=== PATIENT | female | born 1945 | race Caucasian/White ===

== ENCOUNTER 2019-04-28 01:51 | Emergency (ER) | payer OTHER ==
[2019-04-28] MEDS ORDERED: NA CHLORIDE 0.9% 1,000 ML ONE (02:32)
[2019-04-28 02:35] LABS: Absolute Lymphocytes (CBC) 1.5 K/uL (0.7-4.9); Basophils % 1.3 % (0-1.3); Hematocrit 34.9 % (36.0-45.0); Lymphocytes % 15.2 % (15.3-44.8); MPV 9.2 fL (7.6-11.3); RBC Red Blood Cell Count 3.83 M/uL (3.86-4.86)
[2019-04-28 02:55] LABS: Thyroid Stimulating Hormone 2.87 uIU/mL (0.360-3.740)
--- NOTE | 2019-04-28 03:25 | EDPHYS ---
Physician Documentation [facility] Name: Brittani Seaman Age: 74 yrs Sex: Female : 1945 Arrival Date: 04/28/2019 Time: 01:58 Bed 7 Private MD: ED Physician Luis Carlos Christianson HPI: 04/28 02:14 This 74 yrs old Female presents to ER via EMS with complaints of High Blood snw Sugar, High Blood Pressure. 02:14 The patient or guardian reports palpitations, that was potentially precipitated by snw increased activity. Onset: The symptoms/episode began/occurred gradually, 1 week(s) ago, and became worse today, and became persistent. Associated signs and symptoms: Pertinent positives: increased bp and increased blood sugar. Current symptoms: In the emergency department the patient's symptoms are unchanged from the initial presentation. The patient has experienced similar episodes in the past. appt with PCP this month. Historical: - Allergies: 02:05 Sulfa (Sulfonamide Antibiotics); ea - Home Meds: 02:05 Levemir subcutaneous subcutaneous [Active]; Novolog Sub-Q [Active]; losartan oral oral ea [Active]; amitriptyline Oral [Active]; - PMHx: 02:05 Hypothyroidism; Hypertension; Diabetes - IDDM; COPD; chronic bronchitis; ea - PSHx: 02:05 Hysterectomy; Bladder suspension; Appendectomy; Tonsillectomy; ea - Immunization history:: Adult Immunizations up to date. - Social history:: Smoking status: Patient uses tobacco products, smokes one-half pack cigarettes per day. - Ebola Screening: : No symptoms or risks identified at this time. ROS: 02:13 Constitutional: Negative for fever, chills, and weight loss, Eyes: Negative for injury, snw pain, redness, and discharge, ENT: Negative for injury, pain, and discharge, Neck: Negative for injury, pain, and swelling, Cardiovascular: Negative for chest pain and edema, + palpitations Respiratory: Negative for shortness of breath, cough, wheezing, and pleuritic chest pain, Abdomen/GI: Negative for abdominal pain, nausea, vomiting, diarrhea, and constipation, Back: Negative for injury and pain, MS/Extremity: Negative for injury and deformity, Skin: Negative for injury, rash, and discoloration, Neuro: Negative for headache, weakness, numbness, tingling, and seizure, Psych: Negative for depression, anxiety, suicide ideation, homicidal ideation, and hallucinations. Exam: 02:12 Constitutional: This is a well developed, well nourished patient who is awake, alert, snw and in no acute distress. Head/Face: Normocephalic, atraumatic. Eyes: Pupils equal round and reactive to light, extra-ocular motions intact. Lids and lashes normal. Conjunctiva and sclera are non-icteric and not injected. Cornea within normal limits. Periorbital areas with no swelling, redness, or edema. ENT: Nares patent. No nasal discharge, no septal abnormalities noted. Tympanic membranes are normal and external auditory canals are clear. Oropharynx with no redness, swelling, or masses, exudates, or evidence of obstruction, uvula midline. Mucous membranes moist. Neck: Trachea midline, no thyromegaly or masses palpated, and no cervical lymphadenopathy. Supple, full range of motion without nuchal rigidity, or vertebral point tenderness. No Meningismus. Chest/axilla: Normal chest wall appearance and motion. Nontender with no deformity. No lesions are appreciated. Respiratory: Lungs have equal breath sounds bilaterally, clear to auscultation and percussion. No rales, rhonchi or wheezes noted. No increased work of breathing, no retractions or nasal flaring. Abdomen/GI: Soft, non-tender, with normal bowel sounds. No distension or tympany. No guarding or rebound. No evidence of tenderness throughout. Back: No spinal tenderness. No costovertebral tenderness. Full range of motion. Skin: Warm, dry with normal turgor. Normal color with no rashes, no lesions, and no evidence of cellulitis. MS/ Extremity: Pulses equal, no cyanosis. Neurovascular intact. Full, normal range of motion. Neuro: Awake and alert, GCS 15, oriented to person, place, time, and situation. Cranial nerves II-XII grossly intact. Motor strength 5/5 in all extremities. Sensory grossly intact. Cerebellar exam normal. Normal gait. Psych: Awake, alert, with orientation to person, place and time. Behavior, mood, and affect are within normal limits. 02:12 Cardiovascular: Rate: tachycardic, Rhythm: regular, Pulses: no pulse deficits are appreciated, Edema: is not appreciated, JVD: is not appreciated. Vital Signs: 02:05 BP 127 / 82; Pulse 82; Resp 20; Temp 97.6; Pulse Ox 97% ; Weight 60.33 kg; Height 5 ft. ea 5 in. (165.10 cm); Pain 0/10; 02:37 BP 115 / 74; Pulse 80; Resp 18; Pulse Ox 99% ; ea 03:03 BP 166 / 65; Pulse 76; Resp 15; Pulse Ox 98% ; ea 02:05 Body Mass Index 22.13 (60.33 kg, 165.10 cm) ea MDM: 02:04 Patient medically screened. snw 03:25 Data reviewed: vital signs, nurses notes. Data interpreted: Pulse oximetry: on room air snw is 98 %. Interpretation: normal. Counseling: I had a detailed discussion with the patient and/or guardian regarding: the historical points, exam findings, and any diagnostic results supporting the discharge/admit diagnosis, the presence of at least one elevated blood pressure reading (>120/80) during this emergency department visit, lab results, radiology results, the need for outpatient follow up, to return to the emergency department if symptoms worsen or persist or if there are any questions or concerns that arise at home, smoking cessation. Special discussion: I have referred the patient to see his PCP for further evaluation of high blood pressure. Based on the history and exam findings, there is no indication for further emergent testing or inpatient evaluation. I discussed with the patient/guardian the need to see the podiatry doctor for further evaluation of the symptoms. I discussed with the patient/guardian the need to see the primary care provider for further evaluation of the symptoms. 04/28 02:12 Order name: TSH; Complete Time: 03:04 snw 04/28 02:12 Order name: CBC with Diff snw 04/28 02:12 Order name: Chem 7; Complete Time: 03:04 snw 04/28 02:12 Order name: Urine Microscopic Only snw 04/28 02:14 Order name: Chest Pa And Lat (2 Views) XRAY snw 04/28 02:37 Order name: Manual Differential EDMS 04/28 02:12 Order name: Urine Dipstick-Ancillary (obtain specimen); Complete Time: 02:30 snw 04/28 02:12 Order name: EKG; Complete Time: 02:12 snw 04/28 02:12 Order name: EKG - Nurse/Tech; Complete Time: 02:38 snw Administered Medications: 02:40 Drug: NS 0.9% 1000 ml Route: IV; Rate: 1 bolus; Site: right forearm; ea 03:57 Follow up: Response: No adverse reaction; IV Status: Completed infusion; IV Intake: ea 700ml Disposition: 05:31 Co-signature as Attending Physician, Luis Carlos Christianson MD. rn Disposition: 04/28/19 03:24 Discharged to Home. Impression: Hyperglycemia, unspecified, Encounter for examination of blood pressure without abnormal findings, Allergy, unspecified. - Condition is Stable. - Discharge Instructions: Allergies, Adult, Diabetes and Sick Day Management, Hyperglycemia, Blood Glucose Monitoring, Adult. - Prescriptions for Zyrtec 10 mg Oral Tablet - take 1 tablet by ORAL route once daily As needed; 20 tablet. - Medication Reconciliation Form, Thank You Letter, Antibiotic Education, Prescription Opioid Use form. - Follow up: Emergency Department; When: As needed; Reason: Worsening of condition. Follow up: Private Physician; When: 2 - 3 days; Reason: Recheck today's complaints, Continuance of care, Re-evaluation by your physician. Signatures: Dispatcher [employer] EDMS Marcia Friedman, GENERAL ASSEMBLER-C GENERAL ASSEMBLER-Csnw Luis Carlos Christianson MD MD rn Antunez, Elena, RN RN ea Corrections: (The following items were deleted from the chart) 03:56 03:24 04/28/2019 03:24 Discharged to Home. Impression: Hyperglycemia, unspecified; ea Encounter for examination of blood pressure without abnormal findings; Allergy, unspecified. Condition is Stable. Forms are Medication Reconciliation Form, Thank You Letter, Antibiotic Education, Prescription Opioid Use. Follow up: Emergency Department; When: As needed; Reason: Worsening of condition. Follow up: Private Physician; When: 2 - 3 days; Reason: Recheck today's complaints, Continuance of care, Re-evaluation by your physician. snw
--- NOTE | 2019-04-28 03:25 | ER ---
Nurse's Notes [facility] Name: Brittani Seaman Age: 74 yrs Sex: Female : 1945 Arrival Date: 04/28/2019 Time: 01:58 Bed 7 Private MD: Diagnosis: Hyperglycemia, unspecified;Encounter for examination of blood pressure without abnormal findings;Allergy, unspecified Presentation: 04/28 01:59 Presenting complaint: EMS states: After was loaded into the ambulance, pt ea reported she was feeling ill, blood sugar was 206. Blood pressure was in the 190s systolic. Transition of care: patient was not received from another setting of care. Onset of symptoms was April 28, 2019. Risk Assessment: Do you want to hurt yourself or someone else? Patient reports no desire to harm self or others. Initial Sepsis Screen: Does the patient meet any 2 criteria? No. Patient's initial sepsis screen is negative. Does the patient have a suspected source of infection? No. Patient's initial sepsis screen is negative. Care prior to arrival: 20 G to right forearm, blood sugar 206. 01:59 Method Of Arrival: EMS: [facility] ea 01:59 Acuity: PRAVEEN 3 ea Triage Assessment: 02:07 General: Appears in no apparent distress. Behavior is calm, cooperative, appropriate ea for age. Pain: Denies pain. Neuro: Level of Consciousness is awake, alert, obeys commands, Oriented to person, place, time, situation. Cardiovascular: Patient's skin is warm and dry. Respiratory: Airway is patent Respiratory effort is even, unlabored, Respiratory pattern is regular, symmetrical. Derm: Skin is pink, warm \T\ dry. Historical: - Allergies: 02:05 Sulfa (Sulfonamide Antibiotics); ea - Home Meds: 02:05 Levemir subcutaneous subcutaneous [Active]; Novolog Sub-Q [Active]; losartan oral oral ea [Active]; amitriptyline Oral [Active]; - PMHx: 02:05 Hypothyroidism; Hypertension; Diabetes - IDDM; COPD; chronic bronchitis; ea - PSHx: 02:05 Hysterectomy; Bladder suspension; Appendectomy; Tonsillectomy; ea - Immunization history:: Adult Immunizations up to date. - Social history:: Smoking status: Patient uses tobacco products, smokes one-half pack cigarettes per day. - Ebola Screening: : No symptoms or risks identified at this time. Screenin:06 Abuse screen: Denies threats or abuse. Nutritional screening: No deficits noted. ea Tuberculosis screening: No symptoms or risk factors identified. Fall Risk IV access (20 points). Assessment: 02:08 Reassessment: see triage assessment. ea 03:08 Reassessment: Patient and/or family updated on plan of care and expected duration. Pain ea level reassessed. Patient is alert, oriented x 3, equal unlabored respirations, skin warm/dry/pink. Awaiting on radiology results. 03:51 Reassessment: Patient and/or family updated on plan of care and expected duration. Pain ea level reassessed. Patient is alert, oriented x 3, equal unlabored respirations, skin warm/dry/pink. Discharge instruction given to patient, verbalized the understanding of instruction. Pt left ED ambulatory, pt tolerating well. Vital Signs: 02:05 BP 127 / 82; Pulse 82; Resp 20; Temp 97.6; Pulse Ox 97% ; Weight 60.33 kg; Height 5 ft. ea 5 in. (165.10 cm); Pain 0/10; 02:37 BP 115 / 74; Pulse 80; Resp 18; Pulse Ox 99% ; ea 03:03 BP 166 / 65; Pulse 76; Resp 15; Pulse Ox 98% ; ea 02:05 Body Mass Index 22.13 (60.33 kg, 165.10 cm) ea ED Course: 01:58 Patient arrived in ED. ea 02:03 Marcia Friedman FNP-C [facility]. snw 02:03 Luis Carlos Christianson MD is Attending Physician. snw 02:03 Triage completed. ea 02:06 Patient has correct armband on for positive identification. Bed in low position. Call ea light in reach. Side rails up X2. 02:07 Patient placed in an exam room, on a stretcher, on pulse oximetry. ea 02:10 Maintain EMS IV. Dressing intact. Good blood return noted. Site clean \T\ dry. Gauge \T\ ea site: 20G right forearm. 02:13 Harmony Monroe, SHAMA is Primary Nurse. ea 03:49 No provider procedures requiring assistance completed. IV discontinued, intact, ea bleeding controlled, No redness/swelling at site. Pressure dressing applied. 05:57 Chest Pa And Lat (2 Views) XRAY In Process Unspecified. EDMS Administered Medications: 02:40 Drug: NS 0.9% 1000 ml Route: IV; Rate: 1 bolus; Site: right forearm; ea 03:57 Follow up: Response: No adverse reaction; IV Status: Completed infusion; IV Intake: ea 700ml Intake: 03:57 IV: 700ml; Total: 700ml. ea Outcome: 03:24 Discharge ordered by MD. haile 03:49 Discharged to Pt admitted to hospital, pt left ED to accompany , pt left ea ambulatory, tolerating well. 03:49 Condition: stable 03:49 Discharge instructions given to patient, Instructed on discharge instructions, follow up and referral plans. medication usage, Demonstrated understanding of instructions, follow-up care, medications, Prescriptions given X 1. 03:56 Patient left the ED. ea Signatures: Dispatcher [employer] EDMS Marcia Friedman, METHODS ANALYST-C METHODS ANALYST-Csnw Harmony Monroe, RN RN radha Corrections: (The following items were deleted from the chart) 03:07 02:03 Inserted saline lock: 20 gauge in right forearm, using aseptic technique. ea ea
[2019-04-28 03:52] LABS: Urine Bacteria <20 /HPF (<20); Urine Culture Reflex Order NOT NEEDED; Urine RBC NONE SEEN /HPF (NONE SEEN)
[2019-04-28 03:55] LABS: Blood Morphology Comment NOT SEEN (NOT SEEN); Platelet Estimate ADEQ
[2019-04-28 04:17] VITALS: TEMP 97.6
[2019-04-28 04:20] VITALS: BP 166/65; O2SAT 98
--- NOTE | 2019-04-28 08:10 | RAD REPORT ---
EXAM DESCRIPTION: RAD - Chest Pa And Lat (2 Views) - 04/28/2019 5:57 am CLINICAL HISTORY: COUGH Chest pain. COMPARISON: Chest Pa And Lat (2 Views) dated 02/18/2019; Chest Pa And Lat (2 Views) dated 05/12/2017; Chest Pa And Lat (2 Views) dated 03/26/2016; Chest Single View dated 02/26/2016 FINDINGS: Advanced emphysematous changes are present throughout the lungs with areas of nodularity i n the right upper lobe which are unchanged. Linear opacity is present in the right middle lobe suspic ious for early infiltrate. The heart is normal in size. No displaced fractures. IMPRESSION: Early developing infiltrate/ pneumonia right middle lobe suspected.
--- NOTE | 2019-04-28 17:25 | EKG ---
Test Date: 2019-04-28 Test Time: 02:26:46 Machine Attendant: ARABELLA MEASUREMENT RESULTS: Intervals: Rate: 78 IN: 160 QRSD: 122 QT: 432 QTc: 492 [place]: P: 64 IN: 160 QRS: -25 T: 96 INTERPRETIVE STATEMENTS: Normal sinus rhythm Left bundle branch block Abnormal ECG Compared to ECG 02/26/2016 18:13:26 No significant changes Electronically Signed On 04-28-19 17:21:51 [employer]ORM DOOR MAKER by Dirk Gavin
== END 2019-04-28 03:56 | disposition home or self-care (01) ==
LOC: ER 01:51
DX: R73.9 Hyperglycemia, unspecified (principal); T78.40XA Allergy, unspecified, initial encounter; F17.210 Nicotine dependence, cigarettes, uncomplicated; I10 Essential (primary) hypertension; E11.9 Type 2 diabetes mellitus without complications; Z79.4 Long term (current) use of insulin; Z88.2 Allergy status to sulfonamides
CPT/HCPCS: 93005; 85025; 80048; 36415; 84443; 81015; 71046; 96360; 99284; J7030

== ENCOUNTER 2019-10-03 14:16 | Inpatient (IN) | payer OTHER ==
[2019-10-03] MEDS ORDERED: FENTANYL CITR 100 MCG/2 ML ONE ×3 (14:38→17:25)
[2019-10-03] MEDS ORDERED: ONDANSETRON 4 MG/2 ML VIAL ONE ×2 (14:38→17:25)
[2019-10-03 14:59] LABS: Absolute Lymphocytes (CBC) 1.2 K/uL (0.7-4.9); Basophils % 0.3 % (0-1.3); Hematocrit 40.6 % (36.0-45.0); Lymphocytes % 5.8 % (15.3-44.8); MPV 9.6 fL (7.6-11.3); RBC Red Blood Cell Count 4.48 M/uL (3.86-4.86)
[2019-10-03 15:13] LABS: Albumin 3.2 g/dL (3.4-5.0); Bilirubin Direct 0.2 mg/dL (0-0.2); Bilirubin Total 0.5 mg/dL (0.2-1.0); Potassium 4.7 mmol/L (3.5-5.1); Protein, Total 7.8 g/dL (6.4-8.2)
[2019-10-03 16:00] LABS: Blood Morphology Comment NOTED (NOT SEEN); Platelet Estimate ADEQ; Urine White Blood Cell Casts OK
[2019-10-03 16:01] LABS: Poikilocytosis 1+
--- NOTE | 2019-10-03 16:09 | RAD REPORT ---
EXAM DESCRIPTION: CT - Abdomen Pelvis W Contrast - 10/03/2019 3:39 pm CLINICAL HISTORY: ABD PAIN COMPARISON: Thorax Wo Con dated 07/29/2016 TECHNIQUE: Biphasic, helical CT imaging of the abdomen and pelvis was performed following 100 ml non -ionic IV contrast. No oral contrast given. All CT scans are performed using dose optimization technique as appropriate and may include automated exposure control or mA/KV adjustment according to patient size. FINDINGS: Minimal scarring and nodularity in the posterior lung bases. No acute component seen. No c ardiomegaly or pericardial effusion. Liver and spleen show no focal parenchymal findings. Significant pancreatic atrophy is present. Pancr eatic duct is prominent in the body. Gallbladder is well filled but not dilated. No acute gallbladder abnormality. Stones can be occult on CT imaging. Mild intrahepatic and extrahepatic biliary tree dil atation identified. The duodenal or pancreatic mass is not seen. Duct stones can be occult. Symmetric renal function is seen with no hydronephrosis or suspicious renal mass. No pyelonephritis o r acute parenchymal process. No bladder abnormalities. A 2 centimeter low-density right adrenal mass is present but unchanged from 2017. No suspicious left adrenal finding. Uterus is absent. Ovaries are absent or atrophic. There is significant pelvic floor prolapse. Low-den sity within the vaginal vault is probably spilled urine. Small hiatal hernia is present. No dilatation of the stomach. No gastric wall thickening, mass or rosalio ma. No abnormality of the duodenum seen. Proximal small bowel is unremarkable. From the distal jejunu m through the distal ileum there are multiple distended to borderline dilated fluid-filled small sylvia l loops. Distal ileum is normal diameter. An abrupt transition point is not identifiable. The distend ed loops will bowel do not show a wall thickening or edema pattern. Moderate stool volume throughout the colon. No acute colon process is seen. No free air or pneumatosis. Small amount of ascites present in the peritoneal cavity. No mass or bu lky lymphadenopathy. Small fat only umbilical hernia is present 2.5 cm in diameter with a 2.[address] neck. Small bilateral fat only inguinal hernias are present. Disc and bony degenerative changes are present. Findings are most pronounced at L4-5. No acute or pat hologic bone process. Patient has very dense arterial tree calcifications. There are prominent calcifications near the nuno ac and SMA vessels. Bowel ischemia is unlikely. Significant iliac atherosclerotic disease is present. Approximately 50% right common iliac stenosis is seen. Patient appears to have significant stenosis at the left common iliac - external iliac junction. Dense calcification involves the left internal il iac artery. He was IMPRESSION: Multiple distended to borderline dilated fluid-filled small bowel loops from distal jeju num to mid ileum level. No abrupt transition point or mass identified. The involved small bowel loops do not show wall thickening. There is no free air or pneumatosis. A sm all amount of ascites is present. Prominent small bowel enteritis would be favored. Early mechanical obstruction is possible and needs ongoing monitoring. Mild biliary tree dilatation without acute gallbladder finding. An obstructing mass is not identified . Duct stones can be occult. Correlation is needed with any biliary obstructive clinical or laborator y findings. Significant pelvic floor prolapse as detailed.
--- NOTE | 2019-10-03 17:13 | ER ---
Nurse's Notes [facility] Name: Brittani Seaman Age: 74 yrs Sex: Female : 1945 Arrival Date: 10/03/2019 Time: 14:20 Bed 18 Private MD: Diagnosis: Lower abdominal pain, unspecified;enteritis vs early mechanical obstruction Presentation: 10/02 14:20 Chief complaint: Patient states: mid-lower back pain radiating to abdomen that began aa5 this morning. Pt denies injury. During coronavirus screen: Pt states "I have COPD and I just have cough and congestion from allergies". EMS reports administering ASA 81mg x 4, 22 G to R hand by EMS. Pt states "last time I had blood work done by my doctor about a month ago he said I have stage 3 kidney disease". Coronavirus screen: Patient reports a cough. Patient denies shortness of breath or difficulty breathing. Patient denies measured and/or subjective temperature greater than 100.4F prior to today's visit. Patient denies travel on a cruise ship or to a country the [facility] currently lists as an affected area. Patient denies contact with known and/or suspected case of COVID-19. Ebola Screen: Patient negative for fever greater than or equal to 101.5 degrees Fahrenheit, and additional compatible Ebola Virus Disease symptoms. Initial Sepsis Screen: Does the patient meet any 2 criteria? No. Patient's initial sepsis screen is negative. Does the patient have a suspected source of infection? No. Patient's initial sepsis screen is negative. Risk Assessment: Do you want to hurt yourself or someone else? Patient reports no desire to harm self or others. Onset of symptoms was October 03, 2019. 14:20 Acuity: PRAVEEN 3 aa5 14:20 Method Of Arrival: EMS: [facility] aa5 Historical: - Allergies: 14:25 Sulfa (Sulfonamide Antibiotics); aa5 - PMHx: 14:25 chronic bronchitis; COPD; Diabetes - IDDM; Hypertension; Hypothyroidism; aa5 15:00 Prolapsed bladder; aa5 - PSHx: 14:25 Hysterectomy; Bladder suspension; Appendectomy; Tonsillectomy; aa5 - Immunization history:: Adult Immunizations unknown. - Social history:: Smoking status: Patient/guardian denies using tobacco. Screenin:25 Abuse screen: Denies threats or abuse. Nutritional screening: No deficits noted. aa5 Tuberculosis screening: No symptoms or risk factors identified. Fall Risk None identified. Assessment: 14:20 General: Appears uncomfortable, Behavior is calm, cooperative. Pain: Complains of pain aa5 in left low back, left mid back, right mid back and right low back Pain radiates to right lower quadrant and left lower quadrant Pain currently is 8 out of 10 on a pain scale. Quality of pain is described as sharp, shooting, Pain began this morning Is continuous. Neuro: Level of Consciousness is awake, alert, obeys commands, Oriented to person, place, time, situation. Cardiovascular: Patient's skin is warm and dry. Edema is absent. Respiratory: Airway is patent Respiratory effort is even, unlabored, Respiratory pattern is regular, symmetrical. GI: Abdomen is round Bowel sounds present X 4 quads. Abd is soft and non tender X 4 quads. Reports nausea, Patient currently denies diarrhea, vomiting. : Reports burning with urination, reports last void was this morning. EENT: No signs and/or symptoms were reported regarding the EENT system. Derm: Skin is pink, warm \\T\\ dry. Musculoskeletal: Range of motion: intact in all extremities. 15:28 Reassessment: Patient is alert, oriented x 3, equal unlabored respirations, skin aa5 warm/dry/pink. Patient states symptoms have not improved. pain is unchanged, HAIRMASTERS MANAGER was notified. . 16:00 Reassessment: Patient is alert, oriented x 3, equal unlabored respirations, skin aa5 warm/dry/pink. Patient states feeling better. Pt denies nausea, reports pain has improved. . 17:00 Reassessment: Patient is alert, oriented x 3, equal unlabored respirations, skin aa5 warm/dry/pink. 17:40 Reassessment: Patient is alert, oriented x 3, equal unlabored respirations, skin aa5 warm/dry/pink. Pt c/o increased pain, HAIRMASTERS MANAGER was notified. . 18:50 Reassessment: Patient is alert, oriented x 3, equal unlabored respirations, skin aa5 warm/dry/pink. Vital Signs: 14:20 BP 105 / 54; Pulse 75; Resp 18 S; Temp 97.7(O); Pulse Ox 100% on R/A; aa5 14:30 BP 95 / 64; Pulse 79; Resp 18 S; Pulse Ox 98% on R/A; aa5 14:47 BP 106 / 49; Pulse 72; Resp 16 S; Pulse Ox 97% on R/A; aa5 15:46 BP 116 / 52; Pulse 72; Resp 16 S; Pulse Ox 97% on R/A; aa5 16:00 BP 98 / 62; Pulse 69; Resp 16 S; Pulse Ox 97% on R/A; aa5 17:00 BP 109 / 52; Pulse 74; Resp 18 S; Pulse Ox 97% on R/A; aa5 18:00 BP 107 / 60; Pulse 72; Resp 18 S; Pulse Ox 96% on R/A; aa5 ED Course: 14:20 Patient arrived in ED. aa5 14:20 Arm band placed on Patient placed in an exam room, on a stretcher. aa5 14:22 [facility] kb 14:22 Rolando Dougherty MD is Attending Physician. kb 14:22 Triage completed. aa5 14:22 Patient has correct armband on for positive identification. Bed in low position. Call [facility] light in reach. Side rails up X2. Warm blanket given. alarm security or surveillance monitor on. Pulse ox on. NIBP on. 14:26 Vivian Alva, SHAMA is Primary Nurse. aa5 14:53 Initial lab(s) drawn, by me, sent to lab. Inserted saline lock: 20 gauge in left 5 antecubital area, using aseptic technique. 14:54 Patient has correct armband on for positive identification. mh5 15:40 CT Abd/Pelvis - IV Contrast Only In Process Unspecified. EDMS 17:13 Ramon Bronson MD is Hospitalizing Provider. kb 17:40 First set of blood cultures drawn by me. 22 G to R Hand by EMS, catheter was noted half aa5 way out, IV was dc'd, and gauze/tape was applied to control bleeding. 17:50 Inserted saline lock: 20 gauge in right forearm, using aseptic technique. aa5 17:50 Second set of blood cultures drawn by me. aa5 18:00 No provider procedures requiring assistance completed. aa5 Administered Medications: 14:40 Drug: fentaNYL (PF) 25 mcg Route: IVP; Site: right hand; aa5 14:50 Follow up: Response: No adverse reaction aa5 14:40 Drug: Zofran (Ondansetron) 4 mg Route: IVP; Site: right hand; aa5 14:50 Follow up: Response: No adverse reaction aa5 15:34 Drug: fentaNYL (PF) 25 mcg Route: IVP; Site: right hand; aa5 15:45 Follow up: Response: No adverse reaction aa5 17:40 Drug: fentaNYL (PF) 25 mcg Route: IVP; Site: left antecubital; aa5 17:50 Follow up: Response: No adverse reaction aa5 17:40 Drug: Zofran (Ondansetron) 4 mg Route: IVP; Site: left antecubital; aa5 17:50 Follow up: Response: No adverse reaction aa5 17:50 Drug: Flagyl 500 mg Volume: 100 ml; Route: IVPB; Rate: 200 ml/hr; Infused Over: 30 aa5 mins; Site: right forearm; 18:20 Follow up: Response: No adverse reaction; IV Status: Completed infusion aa5 17:50 Drug: NS 0.9% 1000 ml Route: IV; Rate: 125 ml/hr; Site: right forearm; aa5 18:50 Follow up: IV Status: Infusion continued upon admission aa5 18:21 Drug: Cipro 400 mg Volume: 200 ml; Route: IVPB; Infused Over: 60 mins; Site: right aa5 forearm; 18:50 Follow up: Response: No adverse reaction; IV Status: Infusion continued upon admission aa5 Outcome: 17:13 Decision to Hospitalize by Provider. kb 18:50 Patient left the ED. aa5 18:50 Admitted to Med/surg accompanied by tech, via wheelchair, with chart. aa5 18:50 Condition: stable 18:50 Instructed on the need for admit, Demonstrated understanding of instructions. Signatures: Dispatcher [employer] EDMS Yarelis Walker, [employer] APPLICATION CONSULTANT-Vivian Moralez RN RN aa5 Maki Sellers 5 Corrections: (The following items were deleted from the chart) 14:23 14:20 Chief complaint: Patient states: mid-lower back pain that began this morning. Pt aa5 denies injury. During coronavirus screen: Pt states "I have COPD and I just have cough and congestion from allergies". aa5 14:28 14:20 Chief complaint: Patient states: mid-lower back pain radiating to abdomen that aa5 began this morning. Pt denies injury. During coronavirus screen: Pt states "I have COPD and I just have cough and congestion from allergies". EMS reports administering ASA 81mg x 4, 22 G to R hand by EMS. aa5 19:13 18:57 Patient left the ED. aa5 aa5
--- NOTE | 2019-10-03 17:14 | EDPHYS ---
Physician Documentation [facility] Name: Brittani Seaman Age: 74 yrs Sex: Female : 1945 Arrival Date: 10/03/2019 Time: 14:20 Bed 18 Private MD: ED Physician Rolando Dougherty HPI: 10/02 15:45 This 74 yrs old Female presents to ER via EMS with complaints of Back Pain. kb 15:45 The patient presents with pain that is acute, with no known mechanism of injury. The kb symptoms are located in the low back. Onset: The symptoms/episode began/occurred this morning. The pain radiates to the right lower quadrant and left lower quadrant. Associated signs and symptoms: Pertinent positives: abdominal pain, nausea, Pertinent negatives: constipation, dysuria, fever. The problem was sustained without known cause. Modifying factors: The patient symptoms are alleviated by nothing, the patient symptoms are aggravated by any movement. Severity of symptoms: At their worst the symptoms were moderate, in the emergency department the symptoms are unchanged. The patient has not experienced similar symptoms in the past. The patient has not recently seen a physician. Historical: - Allergies: 14:25 Sulfa (Sulfonamide Antibiotics); aa5 - PMHx: 14:25 chronic bronchitis; COPD; Diabetes - IDDM; Hypertension; Hypothyroidism; aa5 15:00 Prolapsed bladder; aa5 - PSHx: 14:25 Hysterectomy; Bladder suspension; Appendectomy; Tonsillectomy; aa5 - Immunization history:: Adult Immunizations unknown. - Social history:: Smoking status: Patient/guardian denies using tobacco. ROS: 15:45 Constitutional: Negative for fever, chills, and weight loss, Neck: Negative for injury, kb pain, and swelling, Cardiovascular: Negative for chest pain, palpitations, and edema, Respiratory: Negative for shortness of breath, cough, wheezing, and pleuritic chest pain, : Negative for injury, bleeding, discharge, and swelling, MS/Extremity: Negative for injury and deformity, Skin: Negative for injury, rash, and discoloration, Neuro: Negative for headache, weakness, numbness, tingling, and seizure. 15:45 Abdomen/GI: Positive for abdominal pain, nausea, Negative for vomiting, diarrhea, constipation. 15:45 Back: Positive for pain at rest, pain with movement, of the low back area. Exam: 15:45 Constitutional: This is a well developed, well nourished patient who is awake, alert, kb and in no acute distress. Head/Face: Normocephalic, atraumatic. Chest/axilla: Normal chest wall appearance and motion. Nontender with no deformity. No lesions are appreciated. Cardiovascular: Regular rate and rhythm with a normal S1 and S2. No gallops, murmurs, or rubs. Normal PMI, no JVD. No pulse deficits. Respiratory: Lungs have equal breath sounds bilaterally, clear to auscultation and percussion. No rales, rhonchi or wheezes noted. No increased work of breathing, no retractions or nasal flaring. Skin: Warm, dry with normal turgor. Normal color with no rashes, no lesions, and no evidence of cellulitis. MS/ Extremity: Pulses equal, no cyanosis. Neurovascular intact. Full, normal range of motion. Neuro: Awake and alert, GCS 15, oriented to person, place, time, and situation. Cranial nerves II-XII grossly intact. Motor strength 5/5 in all extremities. Sensory grossly intact. Cerebellar exam normal. Normal gait. 15:45 Abdomen/GI: Inspection: abdomen appears normal, Bowel sounds: normal, in all quadrants, Palpation: soft, in all quadrants, moderate abdominal tenderness, in the right lower quadrant and left lower quadrant. 15:45 Back: pain, that is mild, that is moderate, of the low back area, ROM is painful, normal spinal alignment noted. Vital Signs: 14:20 BP 105 / 54; Pulse 75; Resp 18 S; Temp 97.7(O); Pulse Ox 100% on R/A; aa5 14:30 BP 95 / 64; Pulse 79; Resp 18 S; Pulse Ox 98% on R/A; aa5 14:47 BP 106 / 49; Pulse 72; Resp 16 S; Pulse Ox 97% on R/A; aa5 15:46 BP 116 / 52; Pulse 72; Resp 16 S; Pulse Ox 97% on R/A; aa5 16:00 BP 98 / 62; Pulse 69; Resp 16 S; Pulse Ox 97% on R/A; aa5 17:00 BP 109 / 52; Pulse 74; Resp 18 S; Pulse Ox 97% on R/A; aa5 18:00 BP 107 / 60; Pulse 72; Resp 18 S; Pulse Ox 96% on R/A; aa5 MDM: 14:22 Patient medically screened. kb 15:41 Data reviewed: vital signs, nurses notes. Data interpreted: Pulse oximetry: on room air kb is 100 %. Interpretation: normal. 17:11 Counseling: I had a detailed discussion with the patient and/or guardian regarding: the kb historical points, exam findings, and any diagnostic results supporting the discharge/admit diagnosis, lab results, radiology results, the need for further work-up and treatment in the hospital. Physician consultation: Ramon Bronson MD was contacted at 17:12, regarding admission, to the medical/surgical unit. patient's condition, and will see patient shortly. 10/02 14:33 Order name: Basic Metabolic Panel; Complete Time: 15:26 kb 10/02 14:33 Order name: CBC with Diff; Complete Time: 16:05 kb 10/02 14:33 Order name: Hepatic Function; Complete Time: 15:26 kb 10/02 14:33 Order name: Lipase; Complete Time: 15:26 kb 10/02 15:10 Order name: CBC Smear Scan; Complete Time: 16:05 EDSD 10/02 16:16 Order name: Glucose, Ancillary Testing; Complete Time: 16:19 EDSD 10/02 15:27 Order name: CT Abd/Pelvis - IV Contrast Only; Complete Time: 16:11 kb 10/02 16:56 Order name: Urine Dipstick--Ancillary (enter results) 10/02 17:19 Order name: CBC with Automated Diff EDSD 10/02 17:19 Order name: CBC with Automated Diff EDSD 10/02 17:19 Order name: Comprehensive Metabolic Panel EDSD 10/02 17:19 Order name: Comprehensive Metabolic Panel EDSD 10/02 17:19 Order name: Blood Culture EDSD 10/02 17:53 Order name: Blood Culture Adult (2) aa 10/02 14:33 Order name: IV Saline Lock; Complete Time: 14:41 kb 10/02 14:33 Order name: Labs collected and sent; Complete Time: 14:41 kb 10/02 16:16 Order name: Urine Dipstick-Ancillary (obtain specimen); Complete Time: 17:15 kb 10/02 17:15 Order name: Straight Cath - Urine: VO at 1625; Complete Time: 17:15 aa5 10/02 17:18 Order name: CONS Pharmacy Consult EDMS 10/02 17:18 Order name: NPO EDMS Administered Medications: 14:40 Drug: fentaNYL (PF) 25 mcg Route: IVP; Site: right hand; aa5 14:50 Follow up: Response: No adverse reaction aa5 14:40 Drug: Zofran (Ondansetron) 4 mg Route: IVP; Site: right hand; aa5 14:50 Follow up: Response: No adverse reaction aa5 15:34 Drug: fentaNYL (PF) 25 mcg Route: IVP; Site: right hand; aa5 15:45 Follow up: Response: No adverse reaction aa5 17:40 Drug: fentaNYL (PF) 25 mcg Route: IVP; Site: left antecubital; aa5 17:50 Follow up: Response: No adverse reaction aa5 17:40 Drug: Zofran (Ondansetron) 4 mg Route: IVP; Site: left antecubital; aa5 17:50 Follow up: Response: No adverse reaction aa5 17:50 Drug: Flagyl 500 mg Volume: 100 ml; Route: IVPB; Rate: 200 ml/hr; Infused Over: 30 aa5 mins; Site: right forearm; 18:20 Follow up: Response: No adverse reaction; IV Status: Completed infusion aa5 17:50 Drug: NS 0.9% 1000 ml Route: IV; Rate: 125 ml/hr; Site: right forearm; aa5 18:50 Follow up: IV Status: Infusion continued upon admission aa5 18:21 Drug: Cipro 400 mg Volume: 200 ml; Route: IVPB; Infused Over: 60 mins; Site: right aa5 forearm; 18:50 Follow up: Response: No adverse reaction; IV Status: Infusion continued upon admission aa5 Disposition: 10/03 13:59 Co-signature as Attending Physician, Rolando Dougherty MD I agree with the assessment and susanne plan of care. Disposition: 10/03/19 17:13 Hospitalization ordered by Ramon Bronson for Observation. Preliminary diagnosis are Lower abdominal pain, unspecified, enteritis vs early mechanical obstruction. - Bed requested for Telemetry/MedSurg (observation). - Status is Observation. aa5 - Condition is Stable. - Problem is new. - Symptoms are unchanged. Signatures: Dispatcher [employer] EDMS Yarelis Walker, SOLUTIONS OPERATOR-C SOLUTIONS OPERATOR-Ckb Brittany Medina, RN RN Rolando Conway MD MD cha Calderon, Audri, RN RN aa5 Corrections: (The following items were deleted from the chart) 10/02 17:14 16:22 Davis ordered. kb aa5 17:56 17:13 Hospitalization Ordered by Ramon Bronson MD for Observation. Preliminary dw diagnosis is Lower abdominal pain, unspecified; enteritis vs early mechanical obstruction. Bed requested for Telemetry/MedSurg (observation). Status is Observation. Condition is Stable. Problem is new. Symptoms are unchanged. kb 18:57 17:56 10/03/2019 17:13 Hospitalization Ordered by Ramon Bronson MD for Observation. aa5 Preliminary diagnosis is Lower abdominal pain, unspecified; enteritis vs early mechanical obstruction. Bed requested for Telemetry/MedSurg (observation). Status is Observation. Condition is Stable. Problem is new. Symptoms are unchanged. dw
[2019-10-03] MEDS ORDERED: METRONIDAZOLE 500mg IVPB 500 MG/100 ML BAG IV ONE (17:26)
[2019-10-03] MEDS ORDERED: CIPROFLOXACIN 400mg IV 400 MG/200 ML BAG IV ONE (17:26)
[2019-10-03 17:39] LABS: Urine Blood NEGATIVE (NEG); Urine Glucose NEGATIVE (NEG); Urine Protein NEGATIVE (NEG); Urine pH 5.5 (5.0-7.0)
[2019-10-03] MEDS: ARFORMOTEROL TARTRATE 15 MCG/2 ML VIAL.NEB NEB SCH ×2 (17:51→20:00)
--- NOTE | 2019-10-03 17:51 | P.HP ---
Certification for Inpatient Patient admitted to: Inpatient With expected LOS: >2 Midnights Patient will require the following post-hospital care: None Practitioner: I am a practitioner with admitting privileges, knowledge of patient current condition, hospital course, and medical plan of care. Services: Services provided to patient in accordance with Admission requirements found in Title 42 Section 412.3 of the Code of Federal Regulations Patient History Date of Service: 10/03/19 (Hospitalist) Reason for admission: Abdominal pain History of Present Illness: Patient is 74 years of age admitted with acute abdominal pain she has as some abdominal discomfort before but got worse today denies any fever chills diarrhea slight nausea no prior history of abdominal complaints before Allergies Sulfa (Sulfonamide Antibiotics) Allergy (Verified 06/02/14 09:33) Shortness of breath Home Medications: Albuterol Sulfate [Proair Hfa] 8.5 gm IH QID 06/02/14 Aspirin [Aspirin EC 81 MG] 81 mg PO DAILY 06/02/14 Brimonidine [Alphagan P 0.15%*] 2 drops EACH EYE BID 06/02/14 Guaifenesin/P-Ephed HCl [Mucinex D ER Tablet] 1 each PO DAILY 06/02/14 Insulin Detemir [Levemir] 54 units SQ DAILY WITH BREAKFAST 06/02/14 Levothyroxine Sodium [Tirosint] 88 mcg PO DAILY 06/02/14 Loratadine [Claritin*] 10 mg PO DAILY 06/02/14 Mometasone Furoate [Nasonex] 17 gm NS DAILY 06/02/14 lisinopriL [Prinivil*] 20 mg PO DAILY WITH BREAKFAST 06/02/14 - Past Medical/Surgical History -: History of COPD -: Diabetes -: Hypertension -: Hypothyroid is -: Hysterectomy -: Bladder suspension -: Appendectomy -: Tonsillectomy Psychosocial/ Personal History: Former smoker - Social History Smoking Status: Former smoker Review of Systems General: Weakness Respiratory: Shortness of Breath Gastrointestinal: Nausea, Abdominal Pain Physical Examination - Vital Signs Temperature: 97.7 F Blood Pressure: 105/54 Pulse: 75 Respirations: 18 Pulse Ox (%): 100 - Physical Exam General: Alert, In no apparent distress, Oriented x3 Respiratory: Clear to auscultation bilaterally, Diminished Cardiovascular: No edema, Regular rate/rhythm Gastrointestinal: Normal bowel sounds, Soft and benign, Tenderness (Minimal tenderness in the right side) Musculoskeletal: No clubbing, No contractures - Studies Laboratory Data (last 24 hrs) 10/03/19 14:50: WBC 21.4 H*, Hgb 13.6, Hct 40.6, Plt Count 343 10/03/19 14:50: Sodium 132 L, Potassium 4.7, BUN 17, Creatinine 1.19, Glucose 275 H, Total Bilirubin 0.5, AST 25, ALT 40, Alkaline Phosphatase 181 H, Lipase 13 L Assessment and Plan - Problems (Diagnosis) (1) Abdominal pain Current Visit: Yes Status: Acute Plan: Patient is 74 years of age admitted with acute abdominal pain her white count is elevated CT scan shows small-bowel enteritis with dilated small bowel loops white count is elevated patient on Zosyn blood culture patient's alkaline phosphatase is elevated is no rebound general surgery Consul (2) COPD (chronic obstructive pulmonary disease) Current Visit: Yes Status: Acute Plan: Start patient on bronchodilator Qualifiers: Emphysema type: unspecified - Advance Directives Does patient have a Living Will: No Does patient have a Durable POA for Healthcare: No
[2019-10-03] MEDS: NA CHLORIDE 0.9% 1,000 ML IV SCH (18:00)
[2019-10-03] MEDS ORDERED: PIPER/TAZO/NS 4.5gm 4.5 GM/100 ML BAG IVPB SCH (18:00)
[2019-10-03 19:21] VITALS: BMI 21.2
[2019-10-03] MEDS ORDERED: PROMETHAZINE INJ 25 MG/ML AMP IV PRN (20:13)
[2019-10-03] MEDS: MORPHINE 2 MG/ML SYR IV PRN (20:42)
[2019-10-03] MEDS ORDERED: GLUCAGON 1 MG/VIAL IM PRN (23:57)
[2019-10-03] MEDS ORDERED: D50W 25 GM/50 ML SYRINGE/VIAL IV PRN (23:57)
[2019-10-04] MEDS ORDERED: INSULIN -REGULAR HUMAN 50 UNIT/0.5 ML ML SQ SCH
[2019-10-04] MEDS ORDERED: GLUCAGON 1 MG/VIAL IM PRN ×2 (01:07→22:51)
[2019-10-04] MEDS ORDERED: D50W 25 GM/50 ML SYRINGE/VIAL IV PRN ×2 (01:07→22:51)
[2019-10-04] MEDS: MORPHINE 2 MG/ML SYR IV PRN ×6 (01:15→20:32)
[2019-10-04] MEDS: INSULIN -REGULAR HUMAN 50 UNIT/0.5 ML ML SQ SCH ×4 (01:17→17:34)
[2019-10-04] MEDS: NA CHLORIDE 0.9% 1,000 ML IV SCH ×4 (03:21→12:02)
[2019-10-04 04:54] LABS: Absolute Lymphocytes (CBC) 1.5 K/uL (0.7-4.9); Basophils % 0.4 % (0-1.3); Hematocrit 47.1 % (36.0-45.0); Lymphocytes % 6.7 % (15.3-44.8); MPV 10.1 fL (7.6-11.3); RBC Red Blood Cell Count 5.03 M/uL (3.86-4.86)
[2019-10-04 05:25] LABS: Albumin 2.7 g/dL (3.4-5.0); Bilirubin Total 0.4 mg/dL (0.2-1.0)
[2019-10-04 05:33] LABS: Blood Morphology Comment NOT SEEN (NOT SEEN); Platelet Estimate ADEQ
[2019-10-04 05:37] LABS: Potassium 6.5 mmol/L (3.5-5.1)
[2019-10-04] MEDS ORDERED: PIPER/TAZO/NS 4.5gm 4.5 GM/100 ML BAG IVPB SCH (06:00)
[2019-10-04] MEDS ORDERED: CALCIUM GLUC 10% INJ 9.3 MEQ in NA CHLORIDE 0.9% 100 ML IV ONE (06:00)
[2019-10-04] MEDS ORDERED: SOD POLYSTYREN SUL 15 GM/60 ML UCUP PR ONE (06:00)
[2019-10-04] MEDS ORDERED: INSULIN -REGULAR HUMAN 50 UNIT/0.5 ML ML IV ONE (06:00)
[2019-10-04] MEDS ORDERED: FUROSEMIDE 40 MG/4 ML VIAL IV ONE (06:00)
[2019-10-04] MEDS ORDERED: CALCIUM GLUCONATE 1 GM IVPB 2 GM/100 ML BAG IV ONE (06:36)
[2019-10-04] MEDS ORDERED: PNEUMOCOCCAL VACCINE 0.5 ML IMVAC ONE (08:00)
[2019-10-04] MEDS: ARFORMOTEROL TARTRATE 15 MCG/2 ML VIAL.NEB NEB SCH ×2 (08:00→21:12)
[2019-10-04 09:43] LABS: Potassium 4.8 mmol/L (3.5-5.1)
[2019-10-04] MEDS ORDERED: Ringers Lactate 1,000 ML IV SCH (11:00)
[2019-10-04 11:32] LABS: Urine Protein/Creatinine Ratio 0.33 ratio (<0.15)
--- NOTE | 2019-10-04 11:32 | RAD REPORT ---
EXAM DESCRIPTION: RAD - Chest Single View - 10/04/2019 11:25 am CLINICAL HISTORY: COPD Chest pain. COMPARISON: Chest Pa And Lat (2 Views) dated 04/28/2019; Chest Pa And Lat (2 Views) dated 02/18/2019; Chest Pa And Lat (2 Views) dated 05/12/2017; Chest Pa And Lat (2 Views) dated 03/26/2016; Thorax Wo Co n dated 07/29/2016 FINDINGS: Portable technique limits examination quality. Emphysematous changes are present with areas of calcified nodularity seen in the right upper lobe, st able. Mild linear subsegmental atelectasis is also noted both lung bases. No focal consolidation seen typical of bacterial pneumonia. The heart is normal in size. No displaced fractures. IMPRESSION: COPD.
[2019-10-04] MEDS ORDERED: NA CHLORIDE 0.9% 1,000 ML IV SCH ×2 (12:50→20:00)
--- NOTE | 2019-10-04 13:00 | CON ---
Date of Consultation: 10/03/2019 Reason: Abdominal pain. History Of Present Illness: Patient is a 74-year-old female, who has been having nonspecific diffuse abdominal pain since last Thursday associated with nausea, but no vomiting. No diarrhea or constipati on, although she has not had a bowel movement since Thursday. She is passing gas and she wears a diape r and occasionally the diaper is dirty she states. She has no dysuria or hematuria. The pain is in the lower abdomen mostly. She has had this type of pain off and on in the past. No sore throat, run ny nose, cough, headaches, or dizziness. No chest pain. No fever or chills. Review of Systems: Otherwise unremarkable. Past Medical History: Significant for diabetes type 1, chronic bronchitis, COPD, hypertension, hypot hyroidism, prolapsed bladder. Past Surgical History: Appendectomy, hysterectomy, bladder suspension, tonsillectomy. Patient does not smoke any more, however, in the past she has smoked 1 pack a day for many years. She denies yobani ferguson. Family History: Noncontributory. Physical Examination: Vital Signs: Currently stable. She is afebrile. General: She is awake, alert, and oriented x3. Head and Neck: Cranial nerves 2 through 12 are grossly within normal limits. No neck masses. No JV D. Throat clear. Neck is supple. Chest: Clear. Heart: S1 and S2. Abdomen: Soft. Hypoactive bowel sounds. Minimal distention, actually there is not much tenderness, rebound, rigidity, or guarding. No abdominal wall hernia appreciated. Extremities: Adequately perfused. Nontender. Neuro: Nonfocal. Laboratory Data: White count on admission was 21.4 yesterday, today is 22.8, there is a left shift. Chemistry reviewed, her lactic acid is 4.9, glucose was 409 yesterday, 185 today. She has chronic r enal insufficiency with BUN of 40 and creatinine of 2.61. CT of the abdomen and pelvis was reviewed with Dr. 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 There is also disease in the bilateral iliac and external iliac, internal iliac, and common iliac. Assessment: Significant mesentery vascular disease in a patient with borderline small bowel obstruct ion, probably enteritis and ischemia is certainly a concern. Recommendations: N.p.o., IV fluid, IV antibiotics. Discussed the case in detail with Dr. Tyrese ovalle I believe the best course of action is to transfer the patient to a tertiary care where Interventio nal Radiology with Vascular Surgery on back up would be required to see if the blood flow to the inte casey can be improved after mesenteric angiogram is performed. This hospital at this time is not cap able of managing such conditions. We will follow the patient while in the hospital, however, surgica l intervention is not indicated at this time, but Interventional Radiology or Interventional Vascular certainly would benefit this patient. /MODL Voice ID: [id number] Report ID: [id number]
--- NOTE | 2019-10-04 16:32 | P.DS ---
Admission Date: 10/03/19 Discharge Date: 10/04/19 Disposition: TRANSFER TO [facility] Discharge Condition: FAIR Reason for Admission: Abdominal pain - Problems (1) Abdominal pain Current Visit: Yes Status: Acute (2) COPD (chronic obstructive pulmonary disease) Current Visit: Yes Status: Acute Qualifiers: COPD type: emphysema Emphysema type: unspecified Qualified Code(s): J43.9 - Emphysema, unspecified Brief History of Present Illness: Marquis is a 74-year-old female with a past medical history of hypothyroidism, COPD and type 2 diabetes mellitus. She presented to the ER with acute onset of abdominal pain and was found to have evidence of small bowel enteritis on CT scan. She had a lactic acid of 4.7 on admission, which improved to 2.6 after IV fluid bolus. Surgery was consulted and after reviewing the CT scan of abdomen and pelvis there was concern for calcification the celiac and superior mesenteric artery. Surgery recommended vascular surgery for higher level of care. Her hospital course has been complicated by seizure hyperglycemia, acute renal failure. However, her vital signs are stable. She will be transferred to the hospitalist with consult to Vascular surgery. Sign out given the hospitalist. Patient was on Zosyn during this admission. Her last white count was more than 22.. Vital Signs/Physical Exam: Temp Pulse Resp BP Pulse Ox 97.4 F 77 18 109/59 L 97 10/04/19 12:00 10/04/19 12:00 10/04/19 14:30 10/04/19 12:00 10/04/19 14:30 General: In no apparent distress, Oriented x3 HEENT: Atraumatic, Normocephalic Neck: Supple Respiratory: Clear to auscultation bilaterally, Normal air movement Cardiovascular: No edema, Normal pulses, Regular rate/rhythm, Normal S1 S2 Gastrointestinal: Other (LLQ tenderness) Integumentary: No rashes, No breakdown, No significant lesion, No tenderness/swelling Neurological: Normal speech, Normal strength at 5/5 x4 extr Laboratory Data at Discharge: WBC 22.8 K/uL (4.3-10.9) H* 10/04/19 04:41 Hgb 15.5 g/dL (12.0-15.0) H 10/04/19 04:41 Hct 47.1 % (36.0-45.0) H D 10/04/19 04:41 Plt Count 303 K/uL (152-406) 10/04/19 04:41 Sodium 138 mmol/L (136-145) 10/04/19 09:15 Potassium 4.8 mmol/L (3.5-5.1) 10/04/19 09:15 BUN 40 mg/dL (7-18) H 10/04/19 09:15 Creatinine 2.61 mg/dL (0.55-1.3) H 10/04/19 09:15 Glucose 185 mg/dL (74-106) H 10/04/19 09:15 Total Bilirubin 0.4 mg/dL (0.2-1.0) 10/04/19 04:41 AST 27 U/L (15-37) 10/04/19 04:41 ALT 40 U/L (12-78) 10/04/19 04:41 Alkaline Phosphatase 159 U/L (45-117) H 10/04/19 04:41 Lipase 13 U/L (73-393) L 10/03/19 14:50 Home Medications: Loratadine [Claritin*] 10 mg PO DAILY 06/02/14 Amitriptyline [Elavil*] 10 mg PO BEDTIME 10/04/19 Aspirin [Aspirin EC 81 MG] 81 mg PO DAILY 10/04/19 Atorvastatin Calcium 20 mg PO DAILY 10/04/19 Fluticasone Propionate [Flovent Diskus] 1 spray IH DAILY 10/04/19 Insulin Aspart [Novolog] See Protocol SQ ACHS 10/04/19 Levothyroxine [Synthroid*] 100 mcg PO DAILY 10/04/19 Losartan Potassium 100 mg PO DAILY 10/04/19 Metoprolol Tartrate 25 mg PO DAILY 10/04/19
[2019-10-04] MEDS ORDERED: PIPER/TAZO/NS 2.25gm 2.25 GM/50 ML BAG IVPB SCH (17:00)
--- NOTE | 2019-10-04 18:30 | CON ---
Date of Consultation: 10/04/2019 Reason For Consultation: Elevated BUN and creatinine. History Of Present Illness: This is a pleasant 74-year-old female with significant past medical hist ory of COPD; diabetes since childhood, diet type 1, complicated with neuropathy, no retinopathy, insu ioana dependent; hypothyroidism; hyperlipidemia. Patient came to the hospital complaining of some abdo makeda pain, nausea, and vomiting. Primary workup showed possibility of enteritis, questionable parti al small-bowel obstruction. Upon admission to the hospital, kidney function was completely in accept able range of creatinine 1.9. Yesterday developed hyperkalemia, potassium 6.5 with creatinine 2.1, G FR down to 22 from 45. For that reason, we have been consulted. Reviewing the record for the patient, patient's baseline creatinine before back in 2019 in April 0 .9 with normal GFR of 57. As I mentioned, patient had CT with contrast. Upon admission, patient was on lisinopril. Yesterday, lisinopril has been discontinued. Patient was started on IV fluid of LR, then switched to normal saline. Patient received a dose of Lasix today. Patient still complaining of some abdominal pain with bladder distention. Patient also mentions that she had a bladder suspens ion surgery before. Past Medical History: 1.Hypertension. 2.Hyperlipidemia. 3.Diabetes complicated with neuropathy, type 1. 4.Hypothyroidism. 5.COPD. Past Surgical History: 1.Bladder suspension. 2.Hysterectomy. 3.Appendectomy. 4.Tonsillectomy. Home Medications: 1.Breathing treatment. 2.Insulin. 3.Levothyroxine. 4.Loratadine. 5.Lisinopril. 6.Nasonex. Allergies: SULFA. Social History: Ex-smoker. Denied alcohol. Denied drug abuse. Family History: Positive for hypertension. Physical Examination: General: When I saw the patient, patient lying in bed. Vital Signs: Blood pressure of 109/59, pulse of 77, afebrile. Chest: Clear to auscultation. Heart: S1, S2. Regular rhythm. Abdomen: Soft, nontender except in the suprapubic area with dullness. Extremities: No edema. Neuro: Alert, nonfocal. Laboratory Data: Today, sodium 138, potassium 4.8, bicarb 21, BUN 40, creatinine 2.6, GFR of 18, blo od sugar 185, calcium 8.9, lactic acid 4.9. Yesterday, sodium 133, potassium 6.5, bicarb 19, BUN 32, creatinine 2.1. This is early today morning. Yesterday, creatinine 1.1, GFR of 45. Urinalysis: P C ratio 0.3. As I mentioned, CT with no hydronephrosis. Assessment And Plan: 1.Acute kidney injury secondary to prerenal superimposed with CHRISTIANO inhibitor contrast-induced nephrop athy, complicated with hyperkalemia and acidosis. Hyperkalemia has resolved. Looked to me on the dr y side. I am going to change IV fluid to normal saline. We will increase the rate to 125 per hour a nd we will follow up the patient. I will increase IV fluid to 125 and we will get bladder ultrasound to evaluate any obstruction. We will consider Davis if has urine retention and we will follow up. Keep holding CHRISTIANO inhibitor for the time being. 2.Hyperkalemia secondary to renal failure/LR/CHRISTIANO inhibitor. Discontinue CHRISTIANO inhibitor, discontinue LR. Agree with normal saline, we will increase, currently resolved. We will monitor. I am going to go ahead and send for TSH and CK to evaluate any other sources. 3.Small-bowel obstruction, as by primary. 4.Diabetes, as by primary. AIXA/ANABELLE Voice ID: [id number] Report ID: [id number]
[2019-10-04] MEDS ORDERED: PROMETHAZINE INJ 25 MG/ML AMP IV PRN (20:01)
[2019-10-04] MEDS ORDERED: ARFORMOTEROL TARTRATE 15 MCG/2 ML VIAL.NEB NEB SCH (20:02)
[2019-10-04 22:32] VITALS: O2SAT 95
[2019-10-05] MEDS ORDERED: INSULIN -REGULAR HUMAN 50 UNIT/0.5 ML ML SQ SCH
[2019-10-05] MEDS: MORPHINE 2 MG/ML SYR IV PRN (00:10)
[2019-10-05] MEDS ORDERED: PIPER/TAZO/NS 2.25gm 2.25 GM/50 ML BAG IVPB SCH (01:00)
[2019-10-05 01:05] VITALS: BP 132/52; TEMP 98.1
== END 2019-10-05 00:30 | disposition short-term general hospital (02) | DRG 392 ==
LOC: ER 14:16 → SUPCPDRO 14:16 → ERHOLD 17:15 → 2ND 18:32
PROVIDERS: ADMIT Internal Medicine Sleep Medicine; ATTEND Internal Medicine
DX: K52.9 Noninfective gastroenteritis and colitis, unspecified (principal); N17.9 Acute kidney failure, unspecified; E87.2 Acidosis; K56.609 Unspecified intestinal obstruction, unspecified as to partial versus complete obstruction; E78.5 Hyperlipidemia, unspecified; E03.9 Hypothyroidism, unspecified; E87.5 Hyperkalemia; Z90.49 Acquired absence of other specified parts of digestive tract; Z79.4 Long term (current) use of insulin; Z90.710 Acquired absence of both cervix and uterus; Z79.890 Hormone replacement therapy; Z79.899 Other long term (current) drug therapy; Z88.1 Allergy status to other antibiotic agents; Z87.891 Personal history of nicotine dependence; N14.1 Nephropathy induced by other drugs, medicaments and biological substances; T50.8X5A Adverse effect of diagnostic agents, initial encounter; J43.9 Emphysema, unspecified; E11.40 Type 2 diabetes mellitus with diabetic neuropathy, unspecified; E11.65 Type 2 diabetes mellitus with hyperglycemia; R56.9 Unspecified convulsions; Z79.82 Long term (current) use of aspirin; I99.8 Other disorder of circulatory system
CPT/HCPCS: 36415; 71045; 74177; 80048; 80053; 80076; 81003; 82570; 82947; 83605; 83690; 84156; 84300; 85025; 87040; 96365; 96367; 96375; 99285; J0610; J0744; J1940; J2270; J2405; J2550; J3010; J7030; J7605; Q9967

== ENCOUNTER 2022-05-05 07:53 | Day surgery (SDC) | payer OTHER ==
--- NOTE | 2022-05-02 15:17 | RAD REPORT ---
EXAM DESCRIPTION: RAD - Chest Pa And Lat (2 Views) - 05/02/2022 3:11 pm CLINICAL HISTORY: pdre op for surgery COMPARISON: Chest Single View dated 10/04/2019; Chest Pa And Lat (2 Views) dated 04/28/2019; Chest Pa And Lat (2 Views) dated 02/18/2019; Chest Pa And Lat (2 Views) dated 05/12/2017; CHEST SINGLE VIEW regina ed 09/27/2014 FINDINGS: Lines: Pacemaker . Lungs: No evidence of edema or pneumonia. Right upper lobe nodules. These are unchanged. Pleural: No significant pleural effusions or pneumothorax. Emphysema. Cardiac: Mild cardiomegaly. Mediastinum: Within normal limits. Bones: No acute fractures. Other: None IMPRESSION: Emphysema without superimposed acute process.
[2022-05-02 15:22] LABS: Absolute Lymphocytes (CBC) 0.9 K/uL (0.7-4.9); Lymphocytes % 12.9 % (15.3-44.8); MCV 93.8 fL (80-100); MPV 9.3 fL (7.6-11.3); RBC Red Blood Cell Count 3.51 M/uL (3.86-4.86)
[2022-05-02 15:58] LABS: Potassium 4.1 mmol/L (3.5-5.1)
[2022-05-05] MEDS ORDERED: CEFAZOLIN SODIUM 1 GM/VIAL ONE (08:18)
[2022-05-05] MEDS ORDERED: NA CHLORIDE 0.9% 1,000 ML ONE (08:19)
[2022-05-05] MEDS ORDERED: NA CIT/CITRIC AC 30 ML ORAL UDC ONE (08:31)
[2022-05-05] MEDS ORDERED: propofoL 200 MG/20 ML VIAL IV ONE (08:52)
[2022-05-05] MEDS ORDERED: LIDOCAINE 1% MPF 5 ML VIAL ONE (08:52)
[2022-05-05] MEDS ORDERED: FENTANYL CITR 100 MCG/2 ML ONE (08:52)
[2022-05-05] MEDS ORDERED: MIDAZOLAM HCL 2 MG/2 ML INJ ONE (10:05)
--- NOTE | 2022-05-05 11:03 | P.BOP ---
Preoperative diagnosis: left upper back maker subQ mass Postoperative diagnosis: same Primary procedure: Excisional biopsy of left upper back maker subQ mass 5x5cm Estimated blood loss: <10cc Specimen: left upper back subQ mass Findings: left upper back subQ mass Anesthesia: General Complications: None Transferred to: Recovery Room Condition: Good
[2022-05-05 11:56] VITALS: BP 148/47; TEMP 97.4; O2SAT 98
[2022-05-05] MEDS ORDERED: HYDROCODONE/APAP 7.5/325 MG TAB ONE (12:20)
--- NOTE | 2022-05-05 15:15 | EKG ---
Test Date: 2022-05-02 Test Time: 14:54:16 Traffic Enumerator: COLLEEN MEASUREMENT RESULTS: Intervals: Rate: 69 WA: 168 QRSD: 160 QT: 470 QTc: 503 [place]: P: 75 WA: 168 QRS: 92 T: -85 INTERPRETIVE STATEMENTS: Electronic ventricular pacemaker Compared to ECG 04/28/2019 02:26:46 Sinus rhythm no longer present Left bundle-branch block no longer present Electronically Signed On 05-05-22 15:10:46 INDUSTRIAL [employer]ATION ENGINEER by Malik Fisher
--- NOTE | 2022-05-05 19:13 | OP ---
Date of Procedure: 05/05/2022 Surgeon: Paul Sellers MD Preoperative Diagnosis: Left upper back tender paper machine subcutaneous mass. Postoperative Diagnosis: Left upper back tender paper machine subcutaneous mass. Procedure: Excisional biopsy of left upper back tender paper machine subcutaneous mass 5 x 5 cm. Estimated Blood Loss: Less than 10 cc. Specimen: Subcutaneous mass. Finding: Left upper back subcutaneous mass. Anesthesia: General plus local. Complications: None. Indications: This is the case of a female who comes to us with a tender back mass increasing in size and discomfort. She wants that excised. The benefits, alternatives, and risks of excision were ful ly explained, which include, but are not limited to infection, bleeding, damage to adjacent structure s, anesthesia complication, recurrence, [place], and even . She also understands this may not reliev e her symptoms. She may need more than one surgical intervention. She understood and signed a conse nt. Procedure In Detail: The area of concern was marked by me and the patient in the holding room. The patient was brought to the operating room and placed in supine position. Anesthesia was given withou t complication. The patient was placed in lateral decubitus position with proper protection. The ba area was prepped and draped in a sterile fashion. After injecting local anesthetic, an incision w as made in that area. Incision was carried down to deep subcutaneous tissue. We localized this mass and with the help of blunt dissection, we proceeded to delineate and remove the mass completely away from the muscle itself. The mass is adhered to the fascia of the muscle, but does not penetrate the muscle. The mass was completely excised in 1 unit. Area was irrigated. Hemostasis was obtained an d the area was closed with a combination of 3-0 chromic and then alisia. The patient tolerated the procedure well. Sponge count and instrument counts were correct. Patient was sent to recovery in st able condition. JODIE/ANABELLE Voice ID: [id number] Report ID: [id number]
--- NOTE | 2022-05-05 19:13 | DS ---
Diagnosis: Left upper backend python developer subcutaneous mass. Procedure: Excisional biopsy of left lower backend python developer subcutaneous mass. Disposition: Home. Activity: As tolerated. No heavy lifting. Follow Up: In my office in 1 week. Call for appointment on [phone]. Keep area dry until next docto r's visit. MARCUS Voice ID: [id number] Report ID: [id number]
== END 2022-05-05 12:45 | disposition home or self-care (01) ==
LOC: OR 07:53
PROVIDERS: ATTEND Surgery
PROC: 0JB70ZZ Excision of Back Subcutaneous Tissue and Fascia, Open Approach (ICD-10-PCS; principal; 2022-05-05 09:45)
DX: D17.1 Benign lipomatous neoplasm of skin and subcutaneous tissue of trunk (principal); I10 Essential (primary) hypertension; J44.9 Chronic obstructive pulmonary disease, unspecified; E78.00 Pure hypercholesterolemia, unspecified; E03.9 Hypothyroidism, unspecified; I50.9 Heart failure, unspecified
CPT/HCPCS: 93005; 85025; 80048; 36415; 82947 ×2; 88304; 71046; 11406; J2704; J2001; J2250; J3010; J7030; J0690

== ENCOUNTER 2023-06-07 09:57 | Inpatient (IN) | payer OTHER ==
[2023-06-07 10:38] LABS: Absolute Lymphocytes (CBC) 0.4 K/uL (0.7-4.9); Hematocrit 32.8 % (36.0-45.0); MPV 9.4 fL (7.6-11.3); Platelets 253 thou/uL (152-406); RBC Red Blood Cell Count 3.46 M/uL (3.86-4.86)
[2023-06-07 10:39] LABS: Protime INR 1.37
[2023-06-07] MEDS ORDERED: NA CHLORIDE 0.9% 1,000 ML ONE (10:41)
--- NOTE | 2023-06-07 10:55 | RAD REPORT ---
EXAM DESCRIPTION: RADChest Single View06/07/2023 10:41 am CLINICAL HISTORY: COUGH COMPARISON: Chest Single View dated 03/16/2023; Chest Single View dated 03/15/2023; Chest Single View dated 03/15/2023; Chest Pa And Lat (2 Views) dated 05/02/2022; Chest For Pe Angio dated 03/15/2023 TECHNIQUE: Portable AP view of the chest. FINDINGS: New patchy right lower lung airspace opacities with small right pleural effusion, extendin g along the right minor fissure. Background hyperlucency and chronic interstitial changes as well as small right apical irregular nodules are stable, suggestive sequelae of COPD and/or chronic scarring. No pneumothorax or effusion. The cardiomediastinal contours are unremarkable. Left chest wall pace r in place. IMPRESSION: New patchy right basilar airspace opacities with small effusion, concerning for pneumoni a.
[2023-06-07 10:57] LABS: ALT/SGPT 24 U/L (13-56); AST/SGOT 16 U/L (15-37); Albumin 2.2 g/dL (3.4-5.0); Alkaline Phosphatase 112 U/L (45-117); BUN Blood Urea Nitrogen 26 mg/dL (7-18); Bicarbonate 21 mEq/L (21-32); Bilirubin Direct 0.3 mg/dL (0-0.2); Bilirubin Indirect, Calculated 0.2 mg/dL (0.2-0.8); Bilirubin Total 0.5 mg/dL (0.2-1.0); Glomerular Filtration Rate 43 ml/min (=/>90); Glucose Level 328 mg/dL (74-106); Magnesium 1.3 mg/dL (1.6-2.4); NT PRO-BNP 9239 pg/mL (<450); Protein, Total 6.1 g/dL (6.4-8.2); Sodium Level 137 mEq/L (136-145); Troponin High Sensitivity 15.5 pg/mL (<58.9)
[2023-06-07 10:58] LABS: Lipase < 6 U/L (13-75)
[2023-06-07 12:00] LABS: Anisocytosis 1+; Blood Morphology Comment NOTED (NOT SEEN); Platelet Estimate ADEQ; White Blood Cell Scan OK (OK)
--- NOTE | 2023-06-07 12:15 | RAD REPORT ---
EXAM DESCRIPTION: CT - Chest Abdomen Pelvis W Cont - 06/07/2023 11:26 am CLINICAL HISTORY: COUGH COMPARISON: Chest For Pe Angio dated 03/15/2023; Chest Single View dated 06/07/2023 TECHNIQUE: Thin axial CT images of the chest, abdomen, and pelvis, performed following intravenous a dministration of Isovue-300. Multiplanar reformats were generated and reviewed. All CT scans are performed using dose optimization technique as appropriate and may include automated exposure control or mA/KV adjustment according to patient size. FINDINGS: Consolidative right lower lobe airspace opacities. Small right and trace left pleural effu sions. Right middle lobe atelectasis. Nodular irregular right apical opacities and similar minimal le ft apical opacities, with some calcifications on the right, suggestive of scarring. Background modera te centrilobular emphysematous changes.No pneumothorax or pericardial effusion.Moderately prominent m ediastinal and right hilar lymph nodes, largest measuring 1.8 cm in short axis in the subcarinal zone , favoring infectious or inflammatory etiologies. Left chest wall pacer/AICD in place. The liver, spleen, pancreas, left adrenal gland, and kidneys are within normal limits. Grossly stable right adrenal 1.8 cm nodule, not well characterized. Gallbladder is moderately distended without adj acent fluid or stranding. Dense atherosclerotic calcifications along the abdominal aorta, with severe stenosis appreciated at the diaphragmatic hiatus. No bowel obstruction, free air, free fluid or abscess. Anastomotic suture line near the cecum, and an other more anteriorly in the right lower quadrant may relate to sequelae of small-bowel resection. Vaginal diaphragm in place. There is some mass effect just above the bladder neck posteriorly. Large ventral hernia supraumbilical, containing fat, measuring 4 cm in transverse diameter at the [facility]. Diastasis recti. Small inguinal hernias containing fat. No pathologic lymphadenopathy in the abdo men or pelvis. No worrisome osseous finding. IMPRESSION: Consolidative right lower lobe airspace opacities with small effusions larger on the rig ht, concerning for pneumonia. Moderately prominent mediastinal and right hilar lymph nodes, favoring infectious or inflammatory seq uelae. Grossly stable size of right adrenal 1.8 cm nodule, not well characterized, although size stability s uggests benign etiology. Other incidental findings as above, including probable severe atherosclerotic stenosis of the aorta a t the level of the diaphragmatic hiatus.
[2023-06-07] MEDS ORDERED: FAMOTIDINE 20 MG/2 ML VIAL IV ONE (12:56)
[2023-06-07] MEDS ORDERED: AZITHROMYCIN 500 MG INJ IVPB ONE (12:56)
[2023-06-07] MEDS ORDERED: NA CHLORIDE 0.9% 100 ML ONE (12:56)
[2023-06-07] MEDS ORDERED: NA CHLORIDE 0.9% 250 ML ONE (12:56)
[2023-06-07] MEDS ORDERED: Magnesium Sulfate 2gm IVPB 2 G/50 ML BAG IV ONE (12:57)
[2023-06-07] MEDS ORDERED: ACETYLCYST 6,000 MG/30 ML VIAL ONE (12:57)
[2023-06-07] MEDS ORDERED: PIPERACIL/TAZO 3.375 GM VIAL IV ONE (12:57)
[2023-06-07] MEDS ORDERED: METHYLPREDNISOLONE 125 MG INJ ONE (13:46)
[2023-06-07] MEDS ORDERED: LEVALBUTEROL 1.25 MG/3 ML NEB ONE (13:46)
[2023-06-07] MEDS ORDERED: IPRATROPIUM BROM 0.5MG/2.5ML ONE (13:46)
[2023-06-07] MEDS ORDERED: INSULIN REGULAR (HUMAN) 100 UNIT/ML ONE (13:47)
--- NOTE | 2023-06-07 13:49 | EDPHYS ---
Physician Documentation [facility] Name: Brittani Seaman Age: 78 yrs Sex: Female : 1945 Arrival Date: 06/07/2023 Time: 09:57 Bed 20 Private MD: ED Physician Rolando Dougherty HPI: 06/07 13:38 This 78 yrs old Female presents to ER via EMS with complaints of Flank Pain. susanne 13:38 The patient complains of pain in the right mid back and right low back. The pain does susanne not radiate. Onset: The symptoms/episode began/occurred 4 day(s) ago. Modifying factors: The symptoms are alleviated by nothing. the symptoms are aggravated by movement, palpation/percussion. Associated signs and symptoms: Pertinent positives: nausea. 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 - Social history:: Smoking status: Patient denies any tobacco usage or history of. ROS: 13:38 Constitutional: Negative for fever, chills, and weight loss, Eyes: Negative for injury, susanne pain, redness, and discharge, ENT: Negative for injury, pain, and discharge, Neck: Negative for injury, pain, and swelling, Cardiovascular: Negative for chest pain, palpitations, and edema, Abdomen/GI: Negative for abdominal pain, nausea, vomiting, diarrhea, and constipation, Back: Negative for injury and pain, : Negative for injury, bleeding, discharge, and swelling, MS/Extremity: Negative for injury and deformity, Skin: Negative for injury, rash, and discoloration, Neuro: Negative for headache, weakness, numbness, tingling, and seizure, Psych: Negative for depression, anxiety, suicide ideation, homicidal ideation, and hallucinations, Allergy/Immunology: Negative for hives, rash, and allergies, Endocrine: Negative for neck swelling, polydipsia, polyuria, polyphagia, and marked weight changes, Hematologic/Lymphatic: Negative for swollen nodes, abnormal bleeding, and unusual bruising, 13:38 Respiratory: Positive for cough, shortness of breath, at rest. Exam: 13:38 Constitutional: This is a well developed, well nourished patient who is awake, alert, susanne and in no acute distress. Head/Face: Normocephalic, atraumatic. Eyes: Pupils equal round and reactive to light, extra-ocular motions intact. Lids and lashes normal. Conjunctiva and sclera are non-icteric and not injected. Cornea within normal limits. Periorbital areas with no swelling, redness, or edema. ENT: Nares patent. No nasal discharge, no septal abnormalities noted. Tympanic membranes are normal and external auditory canals are clear. Oropharynx with no redness, swelling, or masses, exudates, or evidence of obstruction, uvula midline. Mucous membranes moist. Neck: Trachea midline, no thyromegaly or masses palpated, and no cervical lymphadenopathy. Supple, full range of motion without nuchal rigidity, or vertebral point tenderness. No Meningismus. Chest/axilla: Normal chest wall appearance and motion. Nontender with no deformity. No lesions are appreciated. Cardiovascular: Regular rate and rhythm with a normal S1 and S2. No gallops, murmurs, or rubs. Normal PMI, no JVD. No pulse deficits. Abdomen/GI: Soft, non-tender, with normal bowel sounds. No distension or tympany. No guarding or rebound. No evidence of tenderness throughout. Back: No spinal tenderness. No costovertebral tenderness. Full range of motion. Female : Normal external genitalia. Skin: Warm, dry with normal turgor. Normal color with no rashes, no lesions, and no evidence of cellulitis. MS/ Extremity: Pulses equal, no cyanosis. Neurovascular intact. Full, normal range of motion. Neuro: Awake and alert, GCS 15, oriented to person, place, time, and situation. Cranial nerves II-XII grossly intact. Motor strength 5/5 in all extremities. Sensory grossly intact. Cerebellar exam normal. Normal gait. Psych: Awake, alert, with orientation to person, place and time. Behavior, mood, and affect are within normal limits. 13:38 ECG was reviewed by the Attending Physician. 13:38 Respiratory: moderate respiratory distress is noted, Respirations: labored breathing, that is mild, Breath sounds: decreased breath sounds, that are moderate, are heard in the right lower lobe, right posterior middle lobe and right posterior lower lobe, Respiratory rate: 22 Vital Signs: 10:05 BP 134 / 67; Pulse 94; Resp 18; Temp 98.6; Pulse Ox 95% ; Weight 61.69 kg; Height 5 ft. cp4 4 in. ; Pain 8/10; 14:52 BP 131 / 51; Pulse 92; Resp 26; Pulse Ox 97% on 3 lpm NC; ph 15:32 BP 155 / 65; Pulse 97; Resp 24; Temp 98.8; Pulse Ox 96% on 2 lpm NC; ph 10:05 Body Mass Index 23.34 (61.69 kg, 162.56 cm) cp4 10:05 Pain Scale: Adult cp4 MDM: 10:09 Patient medically screened. susanne 13:41 Antibiotic administration: zithromax/ zosyn. Differential diagnosis: Chronic susanne Obstructive Pulmonary Disease nephrolithiasis, pyelonephritis, UTI, pneumonia, pulmonary edema, reactive airway disease, Sepsis Unstable Angina. Differential Diagnosis: Obstructed Airway Bronchitis Influenza Upper Respiratory Infection Sinusitis Pharyngitis. Immunization status: Pneumococcal vaccine: within last 5 years. Influenza vaccine: within last 5 years. Data reviewed: vital signs, nurses notes, lab test result(s), EKG, radiologic studies, plain films. Consideration of Admission/Observation Patient was admitted/placed on observation. Escalation of care including admission/observation considered. I considered the following discharge prescriptions or medication management in the emergency department Medications were administered in the Emergency Department. See MAR. Test considered but Not performed: MRI: no chest mri. 06/07 10:13 Order name: Basic Metabolic Panel; Complete Time: 12:32 [facility] 06/07 10:13 Order name: CBC with Diff; Complete Time: 12:32 [facility] 06/07 10:13 Order name: LFT's; Complete Time: 12:32 [facility] 06/07 10:13 Order name: Magnesium; Complete Time: 12:32 [facility] 06/07 10:13 Order name: NT PRO-BNP; Complete Time: 12:32 [facility] 06/07 10:13 Order name: PT-INR; Complete Time: 12:32 [facility] 06/07 10:13 Order name: Troponin HS; Complete Time: 12:32 [facility] 06/07 10:13 Order name: Lipase; Complete Time: 12:32 [facility] 06/07 10:13 Order name: Urinalysis w/ reflexes [facility] 06/07 12:01 Order name: CBC Smear Scan; Complete Time: 12:32 [facility] 06/07 12:36 Order name: Blood Culture Adult (2) [facility] 06/07 12:36 Order name: Lactate w/ 2H reflex if indic.; Complete Time: 13:33 [facility] 06/07 14:42 Order name: Lactate w/ 2H reflex if indic. [facility] 06/07 14:42 Order name: CBC with Automated Diff [facility] 06/07 14:42 Order name: CBC with Automated Diff [facility] 06/07 14:42 Order name: Comprehensive Metabolic Panel [facility] 06/07 14:42 Order name: Comprehensive Metabolic Panel [facility] 06/07 14:42 Order name: Lipid Profile [facility] 06/07 14:42 Order name: Lipid Profile [facility]MS 06/07 14:43 Order name: Magnesium EDMS 06/07 14:43 Order name: Magnesium EDMS 06/07 14:43 Order name: NT PRO-BNP [facility]MS 06/07 14:43 Order name: NT PRO-BNP EDMS 06/07 14:43 Order name: Phosphorus EDMS 06/07 14:43 Order name: Phosphorus EDMS 06/07 14:43 Order name: Protime (+INR) EDMS 06/07 14:43 Order name: Protime (+INR) [facility] 06/07 14:43 Order name: PTT, Activated Partial Thromb EDMS 06/07 14:43 Order name: PTT, Activated Partial Thromb [facility] 06/07 14:43 Order name: T4 Free EDMS 06/07 14:43 Order name: T4 Free [facility] 06/07 14:43 Order name: Thyroid Stimulating Hormone EDMS 06/07 14:43 Order name: Thyroid Stimulating Hormone [facility] 06/07 14:43 Order name: Troponin High Sensitivity [facility] 06/07 14:43 Order name: Troponin High Sensitivity [facility] 06/07 10:13 Order name: XRAY Chest (1 view); Complete Time: 12:32 [facility] 06/07 10:13 Order name: CT Chest, Abdomen, Pelvis - W/Contrast; Complete Time: 12:32 [facility] 06/07 10:13 Order name: EKG; Complete Time: 10:13 [facility] 06/07 10:13 Order name: Cardiac monitoring; Complete Time: 10:28 [facility] 06/07 10:13 Order name: EKG - Nurse/Tech; Complete Time: 11:54 [facility] 06/07 10:13 Order name: IV Saline Lock; Complete Time: 10:28 [facility] 06/07 10:13 Order name: Labs collected and sent; Complete Time: [facility] 06/07 10:13 Order name: O2 Per Protocol; Complete Time: [facility] 06/07 10:13 Order name: O2 Sat Monitoring; Complete Time: [facility] EC:38 Rate is 75 beats/min. Rhythm is regular. QRS [place] is Normal. [place] interval is normal. QRS susanne interval is normal. QT interval is normal. T waves are Normal. Clinical impression: NSR w/ Non-specific ST/T Changes and No evidence of ischemia. Interpreted by me. Reviewed by me. Administered Medications: 11:00 Drug: NS 0.9% IV 1000 ml IV at 125 ml/hr continuous Route: IV; Rate: 125 ml/hr; Site: cp4 right antecubital; 12:51 Drug: NS 0.9% IV 1000 ml IV at 1 bolus Per protocol; 1000 mL bolus Route: IV; Rate: 1 cp4 bolus; Site: right antecubital; 13:10 Drug: Famotidine IVP 20 mg IVP once; dilute with 10 mL 0.9% NaCl; give over 2 minutes cp4 Route: IVP; Site: right antecubital; 13:11 Drug: Zithromax IVPB 500 mg IVPB once over 1 hrs; mix in 250 mL NS Route: IVPB; Infused cp4 Over: 1 hrs; Site: right antecubital; 13:11 Drug: Magnesium Sulfate IVPB 2 grams IVPB once over 2 hrs Route: IVPB; Infused Over: 2 cp4 hrs; Site: right antecubital; 13:11 Drug: Mucomyst - Acetylcysteine PO 600 mg PO once Route: PO; cp4 14:07 Drug: MethylPrednisoLONE IVP 125 mg IVP once Route: IVP; Site: right antecubital; iw 14:07 Drug: Levalbuterol Inhalation 2.5 mg Inhalation once Route: Inhalation; iw 14:07 Drug: Ipratropium Inhalation Aerosol 0.5 mg Inhalation once Route: Inhalation; iw 14:10 Drug: Insulin Regular Human IVP 10 units IVP once {Co-Signature: iw (Mary Valdes ph RN).} Route: IVP; Site: right antecubital; 14:52 Drug: Piperacillin-Tazobactam IVPB 3.375 grams IVPB once over 60 mins; (mix in NS 100 ph mL) Route: IVPB; Infused Over: 60 mins; Site: right antecubital; 15:33 Drug: Tussionex Pennkinetic ER PO Suspension 5 ml PO once Route: PO; ph Disposition Summary: 06/07/23 13:48 Hospitalization Ordered Notes: Hospitalization Status: Inpatient Admission susanne Provider: Corinna Mcdonald cha Location: Telemetry/MedSurg (Inpatient) susanne Condition: Fair susanne Problem: new susanne Symptoms: have improved susanne Bed/Room Type: Standard susanne Room Assignment: 209(06/07/23 15:04) eb Diagnosis - Pneumonia due to other specified infectious organisms susanne - Dyspnea susanne - Unspecified kidney failure susanne - Sepsis, unspecified organism susanne - Hypomagnesemia susanne - Elevated white blood cell count susanne - COPD/ Chronic obstructive pulmonary disease with (acute) exacerbation susanne - Anemia, unspecified susanne - Type 1 diabetes mellitus with hyperglycemia susanne - Pleural effusion in other conditions classified elsewhere susanne Forms: - Medication Reconciliation Form susanne - SBAR form susanne - Leadership Thank You Letter susanne Signatures: Dispatcher [employer] Rolando Adame MD MD cha Williams, Irene, RN RN iw Karen Blevins RN RN Calista Cueva [facility] Mary Valdes RN Corrections: (The following items were deleted from the chart) 15: 13:48 susanne eb
--- NOTE | 2023-06-07 13:49 | ER ---
Nurse's Notes [facility] Name: Brittani Seaman Age: 78 yrs Sex: Female : 1945 Arrival Date: 06/07/2023 Time: 09:57 Bed 20 Private MD: Diagnosis: Pneumonia due to other specified infectious organisms;Dyspnea;Unspecified kidney failure;Sepsis, unspecified organism;Hypomagnesemia;Elevated white blood cell count;COPD/ Chronic obstructive pulmonary disease with (acute) exacerbation;Anemia, unspecified;Type 1 diabetes mellitus with hyperglycemia;Pleural effusion in other conditions classified elsewhere Presentation: 06/07 10:05 Chief complaint: EMS states: bilateral flank pain that started 3 days ago. Reports dark cp4 urine as well. Coronavirus screen: Vaccine status: Client denies travel out of the [place] in the last 14 days. At this time, the client does not indicate any symptoms associated with coronavirus-19. 10:05 Method Of Arrival: EMS: [facility] cp4 10:05 Ebola Screen: Patient negative for fever greater than or equal to 101.5 degrees cp4 Fahrenheit, and additional compatible Ebola Virus Disease symptoms Patient denies exposure to infectious person. Patient denies travel to an Ebola-affected area in the 21 days before illness onset. No symptoms or risks identified at this time. Initial Sepsis Screen: Does the patient meet any 2 criteria? No. Patient's initial sepsis screen is negative. Does the patient have a suspected source of infection? No. Patient's initial sepsis screen is negative. Risk Assessment: Do you want to hurt yourself or someone else? Patient reports no desire to harm self or others. Onset of symptoms was June 04, 2023. 10:05 Acuity: PRAVEEN 3 cp4 Triage Assessment: 10:16 General: Appears in no apparent distress. Behavior is calm, cooperative, appropriate cp4 for age. Pain: Complains of pain in bilateral flank pain Pain currently is 8 out of 10 on a pain scale. 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 - Social history:: Smoking status: Patient denies any tobacco usage or history of. Screenin:18 [facility] ED Fall Risk Assessment (Adult) History of falling in the last 3 months, cp4 including since admission No falls in past 3 months (0 pts) Confusion or Disorientation No (0 pts) Intoxicated or Sedated No (0 pts) Impaired Gait No (0 pts) Mobility Assist Device Used No (0 pt) Altered Elimination No (0 pt) Score/Fall Risk Level 0 - 2 = Low Risk Oriented to surroundings, Maintained a safe environment, Educated pt \T\ family on fall prevention, incl call for assistance when getting out of bed, Assessed \T\ reinforced patient's understanding of fall precautions, Hourly rounding (assess needs \T\ fall precautionary measures) done. Abuse screen: Denies threats or abuse. Nutritional screening: No deficits noted. Tuberculosis screening: No symptoms or risk factors identified. Assessment: 10:18 Reassessment: No changes from previously documented assessment. cp4 15:58 Reassessment: Patient appears in no apparent distress at this time. Patient and/or ph family updated on plan of care and expected duration. Pain level reassessed. Patient is alert, oriented x 3, equal unlabored respirations, skin warm/dry/pink. Attempted to call report to [facility], no answer, will attempt to call back. Vital Signs: 10:05 BP 134 / 67; Pulse 94; Resp 18; Temp 98.6; Pulse Ox 95% ; Weight 61.69 kg; Height 5 ft. cp4 4 in. ; Pain 8/10; 14:52 BP 131 / 51; Pulse 92; Resp 26; Pulse Ox 97% on 3 lpm NC; ph 15:32 BP 155 / 65; Pulse 97; Resp 24; Temp 98.8; Pulse Ox 96% on 2 lpm NC; ph 10:05 Body Mass Index 23.34 (61.69 kg, 162.56 cm) cp4 10:05 Pain Scale: Adult cp4 ED Course: 10:03 Patient arrived in ED. eb 10:09 Rolando Dougherty MD is Attending Physician. susanne 10:12 Ruth Eli is Primary Nurse. cp4 10:16 Triage completed. cp4 10:16 Arm band placed on right wrist. Patient placed in the treatment room, on a stretcher. cp4 10:18 Bed in low position. Call light in reach. Side rails up X 1. cp4 10:18 Maintain EMS IV. Dressing intact. Good blood return noted. Site clean \T\ dry. Gauge \T\ cp 4 site: 20 G right AC. 10:28 Lipase Sent. cp4 10:29 Basic Metabolic Panel Sent. cp4 10:29 CBC with Diff Sent. cp4 10:29 LFT's Sent. cp4 10:29 Magnesium Sent. cp4 10:29 NT PRO-BNP Sent. cp4 10:29 PT-INR Sent. cp4 10:29 Troponin HS Sent. cp4 10:43 XRAY Chest (1 view) In Process Unspecified. EDMS 11:28 CT Chest, Abdomen, Pelvis - W/Contrast In Process Unspecified. EDMS 12:51 Lactate w/ 2H reflex if indic. Sent. cp4 12:51 Blood Culture Adult (2) Sent. cp4 13:46 Corinna Mcdonald MD is Hospitalizing Provider. susanne 15:20 Inserted saline lock: 22 gauge in left forearm, using aseptic technique. nj1 16:20 No provider procedures requiring assistance completed. Patient admitted, IV remains in ph place. Administered Medications: 11:00 Drug: NS 0.9% IV 1000 ml IV at 125 ml/hr continuous Route: IV; Rate: 125 ml/hr; Site: cp4 right antecubital; 12:51 Drug: NS 0.9% IV 1000 ml IV at 1 bolus Per protocol; 1000 mL bolus Route: IV; Rate: 1 cp4 bolus; Site: right antecubital; 13:10 Drug: Famotidine IVP 20 mg IVP once; dilute with 10 mL 0.9% NaCl; give over 2 minutes cp4 Route: IVP; Site: right antecubital; 13:11 Drug: Zithromax IVPB 500 mg IVPB once over 1 hrs; mix in 250 mL NS Route: IVPB; Infused cp4 Over: 1 hrs; Site: right antecubital; 13:11 Drug: Magnesium Sulfate IVPB 2 grams IVPB once over 2 hrs Route: IVPB; Infused Over: 2 cp4 hrs; Site: right antecubital; 13:11 Drug: Mucomyst - Acetylcysteine PO 600 mg PO once Route: PO; cp4 14:07 Drug: MethylPrednisoLONE IVP 125 mg IVP once Route: IVP; Site: right antecubital; iw 14:07 Drug: Levalbuterol Inhalation 2.5 mg Inhalation once Route: Inhalation; 14:07 Drug: Ipratropium Inhalation Aerosol 0.5 mg Inhalation once Route: Inhalation; iw 14:10 Drug: Insulin Regular Human IVP 10 units IVP once {Co-Signature: darryl (Mary Valdes ph RN).} Route: IVP; Site: right antecubital; 14:52 Drug: Piperacillin-Tazobactam IVPB 3.375 grams IVPB once over 60 mins; (mix in NS 100 ph mL) Route: IVPB; Infused Over: 60 mins; Site: right antecubital; 15:33 Drug: Tussionex Pennkinetic ER PO Suspension 5 ml PO once Route: PO; ph Medication: 10:18 VIS not applicable for this client. cp4 Outcome: 13:48 Decision to Hospitalize by Provider. susanne 16:20 Admitted to Med/surg accompanied by tech, via stretcher, with oxygen, with chart, ph 16:20 Condition: stable 16:20 Instructed on the need for admit, 16:40 Patient left the ED. ph Signatures: Dispatcher [employer] EDRolando Holt MD MD cha Williams, Irene, RN RN Karen Blevins RN RN Calista Cueva Norma, RN RN Ruth Hogue cp4 Mary Valdes RN
--- NOTE | 2023-06-07 14:44 | P.HP ---
Certification for Inpatient With expected LOS: >2 Midnights Patient will require the following post-hospital care: None Practitioner: I am a practitioner with admitting privileges, knowledge of patient current condition, hospital course, and medical plan of care. Services: Services provided to patient in accordance with Admission requirements found in Title 42 Section 412.3 of the Code of Federal Regulations Patient History Date of Service: 06/07/23 Reason for admission: Pneumonia History of Present Illness: Patient is a 78-year-old female who comes into the hospital with shortness of breath. Patient is a history of COPD. She been coughing congested. She has been having some clear sputum production. She denies any fever shakes or chills. Patient states she been feeling poorly for the last week. Her symptoms have gotten progressively worse. In the emergency room she had extensive workup performed. Her she was having some back pain and some right flank pain. Her workup showed that she had a right lower lobe consolidated pneumonia. Patient been started on IV antibiotics and steroids and pain medication. She does states that she coughs whenever she eats. I am not sure if she aspirated as she has a pneumonia in the right lower/middle lobe in the area most commonly seen with aspiration pneumonia. I will get a get speech therapy consultation to further evaluate patient. Patient is otherwise doing well. Denies any new complaints. She does have some minimal edema in her lower extremities and I do notice when talking to her that she has JVP. This could be related to right- sided heart failure from her advanced COPD with severe pulmonary hypertension causing elevated right-sided heart pressures. She could also have congestive heart failure. Will go ahead and review echocardiogram. Patient will be admitted to the hospital for inpatient hospitalization. Allergies No Known Allergies Allergy (Verified 05/05/22 08:45) Home Medications: Atorvastatin Calcium 40 mg PO DAILY 10/04/19 Insulin Aspart [Novolog Penfill] See Protocol SQ ACHS 10/04/19 Losartan Potassium 50 mg PO DAILY 10/04/19 Cetirizine HCl [All Day Allergy] 1 tab PO DAILYPRN PRN 05/02/22 Furosemide [Lasix*] 1 tab PO DAILY 05/02/22 Insulin Detemir [Levemir] 40 units SQ DAILY 05/02/22 Levothyroxine Sodium [Euthyrox] 1 tab PO DAILY 05/02/22 Aspirin [Aspirin EC 81 MG] 81 mg PO DAILY 03/15/23 Clopidogrel Bisulfate [Plavix*] 75 mg PO DAILY 03/15/23 Metoprolol Succinate [Toprol Xl*] 25 mg PO DAILY 03/15/23 Alendronate Sodium 70 mg PO Q7D 06/08/23 Allopurinol 300 mg PO DAILY 06/08/23 Gabapentin [Neurontin*] 100 mg PO BID 06/08/23 Potassium Chloride [Klor-Con M20] 1 tab PO DAILY 06/08/23 - Past Medical/Surgical History Diabetic: Yes -: History of COPD -: Diabetes type 1 -: Hypertension -: Hypothyroid -: CHF -: Prolapsed bladder -: [id number] -: Bladder suspension 2004, pessary 2019 -: Appendectomy 1961 -: Tonsillectomy 1949 -: Pacemaker 2020 -: Hernia 2019 -: Stent 2020 Psychosocial/ Personal History: Former smoker - Family History Mother Medical History: Heart disease, Hypertension, Diabetes - Social History Alcohol use: No CD- Drugs: No Caffeine use: No Review of Systems 10-point ROS is otherwise unremarkable Physical Examination - Vital Signs Temperature: 98 F Blood Pressure: 130/80 Pulse: 80 Respirations: 18 Pulse Ox (%): 95 - Physical Exam General: Alert, In no apparent distress, Oriented x3 HEENT: Atraumatic, PERRLA, Mucous membr. moist/pink, EOMI, Sclerae nonicteric Neck: Supple, 2+ carotid pulse no bruit, No LAD, JVD distended Respiratory: Diminished, Crackles/rales, Expiratory wheezes Cardiovascular: Regular rate/rhythm, Normal S1 S2, Systolic murmur Gastrointestinal: Normal bowel sounds, Soft and benign, Non-distended, No tenderness Musculoskeletal: No clubbing, No swelling, No tenderness Integumentary: No rashes Neurological: Normal speech, Normal tone, Sensation intact, Cranial nerves 3-12 intact, Normal affect, Abnormal gait, Abnormal strength Lymphatics: No axilla or inguinal lymphadenopathy - Studies Laboratory Data (last 24 hrs) 06/07/23 06/07/23 06/07/23 10:25 10:25 10:25 WBC 18.80 H Hgb 10.7 L Hct 32.8 L Plt Count 253 PT 14.9 H INR 1.37 Sodium 137 Potassium 4.0 BUN 26 H Creatinine 1.28 H Glucose 328 H Magnesium 1.3 L Total Bilirubin 0.5 AST 16 ALT 24 Alkaline Phosphatase 112 Lipase < 6 L Assessment & Plan - Problems (Diagnosis) (1) Right lower lobe pneumonia Current Visit: Yes Status: Acute (2) COPD with acute exacerbation Current Visit: Yes Status: Acute (3) CHF (congestive heart failure) Current Visit: Yes Status: Acute (4) Aspiration into lower respiratory tract Current Visit: Yes Status: Acute (5) Diabetes type 2 with atherosclerosis of arteries of extremities Current Visit: Yes Status: Acute (6) Diabetes type 2, controlled Current Visit: Yes Status: Acute - Plan Plan: 1. Continue with IV antibiotics 2. Awaiting sputum and blood culture 3. Repeat chest x-ray 4. CT scan of the chest REVIEWED 5. Echocardiogram 6. Continue with nebs as needed 7. O2 per protocol 8. Gentle diuresing 9. Repeat labs including CBC and renal function in a.m. 10. strict blood sugar control 11. GI and DVT prophylaxis Discharge Plan: Home Plan to discharge in: Greater than 2 days - Advance Directives Does patient have a Living Will: Yes Does patient have a Durable POA for Healthcare: No - Code Status/Comfort Care Code Status Assessed: Yes Code Status: Full Code Critical Care: No Time Spent Managing PTS Care (In Minutes): 45
[2023-06-07 15:03] LABS: Urine Bacteria <20 /HPF (<20); Urine Bilirubin NEGATIVE (Negative); Urine Blood Negative (Negative); Urine Clarity Clear (Clear); Urine Color Light-Yellow (Yellow); Urine Glucose 4+ (Over) (Negative); Urine Mucus Slight /HPF (None Seen); Urine Protein NEGATIVE (Negative); Urine Urobilinogen Normal (Normal)
[2023-06-07 15:04] LABS: Specific Gravity > 1.030 (1.005-1.030)
[2023-06-07] MEDS ORDERED: HYDROCODONE/CHLORPHEN 5 ML/OSYR ONE (15:36)
[2023-06-07] MEDS: NA CHLORIDE 0.9% 1,000 ML IV SCH (17:15)
[2023-06-07] MEDS: Levofloxacin 750mg IV 750 MG/150 ML BAG IV SCH (17:19)
[2023-06-07] MEDS: METHYLPREDNISOLONE 40 MG INJ IV SCH (17:21)
[2023-06-07] MEDS: PIPER TAZO 3.375 GM in NA CHLORIDE 0.9% 100 ML IV SCH (17:21)
[2023-06-07] MEDS ORDERED: GLUCAGON 1 MG/VIAL IM PRN ×3 (17:31→21:53)
[2023-06-07] MEDS ORDERED: D50W 25 GM/50 ML SYRINGE IV PRN ×3 (17:31→21:53)
[2023-06-07] MEDS ORDERED: INSULIN 70/30 100 UNITS/ML SQ ONE (18:00)
[2023-06-07] MEDS: MORPHINE 2 MG/ML SYR IV PRN (18:09)
[2023-06-07] MEDS ORDERED: D10W 125 ML IV PRN (18:24)
[2023-06-07] MEDS: ALBUTEROL 2.5 MG/3 ML NEB SOL NEB SCH (20:00)
[2023-06-07] MEDS: IPRATROPIUM BROM 0.5MG/2.5ML NEB SCH (20:00)
[2023-06-07] MEDS: guaiFENesin 100 MG/5 ML UCUP PO PRN (20:47)
[2023-06-07] MEDS: MUCINEX DM 12HR.SR TAB PO SCH (21:00)
[2023-06-07] MEDS: ZOLPIDEM TARTRATE 5 MG TABLET PO SCH (22:47)
[2023-06-07] MEDS: INSULIN REGULAR (HUMAN) 100 UNIT/ML SQ SCH (22:47)
[2023-06-08] MEDS: MORPHINE 2 MG/ML SYR IV PRN ×3 (00:12→22:13)
[2023-06-08] MEDS: PIPER TAZO 3.375 GM in NA CHLORIDE 0.9% 100 ML IV SCH ×3 (00:25→17:08)
[2023-06-08] MEDS: METHYLPREDNISOLONE 40 MG INJ IV SCH ×3 (01:00→17:00)
[2023-06-08] MEDS: ALBUTEROL 2.5 MG/3 ML NEB SOL NEB SCH ×4 (02:06→19:19)
[2023-06-08] MEDS: IPRATROPIUM BROM 0.5MG/2.5ML NEB SCH ×4 (02:07→19:19)
[2023-06-08] MEDS: ACETAMINOPHEN 500 MG TAB PO PRN (03:13)
[2023-06-08 03:46] LABS: Absolute Lymphocytes (CBC) 0.7 K/uL (0.7-4.9); Hematocrit 33.3 % (36.0-45.0); Lymphocytes % 2.5 % (15.3-44.8); MCV 94.8 fL (80-100); MPV 9.8 fL (7.6-11.3); Platelets 365 thou/uL (152-406); RBC Red Blood Cell Count 3.51 M/uL (3.86-4.86)
[2023-06-08 03:48] LABS: Protime INR 1.84
[2023-06-08 04:07] LABS: ALT/SGPT 30 U/L (13-56); AST/SGOT 22 U/L (15-37); Albumin 2.7 g/dL (3.4-5.0); Alkaline Phosphatase 120 U/L (45-117); BUN Blood Urea Nitrogen 27 mg/dL (7-18); Bicarbonate 21 mEq/L (21-32); Bilirubin Total 0.5 mg/dL (0.2-1.0); Glomerular Filtration Rate 38 ml/min (=/>90); Glucose Level 182 mg/dL (74-106); HDL Cholesterol 35 mg/dL (40-60); Magnesium 2.3 mg/dL (1.6-2.4); NT PRO-BNP 22632 pg/mL (<450); Phosphorus 1.7 mg/dL (2.5-4.9); Potassium 3.9 mEq/L (3.5-5.1); Protein, Total 7.9 g/dL (6.4-8.2); Sodium Level 136 mEq/L (136-145); Troponin High Sensitivity 23.2 pg/mL (<58.9)
[2023-06-08 04:10] LABS: LDL Cholesterol, Calculated 2 mg/dL (<130)
[2023-06-08 04:51] LABS: Blood Morphology Comment NOT SEEN (NOT SEEN); Platelet Estimate ADEQ
[2023-06-08] MEDS: POTASS/SODIUM PHOSPHATE 1 PKT POWD.PACK PO SCH ×3 (06:25→08:39)
[2023-06-08] MEDS: NA CHLORIDE 0.9% 1,000 ML IV SCH ×2 (06:26→10:10)
[2023-06-08] MEDS ORDERED: INSULIN REGULAR (HUMAN) 100 UNIT/ML SQ SCH ×2 (07:30)
[2023-06-08] MEDS: MUCINEX DM 12HR.SR TAB PO SCH ×2 (08:39→22:14)
[2023-06-08] MEDS: INSULIN REGULAR (HUMAN) 100 UNIT/ML SQ SCH ×4 (08:39→20:35)
[2023-06-08] MEDS ORDERED: POTASSIUM CL SA 10 MEQ TAB PO ONE (09:00)
[2023-06-08] MEDS ORDERED: ENOXAPARIN 40 MG/0.4 ML SQ SCH (09:00)
[2023-06-08] MEDS ORDERED: CETIRIZINE HCL 5 MG TABLET PO PRN (09:03)
[2023-06-08] MEDS ORDERED: FUROSEMIDE 20 MG/ 2ML VIAL IV ONE (09:05)
[2023-06-08] MEDS ORDERED: ALENDRONATE SODIUM 70 MG PO SCH (10:00)
[2023-06-08] MEDS: METOPROLOL XL 25 MG TAB PO SCH (10:11)
--- NOTE | 2023-06-08 10:13 | P.PN ---
Subjective Date of Service: 06/08/23 Chief Complaint: Pneumonia Pt is resting comfortably in bed. She presents with severe sepsis 2/2 RLL pneumonia. Pt had nausea this morning wheil eating breakfast. She is getting iv zosyn and solumedrol. No other complaints. Review of Systems 10-point ROS is otherwise unremarkable General: Unremarkable Eyes: Unremarkable ENT: Unremarkable Respiratory: Shortness of Breath Cardiovascular: Unremarkable Gastrointestinal: Nausea, Vomiting Genitourinary: Unremarkable Musculoskeletal: Unremarkable Integumentary: Unremarkable Neurological: Unremarkable Lymphatics: Unremarkable Physical Examination - Vital Signs Temperature: 98.8 F Blood Pressure: 144/66 Pulse: 96 Respirations: 28 Pulse Ox (%): 95 - Physical Exam General: Alert, In no apparent distress, Oriented x3 HEENT: Atraumatic, Normocephalic, PERRLA Neck: Supple, 2+ carotid pulse no bruit Respiratory: Clear to auscultation bilaterally, Normal air movement Cardiovascular: No edema, Normal pulses, Normal S1 S2 Capillary refill: <2 Seconds Gastrointestinal: Normal bowel sounds, Soft and benign, Non-distended Musculoskeletal: No clubbing, No swelling Integumentary: No rashes, No breakdown Neurological: Normal gait, Normal speech, Normal strength at 5/5 x4 extr Lymphatics: No axilla or inguinal lymphadenopathy - Studies Laboratory Data (last 24 hrs) 06/07/23 06/07/23 06/07/23 10:25 10:25 10:25 WBC 18.80 H Hgb 10.7 L Hct 32.8 L Plt Count 253 PT 14.9 H INR 1.37 Sodium 137 Potassium 4.0 BUN 26 H Creatinine 1.28 H Glucose 328 H Magnesium 1.3 L Total Bilirubin 0.5 AST 16 ALT 24 Alkaline Phosphatase 112 Lipase < 6 L Assessment And Plan - Plan Severe sepsis 2/2 RLL pneumonia: Likely due to aspiration. Will continue iv levaquin and zosyn. Follow up blood and sputum cultures. Will continue IVF and trend lactate. Consulted Speech therapist for swallow eval. Leukocytosis: Likely due to infection or steroid. Procalcitonin is 51.59. Will continue iv abx.. Hx of CHF: BNP 22958. Will follow up Echo. Will continue home meds 1.8 cm lung nodule: Per CT chest. Pt will follo wup with Pulm for further evaluation. Transaminitis: Alk phos is 120. Will continue IVF and trend LFTs. Anemia: Hgb is 10.8. Will monitor H/H. Acute COPD exacerbation: Will continue solumedrol. 2L BNC, duoneb and iv abx. Acute resp failure: Due to Pneumonia and COPD. Will continue treatment listed above. Hx of DM II: Continue accuchek, SSI, detemir 40u daily and ADA diet. DVT ppx: SCD Code: full Discharge Plan: Home Plan to discharge in: 24 Hours
[2023-06-08] MEDS ORDERED: ALENDRONATE 70 MG TAB PO SCH (11:00)
--- NOTE | 2023-06-08 12:26 | EKG ---
Test Date: 2023-06-07 Test Time: 20:40:45 Commodities Requirements Analyst: YONI MEASUREMENT RESULTS: Intervals: Rate: 102 [place]: QRSD: 132 QT: 398 QTc: 518 [place]: P: DE: QRS: 102 T: -32 INTERPRETIVE STATEMENTS: Atrial fibrillation with rapid ventricular response Nonspecific intraventricular block Anterolateral infarct, age undetermined T wave abnormality, consider inferior ischemia or digitalis effect Abnormal ECG Compared to ECG 06/07/2023 11:49:01 T-wave abnormality now present Possible ischemia now present Sinus rhythm no longer present Myocardial infarct finding still present Electronically Signed On 06-08-23 12:25:36 RETURNED TELEPHONE EQUIPMENT APPRAISER by Malik Fisher
--- NOTE | 2023-06-08 12:27 | EKG ---
Test Date: 2023-06-07 Test Time: 11:49:01 Care Nurse Rn: YING MEASUREMENT RESULTS: Intervals: Rate: 90 DC: 162 QRSD: 148 QT: 480 QTc: 587 [place]: P: 76 DC: 162 QRS: 93 T: 30 INTERPRETIVE STATEMENTS: Normal sinus rhythm Nonspecific intraventricular block Lateral infarct, age undetermined Abnormal ECG Compared to ECG 03/15/2023 00:05:12 Myocardial infarct finding now present Atrial fibrillation no longer present Electronically Signed On 06-08-23 12:26:00 CELL ROOM SUPERVISOR by Malik Fisher
[2023-06-08] MEDS: FUROSEMIDE 20 MG/ 2ML VIAL IV SCH (17:05)
[2023-06-08] MEDS ORDERED: INSULIN GLARGINE 100 UNIT/ML SQ SCH (17:30)
[2023-06-08] MEDS ORDERED: INSULIN GLARGINE 100 UNIT/ML SQ ONE (19:00)
[2023-06-08] MEDS: ATORVASTATIN 40 MG TAB PO SCH (20:34)
[2023-06-08] MEDS: ZOLPIDEM TARTRATE 5 MG TABLET PO SCH (20:34)
[2023-06-08] MEDS: GABAPENTIN 100 MG CAP PO SCH (20:34)
[2023-06-08] MEDS ORDERED: ZOLPIDEM TARTRATE 5 MG TABLET PO SCH (21:00)
[2023-06-09] MEDS: IPRATROPIUM BROM 0.5MG/2.5ML NEB SCH ×5 (00:48→19:30)
[2023-06-09] MEDS: ALBUTEROL 2.5 MG/3 ML NEB SOL NEB SCH ×5 (00:48→19:30)
[2023-06-09] MEDS: METHYLPREDNISOLONE 40 MG INJ IV SCH ×3 (01:21→16:48)
[2023-06-09] MEDS: PIPER TAZO 3.375 GM in NA CHLORIDE 0.9% 100 ML IV SCH ×3 (01:22→16:47)
[2023-06-09] MEDS: NA CHLORIDE 0.9% 1,000 ML IV SCH (04:24)
[2023-06-09] MEDS ORDERED: LEVOTHYROXINE SOD 0.075 MG TAB PO SCH (06:30)
[2023-06-09 06:49] LABS: Absolute Lymphocytes (CBC) 0.8 K/uL (0.7-4.9); Hematocrit 29.7 % (36.0-45.0); Lymphocytes % 2.8 % (15.3-44.8); MCV 93.9 fL (80-100); MPV 9.2 fL (7.6-11.3); Platelets 368 thou/uL (152-406); RBC Red Blood Cell Count 3.16 M/uL (3.86-4.86)
[2023-06-09 07:05] LABS: Albumin 2.2 g/dL (3.4-5.0); Bilirubin Total 0.5 mg/dL (0.2-1.0); Protein, Total 7.4 g/dL (6.4-8.2)
[2023-06-09] MEDS ORDERED: INSULIN LISPRO 100 UNIT/ML SQ SCH (08:00)
[2023-06-09] MEDS ORDERED: ENOXAPARIN 30 MG/0.3 ML SQ SCH (09:00)
[2023-06-09] MEDS ORDERED: HOME MED 1 EA UNK (Insulin Detemir [Levemir] 100 UNIT/1 ML Ml) SQ SCH (09:00)
[2023-06-09] MEDS: INSULIN LISPRO 100 UNIT/ML SQ SCH ×3 (09:01→16:49)
[2023-06-09] MEDS: INSULIN REGULAR (HUMAN) 100 UNIT/ML SQ SCH ×4 (09:01→21:00)
[2023-06-09] MEDS: MUCINEX DM 12HR.SR TAB PO SCH ×2 (09:02→22:10)
[2023-06-09] MEDS: METOPROLOL XL 25 MG TAB PO SCH (09:02)
[2023-06-09] MEDS: ASPIRIN EC 81 MG TAB PO SCH (09:02)
[2023-06-09] MEDS: FUROSEMIDE 20 MG/ 2ML VIAL IV SCH ×2 (09:02→16:49)
[2023-06-09] MEDS: allopurinoL 300 MG TAB PO SCH (09:03)
[2023-06-09] MEDS: POTASSIUM CL SA 10 MEQ TAB PO SCH (09:03)
[2023-06-09] MEDS: LOSARTAN POTASSIUM 50 MG TABLET PO SCH (09:03)
[2023-06-09] MEDS: CLOPIDOGREL 75 MG TABLET PO SCH (09:03)
[2023-06-09] MEDS: GABAPENTIN 100 MG CAP PO SCH ×2 (09:03→21:40)
[2023-06-09 09:51] LABS: White Blood Cell Scan OK (OK)
[2023-06-09 09:52] LABS: Blood Morphology Comment NOT SEEN (NOT SEEN); Platelet Estimate ADEQ
[2023-06-09] MEDS ORDERED: VANCOMYCIN 1.5 GM in NA CHLORIDE 0.9% 500 ML IVPB ONE (10:00)
--- NOTE | 2023-06-09 10:05 | P.PN ---
Subjective Date of Service: 06/09/23 Chief Complaint: Pneumonia Subjective: Improving, Doing well Alert and oriented sitting up in the bed NAD Breathing normally on oxygen 2 L/min via nasal cannula Vital signs stable Denies any pain or discomfort Family member at bedside <Marco A Egan - Last Filed: 06/09/23 10:06> Date of Service: 06/10/23 <Nicky Wade - Last Filed: 06/10/23 15:21> Review of Systems 10-point ROS is otherwise unremarkable <Marco A Egan - Last Filed: 06/09/23 10:06> Physical Examination - Vital Signs Temperature: 97.5 F Blood Pressure: 176/84 Pulse: 98 Respirations: 23 Pulse Ox (%): 97 - Physical Exam General: Alert, Oriented x3 HEENT: Atraumatic, Normocephalic Neck: Supple, 2+ carotid pulse no bruit Respiratory: Clear to auscultation bilaterally, Diminished (At the bases) Cardiovascular: No edema, Normal pulses, Normal S1 S2 Capillary refill: <2 Seconds Gastrointestinal: Normal bowel sounds, Soft and benign Musculoskeletal: No clubbing, No swelling Neurological: Normal speech, Normal tone, Normal affect <Marco A Egan - Last Filed: 06/09/23 10:06> Assessment And Plan - Current Problems (Diagnosis) (1) COPD with acute exacerbation Current Visit: Yes Status: Acute (2) Diabetes type 2, controlled Current Visit: Yes Status: Chronic Qualifiers: Diabetes mellitus termite control service representative insulin use: without termite control service representative use Diabetes mellitus complication status: with circulatory complication Diabetes mellitus complication detail: with other circulatory complications Qualified Code(s): E11.59 - Type 2 diabetes mellitus with other circulatory complications (3) Right lower lobe pneumonia Current Visit: Yes Status: Acute Qualifiers: Pneumonia type: aspiration pneumonia (4) COPD (chronic obstructive pulmonary disease) Current Visit: No Status: Chronic Qualifiers: COPD type: emphysema Emphysema type: unspecified Qualified Code(s): J43.9 - Emphysema, unspecified (5) Severe sepsis Current Visit: Yes Status: Acute (6) Anemia Current Visit: Yes Status: Acute Qualifiers: Anemia type: unspecified type Qualified Code(s): D64.9 - Anemia, unspecified (7) CKD (chronic kidney disease) stage 3, GFR 30-59 ml/min Current Visit: Yes Status: Chronic Qualifiers: Chronic kidney disease stage 3 subtype: stage 3b (GFR 30-44) Qualified Code(s): N18.32 - Chronic kidney disease, stage 3b - Plan Severe sepsis 2/2 RLL pneumonia: Likely due to aspiration. Will continue iv levaquin and zosyn. Follow up blood and sputum cultures. Will continue IVF and trend lactate. Consulted Speech therapist for swallow eval. -Doing better today on oxygen 2 L via nasal cannula -Will start getting her out of bed, denies any respiratory complaints Leukocytosis: Today at 28.7 likely due to infection or steroid. Procalcitonin is 51.59. Will continue iv abx.. Hx of CHF: BNP 49679. Will follow up Echo. Will continue home meds 1.8 cm lung nodule: Per CT chest. Pt will follo wup with Pulm for further evaluation. Transaminitis: Alk phos is 120. Will continue IVF and trend LFTs. Anemia: Hgb is 10.8. Will monitor H/H. CKD [id number]: Chronic, controlled, GFR 41 will continue to renal dose the medication and avoiding nephrotoxic drugs Avoid NSAIDs. Acute COPD exacerbation: Will continue solumedrol. 2L BNC, duoneb and iv abx. Acute resp failure: Due to Pneumonia and COPD. Will continue treatment listed above. Hx of DM II: Continue accuchek, SSI, detemir 40u daily and ADA diet. A1c pending. DVT ppx: SCD Code: full Discharge Plan: Home Plan to discharge in: 48 Hours - Code Status/Comfort Care Code Status Assessed: Yes (Full code) Code Status: Full Code Physician Review: Patient Assessed, Agree with Above Assessment and Plan Critical Care: No Time Spent Managing PTS Care (In Minutes): 35 (Minutes) <Marco A Egan - Last Filed: 06/09/23 10:06> - Plan Pt seen and examined. I agree with the note by the ESTIMATOR [employer]OX[employer]. She had a run of v-tack. Will check electrolytes and consult Cardiology. <Nicky Wade - Last Filed: 06/10/23 15:21>
--- NOTE | 2023-06-09 11:56 | RAD REPORT ---
EXAM DESCRIPTION: RAD - Chest Single View - 06/09/2023 11:47 am CLINICAL HISTORY: pneumonia COMPARISON: Chest Single View dated 06/07/2023; Chest Single View dated 03/16/2023; Chest Single View dated 03/15/2023; Chest Single View dated 03/15/2023; Chest Abdomen Pelvis W Cont dated 06/07/2023 FINDINGS: Lines: Pacemaker. Lungs: Consolidative airspace disease in the right lower lobe has slightly worsened compared with . Chronic right upper lobe nodularity is unchanged. Pleural: Small bilateral effusions. Cardiac: Cardiomegaly. Mediastinum: Within normal limits. Bones: No acute fractures. Other: None IMPRESSION: Increasing right lower lobe consolidation compared with 06/07/2023 which is concerning f or pneumonia.
[2023-06-09] MEDS: Levofloxacin 750mg IV 750 MG/150 ML BAG IV SCH (15:39)
[2023-06-09] MEDS ORDERED: INSULIN GLARGINE 100 UNIT/ML SQ SCH ×3 (17:30)
[2023-06-09] MEDS: ONDANSETRON 4 MG/2 ML VIAL IV PRN (19:03)
[2023-06-09] MEDS: MORPHINE 2 MG/ML SYR IV PRN (21:39)
[2023-06-09] MEDS: ZOLPIDEM TARTRATE 5 MG TABLET PO SCH (21:40)
[2023-06-09] MEDS: ATORVASTATIN 40 MG TAB PO SCH (21:40)
[2023-06-10] MEDS: PIPER TAZO 3.375 GM in NA CHLORIDE 0.9% 100 ML IV SCH ×3 (00:56→17:51)
[2023-06-10] MEDS: NA CHLORIDE 0.9% 1,000 ML IV SCH ×2 (00:57→23:16)
[2023-06-10] MEDS: METHYLPREDNISOLONE 40 MG INJ IV SCH ×3 (00:58→17:55)
[2023-06-10] MEDS: IPRATROPIUM BROM 0.5MG/2.5ML NEB SCH ×4 (01:24→19:00)
[2023-06-10] MEDS: ALBUTEROL 2.5 MG/3 ML NEB SOL NEB SCH ×4 (01:24→20:05)
[2023-06-10] MEDS: MORPHINE 2 MG/ML SYR IV PRN ×3 (06:22→21:18)
[2023-06-10] MEDS: INSULIN REGULAR (HUMAN) 100 UNIT/ML SQ SCH ×4 (07:30→21:00)
[2023-06-10] MEDS: INSULIN LISPRO 100 UNIT/ML SQ SCH ×3 (08:00→17:55)
[2023-06-10 08:22] LABS: Absolute Lymphocytes (CBC) 0.6 K/uL (0.7-4.9); Hematocrit 28.8 % (36.0-45.0); Lymphocytes % 2.5 % (15.3-44.8); MCV 94.1 fL (80-100); MPV 9.1 fL (7.6-11.3); Platelets 329 thou/uL (152-406); RBC Red Blood Cell Count 3.06 M/uL (3.86-4.86)
[2023-06-10 08:41] LABS: Potassium 4.7 mEq/L (3.5-5.1)
--- NOTE | 2023-06-10 09:23 | P.PN ---
Subjective Date of Service: 06/10/23 Chief Complaint: Pneumonia Pt is resting comfortably in bed. She presents with severe sepsis 2/2 RLL pneumonia. Pt had 20 runs of V-tach yesterday. Consulted cardiology. She is getting iv zosyn and solumedrol. No other complaints. Review of Systems 10-point ROS is otherwise unremarkable General: Unremarkable Eyes: Unremarkable ENT: Unremarkable Respiratory: Unremarkable Cardiovascular: Unremarkable Gastrointestinal: Unremarkable Genitourinary: Unremarkable Musculoskeletal: Unremarkable Neurological: Unremarkable Lymphatics: Unremarkable Physical Examination - Vital Signs Temperature: 97.4 F Blood Pressure: 174/71 Pulse: 104 Respirations: 18 Pulse Ox (%): 94 - Physical Exam General: Alert, In no apparent distress, Oriented x3 HEENT: Atraumatic, Normocephalic, PERRLA Neck: Supple, 2+ carotid pulse no bruit Respiratory: Clear to auscultation bilaterally, Normal air movement Cardiovascular: No edema, Normal pulses, Regular rate/rhythm, Normal S1 S2 Capillary refill: <2 Seconds Gastrointestinal: Normal bowel sounds, Soft and benign, Non-distended Musculoskeletal: No clubbing, No swelling Integumentary: No rashes, No breakdown Neurological: Normal gait, Normal speech, Normal strength at 5/5 x4 extr Lymphatics: No axilla or inguinal lymphadenopathy Assessment And Plan - Plan Severe sepsis 2/2 RLL pneumonia: Likely due to aspiration. Will continue iv vanc, levaquin and zosyn. Follow up blood and sputum cultures. Will continue IVF and trend lactate. Pt passed swallow eval. continue aspiration precaution. Leukocytosis: Likely due to infection or steroid. Procalcitonin is 51.59. Will continue iv abx.. Hx of CHF: BNP 09879. Will follow up Echo. Will continue home meds 1.8 cm lung nodule: Per CT chest. Pt will follow up with Pulm for further evaluation. Transaminitis: Alk phos is 120. Will continue IVF and trend LFTs. Anemia: Hgb is 9.7<- 10.8. Will monitor H/H. Acute COPD exacerbation: Will continue solumedrol, 2L BNC, duoneb and iv abx. Acute resp failure: Due to Pneumonia and COPD. Will continue treatment listed above. Hx of DM II: Continue accuchek, SSI, lantus 45u , lispro 15u with meal and ADA diet. DVT ppx: SCD Code: full Physician Review: Patient Assessed, Agree with Above Assessment and Plan
[2023-06-10] MEDS: METOPROLOL XL 25 MG TAB PO SCH (09:28)
[2023-06-10] MEDS: POTASSIUM CL SA 10 MEQ TAB PO SCH (09:28)
[2023-06-10] MEDS: allopurinoL 300 MG TAB PO SCH (09:28)
[2023-06-10] MEDS: CLOPIDOGREL 75 MG TABLET PO SCH (09:28)
[2023-06-10] MEDS: GABAPENTIN 100 MG CAP PO SCH ×2 (09:28→20:44)
[2023-06-10] MEDS: MUCINEX DM 12HR.SR TAB PO SCH ×2 (09:28→21:18)
[2023-06-10] MEDS: ASPIRIN EC 81 MG TAB PO SCH (09:28)
[2023-06-10] MEDS: FUROSEMIDE 20 MG/ 2ML VIAL IV SCH ×2 (09:29→17:52)
[2023-06-10] MEDS: ENOXAPARIN 40 MG/0.4 ML SQ SCH (09:29)
[2023-06-10] MEDS: LOSARTAN POTASSIUM 50 MG TABLET PO SCH (09:29)
--- NOTE | 2023-06-10 11:04 | P.CNS ---
<Marcia Quezada - Last Filed: 06/10/23 12:58> Date of Consult: 06/09/23 Reason for Consult: paroxysmal VT Requesting Physician: Nicky Wade Chief Complaint: Pneumonia History of Present Illness: Ms. Seaman is a 78 yo with a past medical history of COPD, HTN, CHF, IDDM who presented to the Emergency department with cough and shortness of breath. She was admitted for pneumonia with sepsis. Yesterday afternoon about 1814 she had a 20 beat run of ventricular tachycardia, Cardiology was consulted. Home medications list reviewed: Yes - Past Medical/Surgical History Diabetic: Yes -: History of COPD -: Diabetes type 1 -: Hypertension -: Hypothyroid -: CHF -: Prolapsed bladder -: [id number] -: Bladder suspension 2004, pessary 2019 -: Appendectomy 1961 -: Tonsillectomy 1949 -: Pacemaker 2020 -: Hernia 2019 -: Stent 2020 Psychosocial/ Personal History: Former smoker - Family History Mother Medical History: Heart disease, Hypertension, Diabetes - Social History Smoking Status: Current every day smoker Alcohol use: No CD- Drugs: No Caffeine use: No Place of Residence: Home <Malik Fisher - Last Filed: 06/10/23 13:21> Allergies No Known Allergies Allergy (Verified 05/05/22 08:45) Home Medications: Atorvastatin Calcium 40 mg PO DAILY 10/04/19 Insulin Aspart [Novolog Penfill] See Protocol SQ ACHS 10/04/19 Losartan Potassium 50 mg PO DAILY 10/04/19 Cetirizine HCl [All Day Allergy] 1 tab PO DAILYPRN PRN 05/02/22 Furosemide [Lasix*] 1 tab PO DAILY 05/02/22 Insulin Detemir [Levemir] 40 units SQ DAILY 05/02/22 Levothyroxine Sodium [Euthyrox] 1 tab PO DAILY 05/02/22 Aspirin [Aspirin EC 81 MG] 81 mg PO DAILY 03/15/23 Clopidogrel Bisulfate [Plavix*] 75 mg PO DAILY 03/15/23 Metoprolol Succinate [Toprol Xl*] 25 mg PO DAILY 03/15/23 Alendronate Sodium 70 mg PO Q7D 06/08/23 Allopurinol 300 mg PO DAILY 06/08/23 Gabapentin [Neurontin*] 100 mg PO BID 12/18/23 Potassium Chloride [Klor-Con M20] 1 tab PO DAILY 06/08/23 Review of Systems 10-point ROS is otherwise unremarkable Respiratory: Cough, Shortness of Breath Cardiovascular: Other (while on tele, 20 beat run of VT, pt has pacemaker, sees Dr. Edwards) <Malik Fisher - Last Filed: 06/10/23 13:21> Physical Examination Temp Pulse Resp BP Pulse Ox 98.5 F 86 18 153/75 H 94 06/10/23 12:00 06/10/23 12:00 06/10/23 12:25 06/10/23 12:00 06/10/23 12:25 <Marcia Quezada - Last Filed: 06/10/23 12:58> Temp Pulse Resp BP Pulse Ox 97.4 F 104 H 18 174/71 H 94 06/10/23 09:23 06/10/23 09:29 06/10/23 09:23 06/10/23 09:29 06/10/23 09:23 General: Alert, In no apparent distress, Oriented x3 HEENT: Atraumatic, Normocephalic Neck: Supple, 2+ carotid pulse no bruit, JVD not distended Respiratory: Diminished, Expiratory wheezes Cardiovascular: No edema, Normal pulses, Other (NSR except one episode of 20 beat VT) Capillary refill: <2 Seconds Gastrointestinal: Normal bowel sounds, Soft and benign Musculoskeletal: No clubbing Integumentary: No rashes Neurological: Normal gait, Normal tone Lymphatics: No axilla or inguinal lymphadenopathy External genitalia: Deferred Rectal: Deferred <Malik Fisher - Last Filed: 06/10/23 13:21> - Problems (1) Hypertension Current Visit: Yes Status: Acute Plan: Losartan 50mg po daily, Metoprolol 25mg po daily, (2) Ventricular arrhythmia Current Visit: Yes Status: Acute Plan: Continue telemetry, NM stress test today, 12 lead EKG for QTc eval. Amiodarone IV push and follow up drip per protocol Switch to Amiodarone 200mg po BID post completion of drip 1317 QTc 487ms (3) CHF exacerbation Current Visit: No Status: Acute Plan: Continue trending BNP, vital signs, monitor and replace electrolytes. Continue Lasix 20mg IV BID Qualifiers: Heart failure type: unspecified Qualified Code(s): I50.9 - Heart failure, unspecified (4) COPD (chronic obstructive pulmonary disease) Current Visit: No Status: Chronic Plan: Continue nebs and pulmonary toilet Qualifiers: COPD type: emphysema Emphysema type: unspecified Qualified Code(s): J43.9 - Emphysema, unspecified <Malik Fisher - Last Filed: 06/10/23 13:21>
[2023-06-10] MEDS ORDERED: REGADENOSON 0.4 MG/5 ML SYR IV ONE (13:19)
[2023-06-10] MEDS ORDERED: AMIODARONE HCL 150 MG in D5W 100 ML IV STA (14:26)
--- NOTE | 2023-06-10 14:38 | RAD REPORT ---
EXAM DESCRIPTION: NM - Rest Stress Cardiac Imaging - 06/10/2023 2:11 pm CLINICAL HISTORY: Chest pain. COMPARISON: None. TECHNIQUE: The patient was administered 10.7 mCi of Tc 99m Sestamibi prior to resting SPECT imaging of the heart. The patient was then administered 30.7 mCi of Tc 99m Sestamibi following exercise or ph armacologic stress. Multiplanar SPECT images were reviewed. FINDINGS: Small to moderate area of diminished radiotracer activity involves the apical lateral lef t ventricular myocardium on stress images. This demonstrates normal radiotracer uptake on rest images . Small to moderate area of diminished radiotracer uptake involves the septal left ventricular myocardi um on rest and stress sequences The left ventricular ejection fraction equals 39% IMPRESSION: Small to moderate reversible perfusion defect involving the apicolateral left ventricul ar myocardium probably stress-induced ischemia Small to moderate fixed perfusion defect septal left ventricular myocardium probably infarction
[2023-06-10 14:47] VITALS: BMI 3278.7
[2023-06-10] MEDS: ONDANSETRON 4 MG/2 ML VIAL IV PRN (14:47)
[2023-06-10] MEDS: BENZONATATE 100 MG CAP PO PRN (14:48)
[2023-06-10] MEDS: AMIODARONE HCL 900 MG in Dextrose 5%-Water 482 ML IV SCH ×2 (15:22→23:06)
[2023-06-10] MEDS ORDERED: IPRATROPIUM BROM 0.5MG/2.5ML NEB ONE (16:57)
[2023-06-10] MEDS: INSULIN GLARGINE 100 UNIT/ML SQ SCH (17:53)
[2023-06-10] MEDS: guaiFENesin 100 MG/5 ML UCUP PO PRN (18:03)
[2023-06-10] MEDS: ATORVASTATIN 40 MG TAB PO SCH (20:44)
[2023-06-10] MEDS: ZOLPIDEM TARTRATE 5 MG TABLET PO SCH (20:46)
[2023-06-10] MEDS: VANCOMYCIN 1.25 GM in NA CHLORIDE 0.9% 250 ML IVPB SCH (21:56)
[2023-06-10] MEDS: MELATONIN 5 MG TABLET PO PRN (23:12)
[2023-06-11] MEDS: METHYLPREDNISOLONE 40 MG INJ IV SCH ×3 (00:04→17:54)
[2023-06-11] MEDS: guaiFENesin 100 MG/5 ML UCUP PO PRN (00:04)
[2023-06-11] MEDS: PIPER TAZO 3.375 GM in NA CHLORIDE 0.9% 100 ML IV SCH ×3 (00:05→17:54)
[2023-06-11] MEDS: IPRATROPIUM BROM 0.5MG/2.5ML NEB SCH ×4 (01:00→19:46)
[2023-06-11] MEDS: ALBUTEROL 2.5 MG/3 ML NEB SOL NEB SCH ×4 (01:00→19:46)
[2023-06-11] MEDS: BENZONATATE 100 MG CAP PO PRN ×2 (03:26→15:47)
[2023-06-11] MEDS: MORPHINE 2 MG/ML SYR IV PRN ×2 (05:06→12:48)
[2023-06-11] MEDS: INSULIN REGULAR (HUMAN) 100 UNIT/ML SQ SCH ×4 (07:30→21:36)
[2023-06-11] MEDS: INSULIN LISPRO 100 UNIT/ML SQ SCH ×3 (08:00→15:48)
[2023-06-11 08:05] LABS: Absolute Lymphocytes (CBC) 0.8 K/uL (0.7-4.9); Hematocrit 31.4 % (36.0-45.0); Lymphocytes % 2.8 % (15.3-44.8); MCV 93.2 fL (80-100); MPV 9.1 fL (7.6-11.3); Platelets 383 thou/uL (152-406); RBC Red Blood Cell Count 3.37 M/uL (3.86-4.86)
[2023-06-11] MEDS: ENOXAPARIN 40 MG/0.4 ML SQ SCH (10:41)
[2023-06-11] MEDS: LOSARTAN POTASSIUM 50 MG TABLET PO SCH (10:42)
[2023-06-11] MEDS: METOPROLOL XL 25 MG TAB PO SCH (10:43)
[2023-06-11] MEDS: allopurinoL 300 MG TAB PO SCH (10:43)
[2023-06-11] MEDS: GABAPENTIN 100 MG CAP PO SCH ×2 (10:43→21:22)
[2023-06-11] MEDS: POTASSIUM CL SA 10 MEQ TAB PO SCH (10:43)
[2023-06-11] MEDS: ASPIRIN EC 81 MG TAB PO SCH (10:43)
[2023-06-11] MEDS: CLOPIDOGREL 75 MG TABLET PO SCH (10:44)
[2023-06-11] MEDS: FUROSEMIDE 20 MG/ 2ML VIAL IV SCH ×2 (10:44→17:55)
[2023-06-11] MEDS ORDERED: SODIUM CHLORIDE 0.9% 10ML INJ IV PRN (10:51)
--- NOTE | 2023-06-11 10:55 | P.PN ---
Subjective Date of Service: 06/11/23 Chief Complaint: Pneumonia Pt is resting comfortably in bed. She presents with severe sepsis 2/2 RLL pneumonia. Pt had 20 runs of V-tach on 06/09/23. Cardrdiology started amiodarone drip. Pt is anxious this am. She is getting iv zosyn and solumedrol. No other complaints. Review of Systems 10-point ROS is otherwise unremarkable General: Other (anxious), Unremarkable Eyes: Unremarkable ENT: Unremarkable Respiratory: Unremarkable Cardiovascular: Unremarkable Gastrointestinal: Unremarkable Genitourinary: Unremarkable Musculoskeletal: Unremarkable Integumentary: Unremarkable Neurological: Unremarkable Lymphatics: Unremarkable Physical Examination - Vital Signs Temperature: 97.3 F Blood Pressure: 150/76 Pulse: 86 Respirations: 22 Pulse Ox (%): 93 - Physical Exam General: Alert, In no apparent distress, Oriented x3 HEENT: Atraumatic, Normocephalic, PERRLA Neck: Supple, 2+ carotid pulse no bruit Respiratory: Clear to auscultation bilaterally, Normal air movement Cardiovascular: No edema, Normal pulses Capillary refill: <2 Seconds Gastrointestinal: Normal bowel sounds, Soft and benign, Non-distended Musculoskeletal: No clubbing, No swelling Integumentary: No rashes, No breakdown Neurological: Normal gait, Normal speech, Normal strength at 5/5 x4 extr Lymphatics: No axilla or inguinal lymphadenopathy Assessment And Plan - Plan Severe sepsis 2/2 RLL pneumonia: Likely due to aspiration. Will continue iv vanc and zosyn. Follow up blood and sputum cultures. Will continue IVF and trend lactate. Pt passed swallow eval. continue aspiration precaution. V-tach: Pt had 20 runs of v-tach on 06/09/23. Will continue amiodarone drip. Will switch to po amiodarone soon. Leukocytosis: Likely due to infection or steroid. Procalcitonin is 51.59. Will continue iv abx.. Hx of CHF: BNP 57869. Will follow up Echo. Will continue home meds 1.8 cm lung nodule: Per CT chest. Pt will follow up with Pulm for further evaluation. Transaminitis: Alk phos is 120. Will continue IVF and trend LFTs. Anemia: Hgb is 10.4 <- 9.7<- 10.8. Will monitor H/H. Acute COPD exacerbation: Will continue solumedrol, 2L BNC, duoneb and iv abx. Acute resp failure: Due to Pneumonia and COPD. Will continue treatment listed above. Anxiety: will give prn ativan. Hx of DM II: Continue accuchek, SSI, lantus 45u , lispro 15u with meal and ADA diet. DVT ppx: SCD Code: full Physician Review: Patient Assessed, Agree with Above Assessment and Plan
[2023-06-11] MEDS: ONDANSETRON 4 MG/2 ML VIAL IV PRN (11:08)
[2023-06-11] MEDS: LORazepam 2 MG/ML VIAL IV PRN ×2 (11:08→17:54)
[2023-06-11] MEDS: MUCINEX DM 12HR.SR TAB PO SCH ×2 (11:10→21:22)
--- NOTE | 2023-06-11 11:29 | P.PN ---
Subjective Date of Service: 06/11/23 Chief Complaint: Pneumonia Subjective: No new changes Review of Systems 10-point ROS is otherwise unremarkable Cardiovascular: Other (no episodes of VT overnight, Paced rhythm at 79) Physical Examination - Vital Signs Temperature: 97.3 F Blood Pressure: 150/76 Pulse: 86 Respirations: 22 Pulse Ox (%): 93 - Physical Exam General: In no apparent distress HEENT: Atraumatic, Normocephalic, PERRLA Neck: Supple, 2+ carotid pulse no bruit, JVD not distended Respiratory: Diminished Cardiovascular: No edema, Regular rate/rhythm Capillary refill: <2 Seconds Gastrointestinal: Normal bowel sounds, Soft and benign Musculoskeletal: No clubbing Integumentary: No rashes Neurological: Normal speech, Normal tone Lymphatics: No axilla or inguinal lymphadenopathy External genitalia: Deferred Rectal: Deferred Assessment And Plan - Current Problems (Diagnosis) (1) Hypertension Current Visit: Yes Status: Acute Plan: Losartan 50mg po daily, Metoprolol 25mg po daily, (2) Ventricular arrhythmia Current Visit: Yes Status: Acute Plan: Continue telemetry, NM stress test today, 12 lead EKG for QTc eval. Amiodarone IV push and follow up drip per protocol Switch to Amiodarone 200mg po BID post completion of drip 1317 QTc 487ms 06/11/23 IMPRESSION: Small to moderate reversible perfusion defect involving the apicolateral left ventricular myocardium probably stress-induced ischemia Small to moderate fixed perfusion defect septal left ventricular myocardium p robably infarction NM stress +, will cath tomorrow. NPO post MN, continue amiodarone 200mg po BID post completion of drip today (3) CHF exacerbation Current Visit: No Status: Acute Plan: Continue trending BNP, vital signs, monitor and replace electrolytes. Continue Lasix 20mg IV BID Qualifiers: Heart failure type: unspecified Qualified Code(s): I50.9 - Heart failure, unspecified (4) COPD (chronic obstructive pulmonary disease) Current Visit: No Status: Chronic Plan: Continue nebs and pulmonary toilet Continue antibiotics for exacerbation with pneumonia Qualifiers: COPD type: emphysema Emphysema type: unspecified Qualified Code(s): J43.9 - Emphysema, unspecified Physician Review: Patient Assessed, Agree with Above Assessment and Plan
[2023-06-11] MEDS: GUAIFENESIN/CODEINE 5ML UCUP PO PRN (12:48)
[2023-06-11] MEDS: PANTOPRAZOLE 40 MG INJ IVP SCH (12:48)
[2023-06-11] MEDS: AMIODARONE HCL 900 MG in Dextrose 5%-Water 482 ML IV SCH (15:47)
[2023-06-11] MEDS: INSULIN GLARGINE 100 UNIT/ML SQ SCH ×2 (17:30→17:54)
[2023-06-11] MEDS: ACETAMINOPHEN 500 MG TAB PO PRN (18:08)
[2023-06-11] MEDS: POLYETHYL GLY 3350 17 GM/DOSE PO PRN (18:09)
[2023-06-11] MEDS ORDERED: LORazepam 2 MG/ML VIAL IV ONE (20:03)
[2023-06-11] MEDS: NA CHLORIDE 0.9% 1,000 ML IV SCH (21:20)
[2023-06-11] MEDS: ZOLPIDEM TARTRATE 5 MG TABLET PO SCH (21:21)
[2023-06-11] MEDS: ATORVASTATIN 40 MG TAB PO SCH (21:21)
[2023-06-12] MEDS: PIPER TAZO 3.375 GM in NA CHLORIDE 0.9% 100 ML IV SCH ×3 (00:45→16:11)
[2023-06-12] MEDS: ALBUTEROL 2.5 MG/3 ML NEB SOL NEB SCH ×4 (00:55→20:20)
[2023-06-12] MEDS: IPRATROPIUM BROM 0.5MG/2.5ML NEB SCH ×4 (00:55→20:20)
[2023-06-12] MEDS: METHYLPREDNISOLONE 40 MG INJ IV SCH ×3 (01:00→14:55)
[2023-06-12 02:49] LABS: Absolute Lymphocytes (CBC) 0.6 K/uL (0.7-4.9); Hematocrit 27.6 % (36.0-45.0); Lymphocytes % 3.5 % (15.3-44.8); MPV 8.8 fL (7.6-11.3); Platelets 364 thou/uL (152-406); RBC Red Blood Cell Count 2.96 M/uL (3.86-4.86)
[2023-06-12 02:58] LABS: Potassium 4.7 mEq/L (3.5-5.1)
[2023-06-12] MEDS: INSULIN REGULAR (HUMAN) 100 UNIT/ML SQ SCH ×4 (07:30→21:00)
[2023-06-12] MEDS: INSULIN LISPRO 100 UNIT/ML SQ SCH ×3 (07:52→15:56)
--- NOTE | 2023-06-12 08:35 | P.PN ---
Subjective Date of Service: 06/12/23 Chief Complaint: Pneumonia Subjective: NPO (stress test +, to go for cardiac cath today) Review of Systems 10-point ROS is otherwise unremarkable General: As per HPI Respiratory: As per HPI Cardiovascular: As per HPI Physical Examination - Vital Signs Temperature: 97.1 F Blood Pressure: 167/98 Pulse: 90 Respirations: 20 Pulse Ox (%): 94 - Physical Exam General: In no apparent distress, Oriented x3 HEENT: Atraumatic, Normocephalic, PERRLA Neck: Supple, 2+ carotid pulse no bruit Respiratory: Expiratory wheezes, Other (continues on 4L O2, mild tripoding) Cardiovascular: No edema, Normal pulses (paced rhythm at 97 overnight) Capillary refill: <2 Seconds Gastrointestinal: Normal bowel sounds, Soft and benign Musculoskeletal: No clubbing Integumentary: No rashes Neurological: Normal speech Lymphatics: No axilla or inguinal lymphadenopathy External genitalia: Deferred Rectal: Deferred Assessment And Plan - Current Problems (Diagnosis) (1) Hypertension Current Visit: Yes Status: Acute Plan: Losartan 50mg po daily, Metoprolol 25mg po daily, (2) Ventricular arrhythmia Current Visit: Yes Status: Acute Plan: Continue telemetry, NM stress test today, 12 lead EKG for QTc eval. Amiodarone IV push and follow up drip per protocol Switch to Amiodarone 200mg po BID post completion of drip 1317 QTc 487ms 06/11/23 IMPRESSION: Small to moderate reversible perfusion defect involving the apicolateral left ventricular myocardium probably stress-induced ischemia Small to moderate fixed perfusion defect septal left ventricular myocardium probably infarction NM stress +, will cath tomorrow. NPO post MN, continue amiodarone 200mg po BID post completion of drip today 06/12/23 Awaiting cath, remains (and reminded of status) NPO (3) CHF exacerbation Current Visit: No Status: Acute Plan: Continue trending BNP, vital signs, monitor and replace electrolytes. Continue Lasix 20mg IV BID transition to po lasix post cardiac cath Qualifiers: Heart failure type: unspecified Qualified Code(s): I50.9 - Heart failure, unspecified (4) COPD (chronic obstructive pulmonary disease) Current Visit: No Status: Chronic Plan: Continue nebs and pulmonary toilet Continue antibiotics for exacerbation with pneumonia 06/12/23 Stop smoking Qualifiers: COPD type: emphysema Emphysema type: unspecified Qualified Code(s): J43.9 - Emphysema, unspecified Physician Review: Patient Assessed, Agree with Above Assessment and Plan
[2023-06-12] MEDS: POTASSIUM CL SA 10 MEQ TAB PO SCH (09:00)
[2023-06-12] MEDS: FUROSEMIDE 20 MG/ 2ML VIAL IV SCH ×2 (09:08→14:55)
[2023-06-12] MEDS: GABAPENTIN 100 MG CAP PO SCH ×2 (09:08→22:20)
[2023-06-12] MEDS: allopurinoL 300 MG TAB PO SCH (09:08)
[2023-06-12] MEDS: ASPIRIN EC 81 MG TAB PO SCH (09:08)
[2023-06-12] MEDS: MUCINEX DM 12HR.SR TAB PO SCH ×2 (09:08→22:20)
[2023-06-12] MEDS: PANTOPRAZOLE 40 MG INJ IVP SCH (09:08)
[2023-06-12] MEDS: LOSARTAN POTASSIUM 50 MG TABLET PO SCH (09:08)
[2023-06-12] MEDS: ENOXAPARIN 40 MG/0.4 ML SQ SCH (09:09)
[2023-06-12] MEDS: METOPROLOL XL 25 MG TAB PO SCH (09:09)
[2023-06-12] MEDS: CLOPIDOGREL 75 MG TABLET PO SCH (09:09)
[2023-06-12] MEDS: LORazepam 2 MG/ML VIAL IV PRN (10:08)
[2023-06-12] MEDS ORDERED: LIDOCAINE 1% 20 ML MDV ONE (10:26)
[2023-06-12] MEDS ORDERED: HEPA 1000U/500MLS 0 UNIT/0 ML BAG IV ONE (10:26)
--- NOTE | 2023-06-12 10:57 | P.PN ---
Subjective Date of Service: 06/12/23 Chief Complaint: Pneumonia Pt is resting comfortably in bed. She presents with severe sepsis 2/2 RLL pneumonia. Pt had 20 runs of V-tach on 06/09/23. Cardiology started amiodarone drip. NM stress test is abnormal. Will do cardiac cath. No other complaints. Review of Systems 10-point ROS is otherwise unremarkable General: Unremarkable Eyes: Unremarkable ENT: Unremarkable Respiratory: Shortness of Breath Cardiovascular: Unremarkable Gastrointestinal: Unremarkable Genitourinary: Unremarkable Musculoskeletal: Unremarkable Integumentary: Unremarkable Neurological: Unremarkable Lymphatics: Unremarkable Physical Examination - Vital Signs Temperature: 97.1 F Blood Pressure: 167/98 Pulse: 90 Respirations: 20 Pulse Ox (%): 94 - Physical Exam General: Alert, In no apparent distress, Oriented x3 HEENT: Atraumatic, Normocephalic, PERRLA Neck: Supple, 2+ carotid pulse no bruit Respiratory: Normal air movement, Diminished, Crackles/rales Cardiovascular: No edema, Normal pulses Capillary refill: <2 Seconds Gastrointestinal: Normal bowel sounds, Soft and benign, Non-distended Musculoskeletal: No clubbing, No swelling Integumentary: No rashes, No breakdown Neurological: Normal gait, Normal speech, Normal strength at 5/5 x4 extr Lymphatics: No axilla or inguinal lymphadenopathy Assessment And Plan - Plan Severe sepsis 2/2 RLL pneumonia: Likely due to aspiration. Will continue iv vanc and zosyn. Follow up blood and sputum cultures. Will continue IVF and trend lactate. Pt passed swallow eval. continue aspiration precaution. V-tach: Pt had 20 runs of v-tach on 06/09/23. Will continue amiodarone drip. Will switch to po amiodarone soon. NM stress test is abnormal. cardiology will do cardiac cath. Leukocytosis: Likely due to infection or steroid. Procalcitonin is 51.59. Will continue iv abx.. Hx of CHF: BNP 51592. Will follow up Echo. Will continue home meds 1.8 cm lung nodule: Per CT chest. Pt will follow up with Pulm for further evaluation. Hyperkalemia: K si 4.7. Will monitor. Transaminitis: Alk phos is 120. Will continue IVF and trend LFTs. Anemia: Hgb is 9.2 <- 10.4 <- 9.7<- 10.8. Will monitor H/H. Acute COPD exacerbation: Will continue solumedrol, 2L BNC, duoneb and iv abx. Acute resp failure: Due to Pneumonia and COPD. Will continue treatment listed above. Anxiety: will give prn ativan. Hx of DM II: Continue accuchek, SSI, lantus 45u , lispro 15u with meal and ADA diet. DVT ppx: SCD Code: full Physician Review: Patient Assessed, Agree with Above Assessment and Plan
[2023-06-12 12:06] LABS: Arterial Blood Carboxyhemoglob 0.8 % (0-1.5); Blood Gas Oxyhemoglobin 91.7 % (94-97); Blood O2 Saturation 94.1 % (92-98.5)
[2023-06-12] MEDS: ONDANSETRON 4 MG/2 ML VIAL IV PRN (12:13)
[2023-06-12] MEDS: VANCOMYCIN 1.25 GM in NA CHLORIDE 0.9% 250 ML IVPB SCH (12:32)
[2023-06-12] MEDS: NA CHLORIDE 0.9% 1,000 ML IV SCH ×2 (13:12→22:54)
[2023-06-12] MEDS: MORPHINE 2 MG/ML SYR IV PRN (14:36)
--- NOTE | 2023-06-12 15:14 | EKG ---
Test Date: 2023-06-10 Test Time: 13:17:02 Climate Change Analyst: PIERCE MEASUREMENT RESULTS: Intervals: Rate: 91 TX: 174 QRSD: 128 QT: 396 QTc: 487 Elbert: P: 40 TX: 174 QRS: 90 T: -24 INTERPRETIVE STATEMENTS: Sinus rhythm with marked sinus arrhythmia Nonspecific intraventricular block Anterolateral infarct, age undetermined Abnormal ECG Compared to ECG 06/07/2023 20:40:45 Atrial fibrillation no longer present T-wave abnormality no longer present Possible ischemia no longer present Myocardial infarct finding still present Electronically Signed On 06-12-23 15:09:50 PRODUCTION TROUBLESHOOTER by Malik Fisher
--- NOTE | 2023-06-12 15:15 | EKG ---
Test Date: 2023-06-07 Test Time: 20:39:39 Assistant Case Manager: YONI MEASUREMENT RESULTS: Intervals: Rate: 86 OR: QRSD: 124 QT: 400 QTc: 478 [place]ola: P: OR: QRS: 95 T: -32 INTERPRETIVE STATEMENTS: Demand pacemaker, interpretation is based on intrinsic rhythm Atrial fibrillation with premature ventricular or aberrantly conducted complexes Anterolateral infarct, age undetermined ST & T wave abnormality, consider inferior ischemia or digitalis effect Abnormal ECG Compared to ECG 06/07/2023 11:49:01 Ventricular premature complex(es) now present ST (T wave) deviation now present Possible ischemia now present Sinus rhythm no longer present Myocardial infarct finding still present Electronically Signed On 06-12-23 15:10:36 CONTROL ROOM SUPERVISOR by Malik Fisher
[2023-06-12] MEDS: INSULIN GLARGINE 100 UNIT/ML SQ SCH (16:15)
[2023-06-12] MEDS: ZOLPIDEM TARTRATE 5 MG TABLET PO SCH (21:00)
[2023-06-12] MEDS: ATORVASTATIN 40 MG TAB PO SCH (22:20)
[2023-06-12] MEDS ORDERED: NA CHLORIDE 0.9% 1,000 ML ONE (22:53)
[2023-06-12] MEDS: AMIODARONE HCL 900 MG in Dextrose 5%-Water 482 ML IV SCH (22:55)
[2023-06-13] MEDS: IPRATROPIUM BROM 0.5MG/2.5ML NEB SCH ×4 (01:30→19:45)
[2023-06-13] MEDS: ALBUTEROL 2.5 MG/3 ML NEB SOL NEB SCH ×4 (01:30→19:45)
[2023-06-13] MEDS: PIPER TAZO 3.375 GM in NA CHLORIDE 0.9% 100 ML IV SCH ×3 (01:55→17:10)
[2023-06-13] MEDS: METHYLPREDNISOLONE 40 MG INJ IV SCH ×3 (01:55→17:13)
[2023-06-13] MEDS: MORPHINE 2 MG/ML SYR IV PRN ×3 (02:08→21:55)
[2023-06-13 04:39] LABS: Absolute Lymphocytes (CBC) 0.5 K/uL (0.7-4.9); Hematocrit 32.6 % (36.0-45.0); Lymphocytes % 2.9 % (15.3-44.8); MCV 93.5 fL (80-100); MPV 8.7 fL (7.6-11.3); Platelets 466 thou/uL (152-406); RBC Red Blood Cell Count 3.49 M/uL (3.86-4.86)
[2023-06-13 05:10] LABS: Potassium 4.9 mEq/L (3.5-5.1)
[2023-06-13 05:40] LABS: Platelet Estimate INCR
[2023-06-13 05:41] LABS: Blood Morphology Comment NOTED (NOT SEEN); Polychromasia 1+
[2023-06-13] MEDS: INSULIN LISPRO 100 UNIT/ML SQ SCH ×3 (08:00→17:14)
[2023-06-13] MEDS: MUCINEX DM 12HR.SR TAB PO SCH ×3 (09:00→20:39)
[2023-06-13] MEDS: CLOPIDOGREL 75 MG TABLET PO SCH ×2 (09:00→10:00)
[2023-06-13] MEDS: allopurinoL 300 MG TAB PO SCH ×2 (09:00→10:12)
[2023-06-13] MEDS: ASPIRIN EC 81 MG TAB PO SCH ×2 (09:00→10:11)
[2023-06-13] MEDS ORDERED: PANTOPRAZOLE 40 MG INJ ONE (09:35)
[2023-06-13] MEDS ORDERED: CLOPIDOGREL 75 MG TABLET ONE (09:36)
[2023-06-13] MEDS ORDERED: ASPIRIN 81 MG CHEWABLE TABLET ONE (09:36)
[2023-06-13] MEDS ORDERED: GABAPENTIN 300 MG CAP ONE (09:36)
[2023-06-13] MEDS ORDERED: ENOXAPARIN 40 MG/0.4 ML SQ ONE (09:37)
[2023-06-13] MEDS ORDERED: METHYLPREDNISOLONE 40 MG INJ ONE ×2 (09:37→16:56)
[2023-06-13] MEDS ORDERED: FUROSEMIDE 20 MG TABLET ONE (09:37)
[2023-06-13] MEDS ORDERED: LOSARTAN POTASSIUM 50 MG TABLET ONE (09:37)
[2023-06-13] MEDS ORDERED: POTASSIUM CL SA 10 MEQ TAB PO ONE (09:37)
[2023-06-13] MEDS ORDERED: PIPERACIL/TAZO 3.375 GM VIAL IV ONE ×3 (09:38→23:56)
[2023-06-13] MEDS ORDERED: NA CHLORIDE 0.9% 100 ML ONE ×3 (09:38→23:59)
[2023-06-13] MEDS: INSULIN REGULAR (HUMAN) 100 UNIT/ML SQ SCH ×4 (09:56→21:00)
[2023-06-13] MEDS: ENOXAPARIN 40 MG/0.4 ML SQ SCH (09:57)
[2023-06-13] MEDS: PANTOPRAZOLE 40 MG INJ IVP SCH (09:57)
[2023-06-13] MEDS: METOPROLOL XL 25 MG TAB PO SCH (09:58)
[2023-06-13] MEDS: LOSARTAN POTASSIUM 50 MG TABLET PO SCH (09:59)
[2023-06-13] MEDS: POTASSIUM CL SA 10 MEQ TAB PO SCH (09:59)
[2023-06-13] MEDS: NA CHLORIDE 0.9% 1,000 ML IV SCH (10:00)
[2023-06-13] MEDS ORDERED: ASPIRIN EC 81 MG TAB PO ONE (10:05)
[2023-06-13] MEDS ORDERED: FUROSEMIDE 20 MG/ 2ML VIAL ONE ×2 (10:05→16:56)
[2023-06-13] MEDS: GABAPENTIN 100 MG CAP PO SCH ×3 (10:10→20:39)
[2023-06-13] MEDS: FUROSEMIDE 20 MG/ 2ML VIAL IV SCH ×2 (10:10→17:13)
[2023-06-13] MEDS ORDERED: ONDANSETRON 4 MG/2 ML VIAL ONE (11:03)
[2023-06-13] MEDS ORDERED: MORPHINE 2 MG/ML SYR ONE (11:04)
[2023-06-13] MEDS: ONDANSETRON 4 MG/2 ML VIAL IV PRN (11:10)
[2023-06-13] MEDS ORDERED: INSULIN LISPRO 100 UNIT/ML ONE ×2 (12:09→16:52)
[2023-06-13] MEDS ORDERED: INSULIN REGULAR (HUMAN) 100 UNIT/ML ONE (12:10)
--- NOTE | 2023-06-13 12:16 | P.PN ---
Subjective Date of Service: 06/13/23 Chief Complaint: Pneumonia Pt is resting comfortably in bed. She presents with severe sepsis 2/2 RLL pneumonia. Pt had 20 runs of V-tach on 06/09/23. Cardiology started amiodarone drip. NM stress test is abnormal. Cardiology was unable to do cardiac cath due to SOB. No other complaints. Review of Systems Unremarkable General: Unremarkable Eyes: Unremarkable ENT: Unremarkable Respiratory: SOB with Excertion Cardiovascular: Unremarkable Gastrointestinal: Unremarkable Genitourinary: Unremarkable Musculoskeletal: Unremarkable Integumentary: Unremarkable Neurological: Unremarkable Lymphatics: Unremarkable Physical Examination - Vital Signs Temperature: 96.8 F Blood Pressure: 158/65 Pulse: 83 Respirations: 20 Pulse Ox (%): 98 - Physical Exam General: Alert, In no apparent distress, Oriented x3 HEENT: Atraumatic, Normocephalic, PERRLA Neck: Supple, 2+ carotid pulse no bruit Respiratory: Clear to auscultation bilaterally, Normal air movement Cardiovascular: No edema, Normal pulses, Regular rate/rhythm, Normal S1 S2 Capillary refill: <2 Seconds Gastrointestinal: Normal bowel sounds, Soft and benign, Non-distended Musculoskeletal: No clubbing, No swelling Integumentary: No rashes, No breakdown Neurological: Normal gait, Normal speech, Normal strength at 5/5 x4 extr Lymphatics: No axilla or inguinal lymphadenopathy - Studies Microbiology Data (last 24 hrs): 06/07/23 12:30 Blood - Blood Aerobic Blood Culture - Final No growth in 5 days. 06/07/23 12:30 Blood - Blood Anaerobic Blood Culture - Final No growth in 5 days. 06/07/23 12:45 Blood - Blood Aerobic Blood Culture - Final No growth in 5 days. 06/07/23 12:45 Blood - Blood Anaerobic Blood Culture - Final No growth in 5 days. Assessment And Plan - Plan Severe sepsis 2/2 RLL pneumonia: Likely due to aspiration. Will continue iv vanc and zosyn. Follow up blood and sputum cultures. Will continue IVF and trend lactate. Pt passed swallow eval. continue aspiration precaution. V-tach: Pt had 20 runs of v-tach on 06/09/23. Will continue amiodarone drip. Will switch to po amiodarone soon. NM stress test is abnormal. cardiology will do cardiac cath. Acute resp failure with hypoxia: ABG shows 7.34/41/95. Will continue prn BIPAP, 2L BNC and prn duoneb. Leukocytosis: Likely due to infection or steroid. trending down ( 28 -> 18). Procalcitonin is 51.59. Will continue iv abx.. Hx of CHF: BNP 62777. Will follow up Echo. Will continue home meds 1.8 cm lung nodule: Per CT chest. Pt will follow up with Pulm for further evaluation. Hyperkalemia: K is 4.9. Will monitor. Transaminitis: Alk phos is 120. Will continue IVF and trend LFTs. Anemia: Hgb is 10.7<- 9.2 <- 10.4 <- 9.7<- 10.8. Will monitor H/H. Acute COPD exacerbation: Will continue solumedrol, 2L BNC, duoneb and iv abx. Acute resp failure: Due to Pneumonia and COPD. Will continue treatment listed above. Anxiety: will give prn ativan. Hx of DM II: Continue accuchek, SSI, lantus 45u , lispro 15u with meal and ADA diet. DVT ppx: SCD Code: full Dispo: Continue ICU level of care Physician Review: Patient Assessed, Agree with Above Assessment and Plan
[2023-06-13] MEDS: VANCOMYCIN 1.25 GM in NA CHLORIDE 0.9% 250 ML IVPB SCH (14:44)
[2023-06-13] MEDS: AMIODARONE HCL 900 MG in Dextrose 5%-Water 482 ML IV SCH (14:44)
[2023-06-13] MEDS ORDERED: LORazepam 2 MG/ML VIAL ONE (14:51)
[2023-06-13] MEDS: LORazepam 2 MG/ML VIAL IV PRN ×2 (14:55→21:45)
[2023-06-13] MEDS: INSULIN GLARGINE 100 UNIT/ML SQ SCH (17:30)
[2023-06-13] MEDS: ZOLPIDEM TARTRATE 5 MG TABLET PO SCH (20:39)
[2023-06-13] MEDS: ATORVASTATIN 40 MG TAB PO SCH (20:39)
[2023-06-13] MEDS ORDERED: ALBUTEROL 2.5 MG/3 ML NEB SOL ONE (20:40)
[2023-06-13] MEDS ORDERED: IPRATROPIUM BROM 0.5MG/2.5ML ONE (20:40)
[2023-06-14] MEDS: PIPER TAZO 3.375 GM in NA CHLORIDE 0.9% 100 ML IV SCH ×3 (00:02→17:38)
[2023-06-14] MEDS: IPRATROPIUM BROM 0.5MG/2.5ML NEB SCH ×4 (01:00→21:30)
[2023-06-14] MEDS: ALBUTEROL 2.5 MG/3 ML NEB SOL NEB SCH ×4 (01:00→21:30)
[2023-06-14] MEDS ORDERED: ALBUTEROL 2.5 MG/3 ML NEB SOL ONE ×3 (01:58→14:55)
[2023-06-14] MEDS ORDERED: IPRATROPIUM BROM 0.5MG/2.5ML ONE ×4 (01:58→22:18)
[2023-06-14] MEDS: MORPHINE 2 MG/ML SYR IV PRN ×3 (04:10→23:26)
[2023-06-14] MEDS: LORazepam 2 MG/ML VIAL IV PRN ×2 (04:35→23:47)
[2023-06-14 04:37] LABS: Absolute Lymphocytes (CBC) 0.7 K/uL (0.7-4.9); Hematocrit 33.3 % (36.0-45.0); Lymphocytes % 3.6 % (15.3-44.8); MCV 92.6 fL (80-100); MPV 8.8 fL (7.6-11.3); Platelets 525 thou/uL (152-406)
[2023-06-14 04:54] LABS: Potassium 4.4 mEq/L (3.5-5.1)
[2023-06-14] MEDS: NA CHLORIDE 0.9% 1,000 ML IV SCH (05:36)
[2023-06-14] MEDS ORDERED: AMIODARONE HCL 900 MG in Dextrose 5%-Water 482 ML IV SCH (08:00)
[2023-06-14] MEDS ORDERED: INSULIN LISPRO 100 UNIT/ML ONE ×2 (08:32→11:43)
[2023-06-14] MEDS ORDERED: AMIODARONE HCL 200 MG TAB ONE ×2 (08:33→20:01)
[2023-06-14] MEDS ORDERED: CLOPIDOGREL 75 MG TABLET ONE (08:33)
[2023-06-14] MEDS ORDERED: ASPIRIN EC 81 MG TAB PO ONE (08:33)
[2023-06-14] MEDS ORDERED: PANTOPRAZOLE 40 MG INJ ONE (08:33)
[2023-06-14] MEDS ORDERED: FUROSEMIDE 20 MG/ 2ML VIAL ONE (08:34)
[2023-06-14] MEDS ORDERED: POTASSIUM CL SA 10 MEQ TAB PO ONE (08:34)
[2023-06-14] MEDS ORDERED: LOSARTAN POTASSIUM 50 MG TABLET ONE (08:34)
[2023-06-14] MEDS ORDERED: INSULIN REGULAR (HUMAN) 100 UNIT/ML ONE ×2 (08:34→11:44)
[2023-06-14] MEDS ORDERED: NA CHLORIDE 0.9% 100 ML ONE ×3 (08:35→23:15)
[2023-06-14] MEDS ORDERED: PIPERACIL/TAZO 3.375 GM VIAL IV ONE ×3 (08:35→23:16)
[2023-06-14] MEDS ORDERED: ENOXAPARIN 40 MG/0.4 ML SQ ONE (08:35)
[2023-06-14] MEDS: MUCINEX DM 12HR.SR TAB PO SCH ×2 (09:00→20:27)
[2023-06-14] MEDS: LOSARTAN POTASSIUM 50 MG TABLET PO SCH (09:00)
[2023-06-14] MEDS: allopurinoL 300 MG TAB PO SCH (09:00)
[2023-06-14] MEDS: ENOXAPARIN 40 MG/0.4 ML SQ SCH (09:22)
[2023-06-14] MEDS: INSULIN LISPRO 100 UNIT/ML SQ SCH ×3 (09:22→17:00)
[2023-06-14] MEDS: FUROSEMIDE 20 MG/ 2ML VIAL IV SCH (09:23)
[2023-06-14] MEDS: INSULIN REGULAR (HUMAN) 100 UNIT/ML SQ SCH ×4 (09:23→20:43)
[2023-06-14] MEDS: PANTOPRAZOLE 40 MG INJ IVP SCH (09:23)
[2023-06-14] MEDS: POTASSIUM CL SA 10 MEQ TAB PO SCH (09:24)
[2023-06-14] MEDS: GABAPENTIN 100 MG CAP PO SCH ×2 (09:24→20:27)
[2023-06-14] MEDS: ASPIRIN EC 81 MG TAB PO SCH (09:24)
[2023-06-14] MEDS: CLOPIDOGREL 75 MG TABLET PO SCH (09:24)
[2023-06-14] MEDS: AMIODARONE HCL 200 MG TAB PO SCH ×2 (09:24→20:26)
[2023-06-14] MEDS: METOPROLOL XL 25 MG TAB PO SCH (09:25)
--- NOTE | 2023-06-14 09:29 | P.PN ---
Subjective Date of Service: 06/14/23 Chief Complaint: Pneumonia Pt is resting comfortably in bed. She presented with severe sepsis 2/2 RLL pneumonia. Pt had 20 runs of V-tach on 06/09/23. Cardiology started amiodarone drip. Now on oral amiodarone. Pt is eager to go home. NM stress test is abnormal. Cardiology was unable to do cardiac cath due to SOB. We transferred her to the ICu for higher level of care on 06/12/23. No other complaints. Review of Systems Unremarkable General: Weakness Eyes: Unremarkable ENT: Unremarkable Respiratory: SOB with Excertion Cardiovascular: Unremarkable Gastrointestinal: Unremarkable Genitourinary: Unremarkable Musculoskeletal: Unremarkable Integumentary: Unremarkable Neurological: Unremarkable Lymphatics: Unremarkable Physical Examination - Vital Signs Temperature: 97.5 F Blood Pressure: 96/75 Pulse: 86 Respirations: 24 Pulse Ox (%): 99 - Physical Exam General: Alert, In no apparent distress, Oriented x3 HEENT: Atraumatic, Normocephalic, PERRLA Neck: Supple, 2+ carotid pulse no bruit, JVD not distended Respiratory: Diminished, Expiratory wheezes Cardiovascular: No edema, Normal pulses, Regular rate/rhythm, Normal S1 S2 Capillary refill: <2 Seconds Gastrointestinal: Normal bowel sounds, Soft and benign, Non-distended Musculoskeletal: No clubbing, No swelling Integumentary: No rashes, No breakdown Assessment And Plan - Plan Severe sepsis 2/2 RLL pneumonia: Likely due to aspiration. Will continue iv vanc and zosyn. Follow up blood and sputum cultures. Will continue IVF and trend lactate. Pt passed swallow eval. continue aspiration precaution. V-tach: Pt had 20 runs of v-tach on 06/09/23. Off amiodarone drip. Will continue po amiodarone today. NM stress test is abnormal. cardiology will do cardiac cath. Acute resp failure with hypoxia: ABG shows 7.34/41/95. Will continue prn BIPAP, 2L BNC and prn duoneb. Leukocytosis: Likely due to infection or steroid. trending down ( 28 -> 18 -> 17 -> 20). Procalcitonin is 51.59. Will continue iv abx.. Hx of CHF: BNP 81183. Will follow up Echo. Will continue home meds 1.8 cm lung nodule: Per CT chest. Pt will follow up with Pulm for further evaluation. Hyperkalemia: K is 4.4<- 4.9. Will monitor. Transaminitis: Alk phos is 120. Will continue IVF and trend LFTs. Anemia: Hgb is 11<- 10.7<- 9.2 <- 10.4 <- 9.7<- 10.8. Will monitor H/H. Acute COPD exacerbation: Will continue solumedrol, 2L BNC, duoneb and iv abx. Acute resp failure: Due to Pneumonia and COPD. Will continue treatment listed above. Anxiety: will give prn ativan. Hx of DM II: Continue accuchek, SSI, lantus 18u , lispro 6u with meal and ADA diet. DVT ppx: SCD Code: full Dispo: Continue ICU level of care. Pt is eager to go home but she is not medically stable. Physician Review: Patient Assessed, Agree with Above Assessment and Plan
--- NOTE | 2023-06-14 10:05 | P.CNS ---
Date of Consult: 06/14/23 Reason for Consult: Lower lobe pneumonia Chief Complaint: Pneumonia History of Present Illness: Patient is 78 years of age with a history of COPD admitted with right lower lobe pneumonia and to atrial fibrillation was treated with IV antibiotics she is clinically improving blood pressure is little low CT scan shows consolidation in the right lower lobe Allergies No Known Allergies Allergy (Verified 05/05/22 08:45) Home Medications: Atorvastatin Calcium 40 mg PO DAILY 10/04/19 Insulin Aspart [Novolog Penfill] See Protocol SQ ACHS 10/04/19 Losartan Potassium 50 mg PO DAILY 10/04/19 Cetirizine HCl [All Day Allergy] 1 tab PO DAILYPRN PRN 05/02/22 Furosemide [Lasix*] 1 tab PO DAILY 05/02/22 Insulin Detemir [Levemir] 40 units SQ DAILY 05/02/22 Levothyroxine Sodium [Euthyrox] 1 tab PO DAILY 05/02/22 Aspirin [Aspirin EC 81 MG] 81 mg PO DAILY 03/15/23 Clopidogrel Bisulfate [Plavix*] 75 mg PO DAILY 03/15/23 Metoprolol Succinate [Toprol Xl*] 25 mg PO DAILY 03/15/23 Alendronate Sodium 70 mg PO Q7D 06/08/23 Allopurinol 300 mg PO DAILY 06/08/23 Gabapentin [Neurontin*] 100 mg PO BID 06/08/23 Potassium Chloride [Klor-Con M20] 1 tab PO DAILY 06/08/23 - Past Medical/Surgical History Diabetic: Yes -: History of COPD -: Diabetes type 1 -: Hypertension -: Hypothyroid -: CHF -: Prolapsed bladder -: [id number] -: Bladder suspension 2004, pessary 2019 -: Appendectomy 1961 -: Tonsillectomy 1949 -: Pacemaker 2020 -: Hernia 2019 -: Stent 2020 Psychosocial/ Personal History: Former smoker - Family History Mother Medical History: Heart disease, Hypertension, Diabetes - Social History Smoking Status: Current every day smoker Alcohol use: No CD- Drugs: No Caffeine use: No Place of Residence: Home Review of Systems General: Weakness Respiratory: Cough, Shortness of Breath Physical Examination Temp Pulse Resp BP Pulse Ox 97.5 F 86 24 H 96/75 99 06/14/23 09:29 06/14/23 09:29 06/14/23 09:29 06/14/23 09:29 06/14/23 09:29 General: Alert, Oriented x3 Respiratory: Crackles/rales (Crackles in the right lower lobe) Cardiovascular: No edema, Normal S1 S2 Gastrointestinal: Normal bowel sounds, Soft and benign - Problems (1) Pneumonia Current Visit: Yes Status: Acute Plan: Patient is 78 years of age admitted with right lower lobe pneumonia and atrial fibrillation currently her white count is elevated and changing over to cefepime in view of nephrotoxicity associated with Zosyn and vancomycin blood cultures are negative so far renal function remains stable DC Lasix white count is elevated CT scan reviewed white count may be elevated from the steroids hospitalist and cardiology to review anticoagulation for her A-fib patient also scheduled to have a cardiac cath done and went into A-fib patient has very reversible ischemic defect on stress test patient is hemodynamically stable oxygenation satisfactory Qualifiers: Pneumonia type: due to unspecified organism Laterality: right Lung location: lower lobe of lung Qualified Code(s): J18.9 - Pneumonia, unspecified organism
[2023-06-14] MEDS: VANCOMYCIN 1.25 GM in NA CHLORIDE 0.9% 250 ML IVPB SCH (11:46)
[2023-06-14] MEDS ORDERED: MORPHINE 2 MG/ML SYR ONE (15:35)
[2023-06-14] MEDS: INSULIN GLARGINE 100 UNIT/ML SQ SCH (17:01)
[2023-06-14] MEDS: ATORVASTATIN 40 MG TAB PO SCH (20:27)
[2023-06-15] MEDS: PIPER TAZO 3.375 GM in NA CHLORIDE 0.9% 100 ML IV SCH ×3 (00:05→16:39)
[2023-06-15] MEDS: NA CHLORIDE 0.9% 1,000 ML IV SCH (03:42)
[2023-06-15 05:06] LABS: Absolute Lymphocytes (CBC) 1.1 K/uL (0.7-4.9); Hematocrit 33.2 % (36.0-45.0); Lymphocytes % 6.9 % (15.3-44.8); MCV 92.5 fL (80-100); MPV 8.5 fL (7.6-11.3); Platelets 490 thou/uL (152-406); RBC Red Blood Cell Count 3.59 M/uL (3.86-4.86)
[2023-06-15] MEDS ORDERED: ALENDRONATE 70 MG TAB PO SCH (06:00)
[2023-06-15] MEDS ORDERED: IPRATROPIUM BROM 0.5MG/2.5ML ONE ×3 (07:20→18:13)
[2023-06-15] MEDS ORDERED: ALBUTEROL 2.5 MG/3 ML NEB SOL ONE ×2 (07:20→18:13)
[2023-06-15] MEDS: IPRATROPIUM BROM 0.5MG/2.5ML NEB SCH ×4 (07:28→19:00)
[2023-06-15] MEDS: ALBUTEROL 2.5 MG/3 ML NEB SOL NEB SCH (07:28)
[2023-06-15] MEDS: INSULIN REGULAR (HUMAN) 100 UNIT/ML SQ SCH ×4 (07:30→20:39)
--- NOTE | 2023-06-15 07:57 | P.PN ---
Subjective Date of Service: 06/16/23 Chief Complaint: Pneumonia shortness of breath improving, 02 2L, Plan to cardiac cath when shortness of breath improves, no reported chest pain, - Physical Exam General: Alert, In no apparent distress, Oriented x3 HEENT: Atraumatic, Normocephalic, PERRLA Neck: Supple, 2+ carotid pulse no bruit, JVD not distended Respiratory: Expiratory wheezes Cardiovascular: No edema, Normal pulses, Regular rate/rhythm, Normal S1 S2 Capillary refill: <2 Seconds Gastrointestinal: Normal bowel sounds, Soft and benign, Non-distended Musculoskeletal: No clubbing, No swelling Integumentary: No rashes, No breakdown Review of Systems per HPI Physical Examination - Vital Signs Temperature: 97 F Blood Pressure: 138/47 Pulse: 70 Respirations: 14 Pulse Ox (%): 97 Assessment And Plan - Plan Assessment plan Severe sepsis 2/2 RLL pneumonia: Likely due to aspiration. Pulmonary consulted Will continue iv vanc and zosyn. Follow up blood and sputum cultures. Will continue IVF and trend lactate. Pt passed swallow eval. continue aspiration precaution. Leukocytosis: Likely due to infection or steroid. WBCs trending down ( 28 -> 18 -> 17 -> 20->15.30). Procalcitonin is 51.59. Will continue iv abx.. abx Vanc/Zosyn WBC trending down We transferred her to the ICu for higher level of care on 06/12/23. No other complaints. Acute on chronic kidney injury unkn baseline Trend BUN/creatinine BUN 33->20 CR 1.80->1.23 V-tach: Pt had 20 runs of v-tach on 06/09/23. Off amiodarone drip. Will continue po amiodarone today. NM stress test is abnormal. cardiology will do cardiac cath. Cardiology notes QTc 487ms NM stress 06/11/23 IMPRESSION: Small to moderate reversible perfusion defect involving the apicolateral left ventricular myocardium probably stress-induced ischemia Small to moderate fixed perfusion defect septal left ventricular myocardium probably infarction NM stress +, will cath tomorrow. continue amiodarone 200mg po BID post completion of drip today 06/12/23 Awaiting cath, remains (and reminded of status) NPO Cardiology was unable to do cardiac cath due to SOB. Acute resp failure with hypoxia: Secondary to aspiration pneumonia Acute COPD exacerbation: Will continue solumedrol, 2L BNC, duoneb and iv abx. ABG shows 7.34/41/95. Will continue prn BIPAP, 2L BNC and prn duoneb. Acute resp failure: Due to Pneumonia and COPD. Will continue treatment listed above. Acute on chronic heart failure Hx of CHF: BNP 64303. Will follow up Echo. Will continue home meds Pulmonary nodule 1.8 cm lung nodule: Per CT chest. Pt will follow up with Pulm for further evaluation. Hyperkalemia Hyperkalemia: K is 4.4<- 4.9. Will monitor. Transaminitis: Alk phos is 120. Will continue IVF and trend LFTs. Microcytic anemia Anemia: Hgb is 11<- 10.7<- 9.2 <- 10.4 <- 9.7<- 10.8. Will monitor H/H. Anxiety: will give prn ativan. Hx of DM II: Continue accuchek, SSI, lantus 18u , lispro 6u with meal and ADA diet. DVT ppx: SCD Code: full Dispo: Continue ICU level of care. Pt is eager to go home but she is not medically stable. Physician Review: Patient Assessed, Agree with Above Assessment and Plan Discharge Plan: Home - Code Status/Comfort Care Code Status: Full Code Physician Review: Patient Assessed, Agree with Above Assessment and Plan Critical Care: Yes Time Spent Managing PTS Care (In Minutes): 60
[2023-06-15] MEDS: INSULIN LISPRO 100 UNIT/ML SQ SCH ×3 (08:00→16:47)
[2023-06-15] MEDS ORDERED: ASPIRIN EC 81 MG TAB PO ONE (08:39)
[2023-06-15] MEDS ORDERED: AMIODARONE HCL 200 MG TAB ONE ×2 (08:39→19:47)
[2023-06-15] MEDS ORDERED: CLOPIDOGREL 75 MG TABLET ONE (08:39)
[2023-06-15] MEDS ORDERED: MORPHINE 2 MG/ML SYR ONE (08:40)
[2023-06-15] MEDS: METOPROLOL XL 25 MG TAB PO SCH (08:45)
[2023-06-15] MEDS: GABAPENTIN 100 MG CAP PO SCH ×2 (08:46→20:30)
[2023-06-15] MEDS: AMIODARONE HCL 200 MG TAB PO SCH ×2 (08:46→20:30)
[2023-06-15] MEDS: ENOXAPARIN 40 MG/0.4 ML SQ SCH (08:46)
[2023-06-15] MEDS: ASPIRIN EC 81 MG TAB PO SCH (08:46)
[2023-06-15] MEDS: CLOPIDOGREL 75 MG TABLET PO SCH (08:46)
[2023-06-15] MEDS: POTASSIUM CL SA 10 MEQ TAB PO SCH (08:46)
[2023-06-15] MEDS: allopurinoL 300 MG TAB PO SCH (08:46)
[2023-06-15] MEDS: LOSARTAN POTASSIUM 50 MG TABLET PO SCH (08:46)
[2023-06-15] MEDS: MUCINEX DM 12HR.SR TAB PO SCH ×3 (08:47→22:54)
[2023-06-15] MEDS: MORPHINE 2 MG/ML SYR IV PRN ×3 (08:48→22:55)
--- NOTE | 2023-06-15 08:56 | RAD REPORT ---
EXAM DESCRIPTION: RADChest Single View06/15/2023 5:38 am CLINICAL HISTORY: SOB COMPARISON: Chest Single View dated 06/09/2023; Chest Single View dated 06/07/2023; Chest Single Vie w dated 03/16/2023; Chest Single View dated 03/15/2023 TECHNIQUE: Portable AP view of the chest. FINDINGS: Improving right lower opacity, although a more well-defined opacity persists which may rel ate to right hemidiaphragm elevation or a subpulmonic effusion. Persistent left costophrenic angle sm all effusion versus small airspace opacity. Irregular small opacities at the right apex are stable an d may represent scarring. Persistent mild central interstitial prominence. No pneumothorax. The card iomediastinal contours are unremarkable. IMPRESSION: Improving right basilar opacity. Persistent crescentic opacity in this region may relate to right hemidiaphragm elevation of a simple effusion. Other stable findings as above.
[2023-06-15] MEDS ORDERED: ALBUTEROL 2.5 MG/3 ML NEB SOL NEB PRN (09:00)
--- NOTE | 2023-06-15 09:02 | P.PN ---
Subjective Date of Service: 06/15/23 Chief Complaint: Pneumonia Subjective: Improving (Improving doing well still a little weak on amiodarone still has shortness of breath on exertion mild confusion requiring Ativan) Review of Systems General: Weakness Respiratory: Shortness of Breath Physical Examination - Vital Signs Temperature: 97 F Blood Pressure: 138/47 Pulse: 70 Respirations: 11 Pulse Ox (%): 99 - Physical Exam General: Alert, Oriented x3, Cooperative Respiratory: Expiratory wheezes Cardiovascular: No edema, Regular rate/rhythm, Normal S1 S2 Gastrointestinal: Normal bowel sounds, Soft and benign Assessment And Plan - Current Problems (Diagnosis) (1) Pneumonia Current Visit: Yes Status: Acute Plan: Admitted with right lower lobe pneumonia clinically improving chest x-ray has improved patient white count is all improving can DC vancomycin blood cultures are negative with Zosyn for now Adderall as needed continue with Atrovent as oxygenation stable Qualifiers: Pneumonia type: due to unspecified organism Laterality: right Lung location: lower lobe of lung Qualified Code(s): J18.9 - Pneumonia, unspecified organism Physician Review: Patient Assessed, Agree with Above Assessment and Plan
[2023-06-15] MEDS ORDERED: VANCOMYCIN 1 GM in NA CHLORIDE 0.9% 250 ML IVPB SCH (12:00)
[2023-06-15] MEDS ORDERED: LORazepam 2 MG/ML VIAL ONE (15:40)
[2023-06-15] MEDS: LORazepam 2 MG/ML VIAL IV PRN (15:41)
[2023-06-15] MEDS ORDERED: PIPERACIL/TAZO 3.375 GM VIAL IV ONE ×2 (16:30→23:27)
[2023-06-15] MEDS ORDERED: NA CHLORIDE 0.9% 100 ML ONE ×2 (16:30→23:27)
[2023-06-15] MEDS ORDERED: INSULIN LISPRO 100 UNIT/ML ONE (16:45)
[2023-06-15] MEDS ORDERED: INSULIN GLARGINE 100 UNIT/ML SQ ONE (16:46)
[2023-06-15] MEDS ORDERED: INSULIN REGULAR (HUMAN) 100 UNIT/ML ONE (16:47)
[2023-06-15] MEDS: INSULIN GLARGINE 100 UNIT/ML SQ SCH (16:48)
[2023-06-15] MEDS: ATORVASTATIN 40 MG TAB PO SCH (20:30)
[2023-06-16] MEDS: PIPER TAZO 3.375 GM in NA CHLORIDE 0.9% 100 ML IV SCH ×3 (00:07→17:11)
[2023-06-16] MEDS: IPRATROPIUM BROM 0.5MG/2.5ML NEB SCH ×4 (01:00→20:51)
[2023-06-16] MEDS: guaiFENesin 100 MG/5 ML UCUP PO PRN (03:16)
[2023-06-16 04:58] LABS: Absolute Lymphocytes (CBC) 0.7 K/uL (0.7-4.9); Hematocrit 30.9 % (36.0-45.0); Lymphocytes % 4.9 % (15.3-44.8); MCV 92.6 fL (80-100); MPV 8.3 fL (7.6-11.3); Platelets 448 thou/uL (152-406); RBC Red Blood Cell Count 3.34 M/uL (3.86-4.86)
[2023-06-16 05:11] LABS: Magnesium 1.7 mg/dL (1.6-2.4); Potassium 4.1 mEq/L (3.5-5.1)
[2023-06-16] MEDS: LORazepam 2 MG/ML VIAL IV PRN (05:47)
--- NOTE | 2023-06-16 06:54 | P.PN ---
Subjective Date of Service: 06/16/23 Chief Complaint: Pneumonia shortness of breath improving, 02 2L, Plan to cardiac cath when shortness of breath improves, no reported chest pain, - Physical Exam General: Alert, In no apparent distress, Oriented x3 HEENT: Atraumatic, Normocephalic, PERRLA Neck: Supple, 2+ carotid pulse no bruit, JVD not distended Respiratory: Expiratory wheezes Cardiovascular: No edema, Normal pulses, Regular rate/rhythm, Normal S1 S2 Capillary refill: <2 Seconds Gastrointestinal: Normal bowel sounds, Soft and benign, Non-distended Musculoskeletal: No clubbing, No swelling Integumentary: No rashes, No breakdown Physical Examination - Vital Signs Temperature: 97 F Blood Pressure: 138/47 Pulse: 70 Respirations: 14 Pulse Ox (%): 97 Assessment And Plan - Plan Assessment plan Severe sepsis 2/2 RLL pneumonia: Likely due to aspiration. improving Pulmonary consulted Will continue iv vanc and zosyn. Follow up blood and sputum cultures. Will continue IVF and trend lactate. Pt passed swallow eval. continue aspiration precaution. Antibiotics de-escalated to Zosyn, O2 at 2 L Leukocytosis: Likely due to infection or steroid.improving WBCs trending down ( 28 -> 18 -> 17 -> 20->15.30-> 14.0). Procalcitonin is 51.59. Will continue iv abx.. abx Vanc/Zosyn WBC trending down We transferred her to the ICu for higher level of care on 06/12/23. No other complaints. Acute on chronic kidney injury unkn baseline improving Trend BUN/creatinine BUN 33->20 CR 1.80->1.23 V-tach controlled with PO meds Pt had 20 runs of v-tach on 06/09/23. Off amiodarone drip. Will continue po amiodarone NM stress test is abnormal. cardiology will do cardiac cath. Plan for cardiac cath Cardiology notes QTc 487ms NM stress 06/11/23 IMPRESSION: Small to moderate reversible perfusion defect involving the apicolateral left ventricular myocardium probably stress-induced ischemia Small to moderate fixed perfusion defect septal left ventricular myocardium probably infarction NM stress +, will cath tomorrow. continue amiodarone 200mg po BID post completion of drip today 06/12/23 Awaiting cath, remains (and reminded of status) NPO Cardiology was unable to do cardiac cath due to SOB. Acute resp failure with hypoxia: Secondary to aspiration pneumonia improving Acute COPD exacerbation: Will continue solumedrol, 2L BNC, duoneb and iv abx. ABG shows 7.34/41/95. Will continue prn BIPAP, 2L BNC and prn duoneb. Acute resp failure: Due to Pneumonia and COPD. Will continue treatment listed above. Acute on chronic heart failure Hx of CHF: BNP 01713. Will follow up Echo. Will continue home meds Pulmonary nodule 1.8 cm lung nodule: Per CT chest. Pt will follow up with Pulm for further evaluation. Hyperkalemia Hyperkalemia: K is 4.4<- 4.9. Will monitor. Transaminitis: Alk phos is 120. Will continue IVF and trend LFTs. Microcytic anemia Anemia: Hgb is 11<- 10.7<- 9.2 <- 10.4 <- 9.7<- 10.8,->3. Will monitor H/H. Anxiety: will give prn ativan. Hx of DM II: Continue accuchek, SSI, lantus 18u , lispro 6u with meal and ADA diet. DVT ppx: SCD Code: full Dispo: Continue ICU level of care. Pt is eager to go home but she is not medically stable. Physician Review: Patient Assessed, Agree with Above Assessment and Plan Physician Review: Patient Assessed, Agree with Above Assessment and Plan Critical Care: Yes
--- NOTE | 2023-06-16 07:01 | P.PN ---
Subjective Date of Service: 06/16/23 Chief Complaint: Pneumonia Subjective: Improving Review of Systems 10-point ROS is otherwise unremarkable General: Other (mild confusion, rec'ing ativan prn) Eyes: Unremarkable ENT: Unremarkable Respiratory: Cough, As per HPI Cardiovascular: As per HPI Neurological: Confusion Physical Examination - Vital Signs Temperature: 97 F Blood Pressure: 138/47 Pulse: 70 Respirations: 14 Pulse Ox (%): 97 - Physical Exam General: In no apparent distress, Cooperative, Disheveled HEENT: Atraumatic, Normocephalic Neck: Supple, 2+ carotid pulse no bruit, JVD not distended Respiratory: Normal air movement, Other (improved, breath sounds bilaterally, minimal wheezes) Cardiovascular: No edema, Normal pulses, Regular rate/rhythm Capillary refill: <2 Seconds Gastrointestinal: Normal bowel sounds, Soft and benign Musculoskeletal: No clubbing, No swelling Integumentary: No rashes, No breakdown Neurological: Normal speech Lymphatics: No axilla or inguinal lymphadenopathy External genitalia: Deferred Rectal: Deferred Assessment And Plan - Current Problems (Diagnosis) (1) Hypertension Current Visit: Yes Status: Acute Plan: Losartan 50mg po daily, Metoprolol 25mg po daily (2) Ventricular arrhythmia Current Visit: Yes Status: Acute Plan: Continue telemetry, NM stress test today, 12 lead EKG for QTc eval. Amiodarone IV push and follow up drip per protocol Switch to Amiodarone 200mg po BID post completion of drip 1317 QTc 487ms 06/11/23 IMPRESSION: Small to moderate reversible perfusion defect involving the apicolateral left ventricular myocardium probably stress-induced ischemia Small to moderate fixed perfusion defect septal left ventricular myocardium probably infarction NM stress +, will cath tomorrow. NPO post MN, continue amiodarone 200mg po BID post completion of drip today 06/12/23 Awaiting cath, remains (and reminded of status) NPO 06/15/23 As patient was unable to lie flat, secondary to shortness of breath, cath delayed/cancelled This am, pt is able to lie flat. NPO status today for possible cardiac cath (3) CHF exacerbation Current Visit: No Status: Acute Plan: Continue trending BNP, vital signs, monitor and replace electrolytes. Continue Lasix 20mg IV BID transition to po lasix post cardiac cath Qualifiers: Heart failure type: unspecified Qualified Code(s): I50.9 - Heart failure, unspecified (4) COPD (chronic obstructive pulmonary disease) Current Visit: No Status: Chronic Plan: Continue nebs and pulmonary toilet Continue antibiotics for exacerbation with pneumonia 06/12/23 Stop smoking Qualifiers: COPD type: emphysema Emphysema type: unspecified Qualified Code(s): J43.9 - Emphysema, unspecified Physician Review: Patient Assessed, Agree with Above Assessment and Plan
[2023-06-16] MEDS ORDERED: IPRATROPIUM BROM 0.5MG/2.5ML ONE ×2 (07:25→12:59)
[2023-06-16] MEDS: INSULIN REGULAR (HUMAN) 100 UNIT/ML SQ SCH ×4 (07:30→20:39)
[2023-06-16] MEDS: INSULIN LISPRO 100 UNIT/ML SQ SCH ×3 (08:00→17:12)
--- NOTE | 2023-06-16 08:11 | TREADPHA ---
DX: CHEST PAIN Date of Study: 06/10/2023 Ht: 5' 4 " Wt: 136 lb 0 oz Consulting Physician: NAE MEDICATIONS: TYLENOL, PROVENTIL, FOSAMAX, ZYLOPRIM, ASPIRIN, LIPITOR, ZYRTEC, PLAVIX, DEXTROSE, LOVENOX, LASIX, NEURONTIN, GLUCAGEN, ROBITUSSIN, MUCINEX, SEMGLEE, HUMALOG, NOVOLIN-R, ATROVENT, LEVAQUIN, AMBIEN, COZAAR, SOLU-MEDROL, ZOFRAN, KLOR-CON, VANCOMYCIN HISTORY: 78 YEAR OLD FEMALE WITH HISTORY OF PACEMAKER/ DEFIBRILLATOR, CHRONIC OBSTRUCTIVE PULMONARY DISEASE, HYPERTENSION, STENTS TO THE HEART, DIABETES TYOPE 1. COMPLAINTS OF BACK PAIN, SHORTNESS OF BREATH PHYSICIAL EXAMINATION: RESTING B.P.: 157/77 RESTING H.R.: 98 RESTING EKG: VENTRICULAR PACED PROTOCOL: PHARMACOLOGIC EXERCISE TIME: 3:30 B.P. AT [facility] STRESS: 157/77 IMPRESSION: LEXISCAN INJECTED. CARDIOLITE INJECTED - SEE NUCLEAR MEDICINE REPORT. VENTRICULAR PACED RHYTHM WITH FREQUENT PREMATURE VENTRICULAR COMPLEXES. NO SUPRAVENTRICULAR TACHYCARDIA, VENTRICULAR TACHYCARDIA, PREMATURE ATRIAL COMPLEXES. PATIENT DENIES CHEST PAIN. NON-DIAGNOSTIC ELECTROCARDIOGRAM PART DUE TO ABNORMAL BASELINE. PLAN CATH 06/12/2023. HISTORY OF PACEMAKER; 20 BEAT RUN OF VENTRICULAR TACHYCARDIA ON AMIODARONE NOW.
[2023-06-16] MEDS: POTASSIUM CL SA 10 MEQ TAB PO SCH ×2 (08:54→09:58)
[2023-06-16] MEDS: MUCINEX DM 12HR.SR TAB PO SCH ×3 (08:54→20:38)
[2023-06-16] MEDS: ENOXAPARIN 40 MG/0.4 ML SQ SCH (09:00)
[2023-06-16] MEDS: GABAPENTIN 100 MG CAP PO SCH ×2 (09:40→20:38)
[2023-06-16] MEDS: LOSARTAN POTASSIUM 50 MG TABLET PO SCH (09:41)
[2023-06-16] MEDS: METOPROLOL XL 25 MG TAB PO SCH (09:41)
[2023-06-16] MEDS: allopurinoL 300 MG TAB PO SCH (09:58)
[2023-06-16] MEDS ORDERED: CLOPIDOGREL 75 MG TABLET ONE (09:59)
[2023-06-16] MEDS ORDERED: AMIODARONE HCL 200 MG TAB ONE (10:00)
[2023-06-16] MEDS ORDERED: ASPIRIN EC 81 MG TAB PO ONE (10:00)
[2023-06-16] MEDS: ASPIRIN EC 81 MG TAB PO SCH (10:01)
[2023-06-16] MEDS: CLOPIDOGREL 75 MG TABLET PO SCH (10:01)
[2023-06-16] MEDS: AMIODARONE HCL 200 MG TAB PO SCH ×2 (10:01→20:38)
[2023-06-16] MEDS ORDERED: INSULIN REGULAR (HUMAN) 100 UNIT/ML ONE ×2 (11:41→17:07)
[2023-06-16] MEDS ORDERED: INSULIN LISPRO 100 UNIT/ML ONE ×2 (11:43→17:30)
[2023-06-16] MEDS ORDERED: INSULIN GLARGINE 100 UNIT/ML SQ ONE (17:06)
[2023-06-16] MEDS ORDERED: PIPERACIL/TAZO 3.375 GM VIAL IV ONE (17:07)
[2023-06-16] MEDS ORDERED: NA CHLORIDE 0.9% 100 ML ONE (17:07)
[2023-06-16] MEDS: INSULIN GLARGINE 100 UNIT/ML SQ SCH (17:39)
[2023-06-16] MEDS: ATORVASTATIN 40 MG TAB PO SCH (20:38)
[2023-06-17] MEDS: PIPER TAZO 3.375 GM in NA CHLORIDE 0.9% 100 ML IV SCH (00:37)
[2023-06-17] MEDS: IPRATROPIUM BROM 0.5MG/2.5ML NEB SCH ×4 (02:32→20:35)
[2023-06-17] MEDS: MORPHINE 2 MG/ML SYR IV PRN ×3 (03:03→20:29)
[2023-06-17] MEDS: GUAIFENESIN/CODEINE 5ML UCUP PO PRN (05:47)
[2023-06-17 05:56] LABS: Absolute Lymphocytes (CBC) 0.9 K/uL (0.7-4.9); Hematocrit 29.6 % (36.0-45.0); Lymphocytes % 6.1 % (15.3-44.8); MCV 92.6 fL (80-100); MPV 8.2 fL (7.6-11.3); Platelets 383 thou/uL (152-406)
[2023-06-17 06:13] LABS: Magnesium 1.7 mg/dL (1.6-2.4); Potassium 4.1 mEq/L (3.5-5.1)
[2023-06-17] MEDS: INSULIN REGULAR (HUMAN) 100 UNIT/ML SQ SCH ×4 (07:30→21:00)
[2023-06-17] MEDS: INSULIN LISPRO 100 UNIT/ML SQ SCH ×3 (08:00→17:00)
[2023-06-17] MEDS: allopurinoL 300 MG TAB PO SCH (09:00)
[2023-06-17] MEDS: POTASSIUM CL SA 10 MEQ TAB PO SCH (09:00)
[2023-06-17] MEDS: ENOXAPARIN 40 MG/0.4 ML SQ SCH (09:00)
[2023-06-17] MEDS: AMIODARONE HCL 200 MG TAB PO SCH ×2 (09:00→20:21)
[2023-06-17] MEDS: METOPROLOL XL 25 MG TAB PO SCH (09:00)
[2023-06-17] MEDS: MUCINEX DM 12HR.SR TAB PO SCH ×2 (09:00→20:21)
[2023-06-17] MEDS ORDERED: MAGNESIUM SULFATE 1 gm IVPB 1 GM/100 ML BAG IV ONE (09:00)
[2023-06-17] MEDS: GABAPENTIN 100 MG CAP PO SCH ×2 (09:00→20:21)
[2023-06-17] MEDS: ASPIRIN EC 81 MG TAB PO SCH (09:00)
[2023-06-17] MEDS: levoFLOXacin 750 MG TAB PO SCH (09:00)
[2023-06-17] MEDS: LOSARTAN POTASSIUM 50 MG TABLET PO SCH (09:00)
[2023-06-17] MEDS: CLOPIDOGREL 75 MG TABLET PO SCH (09:00)
--- NOTE | 2023-06-17 09:30 | P.PN ---
Subjective Date of Service: 06/17/23 Chief Complaint: Pneumonia shortness of breath improving, 02 2L, NPO for possible cardiac cath today, no reported chest pain, - Physical Exam General: Alert, In no apparent distress, Oriented x3 HEENT: Atraumatic, Normocephalic, PERRLA Neck: Supple, 2+ carotid pulse no bruit, JVD not distended Respiratory: Expiratory wheezes Cardiovascular: No edema, Normal pulses, Regular rate/rhythm, Normal S1 S2 Capillary refill: <2 Seconds Gastrointestinal: Normal bowel sounds, Soft and benign, Non-distended Musculoskeletal: No clubbing, No swelling Integumentary: No rashes, No breakdown Review of Systems per HPI Physical Examination - Vital Signs Temperature: 97.7 F Blood Pressure: 148/70 Pulse: 77 Respirations: 17 Pulse Ox (%): 97 Assessment And Plan - Plan Assessment plan Severe sepsis 2/2 RLL pneumonia: Likely due to aspiration. improving Pulmonary consulted Will continue iv vanc and zosyn. Follow up blood and sputum cultures. Will continue IVF and trend lactate. Pt passed swallow eval. continue aspiration precaution. Antibiotics de-escalated to Zosyn, O2 at 2 L Leukocytosis: Likely due to infection or steroid.improving WBCs trending down ( 28 -> 18 -> 17 -> 20->15.30-> 14.0). Procalcitonin is 51.59. Will continue iv abx.. abx Vanc/Zosyn WBC trending down We transferred her to the ICu for higher level of care on 06/12/23. No other complaints. Acute on chronic kidney injury unkn baseline improving Trend BUN/creatinine BUN 33->20 CR 1.80->1.23 V-tach controlled with PO meds Pt had 20 runs of v-tach on 06/09/23. Off amiodarone drip. Will continue po amiodarone NM stress test is abnormal. cardiology will do cardiac cath. Plan for cardiac cath Cardiology notes QTc 487ms NM stress 06/11/23 IMPRESSION: Small to moderate reversible perfusion defect involving the apicolateral left ventricular myocardium probably stress-induced ischemia Small to moderate fixed perfusion defect septal left ventricular myocardium probably infarction NM stress +, will cath tomorrow. continue amiodarone 200mg po BID post completion of drip today 06/12/23 Awaiting cath, remains (and reminded of status) NPO Cardiology was unable to do cardiac cath due to SOB. Acute resp failure with hypoxia: Secondary to aspiration pneumonia improving Acute COPD exacerbation: Will continue solumedrol, 2L BNC, duoneb and iv abx. ABG shows 7.34/41/95. Will continue prn BIPAP, 2L BNC and prn duoneb. Acute resp failure: Due to Pneumonia and COPD. Will continue treatment listed above. Acute on chronic heart failure Hx of CHF: BNP 24164. Will follow up Echo. Will continue home meds Pulmonary nodule 1.8 cm lung nodule: Per CT chest. Pt will follow up with Pulm for further evaluation. Hyperkalemia Hyperkalemia: K is 4.4<- 4.9. Will monitor. Transaminitis: Alk phos is 120. Will continue IVF and trend LFTs. Microcytic anemia Anemia: Hgb is 11<- 10.7<- 9.2 <- 10.4 <- 9.7<- 10.8,->3. Will monitor H/H. Anxiety: will give prn ativan. Hx of DM II: Continue accuchek, SSI, lantus 18u , lispro 6u with meal and ADA diet. DVT ppx: SCD Code: full Dispo: Continue ICU level of care. Pt is eager to go home but she is not medically stable. Physician Review: Patient Assessed, Agree with Above Assessment and Plan Discharge Plan: Home - Code Status/Comfort Care Code Status: Full Code Physician Review: Patient Assessed, Agree with Above Assessment and Plan Critical Care: No Time Spent Managing PTS Care (In Minutes): 35
--- NOTE | 2023-06-17 11:34 | P.PN ---
Subjective Date of Service: 06/17/23 Chief Complaint: Pneumonia/ Subjective: Improving (Patient is doing much better atrial for another stress test today was unable to do a cardiac cath new complaint) Review of Systems General: Weakness Respiratory: Shortness of Breath Physical Examination - Vital Signs Temperature: 97.7 F Blood Pressure: 148/70 Pulse: 77 Respirations: 17 Pulse Ox (%): 97 - Physical Exam General: Oriented x3 Respiratory: Clear to auscultation bilaterally Cardiovascular: No edema, Regular rate/rhythm Assessment And Plan - Current Problems (Diagnosis) (1) Pneumonia Current Visit: Yes Status: Acute Plan: Patient is doing much better white count is still mildly elevated patient scheduled for cardiac cath today due to reversible defect on Myoview changed to p.o. Qualifiers: Pneumonia type: due to unspecified organism Laterality: right Lung location: lower lobe of lung Qualified Code(s): J18.9 - Pneumonia, unspecified organism Physician Review: Patient Assessed, Agree with Above Assessment and Plan
[2023-06-17] MEDS: INSULIN GLARGINE 100 UNIT/ML SQ SCH (17:37)
[2023-06-17] MEDS: ONDANSETRON 4 MG/2 ML VIAL IV PRN (17:58)
[2023-06-17] MEDS: CALCIUM CARBONATE CHEW 500MG TAB PO PRN (18:45)
[2023-06-17] MEDS: ATORVASTATIN 40 MG TAB PO SCH (20:21)
[2023-06-17] MEDS: guaiFENesin 100 MG/5 ML UCUP PO PRN (20:28)
[2023-06-17] MEDS: MELATONIN 5 MG TABLET PO PRN (20:29)
[2023-06-18] MEDS: IPRATROPIUM BROM 0.5MG/2.5ML NEB SCH ×4 (01:29→19:00)
[2023-06-18] MEDS: MORPHINE 2 MG/ML SYR IV PRN ×4 (03:14→23:48)
[2023-06-18] MEDS: ONDANSETRON 4 MG/2 ML VIAL IV PRN ×2 (03:15→09:12)
[2023-06-18 06:22] LABS: Absolute Lymphocytes (CBC) 0.7 K/uL (0.7-4.9); Hematocrit 28.1 % (36.0-45.0); Lymphocytes % 6.1 % (15.3-44.8); MCV 92.9 fL (80-100); MPV 8.3 fL (7.6-11.3); Platelets 364 thou/uL (152-406); RBC Red Blood Cell Count 3.02 M/uL (3.86-4.86)
[2023-06-18 06:34] LABS: Magnesium 1.8 mg/dL (1.6-2.4)
[2023-06-18] MEDS: INSULIN REGULAR (HUMAN) 100 UNIT/ML SQ SCH ×4 (07:30→20:45)
[2023-06-18] MEDS: INSULIN LISPRO 100 UNIT/ML SQ SCH ×3 (08:00→17:00)
[2023-06-18] MEDS: METOPROLOL XL 25 MG TAB PO SCH (08:11)
[2023-06-18] MEDS: AMIODARONE HCL 200 MG TAB PO SCH ×2 (08:12→20:39)
[2023-06-18] MEDS: LOSARTAN POTASSIUM 50 MG TABLET PO SCH (08:12)
[2023-06-18] MEDS: ASPIRIN EC 81 MG TAB PO SCH (08:12)
[2023-06-18] MEDS: CLOPIDOGREL 75 MG TABLET PO SCH (08:12)
[2023-06-18] MEDS: POTASSIUM CL SA 10 MEQ TAB PO SCH (08:13)
[2023-06-18] MEDS: MUCINEX DM 12HR.SR TAB PO SCH ×2 (08:13→20:39)
[2023-06-18] MEDS: levoFLOXacin 750 MG TAB PO SCH (08:13)
[2023-06-18] MEDS: allopurinoL 300 MG TAB PO SCH (08:13)
[2023-06-18] MEDS: GABAPENTIN 100 MG CAP PO SCH ×2 (08:13→20:39)
--- NOTE | 2023-06-18 10:34 | P.PN ---
Subjective Date of Service: 06/18/23 Chief Complaint: Pneumonia shortness of breath improving, 02 2L, NPO for possible cardiac cath today, no reported chest pain, - Physical Exam General: Alert, In no apparent distress, Oriented x3 HEENT: Atraumatic, Normocephalic, PERRLA Neck: Supple, 2+ carotid pulse no bruit, JVD not distended Respiratory: Expiratory wheezes Cardiovascular: No edema, Normal pulses, Regular rate/rhythm, Normal S1 S2 Capillary refill: <2 Seconds Gastrointestinal: Normal bowel sounds, Soft and benign, Non-distended Musculoskeletal: No clubbing, No swelling Integumentary: No rashes, No breakdown Review of Systems per HPI Physical Examination - Vital Signs Temperature: 97.3 F Blood Pressure: 153/68 Pulse: 83 Respirations: 16 Pulse Ox (%): 94 Assessment And Plan - Plan Assessment plan Severe sepsis 2/2 RLL pneumonia: Likely due to aspiration. improving Pulmonary consulted Will continue iv vanc and zosyn. Follow up blood and sputum cultures. Will continue IVF and trend lactate. Pt passed swallow eval. continue aspiration precaution. Antibiotics de-escalated to Zosyn, O2 at 2 L Leukocytosis: Likely due to infection or steroid.improving WBCs trending down ( 28 -> 18 -> 17 -> 20->15.30-> 14.0, WBCs 11.50). Procalcitonin is 51.59. Will continue iv abx.. abx Vanc/Zosyn WBC trending down We transferred her to the ICu for higher level of care on 06/12/23. No other complaints. Acute on chronic kidney injury unkn baseline improving Trend BUN/creatinine BUN 33->20 CR 1.80->1.23 V-tach controlled with PO meds Pt had 20 runs of v-tach on 06/09/23. Off amiodarone drip. Will continue po amiodarone NM stress test is abnormal. cardiology will do cardiac cath. Plan for cardiac cath 06/18 Cardiology notes QTc 487ms NM stress 06/11/23 IMPRESSION: Small to moderate reversible perfusion defect involving the apicolateral left ventricular myocardium probably stress-induced ischemia Small to moderate fixed perfusion defect septal left ventricular myocardium probably infarction NM stress +, will cath tomorrow. continue amiodarone 200mg po BID post completion of drip today 06/12/23 Awaiting cath, remains (and reminded of status) NPO Cardiology was unable to do cardiac cath due to SOB. Cardiac cath scheduled for 06/18 Acute resp failure with hypoxia: Secondary to aspiration pneumonia improving Acute COPD exacerbation: Will continue solumedrol, 2L BNC, duoneb and iv abx. ABG shows 7.34/41/95. Will continue prn BIPAP, 2L BNC and prn duoneb. Acute resp failure: Due to Pneumonia and COPD. Will continue treatment listed above. Acute on chronic heart failure Hx of CHF: BNP 41917. Will follow up Echo. Will continue home meds Pulmonary nodule 1.8 cm lung nodule: Per CT chest. Pt will follow up with Pulm for further evaluation. Hyperkalemia Hyperkalemia: K is 4.4<- 4.9. Will monitor. Transaminitis: Alk phos is 120. Will continue IVF and trend LFTs. Microcytic anemia Anemia: Hgb is 11<- 10.7<- 9.2 <- 10.4 <- 9.7<- 10.8,->3. Will monitor H/H. Anxiety: will give prn ativan. Hx of DM II: Continue accuchek, SSI, lantus 18u , lispro 6u with meal and ADA diet. DVT ppx: SCD Code: full Dispo: Continue ICU level of care. Pt is eager to go home but she is not medically stable. Physician Review: Patient Assessed, Agree with Above Assessment and Plan Discharge Plan: Home - Code Status/Comfort Care Code Status: Full Code Critical Care: No Time Spent Managing PTS Care (In Minutes): 35
[2023-06-18] MEDS ORDERED: MAGNESIUM SULFATE 1 gm IVPB 1 GM/100 ML BAG IV ONE (12:30)
[2023-06-18] MEDS ORDERED: LIDOCAINE 1% 20 ML MDV ONE (13:59)
[2023-06-18] MEDS ORDERED: HEPA 1000U/500MLS 2,000 UNIT/1,000 ML BAG IV ONE (13:59)
[2023-06-18] MEDS ORDERED: NITROGLYCERIN/D5W 25 MG/250 ML BTL IV ONE (13:59)
[2023-06-18] MEDS ORDERED: VERAPAMIL HCL 10 MG/4 ML VIAL IV ONE (13:59)
[2023-06-18] MEDS ORDERED: FENTANYL CITR 100 MCG/2 ML ONE (14:00)
[2023-06-18] MEDS ORDERED: HEPARIN 10,000 UNIT/10 ML VIAL IV ONE (14:01)
[2023-06-18] MEDS ORDERED: MIDAZOLAM HCL 2 MG/2 ML INJ ONE (14:01)
[2023-06-18] MEDS ORDERED: HEPARIN 5000 UNIT/ML 1 ML VIAL ONE (14:01)
[2023-06-18] MEDS ORDERED: NA CHLORIDE 0.9% 500 ML ONE (14:12)
[2023-06-18] MEDS: INSULIN GLARGINE 100 UNIT/ML SQ SCH (17:13)
[2023-06-18] MEDS: CALCIUM CARBONATE CHEW 500MG TAB PO PRN ×2 (17:26→23:48)
[2023-06-18] MEDS: guaiFENesin 100 MG/5 ML UCUP PO PRN (17:26)
[2023-06-18] MEDS: ATORVASTATIN 40 MG TAB PO SCH (20:39)
[2023-06-18] MEDS: MELATONIN 5 MG TABLET PO PRN (20:42)
--- NOTE | 2023-06-18 22:59 | OP ---
Date of Procedure: 06/18/2023 Surgeon: ALESIA SONI Procedures Performed: 1.Selective coronary angiogram. 2.Left heart catheterization. Indication: Unstable angina and mildly elevated troponin with abnormal stress test. Access: Right femoral artery, 6-[place], closed with StarClose. Complications: None. Bleeding: Less than 20 mL. Anesthesia: Total sedation time was 30 minutes. Description Of Procedure: After risks, benefits, and alternatives were explained, the patient agreed to procedure and signed informed consent. The patient was brought into cardiac catheterization [facility], prepped and draped in the usual sterile fashion. Then, I accessed right femoral artery using micropuncture kit, ultrasound guidance, and fluoroscopy, I placed a 6-[place] Antonito sheath, took a 6-[place] JL4 catheter into the aortic root over a J-wire, engaged the left main, and took standard v iews, and exchanged for a 6-[place] JR4 catheter, engaged the RCA, took standard views, and across the aortic valve over the wire and measured LVEDP. Pullback did not record any gradient and removed the catheter and the sheath and placed StarClose for closure with good hemostasis. Findings: 1.Left main; large and normal. 2.LAD; proximal segment large and normal. In the midsegment, there are 2 tandem lesions ranging bet ween 20% to 30%. Normal diagonal branches. Rest of the LAD is normal. 3.Left circumflex is a lwemodcf-yv-aerqk sized vessel with proximal 30% stenosis, otherwise luminal irregularities. 4.RCA; large and dominant, mid 40%, mid to distal widely patent stent and distal before the bifurcat ion has a focal 30% stenosis. 5.LVEDP borderline elevated at 15 mmHg. Conclusion: 1.Moderate coronary artery disease, nonobstructive with widely patent RCA stent. 2.Mildly elevated LVEDP. Recommendation: Medical management. SR/MODL Voice ID: [id number] Report ID: [id number]
[2023-06-19] MEDS: POLYETHYL GLY 3350 17 GM/DOSE PO PRN (01:20)
[2023-06-19] MEDS ORDERED: SIMETHICONE 80 MG CHEWABLE TAB PO ONE (01:24)
[2023-06-19 06:04] LABS: Magnesium 1.9 mg/dL (1.6-2.4); Potassium 4.5 mEq/L (3.5-5.1)
[2023-06-19] MEDS: CALCIUM CARBONATE CHEW 500MG TAB PO PRN ×2 (07:41→13:45)
[2023-06-19] MEDS: levoFLOXacin 750 MG TAB PO SCH (07:44)
[2023-06-19] MEDS: allopurinoL 300 MG TAB PO SCH (07:44)
[2023-06-19] MEDS: AMIODARONE HCL 200 MG TAB PO SCH (07:44)
[2023-06-19] MEDS: CLOPIDOGREL 75 MG TABLET PO SCH (07:44)
[2023-06-19] MEDS: LOSARTAN POTASSIUM 50 MG TABLET PO SCH (07:45)
[2023-06-19] MEDS: POTASSIUM CL SA 10 MEQ TAB PO SCH (07:45)
[2023-06-19] MEDS: GABAPENTIN 100 MG CAP PO SCH (07:45)
[2023-06-19] MEDS: ASPIRIN EC 81 MG TAB PO SCH (07:45)
[2023-06-19] MEDS: METOPROLOL XL 25 MG TAB PO SCH (07:46)
[2023-06-19] MEDS: MUCINEX DM 12HR.SR TAB PO SCH (07:46)
[2023-06-19] MEDS: MORPHINE 2 MG/ML SYR IV PRN (07:52)
[2023-06-19] MEDS: INSULIN LISPRO 100 UNIT/ML SQ SCH ×2 (08:00→12:00)
[2023-06-19] MEDS: INSULIN REGULAR (HUMAN) 100 UNIT/ML SQ SCH ×2 (08:59→11:30)
[2023-06-19] MEDS ORDERED: FAMOTIDINE 20 MG TAB PO SCH (09:00)
--- NOTE | 2023-06-19 09:08 | P.PN ---
Subjective Date of Service: 06/19/23 Chief Complaint: Pneumonia shortness of breath improving, 02 2L, NPO for possible cardiac cath today, no reported chest pain, - Physical Exam General: Alert, In no apparent distress, Oriented x3 HEENT: Atraumatic, Normocephalic, PERRLA Neck: Supple, 2+ carotid pulse no bruit, JVD not distended Respiratory: Expiratory wheezes Cardiovascular: No edema, Normal pulses, Regular rate/rhythm, Normal S1 S2 Capillary refill: <2 Seconds Gastrointestinal: Normal bowel sounds, Soft and benign, Non-distended Musculoskeletal: No clubbing, No swelling Integumentary: No rashes, No breakdown Physical Examination - Vital Signs Temperature: 97.2 F Blood Pressure: 146/82 Pulse: 78 Respirations: 18 Pulse Ox (%): 96 Assessment And Plan - Plan Assessment plan Severe sepsis 2/2 RLL pneumonia: Likely due to aspiration. improving Pulmonary consulted Will continue iv vanc and zosyn. Follow up blood and sputum cultures. Will continue IVF and trend lactate. Pt passed swallow eval. continue aspiration precaution. Antibiotics de-escalated to Zosyn, O2 at 2 L Leukocytosis: Likely due to infection or steroid.improving WBCs trending down ( 28 -> 18 -> 17 -> 20->15.30-> 14.0, WBCs 11.50). Procalcitonin is 51.59. Will continue iv abx.. abx Vanc/Zosyn WBC trending down We transferred her to the ICu for higher level of care on 06/12/23. No other complaints. Acute on chronic kidney injury unkn baseline improving Trend BUN/creatinine BUN 33->20 CR 1.80->1.23 V-tach controlled with PO meds Pt had 20 runs of v-tach on 06/09/23. Off amiodarone drip. Will continue po amiodarone NM stress test is abnormal. cardiology will do cardiac cath. Plan for cardiac cath 06/18 Cardiology notes QTc 487ms NM stress 06/11/23 IMPRESSION: Small to moderate reversible perfusion defect involving the apicolateral left ventricular myocardium probably stress-induced ischemia Small to moderate fixed perfusion defect septal left ventricular myocardium probably infarction NM stress +, will cath tomorrow. continue amiodarone 200mg po BID post completion of drip today 06/12/23 Awaiting cath, remains (and reminded of status) NPO Cardiology was unable to do cardiac cath due to SOB. Cardiac cath scheduled for 06/18 06/18 Heart Cath Indication: Unstable angina and mildly elevated troponin with abnormal stress test. Findings: 1. Left main; large and normal. 2. LAD; proximal segment large and normal. In the midsegment, there are 2 tandem lesions ranging between 20% to 30%. Normal diagonal branches. Rest of the LAD is normal. 3. Left circumflex is a inabtoea-em-thsea sized vessel with proximal 30% stenosis, otherwise luminal irregularities. 4. RCA; large and dominant, mid 40%, mid to distal widely patent stent and distal before the bifurcation has a focal 30% stenosis. 5. LVEDP borderline elevated at 15 mmHg. Conclusion: OPERATIVE REPORT PETE WHITESIDE / Report: [id number] Page 2of 2 1. Moderate coronary artery disease, nonobstructive with widely patent RCA stent. 2. Mildly elevated LVEDP. Recommendation: Medical management. Acute resp failure with hypoxia: Secondary to aspiration pneumonia improving Acute COPD exacerbation: Will continue solumedrol, 2L BNC, duoneb and iv abx. ABG shows 7.34/41/95. Will continue prn BIPAP, 2L BNC and prn duoneb. Acute resp failure: Due to Pneumonia and COPD. Will continue treatment listed above. Acute on chronic heart failure Hx of CHF: BNP 88665. Will follow up Echo. Will continue home meds Pulmonary nodule 1.8 cm lung nodule: Per CT chest. Pt will follow up with Pulm for further evaluation. Hyperkalemia Hyperkalemia: K is 4.4<- 4.9. Will monitor. Transaminitis: Alk phos is 120. Will continue IVF and trend LFTs. Microcytic anemia Anemia: Hgb is 11<- 10.7<- 9.2 <- 10.4 <- 9.7<- 10.8,->3. Will monitor H/H. Anxiety: will give prn ativan. Hx of DM II: Continue accuchek, SSI, lantus 18u , lispro 6u with meal and ADA diet. DVT ppx: SCD Code: full Dispo: Continue ICU level of care. Pt is eager to go home but she is not medically stable. Physician Review: Patient Assessed, Agree with Above Assessment and Plan
--- NOTE | 2023-06-19 09:13 | P.DS ---
Admission Date: 06/07/23 Discharge Date: 06/19/23 Reason for Admission: Pneumonia Brief History of Present Illness: 8-year-old female who comes into the hospital with shortness of breath. Patient is a history of COPD. She been coughing congested. She has been having some clear sputum production. She denies any fever shakes or chills. Patient states she been feeling poorly for the last week. Her symptoms have gotten progressively worse. In the emergency room she had extensive workup performed. Her she was having some back pain and some right flank pain. Her workup showed that she had a right lower lobe consolidated pneumonia. Patient been started on IV antibiotics and steroids and pain medication. She does states that she coughs whenever she eats. I am not sure if she aspirated as she has a pneumonia in the right lower/middle lobe in the area most commonly seen with aspiration pneumonia. I will get a get speech therapy consultation to further evaluate patient. Patient is otherwise doing well. Denies any new complaints. She does have some minimal edema in her lower extremities and I do notice when talking to her that she has JVP. This could be related to right-sided heart failure from her advanced COPD with severe pulmonary hypertension causing elevated right- sided heart pressures. She could also have congestive heart failure. Will go ahead and review echocardiogram. Patient will be admitted to the hospital for inpatient hospitalization. - Physical Exam General: Alert, In no apparent distress, Oriented x3 HEENT: Atraumatic, Normocephalic, PERRLA Neck: Supple, 2+ carotid pulse no bruit, JVD not distended Respiratory: respirations equal, un;abored, Cardiovascular: No edema, Normal pulses, Regular rate/rhythm, Normal S1 S2 Capillary refill: <2 Seconds Gastrointestinal: Normal bowel sounds, Soft and benign, Non-distended Musculoskeletal: No clubbing, No swelling Integumentary: No rashes, No breakdown Hospital Course: Assessment plan Severe sepsis 2/2 RLL pneumonia: Likely due to aspiration. improving Pulmonary consulted Will continue iv vanc and zosyn. Follow up blood and sputum cultures. Will continue IVF and trend lactate. Pt passed swallow eval. continue aspiration precaution. Antibiotics de-escalated to Zosyn, O2 at 2 L Discharged home with Augmentin 1 p.o. twice daily x 7 days, take with probiotic, follow-up with pulmonary after discharge Leukocytosis: Likely due to infection or steroid.improving WBCs trending down ( 28 -> 18 -> 17 -> 20->15.30-> 14.0, WBCs 11.50). Procalcitonin is 51.59. Will continue iv abx.. abx Vanc/Zosyn WBC trending down We transferred her to the [facility] for higher level of care on 06/12/23. No other complaints. Acute on chronic kidney injury unkn baseline improving Trend BUN/creatinine BUN 33->20 CR 1.80->1.23 V-tach controlled with PO meds Pt had 20 runs of v-tach on 06/09/23. Off amiodarone drip. Will continue po amiodarone NM stress test is abnormal. cardiology will do cardiac cath. Plan for cardiac cath 06/18 Cardiology notes QTc 487ms NM stress 06/11/23 IMPRESSION: Small to moderate reversible perfusion defect involving the apicolateral left ventricular myocardium probably stress-induced ischemia Small to moderate fixed perfusion defect septal left ventricular myocardium probably infarction NM stress +, will cath tomorrow. continue amiodarone 200mg po BID, follow-up with cardiology after discharge 06/12/23 Awaiting cath, remains (and reminded of status) NPO Cardiology was unable to do cardiac cath due to SOB. Cardiac cath scheduled for 06/18 06/18 Heart Cath Indication: Unstable angina and mildly elevated troponin with abnormal stress test. Findings: 1. Left main; large and normal. 2. LAD; proximal segment large and normal. In the midsegment, there are 2 tandem lesions ranging between 20% to 30%. Normal diagonal branches. Rest of the LAD is normal. 3. Left circumflex is a hsamtmrh-xf-xorca sized vessel with proximal 30% stenosis, otherwise luminal irregularities. 4. RCA; large and dominant, mid 40%, mid to distal widely patent stent and distal before the bifurcation has a focal 30% stenosis. 5. LVEDP borderline elevated at 15 mmHg. Conclusion: OPERATIVE REPORT PETE WHITESIDE / Report: [id number] Page 2of 2 1. Moderate coronary artery disease, nonobstructive with widely patent RCA stent. 2. Mildly elevated LVEDP. Recommendation: Medical management. Acute resp failure with hypoxia: Secondary to aspiration pneumonia improving Acute COPD exacerbation: Will continue solumedrol, 2L BNC, duoneb and iv abx. ABG shows 7.34/41/95. Will continue prn BIPAP, 2L BNC and prn duoneb. Acute resp failure: Due to Pneumonia and COPD. Will continue treatment listed above. Acute on chronic heart failure improving Hx of CHF: BNP 44023. Will follow up Echo. Will continue home meds Pulmonary nodule 1.8 cm lung nodule: Per CT chest. Pt will follow up with Pulm for further evaluation. Hyperkalemia Hyperkalemia: K is 4.4<- 4.9. Will monitor. Transaminitis: Alk phos is 120. Will continue IVF and trend LFTs. Microcytic anemia Anemia: Hgb is 11<- 10.7<- 9.2 <- 10.4 <- 9.7<- 10.8,->3. Will monitor H/H. Anxiety: will give prn ativan. Hx of DM II: Continue accuchek, SSI, lantus 18u , lispro 6u with meal and ADA diet. <Evelyne Arriaga - Last Filed: 06/19/23 11:03> Admission Date: 06/07/23 Discharge Date: 06/19/23 <David Bills - Last Filed: 06/19/23 13:54> Disposition: TRANSFER TO [facility] Discharge Condition: GOOD Vital Signs/Physical Exam: Temp Pulse Resp BP Pulse Ox 97.2 F 78 18 146/82 H 96 06/19/23 09:11 06/19/23 09:11 06/19/23 09:11 06/19/23 09:11 06/19/23 09:11 Laboratory Data at Discharge: WBC 11.50 thou/uL (4.3-10.9) H 06/18/23 06:00 Hgb 9.4 g/dL (12.0-15.0) L 06/18/23 06:00 Hct 28.1 % (36.0-45.0) L 06/18/23 06:00 Plt Count 364 thou/uL (152-406) 06/18/23 06:00 PT 19.9 SECONDS (9.5-12.5) H 06/08/23 02:48 INR 1.84 06/08/23 02:48 APTT 36.3 SECONDS (24.3-36.9) 06/08/23 02:48 Sodium 134 mEq/L (136-145) L 06/19/23 05:10 Potassium 4.5 mEq/L (3.5-5.1) 06/19/23 05:10 BUN 8 mg/dL (7-18) 06/19/23 05:10 Creatinine 0.96 mg/dL (0.55-1.02) 06/19/23 05:10 Glucose 229 mg/dL (74-106) H 06/19/23 05:10 Phosphorus 1.7 mg/dL (2.5-4.9) L 06/08/23 02:48 Magnesium 1.9 mg/dL (1.6-2.4) 06/19/23 05:10 Total Bilirubin 0.5 mg/dL (0.2-1.0) 06/09/23 06:26 AST 26 U/L (15-37) 06/09/23 06:26 ALT 28 U/L (13-56) 06/09/23 06:26 Alkaline Phosphatase 128 U/L (45-117) H 06/09/23 06:26 Triglycerides 66 mg/dL (<150) 06/08/23 02:48 Cholesterol < 50 mg/dL (<200) 06/08/23 02:48 HDL Cholesterol 35 mg/dL (40-60) L 06/08/23 02:48 Cholesterol/HDL Ratio 1.43 06/08/23 02:48 Lipase < 6 U/L (13-75) L 06/07/23 10:25 <Evelyne Arriaga - Last Filed: 06/19/23 11:03> Vital Signs/Physical Exam: Temp Pulse Resp BP Pulse Ox 97.5 F 63 16 142/63 H 94 06/19/23 12:00 06/19/23 12:00 06/19/23 12:00 06/19/23 12:00 06/19/23 12:00 Laboratory Data at Discharge: WBC 11.50 thou/uL (4.3-10.9) H 06/18/23 06:00 Hgb 9.4 g/dL (12.0-15.0) L 06/18/23 06:00 Hct 28.1 % (36.0-45.0) L 06/18/23 06:00 Plt Count 364 thou/uL (152-406) 06/18/23 06:00 PT 19.9 SECONDS (9.5-12.5) H 06/08/23 02:48 INR 1.84 06/08/23 02:48 APTT 36.3 SECONDS (24.3-36.9) 06/08/23 02:48 Sodium 134 mEq/L (136-145) L 06/19/23 05:10 Potassium 4.5 mEq/L (3.5-5.1) 06/19/23 05:10 BUN 8 mg/dL (7-18) 06/19/23 05:10 Creatinine 0.96 mg/dL (0.55-1.02) 06/19/23 05:10 Glucose 229 mg/dL (74-106) H 06/19/23 05:10 Phosphorus 1.7 mg/dL (2.5-4.9) L 06/08/23 02:48 Magnesium 1.9 mg/dL (1.6-2.4) 06/19/23 05:10 Total Bilirubin 0.5 mg/dL (0.2-1.0) 06/09/23 06:26 AST 26 U/L (15-37) 06/09/23 06:26 ALT 28 U/L (13-56) 06/09/23 06:26 Alkaline Phosphatase 128 U/L (45-117) H 06/09/23 06:26 Triglycerides 66 mg/dL (<150) 06/08/23 02:48 Cholesterol < 50 mg/dL (<200) 06/08/23 02:48 HDL Cholesterol 35 mg/dL (40-60) L 06/08/23 02:48 Cholesterol/HDL Ratio 1.43 06/08/23 02:48 Lipase < 6 U/L (13-75) L 06/07/23 10:25 <David Bills - Last Filed: 06/19/23 13:54> Diet: AHA Activity: Fall precautions <Evelyne Arriaga - Last Filed: 06/19/23 11:03> Physician Review: Patient Assessed, Agree with Above Assessment and Plan (Doing well this morning. Stable for discharge to SNF.) <David Bills - Last Filed: 06/19/23 13:54> Home Medications: Atorvastatin Calcium 40 mg PO DAILY 10/04/19 Insulin Aspart [Novolog Penfill] See Protocol SQ ACHS 10/04/19 Losartan Potassium 50 mg PO DAILY 10/04/19 Cetirizine HCl [All Day Allergy] 1 tab PO DAILYPRN PRN 05/02/22 Furosemide [Lasix*] 1 tab PO DAILY 05/02/22 Insulin Detemir [Levemir] 40 units SQ DAILY 05/02/22 Levothyroxine Sodium [Euthyrox] 1 tab PO DAILY 05/02/22 Aspirin [Aspirin EC 81 MG] 81 mg PO DAILY 03/15/23 Clopidogrel Bisulfate [Plavix*] 75 mg PO DAILY 03/15/23 Metoprolol Succinate [Toprol Xl*] 25 mg PO DAILY 03/15/23 Alendronate Sodium 70 mg PO Q7D 06/08/23 Allopurinol 300 mg PO DAILY 06/08/23 Gabapentin [Neurontin*] 100 mg PO BID 06/08/23 Potassium Chloride [Klor-Con M20] 1 tab PO DAILY 06/08/23 Albuterol Neb [Proventil 0.083% Neb Soln] 2.5 mg NEB [id number] PRN amp 06/19/23 Amiodarone HCl [Cordarone*] 200 mg PO BID tab 06/19/23 Amox/Clavulanate [Augmentin 500-125 mg Tab*] 500 mg PO BID 7 Days #14 tab 06/19/23 Calcium Carbonate [Tums Regular*] 500 mg PO QID PRN tab 06/19/23 Famotidine [Pepcid*] 20 mg PO DAILY tab 06/19/23 Insulin -Regular Human [Novolin -R*] See Protocol SQ ACHS ml 06/19/23 Insulin Lispro [Humalog*] 5 unit SQ TIDWM ml 06/19/23 LORazepam [Lorazepam] 0.5 mg PO BID 6AM 6PM PRN 15 Days #30 mg 06/19/23 Melatonin 5 mg PO BEDTIME PRN PRN 06/19/23 Polyethyl Gly 3350 [Glycolax*] 17 gm PO DAILY PRN udbot 06/19/23 New Medications: Amox/Clavulanate [Augmentin 500-125 mg Tab*] 500 mg PO BID 7 Days #14 tab LORazepam [Lorazepam] 0.5 mg PO BID 6AM 6PM PRN 15 Days #30 mg PRN Reason: Anxiety Physician Discharge Instructions: Hospital course Assessment plan sepsis 2/2 RLL pneumonia: Likely due to aspiration. improving Pt passed swallow eval. treated with IV Zosyn, Discharge home with augementin 500 mg po BID x 7days with priobitic V-tach controlled with PO meds Pt had 20 runs of v-tach on 06/09/23. Off amiodarone drip. Will continue po amiodarone NM stress test is abnormal. cardiology will do cardiac cath. Plan for cardiac cath 06/18 Cardiology notes QTc 487ms NM stress 06/11/23 IMPRESSION: Small to moderate reversible perfusion defect involving the apicolateral left ventricular myocardium probably stress-induced ischemia Small to moderate fixed perfusion defect septal left ventricular myocardium probably infarction NM stress +, will cath tomorrow. continue amiodarone 200mg po BID 06/18 Heart Cath Indication: Unstable angina and mildly elevated troponin with abnormal stress test. Findings: 1. Left main; large and normal. 2. LAD; proximal segment large and normal. In the midsegment, there are 2 tandem lesions ranging between 20% to 30%. Normal diagonal branches. Rest of the LAD is normal. 3. Left circumflex is a upbcglwk-bo-gqlez sized vessel with proximal 30% stenosis, otherwise luminal irregularities. 4. RCA; large and dominant, mid 40%, mid to distal widely patent stent and distal before the bifurcation has a focal 30% stenosis. 5. LVEDP borderline elevated at 15 mmHg. Conclusion: OPERATIVE REPORT PETE WHITESIDE / Report: [id number] Page 2of 2 1. Moderate coronary artery disease, nonobstructive with widely patent RCA stent. 2. Mildly elevated LVEDP. Recommendation: Medical management. Acute on chronic heart failure improving Will continue home meds Pulmonary nodule1.8 cm lung nodule: Per CT chest. Pt will follow up with Pulm for further evaluation. Microcytic anemiaAnemia: Hgb is 11<- 10.7<- 9.2 <- 10.4 <- 9.7<- 10.8,->3. Will monitor H/H. Anxiety: will give prn ativan. Hx of DM II: Continue accuchek, SSI, lantus 18u , lispro 6u with meal and ADA diet. 1. Please call and schedule a follow-up appointment with your PCP ([employer] [facility]) in 3-5 days - Your blood work showed anemia. Please discuss further evaluation, including a colonoscopy, with your PCP. - As we discussed, your scan showed that you have a nodule on your adrenal gland. Please discuss with your PCP to further evaluate this for cancer - Your scan showed a hernia in your abdomen. Please discuss with your PCP for further management. - Your urine sample had a small amount of blood. Please discuss this with your PCP for further evaluation as blood in the urine can sometimes be an early sign of bladder/kidney cancer. 2. Please call and schedule a follow-up appointment with Pulmonology (Dr. Bronson) in 5-7 days - Please have your chest x-ray repeated in 2-3 weeks to make sure your pneumonia has fully healed - As we discussed, your scan showed nodules on your lungs as well as enlarged lymph nodes in your chest. Please discuss with Pulmonology to further evaluate these for cancer. 3. Please call and schedule a follow-up appointment with Cardiology (Dr. Fisher) in 5-7 days PROBLEM: Pneumonia, COPD, Congestive heart failure GOAL: Clear understanding of disease process INSTRUCTIONS: Physician Discharge Instructions: -DC IV and DC home -Follow-up with PCP in 1 to 2 weeks -Please call [phone] if any questions regarding hospital stay -Please call nursing station at [phone] if any nursing or medication questions -Return to the emergency room if symptoms worsen Diet: ADA, low sodium Activity: Fall precautions DME: Date Ordered: Name of Company: [employer] Services Needed: None Date or Referral: IMMUNIZATION Influenza Vaccine Indicated: Influenza Vaccine Given: Date Given: Pneumonia Vaccine Indicated: Pneumonia Vaccine Given: Date Given: Followup: Ramon Bronson MD [ACTIVE - CAN ADMIT] - 1 Week Malik Fisher MD [ACTIVE - CAN ADMIT] - 1 Week SUSI SEPULVEDA [Primary Care Provider] - 2-3 Days
[2023-06-19] MEDS ORDERED: LORAZEPAM 0.5 MG TABLET PO ONE (10:00)
[2023-06-19 10:28] VITALS: O2SAT 96
[2023-06-19 13:53] VITALS: BP 142/63; TEMP 97.5
[2023-06-19] MEDS ORDERED: LACTOBACILLUS/ACIDOPHILUS TAB PO SCH (21:00)
[2023-06-19] MEDS ORDERED: AMOX/K CLAV 875 MG TAB PO SCH (21:00)
== END 2023-06-19 13:52 | DRG 871 ==
LOC: ER 09:57 → ERHOLD 14:43 → 2ND 16:20 → 3RD-ICU 06-12 18:08 → 4TH 06-16 18:30
PROVIDERS: ADMIT Hospitalist; ATTEND Internal Medicine
PROC: 5A09357 Assistance with Respiratory Ventilation, Less than 24 Consecutive Hours, Continuous Positive Airway Pressure (ICD-10-PCS; principal; 2023-06-12)
PROC: 4A023N7 Measurement of Cardiac Sampling and Pressure, Left Heart, Percutaneous Approach (ICD-10-PCS; 2023-06-18)
PROC: B2001ZZ Plain Radiography of Single Coronary Artery using Low Osmolar Contrast (ICD-10-PCS; 2023-06-18)
PROC: B2051ZZ Plain Radiography of Left Heart using Low Osmolar Contrast (ICD-10-PCS; 2023-06-18)
DX: A41.9 Sepsis, unspecified organism (principal); J69.0 Pneumonitis due to inhalation of food and vomit; J96.01 Acute respiratory failure with hypoxia; J44.1 Chronic obstructive pulmonary disease with (acute) exacerbation; I47.20 Ventricular tachycardia, unspecified; I13.0 Hypertensive heart and chronic kidney disease with heart failure and stage 1 through stage 4 chronic kidney disease, or unspecified chronic kidney disease; I25.110 Atherosclerotic heart disease of native coronary artery with unstable angina pectoris; R65.20 Severe sepsis without septic shock; I27.20 Pulmonary hypertension, unspecified; E03.9 Hypothyroidism, unspecified; E83.42 Hypomagnesemia; R74.01 Elevation of levels of liver transaminase levels; D64.9 Anemia, unspecified; E11.22 Type 2 diabetes mellitus with diabetic chronic kidney disease; N18.32 Chronic kidney disease, stage 3b; I50.9 Heart failure, unspecified; F41.9 Anxiety disorder, unspecified; E87.5 Hyperkalemia; I48.91 Unspecified atrial fibrillation; F17.210 Nicotine dependence, cigarettes, uncomplicated; Z95.0 Presence of cardiac pacemaker
CPT/HCPCS: 36415; 71045; 71260; 74177; 76937; 78452; 80048; 80053; 80061; 80076; 80202; 81001; 82805; 82947; 83036; 83605; 83690; 83735; 83880; 84100; 84145; 84439; 84443; 84484; 85025; 85610; 85730; 87040; 92610; 93005; 93458; 94640; 94660; 94760; 96374; 96375; 97116; 97161; 97530; 99152; 99153; 99285; A9500; C1893; C9113; J0282; J1644; J1650; J1815; J1940; J2001; J2250; J2270; J2405; J2543; J2785; J2920; J2930; J3010; J3475; J7030; J7040; J7050; J7060; J7608; J7613; J7614; J7644; Q9966; Q9967

== ENCOUNTER 2023-09-19 11:06 | Observation (INO) | payer OTHER ==
[2023-09-19 11:33] LABS: Absolute Basophils 0.1 K/uL (0-0.5); Absolute Eosinophils 0.3 K/uL (0-0.5); Absolute Lymphocytes (CBC) 1.3 K/uL (0.7-4.9); Absolute Monocytes 1.1 K/uL (0.1-1.3); Absolute Neutrophil 7.3 K/uL (1.8-8.0); Basophils % 0.6 % (0-1.3); Eosinophils % 3.5 % (0-4.4); Hematocrit 29.8 % (36.0-45.0); Hemoglobin 9.7 g/dL (12.0-15.0); Lymphocytes % 12.7 % (15.3-44.8); MCH 29.2 pg (27.0-35.0); MCHC 32.4 g/dL (32.0-36.0); MCV 89.9 fL (80-100); MPV 8.2 fL (7.6-11.3); Neutrophils % 72.2 % (41.7-73.7); Platelets 441 thou/uL (152-406); RBC Red Blood Cell Count 3.32 M/uL (3.86-4.86); Red Cell Distribution Width 16.9 % (12.1-15.2)
[2023-09-19 11:51] LABS: Anion Gap 7.7 mEq/L (5.0-15.0); Potassium 3.7 mEq/L (3.5-5.1)
[2023-09-19] MEDS ORDERED: D10W 250 ML IV ONE (11:54)
[2023-09-19 12:20] LABS: Specific Gravity 1.008 (1.005-1.030); Sqamous Epithelial <5 /HPF (None Seen); Urine Bacteria None Seen /HPF (<20); Urine Bilirubin NEGATIVE (Negative); Urine Blood Negative (Negative); Urine Clarity Clear (Clear); Urine Color Colorless (Yellow); Urine Culture Reflex Order NOT NEEDED; Urine Glucose TRACE (Negative); Urine Ketones NEGATIVE (Negative); Urine Microscopic Reflex YN ORDER UMIC; Urine Mucus Slight /HPF (None Seen); Urine Nitrite NEGATIVE (Negative); Urine Protein NEGATIVE (Negative); Urine RBC <5 /HPF (None Seen); Urine Urobilinogen Normal (Normal); Urine WBC <5 /HPF (<5)
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
--- NOTE | 2023-09-19 13:23 | ER ---
Nurse's Notes [facility] Name: Brittani Seaman Age: 78 yrs Sex: Female : 1945 Arrival Date: 09/19/2023 Time: 11:06 Bed 13 Private MD: Diagnosis: Hypoglycemia, unspecified;Fall on same level, unspecified;Skin tear Presentation: 09/18 11:10 Chief complaint: EMS states: "toned out for AMS and fall from [facility]. mb9 On arrival BGL 38, administered approximately 100 cc of D10 . Pt has hematoma to left forehead and skin tears on right left, elbow, and left FA.". Coronavirus screen: At this time, the client does not indicate any symptoms associated with coronavirus-19. Ebola Screen: No symptoms or risks identified at this time. Initial Sepsis Screen: Does the patient meet any 2 criteria? No. Patient's initial sepsis screen is negative. Does the patient have a suspected source of infection? No. Patient's initial sepsis screen is negative. Risk Assessment: Do you want to hurt yourself or someone else? Patient reports no desire to harm self or others. Onset of symptoms was September 19, 2023. 11:10 Method Of Arrival: EMS: [facility] mb9 11:10 Acuity: PRAVEEN 2 mb9 Triage Assessment: 11:14 General: Appears uncomfortable, Behavior is drowsy. Pain: Complains of pain in mb9 buttocks. EENT: No signs and/or symptoms were reported regarding the EENT system. Neuro: Hernandez Agitation-Sedation Scale (RASS): 0 - Alert and Calm Level of Consciousness is confused, Oriented to person, place. Cardiovascular: Patient's skin is warm and dry. Respiratory: Airway is patent Respiratory effort is even, unlabored, Respiratory pattern is regular, symmetrical. GI: Abdomen is flat, non-distended. : Parent/caregiver report the patient having currently being treated for UTI. On day 3 of Cipro. Derm: Skin is fragile, is thin, has skin tears on right leg, FA, and left FA Skin is clammy, Skin is pale. Musculoskeletal: Range of motion: intact in all extremities. Historical: - Allergies: 11:13 Sulfa (Sulfonamide Antibiotics); mb9 - Home Meds: 11:13 Aspirin Oral [Active]; mb9 12:15 buspirone 5 mg Oral tablet 1 tab [Active]; carvedilol 12.5 mg oral tablet 1 tab 2 times mb9 per day [Active]; Cipro 250 mg Oral tablet 2 times per day [Active]; citalopram 10 mg tablet 1 tab once [Active]; Lasix 40 mg Oral tablet 0.5 tabs [Active]; Humalog U-100 Insulin 100 unit/mL Sub-Q cartridge [Active]; Lantus U-100 Insulin 100 unit/mL Sub-Q solution [Active]; levothyroxine 75 mcg capsule [Active]; - PMHx: 11:13 chronic bronchitis; Diabetes - IDDM; COPD; Hypertension; Hypothyroidism; prolapsed mb9 bladder; - Immunization history:: Adult Immunizations up to date. - Social history:: Smoking status: unknown. Screenin:15 [facility] ED Fall Risk Assessment (Adult) History of falling in the last 3 months, mb9 including since admission Yes- fall prone (multiple falls) (3 pts) Confusion or Disorientation Yes (5 pts) Intoxicated or Sedated No (0 pts) Impaired Gait No (0 pts) Mobility Assist Device Used No (0 pt) Altered Elimination No (0 pt) Score/Fall Risk Level 3 or more points = High Risk Oriented to surroundings, Maintained a safe environment, Educated pt \\T\\ family on fall prevention, incl call for assistance when getting out of bed, Assessed \\T\\ reinforced patient's understanding of fall precautions. Abuse screen: Denies threats or abuse. Nutritional screening: No deficits noted. Tuberculosis screening: No symptoms or risk factors identified. Assessment: 11:16 Reassessment: see triage assessment. mb9 11:30 Reassessment: Patient appears in no apparent distress at this time. Patient and/or db family updated on plan of care and expected duration. Pain level reassessed. Patient is alert, oriented x 3, equal unlabored respirations, skin warm/dry/pink. General: Appears in no apparent distress. comfortable, Behavior is calm, cooperative. Pain: Complains of pain in buttocks. Neuro: Level of Consciousness is awake, alert, obeys commands, Oriented to person, place, time, situation. Respiratory: Airway is patent Respiratory effort is even, unlabored, Respiratory pattern is regular, symmetrical. 11:42 Reassessment: ATTEMPTED TO PLACED PATIENT ON BEDPAN. PATIENT STATES "I NEED TO PEE BUT db I CAN'T PEE". PATIENT WILL TRY AGAIN LATER. 12:07 Reassessment: Lab at bedside drawing type and screen. mb9 12:19 Reassessment: Patient and/or family updated on plan of care and expected duration. Pain mb9 level reassessed. Patient is alert, oriented x 3, equal unlabored respirations, skin warm/dry/pink. 14:36 Reassessment: No changes from previously documented assessment. Patient and/or family mb9 updated on plan of care and expected duration. Pain level reassessed. Patient is alert, oriented x 3, equal unlabored respirations, skin warm/dry/pink. 14:37 Reassessment: see [facility] for furthering charting. mb9 Vital Signs: 11:10 BP 130 / 66; Pulse 64; Resp 15; Temp 97.5; Pulse Ox 100% on R/A; Weight 56.7 kg; Height mb9 5 ft. 0 in. ; 12:20 BP 130 / 88; Pulse 75; Resp 16; Pulse Ox 100% on 2 lpm NC; mb9 14:36 BP 147 / 57; Pulse 77; Resp 16; Pulse Ox 100% on R/A; mb9 11:10 Body Mass Index 24.41 (56.70 kg, 152.4 cm) mb9 ED Course: 11:10 Patient arrived in ED. mb9 11:10 Cynthia Joe, RN is Primary Nurse. mb9 11:10 Buster Covarrubias DO is Attending Physician. ms3 11:10 Arm band placed on. mb9 11:12 Triage completed. mb9 11:15 Placed in gown. Bed in low position. Call light in reach. Side rails up X 1. Provided mb9 Education on: press call light if needing anything. Client placed on continuous cardiac and pulse oximetry monitoring. NIBP monitoring applied. Door closed. Noise minimized. Warm blanket given. 11:15 Inserted saline lock: 22 gauge in left wrist, using aseptic technique. Blood collected. db 11:20 Basic Metabolic Panel Sent. mb9 11:20 CBC with Diff Sent. mb9 11:20 Type And Screen Sent. mb9 11:20 No provider procedures requiring assistance completed. Initial lab(s) drawn, by me, mbLexie sent to lab. Patient maintains SpO2 saturation greater than 95% on room air. 11:21 manager monitoring on. Pulse ox on. NIBP on. mb9 11:21 Thermoregulation: warm blanket given to patient. mb9 11:29 Lab(s) recollected, by me, sent to lab. db 12:02 Straight cath inserted, using sterile technique, 14 Fr. Specimen obtained. Returned as6 clear yellow urine. Patient tolerated well. 12:07 Urine collected: straight cath specimen, cloudy. mb9 12:20 Cleaned of incontinence. mb9 12:[address] via stretcher. mb9 12:38 CT Traumagram (Head C Spine CAP W Con) In Process Unspecified. EDMS 12:[address] moved back from [address]. mb9 13:22 Nicky Wade MD is Hospitalizing Provider. ms3 14:37 Patient admitted, IV remains in place. mb9 18:10 Assisted with bedpan. Repositioned patient. Cleaned of incontinence. mb9 19:06 Cleaned of incontinence. [facility] 09/19 07:08 Primary Nurse role handed off by Cynthia Joe RN eb 10:46 Roshni Martin, RN is Primary Nurse. db Administered Medications: 09/18 12:03 CANCELLED (Other Intervention Used): d50w50 ml IVP once; (1 amp) as6 12:03 Drug: D10 in Water IVP 250 ml IVP once Route: IVP; Site: left forearm; as6 12:44 Follow up: Response: No adverse reaction mb9 Medication: 11:22 VIS not applicable for this client. db Point of Care Testing: Blood Glucose: 11:12 Blood Glucose: 55 mg/dL; db 13:31 Blood Glucose: 151 mg/dL; db Ranges: Outcome: 13:22 Decision to Hospitalize by Provider. ms3 14:37 Admitted to ER Hold. Please see [facility] for further documentation. mb9 14:37 Condition: stable 14:37 Instructed on the need for admit, 09/19 15:08 Patient left the ED. ll1 Signatures: Dispatcher [employer] EDMS Calista Cueva Lynsay, RN RN ll1 Buster Covarrubias DO DO ms3 Conor Flores RN RN as6 Roshni Martin RN RN db Cynthia Joe RN RN mb9 Liza Marques kmf
--- NOTE | 2023-09-19 13:23 | EDPHYS ---
Physician Documentation [facility] Name: Brittani Seaman Age: 78 yrs Sex: Female : 1945 Arrival Date: 09/19/2023 Time: 11:06 Bed 13 Private MD: ED Physician Buster Covarrubias HPI: 09/18 12:24 This 78 yrs old Female presents to ER via EMS with complaints of Altered Mental Status. ms3 12:24 78-year-old female with past medical history of chronic bronchitis, diabetes, COPD, ms3 hypertension, hypothyroidism, prolapsed bladder presents to the emergency department via [facility] for altered mental status. On [facility], EMS arrival patient's blood glucose level was found to be 38. EMS administered 250 mL of D10. EMS notes patient currently has urinary tract infection and is on day #3 of ciprofloxacin. Historical: - Allergies: 11:13 Sulfa (Sulfonamide Antibiotics); mb9 - Home Meds: 11:13 Aspirin Oral [Active]; mb9 12:15 buspirone 5 mg Oral tablet 1 tab [Active]; carvedilol 12.5 mg oral tablet 1 tab 2 times mb9 per day [Active]; Cipro 250 mg Oral tablet 2 times per day [Active]; citalopram 10 mg tablet 1 tab once [Active]; Lasix 40 mg Oral tablet 0.5 tabs [Active]; Humalog U-100 Insulin 100 unit/mL Sub-Q cartridge [Active]; Lantus U-100 Insulin 100 unit/mL Sub-Q solution [Active]; levothyroxine 75 mcg capsule [Active]; - PMHx: 11:13 chronic bronchitis; Diabetes - IDDM; COPD; Hypertension; Hypothyroidism; prolapsed mb9 bladder; - Immunization history:: Adult Immunizations up to date. - Social history:: Smoking status: unknown. ROS: 12:24 Constitutional: Negative for fever, and chills. Neck: Negative for injury, pain, and ms3 swelling, Cardiovascular: Negative for chest pain, and palpitations. Respiratory: Negative for shortness of breath, cough, wheezing, and pleuritic chest pain, Abdomen/GI: Negative for abdominal pain, nausea, vomiting, diarrhea, and constipation, MS/Extremity: Negative for injury and deformity, 12:24 Back: Positive for tailbone pain, 12:24 Skin: Positive for skin tears, Exam: 12:24 Constitutional: This is a well developed, well nourished patient who is awake, alert, ms3 and in no acute distress. Head/Face: Normocephalic, atraumatic. Chest/axilla: Normal chest wall appearance and motion. Nontender with no deformity. Cardiovascular: Regular rate and rhythm with a normal S1 and S2. No gallops, murmurs, or rubs. Normal PMI, no JVD. No pulse deficits. Respiratory: Lungs have equal breath sounds bilaterally, clear to auscultation and percussion. No rales, rhonchi or wheezes noted. No increased work of breathing, no retractions or nasal flaring. Abdomen/GI: Soft, non-tender, with normal bowel sounds. No distension or tympany. No guarding or rebound. No evidence of tenderness throughout. 12:24 Musculoskeletal/extremity: skin tears of bilateral upper extremities. 12:24 ECG was reviewed by the Attending Physician. ms3 Vital Signs: 11:10 BP 130 / 66; Pulse 64; Resp 15; Temp 97.5; Pulse Ox 100% on R/A; Weight 56.7 kg; Height mb9 5 ft. 0 in. ; 12:20 BP 130 / 88; Pulse 75; Resp 16; Pulse Ox 100% on 2 lpm NC; mb9 14:36 BP 147 / 57; Pulse 77; Resp 16; Pulse Ox 100% on R/A; mb9 11:10 Body Mass Index 24.41 (56.70 kg, 152.4 cm) mb9 MDM: 11:10 Patient medically screened. ms3 12:35 Differential Diagnosis: electrolyte abnormality, hypoglycemia, UTI. ms3 13:22 Data reviewed: vital signs, nurses notes, lab test result(s), EKG, radiologic studies, ms3 and as a result, I will admit patient. Consideration of Admission/Observation Patient was admitted/placed on observation. Management of patient was discussed with the following: Hospitalist: . I considered the following discharge prescriptions or medication management in the emergency department Medications were administered in the Emergency Department. See MAR. Independent interpretation of the following test(s) in the Emergency Department EKG: See my EKG interpretation above. Care significantly affected by the following chronic conditions: Diabetes, Hypertension, Chronic Obstructive Pulmonary Disease. Counseling: I had a detailed discussion with the patient and/or guardian regarding the historical points, exam findings, and any diagnostic results supporting the discharge/admit diagnosis, lab results, radiology results, the need for further work-up and treatment in the hospital. ED course: Discussed necessity for admission with patient and she understands agrees with plan. All questions were answered. . 09/18 11:11 Order name: Basic Metabolic Panel; Complete Time: 12:08 ms3 09/18 11:11 Order name: CBC with Diff; Complete Time: 12:08 ms3 09/18 11:11 Order name: Type And Screen ms3 09/18 11:23 Order name: Glucose, Ancillary Testing; Complete Time: 11:34 EDMS 09/18 11:33 Order name: Urinalysis w/ reflexes; Complete Time: 13:07 ms3 09/18 12:43 Order name: ABO/RH no charge; Complete Time: 13:07 EDMS 09/18 12:58 Order name: Glucose, Ancillary Testing; Complete Time: 13:07 EDMS 09/18 13:20 Order name: Antibody Identification EDMS 09/18 13:36 Order name: Thyroid Stimulating Hormone EDMS 09/18 13:36 Order name: Urinalysis w/ reflexes EDMS 09/18 13:36 Order name: CBC with Automated Diff EDMS 09/18 13:36 Order name: CBC with Automated Diff EDMS 09/18 13:36 Order name: Comprehensive Metabolic Panel EDMS 09/18 13:36 Order name: Comprehensive Metabolic Panel EDMS 09/18 13:36 Order name: Lipid Profile EDMS 09/18 13:36 Order name: Lipid Profile EDMS 09/18 13:36 Order name: Magnesium EDMS 09/18 13:36 Order name: Magnesium EDMS 09/18 13:45 Order name: Glucose, Ancillary Testing; Complete Time: 14:40 EDMS 09/18 15:06 Order name: T4 Free EDMS 09/18 16:52 Order name: Glucose, Ancillary Testing EDMS 09/18 20:52 Order name: Glucose, Ancillary Testing EDMS 09/18 21:20 Order name: [place] Consultation EDMS 09/18 21:20 Order name: Sendout Antibody ID EDMS 09/19 07:46 Order name: Glucose, Ancillary Testing EDMS 09/19 12:24 Order name: Glucose, Ancillary Testing EDMS 09/19 13:03 Order name: CBC Smear Scan EDMS 09/19 13:55 Order name: Glucose, Ancillary Testing EDMS 09/18 12:09 Order name: CT Traumagram (Head C Spine CAP W Con); Complete Time: 13:11 ms3 09/18 11:11 Order name: Labs collected and sent; Complete Time: 11:20 ms3 09/18 11:25 Order name: Labs - recollect needed: Recollect and reband Type and Screen; not enough eb blood; Complete Time: 11:27 09/18 11:47 Order name: Straight Cath - Urine; Complete Time: 12:02 ms3 09/18 11:49 Order name: Labs - recollect needed: type and screen-hemolyzed; Complete Time: 12:07 ll1 EC:24 Rate is 75 beats/min. Rhythm is regular. Left axis deviation noted. QRS interval is ms3 prolonged. Clinical impression: Atrial paced. Interpreted by me. Reviewed by me. Administered Medications: 12:03 CANCELLED (Other Intervention Used): d50w50 ml IVP once; (1 amp) as6 12:03 Drug: D10 in Water IVP 250 ml IVP once Route: IVP; Site: left forearm; as6 12:44 Follow up: Response: No adverse reaction mb9 Point of Care Testing: Blood Glucose: 11:12 Blood Glucose: 55 mg/dL; db 13:31 Blood Glucose: 151 mg/dL; db Ranges: Critical Glucose Levels:Adult <50 mg/dl or >400 mg/dl <40 mg/dl or >180 mg/dl Disposition Summary: 09/19/23 13:22 Hospitalization Ordered Notes: Hospitalization Status: Observation ms3 Provider: Nicky Wade ms3 Condition: Stable ms3 Problem: new ms3 Symptoms: are unchanged ms3 Bed/Room Type: Standard ms3 Location: [facility] ER HOLD(09/20/23 13:29) kb3 Room Assignment: ERHOLD-(09/20/23 13:29) kb3 Diagnosis - Hypoglycemia, unspecified ms3 - Fall on same level, unspecified ms3 - Skin tear ms3 Forms: - Medication Reconciliation Form ms3 - SBAR form ms3 - Leadership Thank You Letter ms3 Signatures: Dispatcher [employer] EDMarcia Mcdermott FNP-C FNP-Minoow Calista Cueva Lynsay, RN RN ll1 Buster Covarrubias, DO DO ms3 Conor Flores, RN RN as6 Alicia Blanton, RN RN kb3 Cynthia Joe, RN RN mb9 Corrections: (The following items were deleted from the chart) 11:12 11:12 Head C Spine CAP W Con+CT.RAD.BRZ ordered. EDMS EDMS 11:34 11:34 Urinalysis+U.LAB.BRZ ordered. EDMS EDMS 12:03 11:53 D50W IVP 50 ml IVP once; (1 amp) ordered. ms3 as6 13:35 13:22 Telemetry/MedSurg (observation) ms3 eb 13:35 13:22 ms3 eb 09/19 12:49 09/18 13:35 [facility] ER HOLD eb eb 09/19 12:49 09/18 13:35 ERHOLD- eb eb 09/19 13:29 12:49 Telemetry/MedSurg (observation) eb kb3 13:29 12:49 232 eb kb3
--- NOTE | 2023-09-19 13:35 | P.HP ---
Certification for Inpatient Patient admitted to: Observation With expected LOS: <2 Midnights Patient will require the following post-hospital care: None Practitioner: I am a practitioner with admitting privileges, knowledge of patient current condition, hospital course, and medical plan of care. Services: Services provided to patient in accordance with Admission requirements found in Title 42 Section 412.3 of the Code of Federal Regulations <Marcia Quezada Mason - Last Filed: 09/19/23 15:00> Patient History Date of Service: 09/19/23 Reason for admission: electrolyte derangement, fall, UTI History of Present Illness: Ms. Seaman is a very pleasant, alert and oriented, 78 yo female patient of [facility] with a past medical history of glaucoma, hypothyroidism, insulin-dependent diabetes, hypertension, hyperlipidemia, CHF, unspecified arrhythmia, COPD, GERD, and depression. She is currently being treated at [facility] for a urinary tract infection with Cipro 250 mg p.o. twice daily. She states she has been getting up with PT and walking with a walker several times daily. She also has a wheelchair, apparently a few days ago she got tangled in the wheelchair and fell to the ground. She sustained a contusion to her left forehead, has a left conjunctival hemorrhage, and multiple skin tears. There was no loss of consciousness. Today EMS was called to the facility for decreased responsiveness. When she arrived to the emergency department she was found to have a blood sugar of 38. She was given D10 in the emergency department, her symptoms resolved, and she will be admitted for further investigation and observation. Home medications list reviewed: Yes - Past Medical/Surgical History Diabetic: Yes -: History of COPD -: Diabetes type 1 -: Hypertension -: Hypothyroid -: CHF -: Prolapsed bladder -: [id number] -: Bladder suspension 2004, pessary 2019 -: Appendectomy 1961 -: Tonsillectomy 1949 -: Pacemaker 2020 -: Hernia 2019 -: Stent 2020 Psychosocial/ Personal History: Former smoker - Family History Mother -: Heart disease, Hypertension, Diabetes - Social History Smoking Status: Former smoker Alcohol use: No CD- Drugs: No Caffeine use: No [facility] of Residence: [facility] ([facility] for 21 days) <Chanell Quezadamoni Cuevas - Last Filed: 09/19/23 15:00> Date of Service: 09/19/23 <Nicky Wade Last Filed: 09/19/23 15:46> Allergies No Known Allergies Allergy (Verified 05/05/22 08:45) Home Medications: Atorvastatin Calcium 40 mg PO DAILY 10/04/19 Insulin Aspart [Novolog Penfill] See Protocol SQ ACHS 10/04/19 Losartan Potassium 50 mg PO DAILY 10/04/19 Cetirizine HCl [All Day Allergy] 1 tab PO DAILYPRN PRN 05/02/22 Furosemide [Lasix*] 1 tab PO DAILY 05/02/22 Insulin Detemir [Levemir] 40 units SQ DAILY 05/02/22 Levothyroxine Sodium [Euthyrox] 1 tab PO DAILY 05/02/22 Aspirin [Aspirin EC 81 MG] 81 mg PO DAILY 03/15/23 Clopidogrel Bisulfate [Plavix*] 75 mg PO DAILY 03/15/23 Metoprolol Succinate [Toprol Xl*] 25 mg PO DAILY 03/15/23 Alendronate Sodium 70 mg PO Q7D 06/08/23 Allopurinol 300 mg PO DAILY 06/08/23 Gabapentin [Neurontin*] 100 mg PO BID 06/08/23 Potassium Chloride [Klor-Con M20] 1 tab PO DAILY 06/08/23 Albuterol Neb [Proventil 0.083% Neb Soln] 2.5 mg NEB [id number] PRN amp 06/19/23 Amiodarone HCl [Cordarone*] 200 mg PO BID tab 06/19/23 Amox/Clavulanate [Augmentin 500-125 mg Tab*] 500 mg PO BID 7 Days #14 tab 06/19/23 Calcium Carbonate [Tums Regular*] 500 mg PO QID PRN tab 06/19/23 Famotidine [Pepcid*] 20 mg PO DAILY tab 06/19/23 Insulin Lispro [Humalog*] 5 unit SQ TIDWM ml 06/19/23 Melatonin 5 mg PO BEDTIME PRN PRN 06/19/23 Polyethyl Gly 3350 [Glycolax*] 17 gm PO DAILY PRN udbot 06/19/23 Review of Systems 10-point ROS is otherwise unremarkable General: Unremarkable Eyes: Unremarkable ENT: Unremarkable Respiratory: Unremarkable Cardiovascular: Unremarkable Gastrointestinal: Unremarkable Genitourinary: Other (on Cipro for a UTI) Musculoskeletal: Unremarkable Integumentary: As per HPI Neurological: Unremarkable Lymphatics: Unremarkable <Marcia Quezada - Last Filed: 09/19/23 15:00> Physical Examination - Physical Exam General: Alert, In no apparent distress, Oriented x3 HEENT: Normocephalic, Other (left eye with subconjunctival hemorrhage, fall, hematoma to left forehead, skin tears to each extremity) Neck: Supple, JVD not distended Respiratory: Normal air movement Capillary refill: <2 Seconds Gastrointestinal: Soft and benign Musculoskeletal: No clubbing Integumentary: No breakdown Neurological: Normal speech, Normal tone Lymphatics: No axilla or inguinal lymphadenopathy External genitalia: Deferred Rectal: Deferred - Studies Laboratory Data (last 24 hrs) 09/19/23 09/19/23 11:16 11:16 WBC 10.10 Hgb 9.7 L Hct 29.8 L Plt Count 441 H Sodium 138 Potassium 3.7 BUN 11 Creatinine 0.94 Glucose 45 L* <Marcia Quezada - Last Filed: 09/19/23 15:00> - Studies Laboratory Data (last 24 hrs) 09/19/23 09/19/23 11:16 11:16 WBC 10.10 Hgb 9.7 L Hct 29.8 L Plt Count 441 H Sodium 138 Potassium 3.7 BUN 11 Creatinine 0.94 Glucose 45 L* <Nicky Wade - Last Filed: 09/19/23 15:46> Assessment and Plan - Plan Electrolyte derangement: monitor and correct electrolyte imbalances Mechanical Fall: wound care to skin tears/abrasions neurochecks q 4h UTI: Continue cipro 250mg po BID COPD: Continue nebs advair pulse ox spot checks CHF: Lasix 40mg po daily daily weight I&O HTN: continue current medications HLD: Atorvastatin 40mg po q hs IDDM: Lantus FSBS Q ac/hs, with SSI coverage Wounds: santyl to sacral area hibiclens to skin tears and abrasions with clean dressing daily Depression: continue home medications Esophageal dilitation: Protonix 40mg po daily, recommend endoscopy on outpatient basis DVT & GI prophylaxis: Brilinta/Protonix Code Status: Full Discharge Plan: [facility] Plan to discharge in: 24 Hours - Advance Directives Does patient have a Living Will: No Does patient have a Durable POA for Healthcare: No <Marcia Quezada Mason - Last Filed: 09/19/23 15:00> - Plan Pt seen and examined. I agree with the note by the BEER BREWER. Pt is a 78 yo female from [facility] with past medical history of glaucoma, DM II, CHF, Htn, hypothyroidism, hyperlipidemia, unspecified arrhythmia, COPD, GERD, and depression who presents in the ER for decreased responsiveness. Of note pt is taking Cipro 250mg po BID for UTI. The nurse [facility] the [facility] noticed that pt was less responsive . Of note, pt fell a few days ago and a contusion on her left forehead, left conjunctival hemorrhage, and multiple skin tears. The nurse called RACHELE lemus pt had decreased responsiveness today. Upon admission, pt had blood sugar of 38. ER physician gave D10 and her symptoms resolved. Lab studies show wbc 10.1, Hgb 9.7, K 3.7, cr 0.94, glucose 45. At bedside, pt is in NAD. A/P: Hypoglycemia: blood sugar is 45. Will continue D5 1/2 NS. Will check insulin and C-peptide level. Likely due to poor oral intake. Fall: Continue fall precaution. Will f/u vitamin D level. Skin abrasion: Continue wound care UTI: continue cipro 250mg po BID Anemia: Hgb 9.7. Will monitor H/H. Continue home meds for other chronic medical problems. DVT ppx: lovenox Code: full <Nicky Wade - Last Filed: 09/19/23 15:46>
[2023-09-19 14:52] LABS: Thyroid Stimulating Hormone 9.54 uIU/mL (0.358-3.740)
[2023-09-19] MEDS: D5 0.45 NS 1,000 ML IV SCH ×2 (15:00→22:53)
[2023-09-19 15:01] VITALS: BMI 24.4
[2023-09-19] MEDS ORDERED: ACETAMINOPHEN 500 MG TAB ONE ×2 (15:24→22:31)
[2023-09-19] MEDS: ACETAMINOPHEN 500 MG TAB PO PRN (15:33)
[2023-09-19] MEDS ORDERED: D5 0.45 NS 1,000 ML IV ONE (15:37)
[2023-09-19] MEDS: INSULIN REGULAR (HUMAN) 100 UNIT/ML SQ SCH (16:30)
[2023-09-19] MEDS ORDERED: ALBUTEROL 2.5 MG/3 ML NEB SOL ONE (19:53)
[2023-09-19] MEDS: ALBUTEROL 2.5 MG/3 ML NEB SOL NEB SCH (19:54)
[2023-09-19] MEDS ORDERED: INSULIN GLARGINE 100 UNIT/ML SQ ONE (20:49)
[2023-09-19] MEDS ORDERED: INSULIN REGULAR (HUMAN) 100 UNIT/ML ONE (20:50)
[2023-09-19] MEDS: LATANOPROST 0.005% 2.5ML OPTH OPTH SCH (21:00)
[2023-09-19] MEDS: CIPROFLOXACIN HCL 250 MG TAB PO SCH (21:00)
[2023-09-19] MEDS ORDERED: CIPROFLOXACIN HCL 500 MG TAB ONE (21:07)
[2023-09-19] MEDS ORDERED: TICAGRELOR 90 MG TABLET PO ONE (21:07)
[2023-09-19] MEDS: MEGESTROL 40 MG TAB PO SCH (21:53)
[2023-09-19] MEDS: TICAGRELOR 90 MG TABLET PO SCH (21:54)
[2023-09-19] MEDS: ATORVASTATIN 40 MG TAB PO SCH (21:54)
[2023-09-19] MEDS: INSULIN GLARGINE 100 UNIT/ML SQ SCH (21:55)
[2023-09-19] MEDS: DULERA 100/5 (MOMETASONE/FORMOTEROL) INHALER IH SCH (21:56)
[2023-09-19] MEDS: BUSPIRONE HCL 15 MG TABLET PO PRN (21:56)
[2023-09-20] MEDS: HYDROCODONE/APAP 5/325 MG TAB PO PRN (00:11)
[2023-09-20 02:48] LABS: Specific Gravity > 1.030 (1.005-1.030); Sqamous Epithelial None Seen /HPF (None Seen); Urine Bacteria <20 /HPF (<20); Urine Bilirubin NEGATIVE (Negative); Urine Blood Negative (Negative); Urine Clarity Clear (Clear); Urine Color Light-Yellow (Yellow); Urine Culture Reflex Order NOT NEEDED; Urine Glucose NEGATIVE (Negative); Urine Ketones NEGATIVE (Negative); Urine Microscopic Reflex YN ORDER UMIC; Urine Nitrite 2+ (Negative); Urine Protein NEGATIVE (Negative); Urine RBC <5 /HPF (None Seen); Urine Urobilinogen Normal (Normal); Urine WBC <5 /HPF (<5)
[2023-09-20] MEDS ORDERED: dexAMETHasone 4 MG/ML VIAL ONE (03:08)
[2023-09-20] MEDS ORDERED: HYDROCODONE/APAP 10/325 TAB ONE ×2 (03:08→10:20)
[2023-09-20] MEDS: HYDROCODONE/APAP 10/325 TAB PO ONE (03:59)
[2023-09-20] MEDS: dexAMETHasone 4 MG/ML VIAL IV ONE (03:59)
[2023-09-20] MEDS: PANTOPRAZOLE 40MG TABLET PO SCH (06:30)
[2023-09-20] MEDS: LEVOTHYROXINE SOD 0.075 MG TAB PO SCH (06:30)
[2023-09-20] MEDS ORDERED: ALBUTEROL 2.5 MG/3 ML NEB SOL ONE ×2 (08:08→13:21)
[2023-09-20] MEDS ORDERED: D5 0.45 NS 1,000 ML IV ONE (09:12)
[2023-09-20] MEDS: D5 0.45 NS 1,000 ML IV SCH (09:30)
[2023-09-20] MEDS: COLLAGENASE 30 GM OINTMENT TOP SCH (10:01)
[2023-09-20] MEDS: CITALOPRAM 10 MG TABLET PO SCH (10:06)
[2023-09-20] MEDS ORDERED: TICAGRELOR 90 MG TABLET PO ONE (10:20)
[2023-09-20] MEDS ORDERED: FUROSEMIDE 40 MG TABLET ONE (10:20)
[2023-09-20] MEDS ORDERED: ASPIRIN EC 81 MG TAB PO ONE (10:21)
[2023-09-20] MEDS ORDERED: POTASSIUM CL SA 10 MEQ TAB PO ONE (10:21)
[2023-09-20] MEDS: HYDROCODONE/APAP 10/325 TAB PO PRN (10:23)
[2023-09-20] MEDS: ASPIRIN EC 81 MG TAB PO SCH (10:25)
[2023-09-20] MEDS: POTASSIUM CL SA 10 MEQ TAB PO SCH (10:25)
[2023-09-20] MEDS: FUROSEMIDE 40 MG TABLET PO SCH (10:26)
[2023-09-20] MEDS: CEFTRIAXONE 1,000 MG in NA CHLORIDE 0.9% 50 ML IVPB ONE (10:50)
[2023-09-20] MEDS ORDERED: CEFTRIAXONE 1000 MG/VIAL ONE (11:31)
[2023-09-20 11:33] LABS: Absolute Basophils 0.1 K/uL (0-0.5); Absolute Lymphocytes (CBC) 0.9 K/uL (0.7-4.9); Absolute Monocytes 0.3 K/uL (0.1-1.3); Absolute Neutrophil 12.6 K/uL (1.8-8.0); Basophils % 0.8 % (0-1.3); Eosinophils % 0.1 % (0-4.4); Hematocrit 32.7 % (36.0-45.0); Hemoglobin 10.5 g/dL (12.0-15.0); Lymphocytes % 6.2 % (15.3-44.8); MCH 28.8 pg (27.0-35.0); MCV 89.9 fL (80-100); MPV 8.2 fL (7.6-11.3); Monocytes % 2.1 % (3.3-12.3); Neutrophils % 90.8 % (41.7-73.7); Platelets 470 thou/uL (152-406); RBC Red Blood Cell Count 3.63 M/uL (3.86-4.86); Red Cell Distribution Width 16.7 % (12.1-15.2)
[2023-09-20 11:49] LABS: Albumin 2.5 g/dL (3.4-5.0); Albumin/Globulin Ratio 0.6 (1.1-1.8); Anion Gap 9.1 mEq/L (5.0-15.0); Bilirubin Total 0.4 mg/dL (0.2-1.0); Magnesium 1.8 mg/dL (1.6-2.4); Potassium 4.1 mEq/L (3.5-5.1); Protein, Total 6.5 g/dL (6.4-8.2)
--- NOTE | 2023-09-20 12:08 | P.DS ---
Admission Date: 09/19/23 Discharge Date: 09/20/23 Reason for Admission: electrolyte derangement, fall, UTI Brief History of Present Illness: Ms. Seaman is a very pleasant, alert and oriented, 78 yo female patient of [facility] with a past medical history of glaucoma, hypothyroidism, insulin-dependent diabetes, hypertension, hyperlipidemia, CHF, unspecified arrhythmia, COPD, GERD, and depression. She is currently being treated at [facility] for a urinary tract infection with Cipro 250 mg p.o. twice daily. She states she has been getting up with PT and walking with a walker several times daily. She also has a wheelchair, apparently a few days ago she got tangled in the wheelchair and fell to the ground. She sustained a contusion to her left forehead, has a left conjunctival hemorrhage, and multiple skin tears. There was no loss of consciousness. Today EMS was called to the facility for decreased responsiveness. When she arrived to the emergency department she was found to have a blood sugar of 38. She was given D10 in the emergency department, her symptoms resolved, and she will be admitted for further investigation and observation. Hospital Course: Ms. Seaman remains alert and oriented. She shared with me that she has been at her mental with double pneumonia and went to [facility] about 22 days ago for rehab. She states that she was given long-acting insulin and her short acting but was not eating. She states she woke up in a different hospital. She is having pain to her sacral wound and was given medication to ease her symptoms. On reevaluation, her electrolyte are satisfactory, she is tolerating her meals, and would like to go back for more rehab. <Marcia Quezada - Last Filed: 09/20/23 12:02> Admission Date: 09/19/23 Discharge Date: 09/20/23 Hospital Course: Pt seen and examined. I agree with the note by the TANK HOOP BENDER. Her blood sugar improved. Pt was advised to eat more. Complete cipro for UTI at the rehab facility. Ok to discharge. <Nicky Wade - Last Filed: 09/20/23 18:07> Disposition: TRANSFER TO [facility] Discharge Condition: GOOD Vital Signs/Physical Exam: Temp Pulse Resp BP Pulse Ox 98.8 F 75 18 178/74 H 100 09/20/23 07:29 09/20/23 12:00 09/20/23 12:00 09/20/23 12:00 09/20/23 12:00 General: Alert, In no apparent distress, Oriented x3 HEENT: Normocephalic, Other (multiple bruises to left face, left subconjunctival hemorrhage) Neck: Supple Respiratory: Normal air movement Cardiovascular: Normal pulses, Regular rate/rhythm Capillary refill: <2 Seconds Gastrointestinal: Soft and benign Musculoskeletal: No clubbing Integumentary: Other (facial and all extremity areas of ecchymosis) Neurological: Normal speech, Normal tone Lymphatics: No axilla or inguinal lymphadenopathy External genitalia: Deferred Rectal: Deferred Laboratory Data at Discharge: WBC 13.90 thou/uL (4.3-10.9) H 09/20/23 11:19 Hgb 10.5 g/dL (12.0-15.0) L D 09/20/23 11:19 Hct 32.7 % (36.0-45.0) L 09/20/23 11:19 Plt Count 470 thou/uL (152-406) H 09/20/23 11:19 Sodium 137 mEq/L (136-145) 09/20/23 11:19 Potassium 4.1 mEq/L (3.5-5.1) 09/20/23 11:19 BUN 9 mg/dL (7-18) 09/20/23 11:19 Creatinine 0.87 mg/dL (0.55-1.02) 09/20/23 11:19 Glucose 183 mg/dL (74-106) H 09/20/23 11:19 Magnesium 1.8 mg/dL (1.6-2.4) 09/20/23 11:19 Total Bilirubin 0.4 mg/dL (0.2-1.0) 09/20/23 11:19 AST 15 U/L (15-37) 09/20/23 11:19 ALT 13 U/L (13-56) 09/20/23 11:19 Alkaline Phosphatase 119 U/L (45-117) H 09/20/23 11:19 Triglycerides 78 mg/dL (<150) 09/20/23 11:19 Cholesterol 85 mg/dL (<200) 09/20/23 11:19 HDL Cholesterol 35 mg/dL (40-60) L 09/20/23 11:19 Cholesterol/HDL Ratio 2.43 09/20/23 11:19 <Marcia Quezada Mason - Last Filed: 09/20/23 12:02> Vital Signs/Physical Exam: Temp Pulse Resp BP Pulse Ox 97.5 F 77 16 147/57 H 100 09/20/23 17:19 09/20/23 17:22 09/20/23 17:22 09/20/23 17:22 09/20/23 15:05 Laboratory Data at Discharge: WBC 13.90 thou/uL (4.3-10.9) H 09/20/23 11:19 Hgb 10.5 g/dL (12.0-15.0) L D 09/20/23 11:19 Hct 32.7 % (36.0-45.0) L 09/20/23 11:19 Plt Count 470 thou/uL (152-406) H 09/20/23 11:19 Sodium 137 mEq/L (136-145) 09/20/23 11:19 Potassium 4.1 mEq/L (3.5-5.1) 09/20/23 11:19 BUN 9 mg/dL (7-18) 09/20/23 11:19 Creatinine 0.87 mg/dL (0.55-1.02) 09/20/23 11:19 Glucose 183 mg/dL (74-106) H 09/20/23 11:19 Magnesium 1.8 mg/dL (1.6-2.4) 09/20/23 11:19 Total Bilirubin 0.4 mg/dL (0.2-1.0) 09/20/23 11:19 AST 15 U/L (15-37) 09/20/23 11:19 ALT 13 U/L (13-56) 09/20/23 11:19 Alkaline Phosphatase 119 U/L (45-117) H 09/20/23 11:19 Triglycerides 78 mg/dL (<150) 09/20/23 11:19 Cholesterol 85 mg/dL (<200) 09/20/23 11:19 HDL Cholesterol 35 mg/dL (40-60) L 09/20/23 11:19 Cholesterol/HDL Ratio 2.43 09/20/23 11:19 <Nicky Wade - Last Filed: 09/20/23 18:07> Diet: ADA <Marcia Quezada Mason - Last Filed: 09/20/23 12:02> <Nicky Wade C - Last Filed: 09/20/23 18:07> Home Medications: Acetaminophen [Tylenol*] 650 mg PO Q6HP PRN 09/20/23 Albuterol [Proventil] 2 puff IH Q6HP PRN 09/20/23 Ascorbic Acid 500 mg PO DAILY 09/20/23 Aspirin Chewable [Aspirin Chewable*] 81 mg PO DAILY 09/20/23 Atorvastatin Calcium 40 mg PO BEDTIME 09/20/23 Buspirone HCl [Buspar*] 5 mg PO TIDP PRN 09/20/23 Ciprofloxacin HCl [Cipro 250 MG Tablet*] 250 mg PO BID 09/20/23 Citalopram [Celexa*] 20 mg PO DAILY 09/20/23 Collagenase [Santyl Ointment*] 1 gianfranco TOP DAILY 09/20/23 Fluticasone/Vilanterol [Breo Ellipta 100-25 Mcg Inhalr] 1 puff IH DAILY 09/20/23 Furosemide [Lasix*] 40 mg PO DAILY 09/20/23 Hydrocodone 5/APAP 325 [[place]ath 5/325*] 1 tab PO Q6HP PRN 09/20/23 Insulin Glargine,Hum.rec.anlog [Lantus Solostar] 30 units SQ DAILY 09/20/23 Insulin Lispro [Humalog] See Protocol SQ ACHS 09/20/23 LORazepam [Ativan*] 1 osyr PO BIDP PRN 09/20/23 Latanoprost Ophth [Xalatan 0.005%*] 1 drop EACH EYE BEDTIME 09/20/23 Levothyroxine Sodium 75 mcg PO DAILY 09/20/23 Loratadine [Claritin*] 10 mg PO DAILY 09/20/23 Megestrol [Megace*] 40 mg PO QID 09/20/23 Omeprazole 20 mg PO DAILY 09/20/23 Potassium Chloride [Klor-Con 10] 10 meq PO DAILY 09/20/23 Ticagrelor [Brilinta*] 90 mg PO BID 09/20/23 Umeclidinium [place] [Incruse Ellipta] 1 puff IH DAILY 09/20/23 Zinc Amino Acid Chelate [Zinc] 50 mg PO DAILY 09/20/23 carvediloL [Coreg*] 12.5 mg PO BID 09/20/23 Physician Discharge Instructions: Okay to DC IV and DC back to [facility] Follow-up with primary care provider i Please call the inpatient unit for any questions or concerns regarding hospital stay Return to the ER for worsening symptoms Followup: Matthias Dugan MD [Primary Care Provider] -
[2023-09-20 13:02] LABS: Platelet Estimate INCR; White Blood Cell Scan OK (OK)
[2023-09-20 13:03] LABS: Blood Morphology Comment NOT SEEN (NOT SEEN)
[2023-09-20 17:21] VITALS: TEMP 97.5; O2SAT 100
[2023-09-20 17:50] VITALS: BP 147/57
--- NOTE | 2023-09-21 13:45 | EKG ---
Test Date: 2023-09-19 Test Time: 11:05:08 Extracorporeal Technician: ROSE MEASUREMENT RESULTS: Intervals: Rate: 75 IA: 162 QRSD: 146 QT: 520 QTc: 580 [place]: P: 75 IA: 162 QRS: 90 T: -77 INTERPRETIVE STATEMENTS: Atrial-sensed ventricular-paced rhythm Abnormal ECG Compared to ECG 06/10/2023 13:17:02 Sinus rhythm no longer present Sinus arrhythmia no longer present Myocardial infarct finding no longer present Electronically Signed On 09-21-23 13:37:55 CDT by Malik Fisher
== END 2023-09-20 15:07 ==
LOC: ER 11:06 → ERHOLD 13:29 → 2ND 09-20 12:55 → ERHOLD 09-20 14:04
PROVIDERS: ADMIT Hospitalist; ATTEND Hospitalist
DX: R41.82 Altered mental status, unspecified (principal); E87.8 Other disorders of electrolyte and fluid balance, not elsewhere classified; N39.0 Urinary tract infection, site not specified; E03.9 Hypothyroidism, unspecified; E11.65 Type 2 diabetes mellitus with hyperglycemia; I10 Essential (primary) hypertension; E78.5 Hyperlipidemia, unspecified; I50.9 Heart failure, unspecified; I49.9 Cardiac arrhythmia, unspecified; J44.9 Chronic obstructive pulmonary disease, unspecified; K21.9 Gastro-esophageal reflux disease without esophagitis; F32.A Depression, unspecified; Q39.5 Congenital dilatation of esophagus; S00.83XA Contusion of other part of head, initial encounter; S41.111A Laceration without foreign body of right upper arm, initial encounter; S81.011A Laceration without foreign body, right knee, initial encounter; W01.0XXA Fall on same level from slipping, tripping and stumbling without subsequent striking against object, initial encounter; Y93.89 Activity, other specified; Y92.099 Unspecified place in other non-institutional residence as the place of occurrence of the external cause; Z79.4 Long term (current) use of insulin; Z87.891 Personal history of nicotine dependence
CPT/HCPCS: 85025; 81001; 80048; 36415; 86900; 86850; 86870; 86901; 82947 ×5; 84443; 84439; 83525; 84681; 70450; 72125; 71260; 74177; Q9967; J1815; J3590; J3535 ×2; J7613; J7799; 80053; 80061; 83735; 93005; G0378; J0696; J1100

== ENCOUNTER 2023-10-07 17:06 | Inpatient (IN) | payer OTHER ==
--- NOTE | 2023-10-07 18:02 | RAD REPORT ---
EXAM DESCRIPTION: RAD - Chest Single View - 10/07/2023 5:56 pm CLINICAL HISTORY: AMS;Fever Chest pain. COMPARISON: Chest Single View dated 06/15/2023; Chest Single View dated 06/09/2023; Chest Single Vie w dated 06/07/2023; Chest Single View dated 03/16/2023 FINDINGS: Portable technique limits examination quality. The lungs have emphysematous appearance. Irregular nodules are present in the right upper lobe. Linea r scarring is present in the left base. The heart is moderately enlarged with dual lead pacer device. No displaced fractures.
--- NOTE | 2023-10-07 19:03 | RAD REPORT ---
EXAM DESCRIPTION: CT - Head Brain Wo Cont - 10/07/2023 6:55 pm CLINICAL HISTORY: CONFUSED Headache, drowsiness COMPARISON: <Comparisons> TECHNIQUE: All CT scans are performed using dose optimization technique as appropriate and may inclu de automated exposure control or mA/KV adjustment according to patient size. FINDINGS: No intracranial hemorrhage, hydrocephalus or extra-axial fluid collection.Mild generalized brain atrophy is present with moderate periventricular and deep white matter chronic microvascular i schemic changes.No areas of brain edema or evidence of midline shift. Mild polypoid mucosal thickening left maxillary antrum and right sphenoid. Evidence of prior FESS. Th e calvarium is intact. IMPRESSION: No acute intracranial abnormality.
[2023-10-07 19:15] LABS: Specific Gravity 1.012 (1.005-1.030); Urine Bilirubin NEGATIVE (Negative); Urine Blood Negative (Negative); Urine Clarity Turbid (Clear); Urine Color Light-Yellow (Yellow); Urine Glucose NEGATIVE (Negative); Urine Ketones NEGATIVE (Negative); Urine Microscopic Reflex YN NO UMIC; Urine Nitrite NEGATIVE (Negative); Urine Protein NEGATIVE (Negative); Urine Urobilinogen 1+ (Normal); Urine pH 6.5 (5.0-7.0)
[2023-10-07 19:31] LABS: Absolute Basophils 0.1 K/uL (0-0.5); Absolute Eosinophils 0.4 K/uL (0-0.5); Absolute Lymphocytes (CBC) 0.8 K/uL (0.7-4.9); Absolute Monocytes 0.9 K/uL (0.1-1.3); Absolute Neutrophil 4.6 K/uL (1.8-8.0); Basophils % 0.9 % (0-1.3); Eosinophils % 6.4 % (0-4.4); Hematocrit 27.5 % (36.0-45.0); Hemoglobin 9.2 g/dL (12.0-15.0); Lymphocytes % 11.7 % (15.3-44.8); MCH 28.9 pg (27.0-35.0); MCHC 33.4 g/dL (32.0-36.0); MCV 86.5 fL (80-100); MPV 8.4 fL (7.6-11.3); Monocytes % 12.6 % (3.3-12.3); Neutrophils % 68.4 % (41.7-73.7); Nucleated Red Blood Cells % 0.1 % (0-0); Platelets 373 thou/uL (152-406); RBC Red Blood Cell Count 3.17 M/uL (3.86-4.86); Red Cell Distribution Width 16.1 % (12.1-15.2)
[2023-10-07 19:36] LABS: Blood Morphology Comment NOT SEEN (NOT SEEN); Platelet Estimate ADEQ; White Blood Cell Scan OK (OK)
[2023-10-07 19:38] LABS: PT Prothrombin Time 12.7 SECONDS (9.5-12.5); PTT, Activated Partial Thromb 24.8 SECONDS (24.3-36.9); Protime INR 1.16
[2023-10-07] MEDS ORDERED: NA CHLORIDE 0.9% 1,000 ML ONE (19:42)
[2023-10-07] MEDS ORDERED: ACETAMINOPHEN 500 MG TAB ONE (19:42)
--- NOTE | 2023-10-07 19:48 | EDPHYS ---
Physician Documentation [facility] Name: Brittani Seaman Age: 78 yrs Sex: Female : 1945 Arrival Date: 10/07/2023 Time: 17:06 Bed 6 Private MD: ED Physician Keysha Reyes HPI: 10/06 18:20 This 78 yrs old Female presents to ER via EMS with complaints of altered mental status. sp3 18:20 78-year-old female with a history of COPD, diabetes, hypertension, chronic bronchitis sp3 that presents to the ED via EMS for altered mental status. Per jail staff she was combative, confused, talking nonsense and also pulled the fire alarm. Patient cannot recall any of these things but she states that "a bull is after her". She denies any somatic symptoms including headache, chest pain, shortness of breath, abdominal pain, joint pain, or any other signs or symptoms on ROS at this time. She does endorse that she "has fallen several times" but she is a very poor historian. ROS, history and physical limited secondary to these symptoms.. Historical: - Allergies: 17:24 Sulfa (Sulfonamide Antibiotics); ph - PMHx: 17:24 chronic bronchitis; COPD; Diabetes - IDDM; Hypertension; Hypothyroidism; prolapsed ph bladder; - Immunization history:: Adult Immunizations unknown. - Infectious Disease History:: Denies. - Social history:: Smoking status: unknown. ROS: 18:21 Unable to obtain ROS due to altered mental status, sp3 Exam: 18:22 Constitutional: This is a well developed, well nourished patient who is awake, alert, sp3 and in no acute distress. Head/Face: Normocephalic, atraumatic. Eyes: Pupils equal round and reactive to light, extra-ocular motions intact. Lids and lashes normal. Conjunctiva and sclera are non-icteric and not injected. Cornea within normal limits. Periorbital areas with no swelling, redness, or edema. Neck: Trachea midline, no thyromegaly or masses palpated, and no cervical lymphadenopathy. Supple, full range of motion without nuchal rigidity, or vertebral point tenderness. No Meningismus. Chest/axilla: Normal chest wall appearance and motion. Nontender with no deformity. No lesions are appreciated. Cardiovascular: Regular rate and rhythm with a normal S1 and S2. No gallops, murmurs, or rubs. Normal PMI, no JVD. No pulse deficits. Respiratory: Lungs have equal breath sounds bilaterally, clear to auscultation and percussion. No rales, rhonchi or wheezes noted. No increased work of breathing, no retractions or nasal flaring. Abdomen/GI: Soft, non-tender, with normal bowel sounds. No distension or tympany. No guarding or rebound. No evidence of tenderness throughout. Back: No spinal tenderness. No costovertebral tenderness. Full range of motion. Skin: Warm, dry with normal turgor. Normal color with no rashes, no lesions, and no evidence of cellulitis. MS/ Extremity: Pulses equal, no cyanosis. Neurovascular intact. Full, normal range of motion. 18:22 Neuro: Patient is disoriented in terms of time but she does know where she is. Her reported history however is nonsensical. She moves all extremities and grossly, motor, sensory, cranial nerves and other exam findings are normal. She is not suicidal, homicidal, or responding to internal stimuli. Unknown whether psychosis is present secondary to her nonsensical storytelling., 18:42 ECG was reviewed by the Attending Physician. EKG demonstrates atrial paced rhythm sp3 consistent with prior EKG. Vital Signs: 17:19 BP 156 / 71; Pulse 73; Resp 18; Temp 99.7; Pulse Ox 95% on R/A; Weight 65.77 kg; Height ph 5 ft. 3 in. ; 18:37 BP 124 / 66; Pulse 72; Resp 18; Pulse Ox 95% on R/A; ph 19:32 BP 159 / 95; Pulse 72; Resp 16; Pulse Ox 100% on 2 lpm NC; jj7 20:30 BP 169 / 70; Pulse 75; Resp 17; Pulse Ox 97% ; jj7 21:30 BP 134 / 66; Pulse 76; Resp 17; Pulse Ox 97% ; jj7 22:30 BP 138 / 69; Pulse 70; Resp 16; Temp 98.6; Pulse Ox 96% ; jj7 17:19 Body Mass Index 25.69 (65.77 kg, 160.02 cm) ph MDM: 17:26 Patient medically screened. sp3 18:24 Data reviewed: vital signs, nurses notes, EMS record, lab test result(s), EKG, sp3 radiologic studies. ED course: 78-year-old female with PMH above now with altered mental status. Consider delirium versus infection versus TIA/CVA spectrum versus dementia, among others. Workup will be broad and include laboratory values, chest x-ray, UA, CT scan of the head, and general observation. Patient will be admitted for further workup once cleared in the ED.. 19:45 ED course: Initial workup so far negative. CMP is pending and I will follow-up. sp3 Recommend neurology consult. Vital signs remained stable.. 10/06 17:26 Order name: Blood Culture Adult (2) 3 10/06 17:26 Order name: CBC with Diff; Complete Time: 19:42 sp3 10/06 17:26 Order name: CMP 3 10/06 17:26 Order name: Lactate w/ 2H reflex if indic.; Complete Time: 19:00 3 10/06 17:26 Order name: Protime (+inr); Complete Time: 19:42 3 10/06 17:26 Order name: Ptt, Activated; Complete Time: 19:42 sp3 10/06 17:26 Order name: Urinalysis w/ reflexes; Complete Time: 19:29 sp3 10/06 17:26 Order name: Troponin High Sensitivity 3 10/06 18:50 Order name: CBC Smear Scan; Complete Time: 19:42 EDMS 10/06 20:36 Order name: Urinalysis w/ reflexes EDMS 10/06 20:36 Order name: CBC with Automated Diff EDMS 10/06 20:36 Order name: CBC with Automated Diff EDMS 10/06 20:36 Order name: Comprehensive Metabolic Panel EDKY 10/06 20:36 Order name: Comprehensive Metabolic Panel EDMS 10/06 21:59 Order name: Lactate Sepsis 2 HR Follow-up EDMS 10/06 17:26 Order name: Chest Single View XRAY; Complete Time: 18:14 sp3 10/06 17:26 Order name: CT Head Brain wo Cont; Complete Time: 19:13 sp3 10/06 17:26 Order name: Cardiac monitoring; Complete Time: 19:29 sp3 10/06 17:26 Order name: EKG - Nurse/Tech; Complete Time: 19:47 sp3 10/06 17:26 Order name: IV Saline Lock - Large Bore; Complete Time: 19:47 sp3 10/06 17:26 Order name: Labs collected and sent; Complete Time: 19:29 sp3 10/06 17:26 Order name: O2 Per Protocol; Complete Time: 19:29 sp3 10/06 17:26 Order name: O2 Sat Monitoring; Complete Time: 19:29 sp3 10/06 17:26 Order name: Vital Signs; Complete Time: 19:41 sp3 10/06 18:46 Order name: Labs - recollect needed: green, light blue; Complete Time: 19:28 3 10/06 18:50 Order name: Labs - recollect needed: please recollect purple top as well; Complete em1 Time: 19:29 Administered Medications: 19:47 Drug: Acetaminophen PO 1000 mg PO once Route: PO; jj7 20:50 Follow up: Response: No adverse reaction jj7 19:47 Drug: NS 0.9% IV 1000 ml IV at 1 bolus Per protocol; 1000 mL bolus Route: IV; Rate: 1 jj7 bolus; Site: right wrist; 20:57 Follow up: IV Status: Completed infusion jj7 Disposition Summary: 10/07/23 19:47 Hospitalization Ordered Notes: Hospitalization Status: Observation sp3 Provider: Rashaad Hinojosa sp3 Location: Telemetry/MedSurg (observation) sp3 Condition: Stable sp3 Problem: new sp3 Symptoms: have worsened sp3 Bed/Room Type: Standard sp3 Room Assignment: [facility](10/07/23 21:00) Diagnosis - Altered mental status, confusion sp3 Forms: - Medication Reconciliation Form sp3 - SBAR form sp3 - Leadership Thank You Letter sp3 Signatures: Dispatcher [employer] EDMS Raghav Sellers em1 Karen Blevins RN RN Alejandra Phoenix RN RN ap3 Jenifer Khan Keysha Reyes MD MD sp3 Joya Tamez RN RN jj7 Corrections: (The following items were deleted from the chart) 17:27 17:27 Head Brain Wo Cont+CT.RAD.BRZ ordered. EDMS EDMS 17:27 17:27 Troponin High Sensitivity+C.LAB.BRZ ordered. EDMS EDMS 18:55 18:42 ECG was reviewed by the Attending Physician. EKG demonstrates normal sinus rhythm sp3 at 80 bpm with left bundle branch block sp3 21:00 19:47 sp3 wm 21:51 17:26 Accucheck ordered. sp3 vc1
--- NOTE | 2023-10-07 19:48 | ER ---
Nurse's Notes [facility] Name: Brittani Seaman Age: 78 yrs Sex: Female : 1945 Arrival Date: 10/07/2023 Time: 17:06 Bed 6 Private MD: Diagnosis: Altered mental status, confusion Presentation: 10/06 17:19 Chief complaint: EMS states: Pt from [facility], staff reports that pt pulled fire ph alarm and attempted to run away, then became combative w/ staff when they tried to stop her which is not normal for the pt, VSS, BGL WNL, recently treated for UTI. Coronavirus screen: Vaccine status: Patient reports being unvaccinated. Ebola Screen: No symptoms or risks identified at this time. Initial Sepsis Screen: Does the patient meet any 2 criteria? No. Patient's initial sepsis screen is negative. Does the patient have a suspected source of infection? No. Patient's initial sepsis screen is negative. Risk Assessment: Do you want to hurt yourself or someone else? Patient reports no desire to harm self or others. Onset of symptoms was October 07, 2023. 17:19 Method Of Arrival: EMS: [facility] ph 17:19 Acuity: PRAVEEN 2 ph Historical: - Allergies: 17:24 Sulfa (Sulfonamide Antibiotics); ph - PMHx: 17:24 chronic bronchitis; COPD; Diabetes - IDDM; Hypertension; Hypothyroidism; prolapsed ph bladder; - Immunization history:: Adult Immunizations unknown. - Infectious Disease History:: Denies. - Social history:: Smoking status: unknown. Screenin:27 [facility] ED Fall Risk Assessment (Adult) History of falling in the last 3 months, ph including since admission Yes- fall prone (multiple falls) (3 pts) Confusion or Disorientation No (0 pts) Intoxicated or Sedated No (0 pts) Impaired Gait No (0 pts) Mobility Assist Device Used Yes (1 pt) Altered Elimination Yes (1 pt) Score/Fall Risk Level 3 or more points = High Risk Oriented to surroundings, Maintained a safe environment, Used ambulatory aids as needed (educated on \T\ assisted with), Used gait belt as appropriate. Abuse screen: Denies threats or abuse. Denies injuries from another. Nutritional screening: No deficits noted. Tuberculosis screening: No symptoms or risk factors identified. Assessment: 18:36 General: Appears in no apparent distress. comfortable, Behavior is calm, cooperative. ph Pain: Complains of pain in buttocks. Neuro: Level of Consciousness is awake, alert, obeys commands, Oriented to person. Cardiovascular: Capillary refill < 3 seconds in bilateral fingers Patient's skin is warm and dry. Respiratory: Airway is patent Respiratory effort is even, unlabored. Derm: Skin is pink, warm \T\ dry. Musculoskeletal: Circulation, motion, and sensation intact. Range of motion: intact in all extremities. Injury Description: Abrasion sustained to right elbow. Injury Description: Abrasion sustained to left elbow. 19:07 Reassessment: ASSUMED CARE OF PT. PT LYING IN BED. NO DISTRESS NOTED. VS STABLE. IV jj7 STARTED 2ND SET OF BLOOD CULTURES AND LAB RECOLLECT. PT TOLERATED WELL. WARM BLANKET PROVIDED. General: Appears in no apparent distress. comfortable, Behavior is calm, cooperative. Neuro: Level of Consciousness is awake, alert, obeys commands, Oriented to person. Vital Signs: 17:19 BP 156 / 71; Pulse 73; Resp 18; Temp 99.7; Pulse Ox 95% on R/A; Weight 65.77 kg; Height ph 5 ft. 3 in. ; 18:37 BP 124 / 66; Pulse 72; Resp 18; Pulse Ox 95% on R/A; ph 19:32 BP 159 / 95; Pulse 72; Resp 16; Pulse Ox 100% on 2 lpm NC; jj7 20:30 BP 169 / 70; Pulse 75; Resp 17; Pulse Ox 97% ; jj7 21:30 BP 134 / 66; Pulse 76; Resp 17; Pulse Ox 97% ; jj7 22:30 BP 138 / 69; Pulse 70; Resp 16; Temp 98.6; Pulse Ox 96% ; jj7 17:19 Body Mass Index 25.69 (65.77 kg, 160.02 cm) ph ED Course: 17:13 Patient arrived in ED. em1 17:18 Keysha Reyes MD is Attending Physician. sp3 17:19 Karne Blevins, RN is Primary Nurse. ph 17:24 Triage completed. ph 17:25 Arm band placed on Patient placed in an exam room. ph 17:26 Patient has correct armband on for positive identification. Call light in reach. Side ph rails up X2. Client placed on continuous cardiac and pulse oximetry monitoring. NIBP monitoring applied. insurance counselor on. Pulse ox on. Door closed. Noise minimized. 17:58 Chest Single View XRAY In Process Unspecified. EDMS 18:39 No provider procedures requiring assistance completed. Initial lab(s) drawn, by me, ph sent to lab. Urine collected: clean catch specimen, EKG done. Missed attempt(s): 22 gauge in left antecubital area. Bleeding controlled, band aid applied, catheter tip intact. Missed attempt(s): 22 gauge in left hand. Bleeding controlled, band aid applied, catheter tip intact. 18:56 CT Head Brain wo Cont In Process Unspecified. EDMS 19:07 Door closed. Lights dimmed. Warm blanket given. Pillow given. jj7 19:07 Inserted saline lock: 22 gauge in right wrist, using aseptic technique. Blood collected.jj7 19:29 Troponin High Sensitivity Sent. ph 19:29 Blood Culture Adult (2) Sent. ph 19:29 CBC with Diff Sent. ph 19:29 CMP Sent. ph 19:29 Protime (+inr) Sent. ph 19:29 Ptt, Activated Sent. ph 19:47 Rashaad Hinojosa MD is Hospitalizing Provider. sp3 19:47 Blood Culture Adult (2) Sent. jj7 19:47 CMP Sent. jj7 20:38 Primary Nurse role handed off by Karen Blevins RN 23:34 Patient admitted, IV remains in place. jj7 Administered Medications: 19:47 Drug: Acetaminophen PO 1000 mg PO once Route: PO; jj7 20:50 Follow up: Response: No adverse reaction jj7 19:47 Drug: NS 0.9% IV 1000 ml IV at 1 bolus Per protocol; 1000 mL bolus Route: IV; Rate: 1 jj7 bolus; Site: right wrist; 20:57 Follow up: IV Status: Completed infusion jj7 Medication: 17:26 VIS not applicable for this client. ph Outcome: 19:47 Decision to Hospitalize by Provider. sp3 23:34 Admitted to Med/surg accompanied by tech, room 415, Other SBAR FAXED TO 4TH FLOOR jj7 23:34 Condition: stable 23:37 Patient left the ED. jj7 Signatures: Dispatcher [employer] EDMS Raghav Sellers em1 Karen Blevins RN RN Jenifer Bower Setul, MD MD sp3 Joya Tamez RN RN jj7 Corrections: (The following items were deleted from the chart) 23:36 22:30 BP 138 / 69; Pulse 70bpm; Resp 16bpm; Pulse Ox 96%; jj7 jj7
[2023-10-07 20:08] LABS: Albumin 2.8 g/dL (3.4-5.0); Albumin/Globulin Ratio 0.6 (1.1-1.8); Anion Gap 9.6 mEq/L (5.0-15.0); Bilirubin Total 0.7 mg/dL (0.2-1.0); Globulin 4.7 g/dL (2.3-3.5); Potassium 3.6 mEq/L (3.5-5.1); Protein, Total 7.5 g/dL (6.4-8.2)
--- NOTE | 2023-10-07 20:29 | P.HP ---
Certification for Inpatient Patient admitted to: Inpatient With expected LOS: >2 Midnights Practitioner: I am a practitioner with admitting privileges, knowledge of patient current condition, hospital course, and medical plan of care. Services: Services provided to patient in accordance with Admission requirements found in Title 42 Section 412.3 of the Code of Federal Regulations Patient History Date of Service: 10/07/23 Reason for admission: AMS History of Present Illness: 78 yrs old Female with past medical history of COPD, hypertension, hypothyroidism, diabetes, chronic bronchitis, CHF status post pacemaker placement who is seen in shelter and was sent over to the hospital for altered mental status. Patient is a poor historian hence most of the history is obtained from the chart review and also talking with the ER physician. Per shelter staff she was combative, confused, talking nonsense and also pulled the fire alarm. Patient cannot recall any of these things but she states that "a bull is after her". She denies any somatic symptoms including headache, chest pain, shortness of breath, abdominal pain, joint pain, or any other signs or symptoms on ROS at this time. She does endorse that she "has fallen several times" but she is a very poor historian. ROS, history and physical limited secondary to these symptoms.. Patient states that she has having some cough and generalized weakness and chills. Patient was assessed in the ER and was admitted for further management of acute encephalopathy and lactic acidosis Allergies No Known Allergies Allergy (Verified 05/05/22 08:45) Home medications list reviewed: Yes Home Medications: Acetaminophen [Tylenol*] 650 mg PO Q6HP PRN 09/20/23 Albuterol [Proventil] 2 puff IH Q6HP PRN 09/20/23 Ascorbic Acid 500 mg PO DAILY 09/20/23 Aspirin Chewable [Aspirin Chewable*] 81 mg PO DAILY 09/20/23 Atorvastatin Calcium 40 mg PO BEDTIME 09/20/23 Buspirone HCl [Buspar*] 5 mg PO TIDP PRN 09/20/23 Ciprofloxacin HCl [Cipro 250 MG Tablet*] 250 mg PO BID 09/20/23 Citalopram [Celexa*] 20 mg PO DAILY 09/20/23 Collagenase [Santyl Ointment*] 1 gianfranco TOP DAILY 09/20/23 Fluticasone/Vilanterol [Breo Ellipta 100-25 Mcg Inhalr] 1 puff IH DAILY 09/20/23 Furosemide [Lasix*] 40 mg PO DAILY 09/20/23 Hydrocodone 5/APAP 325 [Ekron 5/325*] 1 tab PO Q6HP PRN 09/20/23 Insulin Glargine,Hum.rec.anlog [Lantus Solostar] 30 units SQ DAILY 09/20/23 Insulin Lispro [Humalog] See Protocol SQ ACHS 09/20/23 LORazepam [Ativan*] 1 osyr PO BIDP PRN 09/20/23 Latanoprost Ophth [Xalatan 0.005%*] 1 drop EACH EYE BEDTIME 09/20/23 Levothyroxine Sodium 75 mcg PO DAILY 09/20/23 Loratadine [Claritin*] 10 mg PO DAILY 09/20/23 Megestrol [Megace*] 40 mg PO QID 09/20/23 Omeprazole 20 mg PO DAILY 09/20/23 Potassium Chloride [Klor-Con 10] 10 meq PO DAILY 09/20/23 Ticagrelor [Brilinta*] 90 mg PO BID 09/20/23 Umeclidinium [place] [Incruse Ellipta] 1 puff IH DAILY 09/20/23 Zinc Amino Acid Chelate [Zinc] 50 mg PO DAILY 09/20/23 carvediloL [Coreg*] 12.5 mg PO BID 09/20/23 - Past Medical/Surgical History Diabetic: Yes Past Medical History: Reviewed- Non-Contributory -: History of COPD -: Diabetes type 1 -: Hypertension -: Hypothyroid -: CHF -: Prolapsed bladder Past Surgical History: Reviewed- Non-Contributory -: [id number] -: Bladder suspension 2004, pessary 2019 -: Appendectomy 1961 -: Tonsillectomy 1949 -: Pacemaker 2020 -: Hernia 2019 -: Stent 2020 Psychosocial/ Personal History: Former smoker - Family History Family History: Reviewed- Non-Contributory - Family History Mother -: Heart disease, Hypertension, Diabetes - Social History Smoking Status: Former smoker Alcohol use: No CD- Drugs: No Caffeine use: No Review of Systems is unable to be obtained Physical Examination - Vital Signs Temperature: 98.6 F Blood Pressure: 126/78 Pulse: 68 Respirations: 18 Pulse Ox (%): 95 - Physical Exam General: Alert, Oriented x2, Cooperative, Mild distress, Confused HEENT: Atraumatic, Normocephalic Neck: Supple, 2+ carotid pulse no bruit Respiratory: Clear to auscultation bilaterally, Expiratory wheezes Cardiovascular: Regular rate/rhythm, Normal S1 S2 Capillary refill: <2 Seconds Gastrointestinal: Soft and benign, W/out hepatosplenomegaly Musculoskeletal: No clubbing, No swelling Integumentary: No rashes Neurological: Cranial nerves 3-12 intact, Normal reflexes 2+, Abnormal gait Lymphatics: No axilla or inguinal lymphadenopathy - Studies Laboratory Data (last 24 hrs) 10/07/23 10/07/23 10/07/23 19:22 19:22 19:22 WBC 6.80 Hgb 9.2 L Hct 27.5 L Plt Count 373 PT 12.7 H INR 1.16 APTT 24.8 Sodium 139 Potassium 3.6 BUN 17 Creatinine 1.16 H Glucose 234 H Total Bilirubin 0.7 AST 19 ALT 17 Alkaline Phosphatase 129 H Assessment and Plan - Problems (Diagnosis) (1) Acute metabolic encephalopathy Current Visit: Yes Status: Acute Plan: Acute metabolic encephalopathy CT head negative for any acute changes Monitor closely neuro vital signs Monitor electrolytes and replace accordingly Acute kidney injury Possibly dehydrated Will start on IV hydration Monitor renal parameters Lactic acidosis Will get a urine culture and blood cultures Started on Rocephin empirically Diabetes with hyperglycemia Insulin sliding scale Will get Accu-Chek before every meal and at bedtime Will get an A1c in a.m. Hypertension Continue home medications and titrate as needed COPD Continue bronchodilators Oxygen supplementation Will try to wean down oxygen requirement CHF not in exacerbation Hypertension Continue home medications and titrate as needed Monitor closely under telemetry - Advance Directives Does patient have a Living Will: No Does patient have a Durable POA for Healthcare: No - Code Status/Comfort Care Code Status: Full Code Time Spent Managing Pts Care (In Minutes): 48
[2023-10-07] MEDS ORDERED: ONDANSETRON 4 MG/2 ML VIAL IV PRN (20:31)
[2023-10-07] MEDS ORDERED: LORazepam 2 MG/ML VIAL ONE (23:31)
[2023-10-07] MEDS: LORazepam 2 MG/ML VIAL IV ONE (23:37)
[2023-10-08] MEDS: CEFTRIAXONE 1,000 MG in NA CHLORIDE 0.9% 50 ML IVPB SCH (00:20)
[2023-10-08] MEDS: INSULIN REGULAR (HUMAN) 100 UNIT/ML SQ SCH (00:30)
[2023-10-08 04:30] VITALS: BMI 21.7
--- NOTE | 2023-10-08 08:05 | P.PN ---
Subjective Date of Service: 10/09/23 Chief Complaint: AMS Admitted for falls, generalized weakness, confusion, suspected metabolic encephalopathy, was combative with staff at the long-term, impulsive, attempted, out of bed, sitter at bedside Was noted to have UTI, lactic acidosis, dehydration, with acute kidney injury, is on empiric antibiotic CT of the head IMPRESSION: No acute intracranial abnormality. Plan to return to [facility] a - Physical Exam General: Alert, Oriented x2, Cooperative, Confused HEENT: Atraumatic, Normocephalic Neck: Supple, 2+ carotid pulse no bruit Respiratory: Clear to auscultation bilaterally, Expiratory wheezes Cardiovascular: Regular rate/rhythm, Normal S1 S2 Capillary refill: <2 Seconds Gastrointestinal: Soft and benign, W/out hepatosplenomegaly Musculoskeletal: No clubbing, No swelling Integumentary: No rashes Neurological: Cranial nerves 3-12 intact, Normal reflexes 2+, Abnormal gait Lymphatics: No axilla or inguinal lymphadenopathy Review of Systems per HPI Physical Examination - Vital Signs Temperature: 98.5 F Blood Pressure: 164/76 Pulse: 81 Respirations: 18 Pulse Ox (%): 94 - Studies Laboratory Data (last 24 hrs) 10/07/23 10/07/23 10/07/23 19:22 19:22 19:22 WBC 6.80 Hgb 9.2 L Hct 27.5 L Plt Count 373 PT 12.7 H INR 1.16 APTT 24.8 Sodium 139 Potassium 3.6 BUN 17 Creatinine 1.16 H Glucose 234 H Total Bilirubin 0.7 AST 19 ALT 17 Alkaline Phosphatase 129 H Assessment And Plan - Plan Assessment and Plan Acute metabolic encephalopathy CT head negative for any acute changes Monitor closely neuro vital signs Monitor electrolytes and replace accordingly Sitter at bedside, impulsive, attempting to get out of bed Fall PT eval As needed analgesics Acute kidney injury unknown baseline Possibly dehydrated Will start on IV hydration Monitor renal parameters Acute cystitis Lactic acidosis Will get a urine culture and blood cultures Started on Rocephin empirically Diabetes with hyperglycemia Insulin sliding scale Will get Accu-Chek before every meal and at bedtime Will get an A1c in a.m. Hypertension Continue home medications and titrate as needed COPD stable Continue bronchodilators Oxygen supplementation Will try to wean down oxygen requirement CHF not in exacerbation Hypertension Continue home medications and titrate as needed Monitor closely under telemetry Diet diabetic Full code DVT Lovenox Disposition [facility] Discharge Plan: Home - Code Status/Comfort Care Code Status: Full Code Critical Care: No Time Spent Managing PTS Care (In Minutes): 35
[2023-10-08] MEDS: ENOXAPARIN 40 MG/0.4 ML SQ SCH (08:55)
[2023-10-08 10:26] LABS: Absolute Eosinophils 0.5 K/uL (0-0.5); Absolute Lymphocytes (CBC) 0.8 K/uL (0.7-4.9); Absolute Neutrophil 6.4 K/uL (1.8-8.0); Basophils % 0.4 % (0-1.3); Eosinophils % 5.9 % (0-4.4); Hematocrit 28.3 % (36.0-45.0); Hemoglobin 9.2 g/dL (12.0-15.0); Lymphocytes % 9.1 % (15.3-44.8); MCH 28.3 pg (27.0-35.0); MCHC 32.5 g/dL (32.0-36.0); MCV 87.2 fL (80-100); MPV 8.7 fL (7.6-11.3); Monocytes % 10.9 % (3.3-12.3); Neutrophils % 73.7 % (41.7-73.7); Platelets 354 thou/uL (152-406); RBC Red Blood Cell Count 3.24 M/uL (3.86-4.86); Red Cell Distribution Width 16.2 % (12.1-15.2)
[2023-10-08 10:38] LABS: Albumin 2.6 g/dL (3.4-5.0); Albumin/Globulin Ratio 0.6 (1.1-1.8); Anion Gap 6.8 mEq/L (5.0-15.0); Bilirubin Total 0.5 mg/dL (0.2-1.0); Globulin 4.3 g/dL (2.3-3.5); Potassium 3.8 mEq/L (3.5-5.1); Protein, Total 6.9 g/dL (6.4-8.2)
[2023-10-08] MEDS: BUSPIRONE HCL 5 MG TABLET PO SCH (13:29)
[2023-10-08] MEDS: carvediloL 12.5 MG TAB PO SCH (16:27)
[2023-10-08] MEDS: TICAGRELOR 90 MG TABLET PO SCH (20:36)
[2023-10-08] MEDS: ATORVASTATIN 40 MG TAB PO SCH (20:36)
[2023-10-08] MEDS: LATANOPROST OPTH SCH (21:00)
[2023-10-09] MEDS: ACETAMINOPHEN 325 MG TABLET PO PRN (00:16)
[2023-10-09] MEDS: GUAIFENESIN/DM 5 ML UCUP PO PRN (00:17)
[2023-10-09] MEDS: HYDROCODONE/APAP 5/325 MG TAB PO PRN (02:02)
[2023-10-09] MEDS: ALBUTEROL 2.5 MG/3 ML NEB SOL NEB PRN (02:10)
[2023-10-09 05:23] VITALS: O2SAT 94
[2023-10-09 06:40] LABS: Absolute Eosinophils 0.5 K/uL (0-0.5); Absolute Lymphocytes (CBC) 0.9 K/uL (0.7-4.9); Absolute Monocytes 0.8 K/uL (0.1-1.3); Absolute Neutrophil 4.4 K/uL (1.8-8.0); Basophils % 0.5 % (0-1.3); Eosinophils % 7.8 % (0-4.4); Hematocrit 26.3 % (36.0-45.0); Hemoglobin 8.6 g/dL (12.0-15.0); Lymphocytes % 13.7 % (15.3-44.8); MCH 28.4 pg (27.0-35.0); MCHC 32.7 g/dL (32.0-36.0); MCV 86.8 fL (80-100); MPV 8.6 fL (7.6-11.3); Monocytes % 11.8 % (3.3-12.3); Neutrophils % 66.2 % (41.7-73.7); Nucleated Red Blood Cells % 0.1 % (0-0); Platelets 352 thou/uL (152-406); RBC Red Blood Cell Count 3.03 M/uL (3.86-4.86); Red Cell Distribution Width 16.1 % (12.1-15.2)
[2023-10-09] MEDS: LEVOTHYROXINE SOD 0.075 MG TAB PO SCH (06:40)
[2023-10-09] MEDS: PANTOPRAZOLE 40MG TABLET PO SCH (06:41)
[2023-10-09 07:09] LABS: Albumin 2.5 g/dL (3.4-5.0); Magnesium 2.2 mg/dL (1.6-2.4); Phosphorus 2.4 mg/dL (2.5-4.9)
[2023-10-09] MEDS: POTASSIUM CL SA 10 MEQ TAB PO SCH (09:15)
[2023-10-09] MEDS: LORATADINE 10 MG TAB PO SCH (09:15)
[2023-10-09] MEDS: CITALOPRAM 10 MG TABLET PO SCH (09:16)
[2023-10-09] MEDS: ASPIRIN 81 MG CHEWABLE TABLET PO SCH (09:16)
[2023-10-09] MEDS: FUROSEMIDE 40 MG TABLET PO SCH (09:16)
[2023-10-09] MEDS: INSULIN GLARGINE 100 UNIT/ML SQ SCH (09:17)
--- NOTE | 2023-10-09 15:21 | P.DS ---
Admission Date: 10/07/23 Discharge Date: 10/09/23 Disposition: TRANSFER TO SNF - REHAB Discharge Condition: GOOD Reason for Admission: AMS Brief History of Present Illness: 78 yrs old Female with past medical history of COPD, hypertension, hypothyroidism, diabetes, chronic bronchitis, CHF status post pacemaker placement who is seen in longterm and was sent over to the hospital for altered mental status. Patient is a poor historian hence most of the history is obtained from the chart review and also talking with the ER physician. Per longterm staff she was combative, confused, talking nonsense and also pulled the fire alarm. Patient cannot recall any of these things but she states that "a bull is after her". She denies any somatic symptoms including headache, chest pain, shortness of breath, abdominal pain, joint pain, or any other signs or symptoms on ROS at this time. She does endorse that she "has fallen several times" but she is a very poor historian. ROS, history and physical limited secondary to these symptoms.Patient states that she has having some cough and generalized weakness and chills. Patient was assessed in the ER and was admitted for further management of acute encephalopathy and lactic acidosis - Physical Exam General: Alert, Oriented x2, Cooperative, Confused HEENT: Atraumatic, Normocephalic Neck: Supple, 2+ carotid pulse no bruit Respiratory: Clear to auscultation bilaterally, Expiratory wheezes Cardiovascular: Regular rate/rhythm, Normal S1 S2 Capillary refill: <2 Seconds Gastrointestinal: Soft and benign, W/out hepatosplenomegaly Musculoskeletal: No clubbing, No swelling Integumentary: No rashes Neurological: Cranial nerves 3-12 intact, Normal reflexes 2+, Abnormal gait Lymphatics: No axilla or inguinal lymphadenopathy Hospital Course: 78 year old female with past medical history of diabetes,COPD, hypertension, hypothyroidism, diabetes, chronic bronchitis, CHF status post pacemaker placement presented for the longterm with confusion. And falls. Was noted to have mild dehydration, lactic acidosis, hyperglycemia. UTI, was treated with IV fluids, sliding scale insulin, p.o. antibiotics for acute cystitis may return to the longterm. Fall precautions, follow-up with PCP after discharge Assessment Acute cystitis treated with IV, p.o. antibiotic Acute kidney injury, mild dehydration treated with IV fluids, Hyperglycemia treated with sliding scale insulin, COPD not in active exacerbation, treated with as needed neb Fall, fall precaution Discharge home to sending nursing facility, Follow-up with PCP after the Continue home medicines as previously prescribed GOAL: Clear understanding of disease process INSTRUCTIONS: Physician Discharge Instructions: -DC IV and DC home -Follow-up with PCP in 1 to 2 weeks -Please call Dr. Mcdonald at [phone] if any questions regarding hospital stay -Please call nursing station at [phone] if any nursing or medication questions -Return to the emergency room if symptoms worsen Diet: ADA, low sodium Activity: Fall precautions Vital Signs/Physical Exam: Temp Pulse Resp BP Pulse Ox 98.7 F 72 15 129/60 94 10/09/23 11:27 10/09/23 11:27 10/09/23 11:27 10/09/23 11:27 10/09/23 11:27 Laboratory Data at Discharge: WBC 6.70 thou/uL (4.3-10.9) 10/09/23 06:08 Hgb 8.6 g/dL (12.0-15.0) L 10/09/23 06:08 Hct 26.3 % (36.0-45.0) L 10/09/23 06:08 Plt Count 352 thou/uL (152-406) 10/09/23 06:08 PT 12.7 SECONDS (9.5-12.5) H 10/07/23 19:22 INR 1.16 10/07/23 19:22 APTT 24.8 SECONDS (24.3-36.9) 10/07/23 19:22 Sodium 140 mEq/L (136-145) 10/09/23 06:08 Potassium 4.0 mEq/L (3.5-5.1) 10/09/23 06:08 BUN 13 mg/dL (7-18) 10/09/23 06:08 Creatinine 0.98 mg/dL (0.55-1.02) 10/09/23 06:08 Glucose 243 mg/dL (74-106) H 10/09/23 06:08 Phosphorus 2.4 mg/dL (2.5-4.9) L 10/09/23 06:08 Magnesium 2.2 mg/dL (1.6-2.4) 10/09/23 06:08 Total Bilirubin 0.5 mg/dL (0.2-1.0) 10/08/23 10:08 AST 24 U/L (15-37) 10/08/23 10:08 ALT 15 U/L (13-56) 10/08/23 10:08 Alkaline Phosphatase 113 U/L (45-117) 10/08/23 10:08 Home Medications: Acetaminophen [Tylenol*] 650 mg PO Q6HP PRN 09/20/23 Albuterol [Proventil] 2 puff IH Q6HP PRN 09/20/23 Aspirin Chewable [Aspirin Chewable*] 81 mg PO DAILY 09/20/23 Atorvastatin Calcium 40 mg PO BEDTIME 09/20/23 Buspirone HCl [Buspar*] 10 mg PO TID 09/20/23 Citalopram [Celexa*] 20 mg PO DAILY 09/20/23 Fluticasone/Vilanterol [Breo Ellipta 100-25 Mcg Inhalr] 1 puff IH DAILY 09/20/23 Furosemide [Lasix*] 40 mg PO DAILY 09/20/23 Hydrocodone 5/APAP 325 [[place] 5/325*] 1 tab PO Q6HP PRN 09/20/23 Insulin Glargine,Hum.rec.anlog [Lantus Solostar] 30 units SQ DAILY 09/20/23 Insulin Lispro [Humalog] See Protocol SQ ACHS 09/20/23 Latanoprost Ophth [Xalatan 0.005%*] 1 drop EACH EYE BEDTIME 09/20/23 Levothyroxine Sodium 75 mcg PO DAILY 09/20/23 Loratadine [Claritin*] 10 mg PO DAILY 09/20/23 Megestrol [Megace*] 20 mg PO QID 09/20/23 Omeprazole 20 mg PO DAILY 09/20/23 Potassium Chloride [Klor-Con 10] 10 meq PO DAILY 09/20/23 Ticagrelor [Brilinta*] 90 mg PO BID 09/20/23 Umeclidinium [place] [Incruse Ellipta] 1 puff IH DAILY 09/20/23 carvediloL [Coreg*] 12.5 mg PO BID 09/20/23 Insulin Lispro 3 unit SQ AC 10/08/23 LORazepam [Ativan*] 1 mg PO BID PRN 10/08/23 Multivitamin [One-A-Day Essential] 1 each PO DAILY 10/08/23 Cefdinir [Cefdinir*] 300 mg PO BID #14 cap 10/09/23 New Medications: Cefdinir [Cefdinir*] 300 mg PO BID #14 cap Physician Discharge Instructions: -DC IV and DC to the longterm -Follow-up with PCP in 1 to 2 weeks -Follow-up with Neurology in 1 to 2 weeks -Please call Dr. Mcdonald at [phone] if any questions regarding hospital stay -Please call nursing station at [phone] if any nursing or medication questions -Return to the emergency room if symptoms worsen Diet: Regular Activity: Fall precautions Followup: Carlitos Cadena MD [ASSOCIATE-ACTIVE - CAN ADMIT] - 1-2 Weeks Matthias Dugan MD [Primary Care Provider] - Time spent managing pt's care (in minutes): 55
[2023-10-09 16:11] VITALS: BP 164/76; TEMP 98.5
== END 2023-10-09 13:30 | DRG 689 ==
LOC: ER 17:06 → ERHOLD 20:31 → 4TH 22:00
PROVIDERS: ADMIT Family Medicine; ATTEND Hospitalist
DX: N30.00 Acute cystitis without hematuria (principal); G93.41 Metabolic encephalopathy; E87.20 Acidosis, unspecified; N17.9 Acute kidney failure, unspecified; J44.9 Chronic obstructive pulmonary disease, unspecified; E86.0 Dehydration; I11.0 Hypertensive heart disease with heart failure; I50.9 Heart failure, unspecified; E11.65 Type 2 diabetes mellitus with hyperglycemia; E03.9 Hypothyroidism, unspecified; Z79.4 Long term (current) use of insulin; Z88.2 Allergy status to sulfonamides; Z95.0 Presence of cardiac pacemaker; Z79.82 Long term (current) use of aspirin; Z79.02 Long term (current) use of antithrombotics/antiplatelets; Z90.49 Acquired absence of other specified parts of digestive tract; Z79.890 Hormone replacement therapy; Z79.899 Other long term (current) drug therapy; Z90.710 Acquired absence of both cervix and uterus; Z87.891 Personal history of nicotine dependence
CPT/HCPCS: 36415; 70450; 71045; 80053; 80069; 81003; 82947; 83605; 83735; 84484; 85025; 85610; 85730; 87040; 87086; 87088; 93005; 94640; 94760; 96360; 97116; 97161; 97530; 99285; J0696; J1650; J1815; J7030; J7613

== ENCOUNTER 2024-03-15 20:03 | Inpatient (IN) | payer OTHER ==
[2024-03-15 21:01] LABS: PT Prothrombin Time 11.8 SECONDS (9.4-12.5); Protime INR 1.06
[2024-03-15 21:02] LABS: Absolute Lymphocytes (CBC) 0.7 K/uL (0.7-4.9); Absolute Monocytes 1.2 K/uL (0.1-1.3); Basophils % 0.3 % (0-1.3); Eosinophils % 0.2 % (0-4.4); Hematocrit 25.7 % (36.0-45.0); Hemoglobin 8.3 g/dL (12.0-15.0); Lymphocytes % 3.9 % (15.3-44.8); MCH 25.8 pg (27.0-35.0); MCHC 32.5 g/dL (32.0-36.0); MCV 79.4 fL (80-100); MPV 8.8 fL (7.6-11.3); Monocytes % 6.5 % (3.3-12.3); Neutrophils % 89.1 % (41.7-73.7); Platelets 303 thou/uL (152-406); RBC Red Blood Cell Count 3.23 M/uL (3.86-4.86); Red Cell Distribution Width 18.4 % (12.1-15.2)
[2024-03-15 21:13] LABS: Albumin 2.1 g/dL (3.4-5.0); Albumin/Globulin Ratio 0.4 (1.1-1.8); Anion Gap 10.2 mEq/L (5.0-15.0); Bilirubin Direct 0.2 mg/dL (0-0.2); Bilirubin Indirect, Calculated 0.3 mg/dL (0.2-0.8); Bilirubin Total 0.5 mg/dL (0.2-1.0); Globulin 5.2 g/dL (2.3-3.5); Magnesium 1.9 mg/dL (1.6-2.4); Potassium 4.2 mEq/L (3.5-5.1); Protein, Total 7.3 g/dL (6.4-8.2); Troponin High Sensitivity 27.4 pg/mL (<58.9)
[2024-03-15 21:20] LABS: Sqamous Epithelial None Seen /HPF (None Seen); Urine Bacteria <20 /HPF (<20); Urine Culture Reflex Order REFLEXED; Urine Micro Reflex YN NO BILL MICROSCOPIC; Urine RBC 21-50 /HPF (None Seen); Urine WBC >50 /HPF (<5); Urine WBC Clump Few /HPF (None Seen)
[2024-03-15 21:30] LABS: Urine Clarity Turbid (Clear); Urine Color Yellow (Yellow)
[2024-03-15 21:31] LABS: Urine Bilirubin Negative (Negative); Urine Blood Trace (Negative); Urine Glucose Negative (Negative); Urine Ketones Negative (Negative); Urine Nitrite Negative (Negative); Urine Protein TRACE (Negative); Urine Urobilinogen Normal (Normal); Urine pH 6.5 (5.0-7.0)
--- NOTE | 2024-03-15 22:21 | EDPHYS ---
Physician Documentation [facility] Name: Brittani Seaman Age: 78 yrs Sex: Female : 1945 Arrival Date: 03/15/2024 Time: 20:03 Bed 4 Private MD: ED Physician Keysha Reyes HPI: 03/15 20:29 This 78 yrs old Female presents to ER via Unassigned with complaints of High Blood sp3 Sugar, Blood Pressure Problem - Low BP. 20:30 78-year-old female with a history of COPD, diabetes, hypertension, chronic bronchitis sp3 that presents to the ED via EMS for low blood pressure diastolic at home of 40. Patient has no symptoms but occasional indigestion which has been going on for several days. Patient also states that her blood sugar is generally high in evenings and on the low side in the mornings. She feels her Lantus dose needs to be adjusted. [facility] for [facility]hab for altered mental status. She has had no further episodes since then and is now currently residing at home. Patient activated EMS herself. She currently has no headache, neck pain, chest pain, shortness of breath, back pain, abdominal pain, nausea, vomiting, diarrhea, syncope, near syncope, bleeding, rash, known sick contacts, travel history, prolonged immobilization, or any other signs or symptoms on ROS at this time.. 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 - Infectious Disease History:: Denies. - Social history:: Smoking status: Patient denies any tobacco usage or history of. ROS: 20:31 Constitutional: Negative for fever, chills, and weight loss, Eyes: Negative for injury, sp3 pain, redness, and discharge, ENT: Negative for injury, pain, and discharge, Neck: Negative for injury, pain, and swelling, Cardiovascular: Negative for chest pain, palpitations, and edema, Respiratory: Negative for shortness of breath, cough, wheezing, and pleuritic chest pain, Abdomen/GI: Negative for abdominal pain, nausea, vomiting, diarrhea, and constipation, Back: Negative for injury and pain, MS/Extremity: Negative for injury and deformity, Skin: Negative for injury, rash, and discoloration, Psych: Negative for depression, anxiety, suicide ideation, homicidal ideation, and hallucinations, Allergy/Immunology: Negative for hives, rash, and allergies, Endocrine: Negative for neck swelling, polydipsia, polyuria, polyphagia, and marked weight changes, 20:31 All other systems are negative, Exam: 20:31 Constitutional: This is a well developed, well nourished patient who is awake, alert, sp3 and in no acute distress. Head/Face: Normocephalic, atraumatic. Eyes: Pupils equal round and reactive to light, extra-ocular motions intact. Lids and lashes normal. Conjunctiva and sclera are non-icteric and not injected. Cornea within normal limits. Periorbital areas with no swelling, redness, or edema. ENT: Nares patent. No nasal discharge, no septal abnormalities noted. External auditory canals are clear. Oropharynx with no redness, swelling, or masses, exudates, or evidence of obstruction, uvula midline. Mucous membranes moist. Neck: Trachea midline, no thyromegaly or masses palpated, and no cervical lymphadenopathy. Supple, full range of motion without nuchal rigidity, or vertebral point tenderness. No Meningismus. Chest/axilla: Normal chest wall appearance and motion. Nontender with no deformity. No lesions are appreciated. Cardiovascular: Regular rate and rhythm with a normal S1 and S2. No gallops, murmurs, or rubs. Normal PMI, no JVD. No pulse deficits. Respiratory: Lungs have equal breath sounds bilaterally, clear to auscultation and percussion. No rales, rhonchi or wheezes noted. No increased work of breathing, no retractions or nasal flaring. Abdomen/GI: Soft, non-tender, with normal bowel sounds. No distension or tympany. No guarding or rebound. No evidence of tenderness throughout. Back: No spinal tenderness. No costovertebral tenderness. Full range of motion. Skin: Warm, dry with normal turgor. Normal color with no rashes, no lesions, and no evidence of cellulitis. MS/ Extremity: Pulses equal, no cyanosis. Neurovascular intact. Full, normal range of motion. Neuro: Awake and alert, GCS 15, oriented to person, place, time, and situation. Cranial nerves II-XII grossly intact. Motor strength 5/5 in all extremities. Sensory grossly intact. Cerebellar exam normal. Normal gait. Psych: Awake, alert, with orientation to person, place and time. Behavior, mood, and affect are within normal limits. 22:02 ECG was reviewed by the Attending Physician. EKG demonstrates paced rhythm with sp3 adequate ventricular capture at 77 bpm Vital Signs: 20:31 BP 136 / 45; Pulse 77; Resp 17; Temp 98.6; Pulse Ox 97% ; Pain 0/10; cp4 21:30 BP 141 / 60; Pulse 77; Resp 18; Pulse Ox 96% ; cp4 22:30 BP 122 / 35; Pulse 79; Resp 18; Pulse Ox 95% ; cp4 23:30 BP 98 / 43; Pulse 80; Resp 18; Pulse Ox 95% ; cp4 03/16 00:30 BP 126 / 97; Pulse 83; Resp 18; Pulse Ox 95% ; cp4 03/15 20:31 Pain Scale: Adult cp4 MDM: 03/15 20:24 Patient medically screened. sp3 20:31 Data reviewed: vital signs, nurses notes, EMS record, old medical records, lab test sp3 result(s), EKG, radiologic studies. ED course: 78-year-old female with now resolved low blood pressure. Per EMS blood pressure was 151/60. Currently patient is completely asymptomatic however Accu-Chek in the field was over 400. Differential diagnosis includes dehydration from hyperglycemia, electrolyte imbalance, ACS, and to a lesser degree other infectious process. I am not highly suspicious for sepsis or shock, TIA/CVA spectrum, aortic pathology, or any other critical illness. Workup will include EKG, chest x-ray, laboratory values, UA and general supportive care and serial blood pressure readings. Disposition pending workup and patient course.. 22:01 ED course: Lactate 2.3 with leukocytosis. Patient likely early sepsis however BNP sp3 greater than 10,000 and fluids are contraindicated at this time. Will start antibiotics. Patient will be admitted to internal medicine. Vital signs currently 136/45.. 03/15 20:28 Order name: Basic Metabolic Panel; Complete Time: 21:18 sp3 03/15 20:28 Order name: CBC with Diff sp3 03/15 20:28 Order name: LFT's; Complete Time: 21:18 sp3 03/15 20:28 Order name: Magnesium; Complete Time: 21:18 sp3 03/15 20:28 Order name: NT PRO-BNP; Complete Time: 21:18 sp3 03/15 20:28 Order name: PT-INR; Complete Time: 21:18 sp3 03/15 20:28 Order name: Troponin HS; Complete Time: 21:18 3 03/15 20:28 Order name: Lactate w/ 2H reflex if indic.; Complete Time: 21:19 sp3 03/15 20:29 Order name: UAM; Complete Time: 22:01 sp3 03/15 21:19 Order name: Manual Differential EDMI 03/15 21:34 Order name: Urine Culture EDMI 03/15 23:19 Order name: Ghost Lactate-NO COLLECT Timer EDMI 03/15 23:58 Order name: Lactate Sepsis 2 HR Follow-up EDMI 03/15 20:28 Order name: XRAY Chest (1 view); Complete Time: 22:25 3 03/15 20:28 Order name: EKG; Complete Time: 20:28 3 03/15 20:28 Order name: Cardiac monitoring; Complete Time: 20:31 sp3 03/15 20:28 Order name: EKG - Nurse/Tech; Complete Time: 20: 3 03/15 20:28 Order name: IV Saline Lock; Complete Time: 20:03/15 20:28 Order name: Labs collected and sent; Complete Time: 20:47 3 03/15 20:28 Order name: O2 Per Protocol; Complete Time: 20: 3 03/15 20:28 Order name: O2 Sat Monitoring; Complete Time: 20: sp3 03/15 20:29 Order name: Cath: If no Urine output in 20 mins; Complete Time: 20:47 sp3 Administered Medications: 22:34 Drug: Cefepime IVPB 1 grams IVPB at 200 ml/hr once over 30 mins; (mix in NS 100 mL) cp4 Route: IVPB; Rate: 200 ml/hr; Infused Over: 30 mins; Site: left forearm; 22:54 Follow up: Response: No adverse reaction; IV Status: Completed infusion cp4 22:34 Drug: morphine IVP or IV 2 mg IVP once over 4 mins Route: IVP; Infused Over: 4 mins; cp4 Site: left forearm; 22:54 Follow up: Response: No adverse reaction; Pain is decreased cp4 22:34 Drug: Ondansetron IVP 4 mg IVP once; over 2 minutes Route: IVP; Site: left forearm; cp4 22:54 Follow up: Response: No adverse reaction cp4 Disposition Summary: 03/15/24 22:20 Hospitalization Ordered Notes: Hospitalization Status: Inpatient Admission sp3 Provider: Mukesh Perera sp3 Location: Telemetry/MedSurg (Inpatient) sp3 Condition: Fair sp3 Problem: an acute exacerbation sp3 Symptoms: have worsened sp3 Bed/Room Type: Standard sp3 Room Assignment: 222(03/15/24 23:55) vk Diagnosis - Urosepsis, CHF exacerbation, SONY sp3 Forms: - Medication Reconciliation Form sp3 - SBAR form sp3 - Leadership Thank You Letter sp3 Signatures: Dispatcher [employer] EDMS Keysha Reyes MD MD sp3 Ruth Eli 4 Liza Marques kmf Kelly Quinn Corrections: (The following items were deleted from the chart) 20:28 20:28 LACTATE+C.LAB.BRZ ordered. EDMS EDMS 23:55 22:20 sp3 kmf 23:55 23:55 222 km vk
--- NOTE | 2024-03-15 22:21 | ER ---
Nurse's Notes [facility] Name: Brittani Seaman Age: 78 yrs Sex: Female : 1945 Arrival Date: 03/15/2024 Time: 20:03 Bed 4 Private MD: Diagnosis: Urosepsis, CHF exacerbation, SONY Presentation: 03/15 20:31 Chief complaint: EMS states: high blood sugar at 409 and low blood pressure. cp4 Coronavirus screen: Client denies travel out of the [place] in the last 14 days. At this time, the client does not indicate any symptoms associated with coronavirus-19. Ebola Screen: Patient negative for fever greater than or equal to 101.5 degrees Fahrenheit, and additional compatible Ebola Virus Disease symptoms Patient denies exposure to infectious person. Patient denies travel to an Ebola-affected area in the 21 days before illness onset. No symptoms or risks identified at this time. Initial Sepsis Screen: Does the patient meet any 2 criteria? No. Patient's initial sepsis screen is negative. Does the patient have a suspected source of infection? No. Patient's initial sepsis screen is negative. Risk Assessment: Do you want to hurt yourself or someone else? Patient reports no desire to harm self or others. Onset of symptoms was March 15, 2024. 20:31 Method Of Arrival: EMS: [facility] cp4 20:31 Acuity: PRAVEEN 3 cp4 Triage Assessment: 20:33 General: Appears in no apparent distress. comfortable, Behavior is calm, cooperative, cp4 appropriate for age. Pain: Denies pain. EENT: No signs and/or symptoms were reported regarding the EENT system. Neuro: Level of Consciousness is awake, alert, obeys commands, Oriented to person, place, time, situation. Cardiovascular: Patient's skin is warm and dry. Respiratory: Airway is patent Respiratory effort is even, unlabored. GI: No signs and/or symptoms were reported involving the gastrointestinal system. : No signs and/or symptoms were reported regarding the genitourinary system. Derm: No signs and/or symptoms reported regarding the dermatologic system. Musculoskeletal: No signs and/or symptoms reported regarding the musculoskeletal system. 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 - Infectious Disease History:: Denies. - Social history:: Smoking status: Patient denies any tobacco usage or history of. Screenin:34 [facility] ED Fall Risk Assessment (Adult) History of falling in the last 3 months, cp4 including since admission No falls in past 3 months (0 pts) Confusion or Disorientation No (0 pts) Intoxicated or Sedated No (0 pts) Impaired Gait No (0 pts) Mobility Assist Device Used No (0 pt) Altered Elimination No (0 pt) Score/Fall Risk Level 0 - 2 = Low Risk Oriented to surroundings, Maintained a safe environment, Assessed \T\ reinforced patient's understanding of fall precautions, Hourly rounding (assess needs \T\ fall precautionary measures) done. Abuse screen: Denies threats or abuse. Nutritional screening: No deficits noted. Tuberculosis screening: No symptoms or risk factors identified. Assessment: 20:34 Reassessment: No changes from previously documented assessment. cp4 21:30 Reassessment: Patient appears in no apparent distress at this time. Patient and/or cp4 family updated on plan of care and expected duration. Pain level reassessed. Patient is alert, oriented x 3, equal unlabored respirations, skin warm/dry/pink. 22:30 Reassessment: Patient appears in no apparent distress at this time. Patient and/or cp4 family updated on plan of care and expected duration. Pain level reassessed. Patient is alert, oriented x 3, equal unlabored respirations, skin warm/dry/pink. 23:30 Reassessment: Patient appears in no apparent distress at this time. Patient and/or cp4 family updated on plan of care and expected duration. Pain level reassessed. Patient is alert, oriented x 3, equal unlabored respirations, skin warm/dry/pink. Vital Signs: 20:31 BP 136 / 45; Pulse 77; Resp 17; Temp 98.6; Pulse Ox 97% ; Pain 0/10; cp4 21:30 BP 141 / 60; Pulse 77; Resp 18; Pulse Ox 96% ; cp4 22:30 BP 122 / 35; Pulse 79; Resp 18; Pulse Ox 95% ; cp4 23:30 BP 98 / 43; Pulse 80; Resp 18; Pulse Ox 95% ; cp4 09/25 00:30 BP 126 / 97; Pulse 83; Resp 18; Pulse Ox 95% ; cp4 03/15 20:31 Pain Scale: Adult cp4 ED Course: 03/15 20:21 Patient arrived in ED. vc1 20:22 Ruth Eli is Primary Nurse. cp4 20:23 Keysha Reyes MD is Attending Physician. sp3 20:33 Triage completed. cp4 20:33 Arm band placed on right wrist. Patient placed in an exam room, on a stretcher. cp4 20:34 Bed in low position. Call light in reach. Side rails up X2. cp4 20:34 No provider procedures requiring assistance completed. Inserted saline lock: 20 gauge cp4 in left forearm, using aseptic technique. Blood collected. Flushed with 10 mL NS. 20:56 Urine collected: straight cath specimen, cloudy. Straight cath inserted, using sterile cp4 technique, 16 Fr. Specimen obtained. 21:12 XRAY Chest (1 view) In Process Unspecified. EDMS 22:20 Mukesh Perera is Hospitalizing Provider. sp3 03/16 01:01 Provided Education on: admission. cp4 01:01 Patient admitted, IV remains in place. cp4 Administered Medications: 03/15 22:34 Drug: Cefepime IVPB 1 grams IVPB at 200 ml/hr once over 30 mins; (mix in NS 100 mL) cp4 Route: IVPB; Rate: 200 ml/hr; Infused Over: 30 mins; Site: left forearm; 22:54 Follow up: Response: No adverse reaction; IV Status: Completed infusion cp4 22:34 Drug: morphine IVP or IV 2 mg IVP once over 4 mins Route: IVP; Infused Over: 4 mins; cp4 Site: left forearm; 22:54 Follow up: Response: No adverse reaction; Pain is decreased cp4 22:34 Drug: Ondansetron IVP 4 mg IVP once; over 2 minutes Route: IVP; Site: left forearm; cp4 22:54 Follow up: Response: No adverse reaction cp4 Medication: 20:34 VIS not applicable for this client. cp4 Outcome: 22:20 Decision to Hospitalize by Provider. sp3 03/16 01:01 Admitted to Med/surg accompanied by nurse, via stretcher, with chart, cp4 Condition: stable Instructed on the need for admit, 01:02 Patient left the ED. cp4 Signatures: Dispatcher [employer] EDMS Keysha Reyes MD MD sp3 Kesha Hall RN RN vc1 Ruth Eli cp4
[2024-03-15] MEDS ORDERED: MORPHINE 4 MG/ML SYR ONE (22:24)
[2024-03-15] MEDS ORDERED: NA CHLORIDE 0.9% 100 ML ONE (22:24)
--- NOTE | 2024-03-15 22:24 | RAD REPORT ---
EXAMINATION: ONE VIEW CHEST XR CLINICAL INDICATION: Female, 78 years old.,low BP TECHNIQUE: Frontal chest projection is submitted. Examination is limited by patient positioning and t echnique. COMPARISON: 10/07/2023 FINDINGS: The lungs are diffusely emphysematous, with mild patchy right basilar opacification, diffuse new/prog ressive. No pneumothorax or sizable effusion. The heart is normal in size. Left chest wall pacer/AICD place. IMPRESSION: Mild right basilar new or progressive patchy airspace opacification, could reflect progressive scarri ng or airspace disease. Background changes of COPD.
[2024-03-15] MEDS ORDERED: ONDANSETRON 4 MG/2 ML VIAL ONE (22:25)
[2024-03-15] MEDS ORDERED: CEFEPIME 1 GM/VIAL ONE (22:25)
[2024-03-15] MEDS: NA CHLORIDE 0.9% 250 ML IV ONE (23:31)
[2024-03-15 23:34] LABS: Band Neutrophils 21 % (0-1); Blood Morphology Comment NOT SEEN (NOT SEEN); Differential Total Cells Count 100; Lymphocytes 6 % (15-42); Monocytes 9 % (0-10); Segmented Neutrophils 64 % (40-80)
[2024-03-15 23:35] LABS: Platelet Estimate ADEQ
[2024-03-15] MEDS ORDERED: GLUCAGON 1 MG/VIAL IM PRN (23:38)
[2024-03-15] MEDS ORDERED: D10W 125 ML IV PRN (23:38)
[2024-03-15] MEDS: NA CHLORIDE 0.9% 1,000 ML IV SCH (23:45)
--- NOTE | 2024-03-15 23:46 | P.HP ---
Certification for Inpatient Patient admitted to: Inpatient With expected LOS: >2 Midnights Practitioner: I am a practitioner with admitting privileges, knowledge of patient current condition, hospital course, and medical plan of care. Services: Services provided to patient in accordance with Admission requirements found in Title 42 Section 412.3 of the Code of Federal Regulations Patient History Date of Service: 03/15/24 History of Present Illness: 78-year-old woman with a history of heart failure, diabetes mellitus, anxiety disorder was transferred from admission to the emergency due to report of high blood sugar and low BP. Patient was complaining of chills and feeling cold during my examination in the ER. She was normotensive on arrival. Workup in the emergency department suggested presence of UTI, elevated WBC and anemia. BNP also markedly elevated in the context of a history of congestive heart failure. Her creatinine is significantly elevated to 2.78. Patient awake and interactive during my examination. She meets criteria for sepsis with leukocytosis and elevated lactate. Sepsis bolus not given due to significantly elevated BNP. Chest x-ray demonstrated possible right basilar infiltrate. Patient is hospitalized for further management. Allergies No Known Allergies Allergy (Verified 05/05/22 08:45) Home Medications: Acetaminophen [Tylenol*] 650 mg PO Q6HP PRN 09/20/23 Albuterol [Proventil] 2 puff IH Q6HP PRN 09/20/23 Aspirin Chewable [Aspirin Chewable*] 81 mg PO DAILY 09/20/23 Atorvastatin Calcium 40 mg PO BEDTIME 09/20/23 Buspirone HCl [Buspar*] 10 mg PO TID 09/20/23 Citalopram [Celexa*] 20 mg PO DAILY 09/20/23 Fluticasone/Vilanterol [Breo Ellipta 100-25 Mcg Inhalr] 1 puff IH DAILY 09/20/23 Furosemide [Lasix*] 40 mg PO DAILY 09/20/23 Hydrocodone 5/APAP 325 [[place] 5/325*] 1 tab PO Q6HP PRN 09/20/23 Insulin Glargine,Hum.rec.anlog [Lantus Solostar] 30 units SQ DAILY 09/20/23 Insulin Lispro [Humalog] See Protocol SQ ACHS 09/20/23 Latanoprost Ophth [Xalatan 0.005%*] 1 drop EACH EYE BEDTIME 09/20/23 Levothyroxine Sodium 75 mcg PO DAILY 09/20/23 Loratadine [Claritin*] 10 mg PO DAILY 09/20/23 Megestrol [Megace*] 20 mg PO QID 09/20/23 Omeprazole 20 mg PO DAILY 09/20/23 Potassium Chloride [Klor-Con 10] 10 meq PO DAILY 09/20/23 Ticagrelor [Brilinta*] 90 mg PO BID 09/20/23 Umeclidinium [place] [Incruse Ellipta] 1 puff IH DAILY 09/20/23 carvediloL [Coreg*] 12.5 mg PO BID 09/20/23 Insulin Lispro 3 unit SQ AC 10/08/23 LORazepam [Ativan*] 1 mg PO BID PRN 10/08/23 Multivitamin [One-A-Day Essential] 1 each PO DAILY 10/08/23 Cefdinir [Cefdinir*] 300 mg PO BID #14 cap 10/09/23 - Past Medical/Surgical History Diabetic: Yes -: History of COPD -: Diabetes type 1 -: Hypertension -: Hypothyroid -: CHF -: Prolapsed bladder -: [id number] -: Bladder suspension 2004, pessary 2019 -: Appendectomy 1961 -: Tonsillectomy 1949 -: Pacemaker 2020 -: Hernia 2019 -: Stent 2020 Psychosocial/ Personal History: Former smoker - Family History Mother -: Heart disease, Hypertension, Diabetes - Social History Alcohol use: No CD- Drugs: No Caffeine use: No Review of Systems Other: Patient denied nausea or vomiting. She denied any diarrhea or constipation. She endorsed epigastric pain, She denied any headache. She denied any shortness of breath but reported intermittent cough. Except as documented, all other systems reviewed and negative. Physical Examination - Physical Exam General: In no apparent distress, Oriented x2 HEENT: PERRLA, Mucous membr. moist/pink, EOMI, Sclerae nonicteric Neck: Supple, JVD not distended Respiratory: Clear to auscultation bilaterally, Normal air movement Cardiovascular: No edema, Regular rate/rhythm, Normal S1 S2 Capillary refill: <2 Seconds Gastrointestinal: Normal bowel sounds, Soft and benign, Non-distended, No tenderness Musculoskeletal: No swelling, No erythema Integumentary: No rashes, No erythema, No cyanosis Neurological: Normal speech, Normal strength at 5/5 x4 extr, Cranial nerves 3-12 intact Lymphatics: No axilla or inguinal lymphadenopathy - Studies Laboratory Data (last 24 hrs) 03/15/24 03/15/24 03/15/24 20:45 20:45 20:45 WBC 17.90 H Hgb 8.3 L Hct 25.7 L Plt Count 303 PT 11.8 INR 1.06 Sodium 129 L Potassium 4.2 BUN 53 H Creatinine 2.78 H Glucose 341 H Magnesium 1.9 Total Bilirubin 0.5 AST 69 H ALT 40 Alkaline Phosphatase 145 H Assessment and Plan - Problems (Diagnosis) (1) Acute cystitis without hematuria Current Visit: Yes Status: Acute (2) Sepsis Current Visit: Yes Status: Acute (3) Acute kidney injury Current Visit: Yes Status: Acute (4) DM type 2 (diabetes mellitus, type 2) Current Visit: Yes Status: Acute (5) Right lower lobe pneumonia Current Visit: No Status: Acute Qualifiers: Pneumonia type: aspiration pneumonia (6) Chronic diastolic heart failure Current Visit: Yes Status: Acute - Plan Acute cystitis without hematuria Sepsis Admit patient to the medical floor Sepsis protocol initiated Sepsis bolus could not be given due to elevated BNP. IV NS slow rate Start IV cefepime. Follow urine culture and blood cultures. Right lower lobe pneumonia Healthcare associated pneumonia. IV cefepime and vancomycin. Follow cultures. Chronic diastolic heart failure Patient appears compensated Checks x-ray shows no pulmonary edema or vascular congestion Hold home Lasix maintenance given elevated creatinine. Monitor renal function. Diabetes mellitus type 2 Insulin sliding scale for glucose management. ADA diet. Resume home dose Lantus insulin if patient tolerates diet. DVT prophylaxis: Heparin SQ Advanced directive: Full code - Advance Directives Does patient have a Living Will: Yes Does patient have a Durable POA for Healthcare: No
[2024-03-16] MEDS: HEPARIN 5000 UNIT/ML 1 ML VIAL SQ SCH (01:13)
[2024-03-16 06:02] LABS: Absolute Eosinophils 0.1 K/uL (0-0.5); Absolute Lymphocytes (CBC) 0.5 K/uL (0.7-4.9); Absolute Monocytes 1.1 K/uL (0.1-1.3); Absolute Neutrophil 12.1 K/uL (1.8-8.0); Basophils % 0.1 % (0-1.3); Hematocrit 24.8 % (36.0-45.0); Hemoglobin 8.1 g/dL (12.0-15.0); Lymphocytes % 3.6 % (15.3-44.8); MCH 25.9 pg (27.0-35.0); MCHC 32.6 g/dL (32.0-36.0); MCV 79.3 fL (80-100); MPV 8.8 fL (7.6-11.3); Monocytes % 7.8 % (3.3-12.3); Neutrophils % 87.5 % (41.7-73.7); Nucleated Red Blood Cells % 0.1 % (0-0); Platelets 304 thou/uL (152-406); RBC Red Blood Cell Count 3.13 M/uL (3.86-4.86); Red Cell Distribution Width 18.3 % (12.1-15.2)
[2024-03-16 06:22] LABS: Anion Gap 7.5 mEq/L (5.0-15.0); Magnesium 2.1 mg/dL (1.6-2.4); Phosphorus 2.5 mg/dL (2.5-4.9); Potassium 4.5 mEq/L (3.5-5.1)
[2024-03-16] MEDS: INSULIN REGULAR (HUMAN) 100 UNIT/ML SQ SCH (09:25)
--- NOTE | 2024-03-16 12:24 | P.PN ---
Subjective Date of Service: 03/16/24 Pt is resting comfortably in bed. She is getting cefepime for UTI. Cr is 2.7. No other complaints. Review of Systems General: Unremarkable Eyes: Unremarkable ENT: Unremarkable Respiratory: Unremarkable Cardiovascular: Unremarkable Gastrointestinal: Unremarkable Genitourinary: Unremarkable Musculoskeletal: Unremarkable Integumentary: Unremarkable Neurological: Unremarkable Lymphatics: Unremarkable Physical Examination - Vital Signs Temperature: 98.9 F Blood Pressure: 130/60 Pulse: 70 Respirations: 20 Pulse Ox (%): 97 - Physical Exam General: Alert, In no apparent distress, Oriented x3 HEENT: Atraumatic, Normocephalic, PERRLA Neck: Supple, 2+ carotid pulse no bruit, JVD not distended Respiratory: Clear to auscultation bilaterally, Normal air movement Cardiovascular: No edema, Normal pulses, Regular rate/rhythm, Normal S1 S2 Capillary refill: <2 Seconds Gastrointestinal: Normal bowel sounds, Soft and benign, Non-distended Musculoskeletal: No clubbing, No swelling, No contractures Integumentary: No rashes, No breakdown, No significant lesion Neurological: Normal gait, Normal speech, Normal strength at 5/5 x4 extr Lymphatics: No axilla or inguinal lymphadenopathy - Studies Laboratory Data (last 24 hrs) 03/15/24 03/15/24 03/15/24 20:45 20:45 20:45 WBC 17.90 H Hgb 8.3 L Hct 25.7 L Plt Count 303 PT 11.8 INR 1.06 Sodium 129 L Potassium 4.2 BUN 53 H Creatinine 2.78 H Glucose 341 H Magnesium 1.9 Total Bilirubin 0.5 AST 69 H ALT 40 Alkaline Phosphatase 145 H Assessment And Plan - Plan Severe sepsis 2/2 Acute cystitis without hematuria: Will continue iv cefepime, IVF, and follow urine cx. Lactate is 2 <- 2.3 Lactic acidosis: lactate is 2 <- 2.3. Will continue IBF and trend lactate. Right lower lobe pneumonia: Likely Healthcare associated pneumonia. Will continu e iv vanc and cefepime. Will f/u blood cx. Hypotension: Will give IVF. Chronic diastolic heart failure: Pt appears compensated. There is no pulmonary edema or vascular congestion on CXR. Will hold lasix at this time and monitor renal function. Diabetes mellitus type 2: Continue accuchek, SSI and ADA diet. DVT ppx: Heparin SQ Code: Full code
[2024-03-16] MEDS: NA CHLORIDE 0.9% 1,000 ML IV SCH ×2 (13:00→13:51)
--- NOTE | 2024-03-16 13:48 | EKG ---
Test Date: 2024-03-15 Test Time: 20:33:19 Sales Technician: HUMAIRA MEASUREMENT RESULTS: Intervals: Rate: 77 NH: 166 QRSD: 158 QT: 484 QTc: 547 [place]: P: 89 NH: 166 QRS: 91 T: -43 INTERPRETIVE STATEMENTS: Normal sinus rhythm with sinus arrhythmia Left ventricular hypertrophy with QRS widening and repolarization abnormality Abnormal ECG Compared to ECG 10/07/2023 18:41:07 Left ventricular hypertrophy now present Early repolarization now present Ventricular-paced complex(es) or rhythm no longer present Atrial-sensed ventricular-paced complex(es) or rhythm no longer present Electronically Signed On 03-16-24 13:07:19 CDT by Arnoldo Alvarado
[2024-03-16] MEDS: ACETAMINOPHEN 500 MG TAB PO PRN (20:45)
[2024-03-16] MEDS: GLUCERNA SHAKE 237 ML CAN PO SCH (20:46)
[2024-03-16] MEDS ORDERED: GLUCERNA SHAKE 237 ML CAN PO SCH (21:00)
[2024-03-16] MEDS: CEFEPIME 1 GM in NA CHLORIDE 0.9% 100 ML IV SCH (21:45)
[2024-03-16] MEDS: ONDANSETRON 4 MG/2 ML VIAL IV PRN (21:45)
[2024-03-17 08:49] LABS: Absolute Eosinophils 0.1 K/uL (0-0.5); Absolute Lymphocytes (CBC) 0.6 K/uL (0.7-4.9); Absolute Neutrophil 10.3 K/uL (1.8-8.0); Basophils % 0.3 % (0-1.3); Eosinophils % 1.1 % (0-4.4); Hematocrit 25.9 % (36.0-45.0); Hemoglobin 8.3 g/dL (12.0-15.0); Lymphocytes % 5.3 % (15.3-44.8); MCHC 32.3 g/dL (32.0-36.0); MCV 80.7 fL (80-100); MPV 8.5 fL (7.6-11.3); Monocytes % 8.3 % (3.3-12.3); Platelets 306 thou/uL (152-406); RBC Red Blood Cell Count 3.21 M/uL (3.86-4.86); Red Cell Distribution Width 18.2 % (12.1-15.2)
[2024-03-17 09:08] LABS: Anion Gap 11.6 mEq/L (5.0-15.0); Potassium 4.6 mEq/L (3.5-5.1)
--- NOTE | 2024-03-17 11:11 | P.PN ---
Subjective Date of Service: 03/17/24 Pt is resting comfortably in bed. She is getting iv vanc and cefepime for UTI and right lower lobe pneumonia. Cr is 2.7. No other complaints. Review of Systems General: Unremarkable Eyes: Unremarkable ENT: Unremarkable Respiratory: Unremarkable Cardiovascular: Unremarkable Gastrointestinal: Unremarkable Genitourinary: Unremarkable Musculoskeletal: Unremarkable Integumentary: Unremarkable Neurological: Unremarkable Lymphatics: Unremarkable Physical Examination - Vital Signs Temperature: 98.1 F Blood Pressure: 149/67 Pulse: 73 Respirations: 17 Pulse Ox (%): 95 - Physical Exam General: Alert, In no apparent distress, Oriented x3 HEENT: Atraumatic, Normocephalic, PERRLA Neck: Supple, 2+ carotid pulse no bruit, JVD not distended Respiratory: Clear to auscultation bilaterally, Normal air movement Cardiovascular: No edema, Normal pulses, Regular rate/rhythm, Normal S1 S2 Capillary refill: <2 Seconds Gastrointestinal: Normal bowel sounds, Soft and benign, Non-distended Musculoskeletal: No clubbing, No swelling, No contractures Integumentary: No rashes, No breakdown, No significant lesion Neurological: Normal gait, Normal speech Lymphatics: No axilla or inguinal lymphadenopathy Assessment And Plan - Plan Severe sepsis 2/2 Acute cystitis without hematuria: Will continue iv cefepime, IVF, and follow urine cx. Lactate is 2 <- 2.3 Lactic acidosis: lactate is 2 <- 2.3. Will continue IBF and trend lactate. Right lower lobe pneumonia: Likely Healthcare associated pneumonia. Will continue iv vanc and cefepime. Will f/u blood cx. Hypotension: Will give IVF. Chronic diastolic heart failure: Pt appears compensated. There is no pulmonary edema or vascular congestion on CXR. Will hold lasix at this time and monitor renal function. Diabetes mellitus type 2: Continue accuchek, SSI, lantus 20udaily and ADA diet. Mild malnutrition: Pt was encouraged to eat. Will consult gis programmer. DVT ppx: Heparin SQ Code: Full code
[2024-03-17] MEDS: INSULIN LISPRO 100 UNIT/1 ML SQ SCH (11:30)
[2024-03-17] MEDS: INSULIN GLARGINE 100 UNIT/ML SQ SCH (13:06)
[2024-03-17] MEDS: BUSPIRONE HCL 5 MG TABLET PO SCH (14:36)
[2024-03-17] MEDS: CALCIUM CARBONATE CHEW 500MG TAB PO SCH (17:02)
[2024-03-17] MEDS: INSULIN LISPRO 100 UNIT/1 ML SQ ONE (18:35)
[2024-03-17] MEDS: ATORVASTATIN 40 MG TAB PO SCH (22:36)
[2024-03-17] MEDS: MELATONIN 3 MG TABLET PO PRN (22:36)
[2024-03-17] MEDS: carvediloL 12.5 MG TAB PO SCH (22:37)
[2024-03-18] MEDS: FAMOTIDINE 20 MG/2 ML VIAL IV ONE (04:31)
[2024-03-18 06:58] LABS: Absolute Eosinophils 0.3 K/uL (0-0.5); Absolute Lymphocytes (CBC) 0.9 K/uL (0.7-4.9); Absolute Neutrophil 7.8 K/uL (1.8-8.0); Basophils % 0.3 % (0-1.3); Eosinophils % 2.9 % (0-4.4); Hematocrit 24.2 % (36.0-45.0); Hemoglobin 7.8 g/dL (12.0-15.0); Lymphocytes % 8.9 % (15.3-44.8); MCH 25.8 pg (27.0-35.0); MCHC 32.4 g/dL (32.0-36.0); MCV 79.5 fL (80-100); MPV 8.1 fL (7.6-11.3); Monocytes % 9.6 % (3.3-12.3); Neutrophils % 78.3 % (41.7-73.7); Platelets 339 thou/uL (152-406); RBC Red Blood Cell Count 3.04 M/uL (3.86-4.86); Red Cell Distribution Width 17.7 % (12.1-15.2)
[2024-03-18 07:08] LABS: Anion Gap 10.3 mEq/L (5.0-15.0); Potassium 4.3 mEq/L (3.5-5.1)
[2024-03-18] MEDS: ASPIRIN 81 MG CHEWABLE TABLET PO SCH (08:17)
[2024-03-18] MEDS: CITALOPRAM 10 MG TABLET PO SCH (08:18)
[2024-03-18] MEDS ORDERED: INSULIN GLARGINE 100 UNIT/ML SQ SCH (09:00)
[2024-03-18] MEDS ORDERED: HOME MED 1 EA UNK (Insulin Glargine,Hum.Rec.Anlog [Lantus Solostar] 100 UNIT/ML Insuln.Pen SQ SCH (09:00)
--- NOTE | 2024-03-18 10:54 | P.PN ---
Subjective Date of Service: 03/18/24 Pt is resting comfortably in bed. We changed iv abx from cefepime to iv merrem. Urine cx is growing ESBL E. coli. Cr is 2.0 <- 2.7. No other complaints. Review of Systems General: Unremarkable Eyes: Unremarkable ENT: Unremarkable Respiratory: Unremarkable Cardiovascular: Unremarkable Gastrointestinal: Unremarkable Genitourinary: Unremarkable Musculoskeletal: Unremarkable Integumentary: Unremarkable Neurological: Unremarkable Lymphatics: Unremarkable Physical Examination - Vital Signs Temperature: 97.6 F Blood Pressure: 126/62 Pulse: 75 Respirations: 16 Pulse Ox (%): 90 - Physical Exam General: Alert, In no apparent distress, Oriented x3 HEENT: Atraumatic, Normocephalic, PERRLA Neck: Supple, 2+ carotid pulse no bruit Respiratory: Clear to auscultation bilaterally, Normal air movement Cardiovascular: No edema, Normal pulses, Regular rate/rhythm, Normal S1 S2 Capillary refill: <2 Seconds Gastrointestinal: Normal bowel sounds, Soft and benign, Non-distended Musculoskeletal: No clubbing, No swelling, No contractures Integumentary: No rashes, No breakdown, No significant lesion Neurological: Normal gait, Normal speech, Normal strength at 5/5 x4 extr Lymphatics: No axilla or inguinal lymphadenopathy - Studies Microbiology Data (last 24 hrs): 03/15/24 20:55 Clean Catch Urine [place] Count - Final >100,000 CFU/ML. 03/15/24 20:55 Clean Catch Urine - Final Escherichia Coli Esbl Assessment And Plan - Plan Severe sepsis 2/2 Acute cystitis without hematuria: Will continue iv merrem. Urine cx is growing ESBL E.coli. Lactate is 2 <- 2.3 Lactic acidosis: lactate is 2 <- 2.3. Will continue IBF and trend lactate. Right lower lobe pneumonia: Likely Healthcare associated pneumonia. Will continue iv vanc and cefepime. Will f/u blood cx. Hypertension: Will continue home meds. Chronic diastolic heart failure: Pt appears compensated. There is no pulmonary edema or vascular congestion on CXR. Will hold lasix at this time and monitor renal function. SONY on CKD, Stage 3. Pt received gentle hydration. Cr is 2.0 <- 2.7. Will avoid nephrotoxins and monitor renal function. Diabetes mellitus type 2: Continue accuchek, SSI, lantus 20udaily and ADA diet. Mild malnutrition: Pt was encouraged to eat. Will consult dimension specification inspector. DVT ppx: Heparin SQ Code: Full code
[2024-03-18] MEDS: INSULIN LISPRO 100 UNIT/1 ML SQ SCH (11:30)
[2024-03-18] MEDS: LACTULOSE 20 GM/30 ML UCUP PO ONE (14:56)
[2024-03-18] MEDS: Meropenem 1,000 MG in NA CHLORIDE 0.9% 100 ML IV SCH (20:53)
[2024-03-18] MEDS: LOPERAMIDE HCL 2 MG CAPSULE PO PRN (20:53)
[2024-03-19 06:00] LABS: Absolute Eosinophils 0.3 K/uL (0-0.5); Absolute Lymphocytes (CBC) 0.9 K/uL (0.7-4.9); Absolute Neutrophil 7.5 K/uL (1.8-8.0); Basophils % 0.2 % (0-1.3); Eosinophils % 3.2 % (0-4.4); Hematocrit 24.9 % (36.0-45.0); Hemoglobin 8.1 g/dL (12.0-15.0); Lymphocytes % 9.4 % (15.3-44.8); MCH 26.2 pg (27.0-35.0); MCHC 32.7 g/dL (32.0-36.0); MPV 8.2 fL (7.6-11.3); Monocytes % 10.3 % (3.3-12.3); Neutrophils % 76.9 % (41.7-73.7); Platelets 319 thou/uL (152-406); RBC Red Blood Cell Count 3.11 M/uL (3.86-4.86); Red Cell Distribution Width 17.3 % (12.1-15.2)
[2024-03-19 06:07] LABS: Anion Gap 9.3 mEq/L (5.0-15.0); Potassium 4.3 mEq/L (3.5-5.1)
[2024-03-19] MEDS: Mupirocin NASAL 2 APPL/1 GM TUBE NAS SCH (08:45)
--- NOTE | 2024-03-19 11:52 | P.PN ---
Subjective Date of Service: 03/19/24 Pt is resting comfortably in bed. Pt is tolerating iv merrem. Urine cx is growing ESBL E. coli. Cr is 1.78<- 2.0 <- 2.7. No other complaints. Review of Systems General: Unremarkable Eyes: Unremarkable ENT: Unremarkable Respiratory: Unremarkable Cardiovascular: Unremarkable Gastrointestinal: Unremarkable Genitourinary: Unremarkable Musculoskeletal: Unremarkable Integumentary: Unremarkable Neurological: Unremarkable Lymphatics: Unremarkable Physical Examination - Vital Signs Temperature: 98.3 F Blood Pressure: 172/78 Pulse: 66 Respirations: 20 Pulse Ox (%): 94 - Physical Exam General: Alert, In no apparent distress, Oriented x3 HEENT: Atraumatic, Normocephalic, PERRLA Neck: Supple, 2+ carotid pulse no bruit, JVD not distended Respiratory: Clear to auscultation bilaterally, Normal air movement Cardiovascular: No edema, Normal pulses, Regular rate/rhythm, Normal S1 S2 Capillary refill: <2 Seconds Gastrointestinal: Normal bowel sounds, Soft and benign, Non-distended Musculoskeletal: No clubbing, No swelling, No contractures Integumentary: No rashes, No breakdown, No significant lesion, No tenderness/swelling Neurological: Normal gait, Normal speech, Normal strength at 5/5 x4 extr, Normal tone, Sensation intact Lymphatics: No axilla or inguinal lymphadenopathy - Studies Microbiology Data (last 24 hrs): 03/15/24 20:55 Clean Catch Urine [place] Count - Final >100,000 CFU/ML. 03/15/24 20:55 Clean Catch Urine - Final Escherichia Coli Esbl Assessment And Plan - Plan Severe sepsis 2/2 Acute cystitis without hematuria: Will continue iv merrem. Urine cx is growing ESBL E.coli. Lactate is 2 <- 2.3. Will place Midline for home IV Invanz infusion to complete 2 weeks of therapy. Lactic acidosis: lactate is 2 <- 2.3. Will continue IBF and trend lactate. Right lower lobe pneumonia: Likely Healthcare associated pneumonia. Will continue iv vanc and cefepime. Will f/u blood cx. Hypertension: Will continue home meds. Chronic diastolic heart failure: Pt appears compensated. There is no pulmonary edema or vascular congestion on CXR. Will hold lasix at this time and monitor renal function. SONY on CKD, Stage 3. Pt received gentle hydration. Cr is 1.78<- 2.0 <- 2.7. Will avoid nephrotoxins and monitor renal function. Diabetes mellitus type 2: Continue accuchek, SSI, lantus 20udaily and ADA diet. Mild malnutrition: Pt was encouraged to eat. Will consult adjustment examiner. DVT ppx: Heparin SQ Code: Full code
[2024-03-19] MEDS ORDERED: Mupirocin NASAL 2 APPL/1 GM TUBE NAS SCH (21:00)
[2024-03-19] MEDS ORDERED: ESZOPICLONE 1 MG TAB PO PRN (22:45)
[2024-03-19] MEDS: ESZOPICLONE 1 MG TAB PO PRN (23:33)
[2024-03-20] MEDS: IPRATROPIUM BROM 0.5MG/2.5ML NEB SCH ×2 (10:37→13:15)
[2024-03-20] MEDS: ALBUTEROL 2.5 MG/3 ML NEB SOL NEB SCH ×2 (10:38→13:15)
--- NOTE | 2024-03-20 19:38 | CON ---
History Of Present Illness: This is a 78-year-old female, I was consulted for urinary tract infectio n secondary to ESBL E coli. The patient is not a good historian. Most of the history was obtained t [facility], [facility] and the staff. The patient denies any headache, nausea, vomiting, chest pain, abdominal pain, constipation, or diarrhea. She has significant past medical history of heart failur e, diabetes mellitus, anxiety disorder, coming into the emergency room with the high blood sugar and low blood pressure. Chest x-ray showed right basilar infiltrate. Denies any other problems at this time. Past Medical History: As per HPI. Social History: Nonsmoker. Nondrinker. Family History: Noncontributory. Medications: Meropenem. See MARs for other medications. Allergies: NO KNOWN DRUG ALLERGIES. Review of Systems: A 10-point review was performed. Physical Examination: General: This is a 78-year-old female, lying in bed. Nurse by the bedside. Not in any acute distre ss. Vital Signs: Temperature 97.9, pulse 65, respirations 18, blood pressure 159/65. HEENT: Unremarkable. Neck: Supple. Lungs: Basal crackles, right more than left. Heart: S1, S2. Regular. Abdomen: Soft, nontender. Bowel sounds present. Extremity: No edema. Laboratory Data: Shows WBC 9.8 down from 17.9, hemoglobin 8.1, platelets are 319. Chemistry shows c reatinine of 1.7, BUN is 39. Lactic acid level is 2.3 and albumin level is 2.1. Micro data shows E coli ESBL in the urine. Assessment And Plan: Urinary tract infection secondary to Escherichia coli extended spectrum beta-la ctamase with leukocytosis, which has improved. Right lower lobe infiltrate, most likely secondary to pneumonitis. Patient is currently on meropenem and improving. Continue current treatment, total of 7 days. Monitor for signs of infection with WBC and fever trend. Diabetes mellitus. Moderate prot ein-calorie malnourishment. Congestive heart failure. Continue supportive care and monitor for sign s of infection with WBC and fever trends. NF/MODL Voice ID: [id number] Report ID: [id number]
[2024-03-21] MEDS: guaiFENesin 100 MG/5 ML UCUP PO PRN (00:08)
--- NOTE | 2024-03-21 08:55 | P.PN ---
Date of Service: 03/21/24 Subjective Admitted for UTI, on IV Merrem, ESBL of the urine Review of Systems 10 point review system negative unless listed in HPI Physical Examination - Vital Signs Reviewed - Physical Exam General: Alert, In no apparent distress, Oriented x3 HEENT: Atraumatic, Normocephalic, PERRLA Neck: Supple, 2+ carotid pulse no bruit, JVD not distended Respiratory: Clear to auscultation bilaterally, Normal air movement Cardiovascular: No edema, Normal pulses, Regular rate/rhythm, Normal S1 S2 Capillary refill: <2 Seconds Gastrointestinal: Normal bowel sounds, Soft and benign, Non-distended Musculoskeletal: No clubbing, No swelling, No contractures Integumentary: No rashes, No breakdown, No significant lesion, No tenderness/swelling Neurological: Normal gait, Normal speech, Normal strength at 5/5 x4 extr, Normal tone, Sensation intact Lymphatics: No axilla or inguinal lymphadenopathy a Assessment And Plan - Fabiola Severe sepsis 2/2 Acute cystitis without hematuria: Will continue iv merrem. Urine cx is growing ESBL E.coli. Lactate is 2 <- 2.3. Will place Midline for home IV Invanz infusion to complete 2 weeks of therapy. Lactic acidosis: lactate is 2 <- 2.3. Will continue IBF and trend lactate. Right lower lobe pneumonia: Acute hypoxic respiratory failure likely secondary to healthcare acquired pneumonia Likely Healthcare associated pneumonia. Will continue iv vanc and cefepime. Will f/u blood cx. Hypertension: Will continue home meds. Chronic diastolic heart failure: Pt appears compensated. There is no pulmonary edema or vascular congestion on CXR. Will hold lasix at this time and monitor renal function. SONY on CKD, Stage 3. Pt received gentle hydration. Cr is 1.78<- 2.0 <- 2.7. Will avoid nephrotoxins and monitor renal function. Diabetes mellitus type 2 Continue accuchek, SSI, lantus 20udaily and ADA diet. Mild malnutrition: Pt was encouraged to eat. Will consult inseminator. DVT ppx: Heparin SQ Code: Full code Time spent with patient 30 minutes <Evelyne Arriaga - Last Filed: 03/21/24 08:52> Pt seen and examined. I agree with note by the GEODESY TEACHER. Continue iv merrem for RLL pna and ESBL E. coli. Pt has a midline in place for home iv abx. She will go home with Invanz 500mg iv daily for 10 more days. Will wean her off oxygen. <Nicky Wade - Last Filed: 03/21/24 12:54>
--- NOTE | 2024-03-21 09:02 | P.DS ---
Admission Date: 03/15/24 Discharge Date: 03/21/24 Brief History of Present Illness: 78-year-old woman with a history of heart failure, diabetes mellitus, anxiety disorder was transferred from admission to the emergency due to report of high blood sugar and low BP. Patient was complaining of chills and feeling cold during my examination in the ER. She was normotensive on arrival. Workup in the emergency department suggested presence of UTI, elevated WBC and anemia. BNP also markedly elevated in the context of a history of congestive heart failure. Her creatinine is significantly elevated to 2.78. Patient awake and interactive during my examination. She meets criteria for sepsis with leukocytosis and elevated lactate. Sepsis bolus not given due to significantly elevated BNP. Chest x-ray demonstrated possible right basilar infiltrate. Patient is hospitalized for further management. - Physical Exam General: In no apparent distress, Oriented x2 HEENT: PERRLA, Mucous membr. moist/pink, EOMI, Sclerae nonicteric Neck: Supple, JVD not distended Respiratory: Clear to auscultation bilaterally, Normal air movement Cardiovascular: No edema, Regular rate/rhythm, Normal S1 S2 Capillary refill: <2 Seconds Gastrointestinal: Normal bowel sounds, Soft and benign, Non-distended, No tenderness Musculoskeletal: No swelling, No erythema Integumentary: No rashes, No erythema, No cyanosis Neurological: Normal speech, Normal strength at 5/5 x4 extr, Cranial nerves 3-12 intact Hospital Course: 78-year-old woman with a history of heart failure, diabetes mellitus, anxiety disorder was transferred from admission to the emergency due to report of high blood sugar and low BP. Patient was complaining of chills and feeling cold during my examination in the ER. She was normotensive on arrival. Workup in the emergency department suggested presence of UTI, elevated WBC and anemia. BNP also markedly elevated in the context of a history of congestive heart failure. Her creatinine is significantly elevated to 2.78. Patient awake and interactive during my examination. She meets criteria for sepsis with leukocytosis and elevated lactate. Sepsis bolus not given due to significantly elevated BNP. Chest x-ray demonstrated possible right basilar infiltrate. Patient is hospitalized for further management. She was evaluated by infectious disease, noted to have acute cystitis, sepsis, acute kidney injury, right lower lobe pneumonia, chronic heart failure, stabilized, plan to discharge home with home health with IV antibiotics. Discharge medication Assessment acute cystitis without hematuria, on IV Merrem sepsis secondary to ESBL of the urine on IV Merrem acute kidney injury trend kidney function, right lower lobe pneumonia treated with IV antibiotic Acute chronic heart failure resume home meds, daily weight, I&O Continue home medicines as previously prescribed GOAL: Clear understanding of disease process INSTRUCTIONS: Physician Discharge Instructions: -Discharge home with home health IV antibiotics per infectious disease -Follow-up with PCP in 1 to 2 weeks -Please call Dr. Mcdonald at [phone] if any questions regarding hospital stay -Please call nursing station at [phone] if any nursing or medication questions -Return to the emergency room if symptoms worsen Diet: ADA, low sodium Activity: Fall precautions <Evelyne Arriaga - Last Filed: 03/21/24 08:56> Admission Date: 03/15/24 Discharge Date: 03/21/24 Hospital Course: Pt seen and examined. I agree with note by the CHEMICAL TESTER. Continue iv merrem for ESBL E. coli. Pt has a midline in place for home iv abx. She will go home with Invanz 500mg iv daily for 10 more days. Ok to discharge pt once home Invanz is set up. <Nicky Wade - Last Filed: 03/21/24 12:55> Disposition: DC HOME/HOME HEALTH CARE Discharge Condition: GOOD Vital Signs/Physical Exam: Temp Pulse Resp BP Pulse Ox 98.9 F 76 18 152/70 H 94 03/21/24 08:00 03/21/24 08:00 03/21/24 08:00 03/21/24 08:00 03/21/24 08:00 Laboratory Data at Discharge: WBC 9.80 thou/uL (4.3-10.9) 03/19/24 05:20 Hgb 8.1 g/dL (12.0-15.0) L 03/19/24 05:20 Hct 24.9 % (36.0-45.0) L 03/19/24 05:20 Plt Count 319 thou/uL (152-406) 03/19/24 05:20 PT 11.8 SECONDS (9.4-12.5) 03/15/24 20:45 INR 1.06 03/15/24 20:45 Sodium 138 mEq/L (136-145) 03/19/24 05:20 Potassium 4.3 mEq/L (3.5-5.1) 03/19/24 05:20 BUN 39 mg/dL (7-18) H 03/19/24 05:20 Creatinine 1.78 mg/dL (0.55-1.02) H 03/19/24 05:20 Glucose 134 mg/dL (74-106) H 03/19/24 05:20 Phosphorus 2.5 mg/dL (2.5-4.9) 03/16/24 05:25 Magnesium 2.1 mg/dL (1.6-2.4) 03/16/24 05:25 Total Bilirubin 0.5 mg/dL (0.2-1.0) 03/15/24 20:45 AST 69 U/L (15-37) H 03/15/24 20:45 ALT 40 U/L (13-56) 03/15/24 20:45 Alkaline Phosphatase 145 U/L (45-117) H 03/15/24 20:45 <Evelyne Arriaga - Last Filed: 03/21/24 08:56> Vital Signs/Physical Exam: Temp Pulse Resp BP Pulse Ox 98.9 F 76 18 152/70 H 94 03/21/24 08:00 03/21/24 08:00 03/21/24 08:00 03/21/24 08:00 03/21/24 08:00 Laboratory Data at Discharge: WBC 11.80 thou/uL (4.3-10.9) H 03/21/24 09:15 Hgb 8.3 g/dL (12.0-15.0) L 03/21/24 09:15 Hct 25.5 % (36.0-45.0) L 03/21/24 09:15 Plt Count 407 thou/uL (152-406) H 03/21/24 09:15 PT 11.8 SECONDS (9.4-12.5) 03/15/24 20:45 INR 1.06 03/15/24 20:45 Sodium 137 mEq/L (136-145) 03/21/24 09:15 Potassium 4.7 mEq/L (3.5-5.1) 03/21/24 09:15 BUN 31 mg/dL (7-18) H 03/21/24 09:15 Creatinine 1.65 mg/dL (0.55-1.02) H 03/21/24 09:15 Glucose 210 mg/dL (74-106) H 03/21/24 09:15 Phosphorus 2.5 mg/dL (2.5-4.9) 03/16/24 05:25 Magnesium 2.1 mg/dL (1.6-2.4) 03/16/24 05:25 Total Bilirubin 0.5 mg/dL (0.2-1.0) 03/15/24 20:45 AST 69 U/L (15-37) H 03/15/24 20:45 ALT 40 U/L (13-56) 03/15/24 20:45 Alkaline Phosphatase 145 U/L (45-117) H 03/15/24 20:45 <Nicky Wade - Last Filed: 03/21/24 12:55> Time spent managing pt's care (in minutes): 55 <Evelyne Arriaga - Last Filed: 03/21/24 08:56> <Nicky Wade - Last Filed: 03/21/24 12:55> Home Medications: Acetaminophen [Tylenol*] 650 mg PO Q6HP PRN 09/20/23 Albuterol [Proventil] 2 puff IH Q6HP PRN 09/20/23 Aspirin Chewable [Aspirin Chewable*] 81 mg PO DAILY 09/20/23 Atorvastatin Calcium 40 mg PO BEDTIME 09/20/23 Buspirone HCl [Buspar*] 10 mg PO TID 09/20/23 Citalopram [Celexa*] 20 mg PO DAILY 09/20/23 Fluticasone/Vilanterol [Breo Ellipta 100-25 Mcg Inhalr] 1 puff IH DAILY 09/20/23 Furosemide [Lasix*] 40 mg PO DAILY 09/20/23 Hydrocodone 5/APAP 325 [[place] 5/325*] 1 tab PO Q6HP PRN 09/20/23 Insulin Glargine,Hum.rec.anlog [Lantus Solostar] 30 units SQ DAILY 09/20/23 Insulin Lispro [Humalog] See Protocol SQ ACHS 09/20/23 Latanoprost Ophth [Xalatan 0.005%*] 1 drop EACH EYE BEDTIME 09/20/23 Levothyroxine Sodium 75 mcg PO DAILY 09/20/23 Loratadine [Claritin*] 10 mg PO DAILY 09/20/23 Megestrol [Megace*] 20 mg PO QID 09/20/23 Omeprazole 20 mg PO DAILY 09/20/23 Potassium Chloride [Klor-Con 10] 10 meq PO DAILY 09/20/23 Ticagrelor [Brilinta*] 90 mg PO BID 09/20/23 Umeclidinium [place] [Incruse Ellipta] 1 puff IH DAILY 09/20/23 carvediloL [Coreg*] 12.5 mg PO BID 09/20/23 Insulin Lispro 3 unit SQ AC 10/08/23 LORazepam [Ativan*] 1 mg PO BID PRN 10/08/23 Multivitamin [One-A-Day Essential] 1 each PO DAILY 10/08/23 Cefdinir [Cefdinir*] 300 mg PO BID #14 cap 10/09/23 Followup: SUSI SEPULVEDA [Primary Care Provider] -
[2024-03-21 09:28] LABS: Absolute Basophils 0.1 K/uL (0-0.5); Absolute Eosinophils 0.4 K/uL (0-0.5); Absolute Lymphocytes (CBC) 1.3 K/uL (0.7-4.9); Absolute Monocytes 0.8 K/uL (0.1-1.3); Absolute Neutrophil 9.3 K/uL (1.8-8.0); Basophils % 0.5 % (0-1.3); Eosinophils % 3.2 % (0-4.4); Hematocrit 25.5 % (36.0-45.0); Hemoglobin 8.3 g/dL (12.0-15.0); Lymphocytes % 10.9 % (15.3-44.8); MCH 26.1 pg (27.0-35.0); MCHC 32.5 g/dL (32.0-36.0); MCV 80.3 fL (80-100); MPV 7.8 fL (7.6-11.3); Neutrophils % 78.4 % (41.7-73.7); Platelets 407 thou/uL (152-406); RBC Red Blood Cell Count 3.17 M/uL (3.86-4.86); Red Cell Distribution Width 17.5 % (12.1-15.2)
[2024-03-21 09:45] LABS: Anion Gap 6.7 mEq/L (5.0-15.0); Potassium 4.7 mEq/L (3.5-5.1)
[2024-03-21] MEDS: LORAZEPAM 1 MG TABLET PO PRN (13:11)
[2024-03-21] MEDS: Meropenem 500 MG in NA CHLORIDE 0.9% 100 ML IV SCH (19:50)
[2024-03-21] MEDS: MELATONIN 3 MG TABLET PO PRN (22:52)
[2024-03-22 04:18] VITALS: BMI 19.9
--- NOTE | 2024-03-22 08:12 | P.DS ---
Admission Date: 03/15/24 Discharge Date: 03/23/24 Disposition: DC HOME/HOME HEALTH CARE Discharge Condition: GOOD Brief History of Present Illness: 78-year-old woman with a history of heart failure, diabetes mellitus, anxiety disorder was transferred from admission to the emergency due to report of high blood sugar and low BP. Patient was complaining of chills and feeling cold during my examination in the ER. She was normotensive on arrival. Workup in t emergency department suggested presence of UTI, elevated WBC and anemia. BNP also markedly elevated in the context of a history of congestive heart failure. Her creatinine is significantly elevated to 2.78. Patient awake and interactive during my examination. She meets criteria for sepsis with leukocytosis and elevated lactate. Sepsis bolus not given due to significantly elevated BNP. Chest x-ray demonstrated possible right basilar infiltrate. Patient is hospitalized for further management. - Physical Exam General: In no apparent distress, Oriented x2 HEENT: PERRLA, Mucous membr. moist/pink, EOMI, Sclerae nonicteric Neck: Supple, JVD not distended Respiratory: Clear to auscultation bilaterally, Normal air movement Cardiovascular: No edema, Regular rate/rhythm, Normal S1 S2 Capillary refill: <2 Seconds Gastrointestinal: Normal bowel sounds, Soft and benign, Non-distended, No tenderness Musculoskeletal: No swelling, No erythema Integumentary: No rashes, No erythema, No cyanosis Neurological: Normal speech, Normal strength at 5/5 x4 extr, Cranial nerves 3-12 intact Hospital Course: 78-year-old woman with a history of heart failure, diabetes mellitus, anxiety disorder was transferred from admission to the emergency due to report of high blood sugar and low BP. Patient was complaining of chills and feeling cold during my examination in the ER. She was normotensive on arrival. Workup in the emergency department suggested presence of UTI, elevated WBC and anemia. BNP also markedly elevated in the context of a history of congestive heart failure. Her creatinine is significantly elevated to 2.78. Patient awake and interactive during my examination. She meets criteria for sepsis with leukocytosis and elevated lactate. Sepsis bolus not given due to significantly elevated BNP. Chest x-ray demonstrated possible right basilar infiltrate. Patient is hospitalized for further management. She was evaluated by infectious disease, noted to have acute cystitis, sepsis, acute kidney injury, right lower lobe pneumonia, chronic heart failure, stabilized, plan to discharge home with home health with IV antibiotics. Discharge medication Assessment acute cystitis without hematuria, on IV Merrem sepsis secondary to ESBL of the urine on IV Merrem acute kidney injury trend kidney function, right lower lobe pneumonia treated with IV antibiotic Acute chronic heart failure resume home meds, daily weight, I&O Continue home medicines as previously prescribed GOAL: Clear understanding of disease process INSTRUCTIONS: Physician Discharge Instructions: -Discharge home with home health IV antibiotics per infectious disease -Follow-up with PCP in 1 to 2 weeks -Please call Dr. Mcdonald at [phone] if any questions regarding hospital stay -Please call nursing station at [phone] if any nursing or medication questions -Return to the emergency room if symptoms worsen Diet: ADA, low sodium Activity: Fall precautions Vital Signs/Physical Exam: Temp Pulse Resp BP Pulse Ox 97.6 F 68 18 153/59 H 97 03/22/24 04:00 03/22/24 04:00 03/22/24 04:00 03/22/24 04:00 03/22/24 04:00 Laboratory Data at Discharge: WBC 11.80 thou/uL (4.3-10.9) H 03/21/24 09:15 Hgb 8.3 g/dL (12.0-15.0) L 03/21/24 09:15 Hct 25.5 % (36.0-45.0) L 03/21/24 09:15 Plt Count 407 thou/uL (152-406) H 03/21/24 09:15 PT 11.8 SECONDS (9.4-12.5) 03/15/24 20:45 INR 1.06 03/15/24 20:45 Sodium 137 mEq/L (136-145) 03/21/24 09:15 Potassium 4.7 mEq/L (3.5-5.1) 03/21/24 09:15 BUN 31 mg/dL (7-18) H 03/21/24 09:15 Creatinine 1.65 mg/dL (0.55-1.02) H 03/21/24 09:15 Glucose 210 mg/dL (74-106) H 03/21/24 09:15 Phosphorus 2.5 mg/dL (2.5-4.9) 03/16/24 05:25 Magnesium 2.1 mg/dL (1.6-2.4) 03/16/24 05:25 Total Bilirubin 0.5 mg/dL (0.2-1.0) 03/15/24 20:45 AST 69 U/L (15-37) H 03/15/24 20:45 ALT 40 U/L (13-56) 03/15/24 20:45 Alkaline Phosphatase 145 U/L (45-117) H 03/15/24 20:45 Home Medications: Acetaminophen [Tylenol*] 650 mg PO Q6HP PRN 09/20/23 Albuterol [Proventil] 2 puff IH Q6HP PRN 09/20/23 Aspirin Chewable [Aspirin Chewable*] 81 mg PO DAILY 09/20/23 Atorvastatin Calcium 40 mg PO BEDTIME 09/20/23 Buspirone HCl [Buspar*] 10 mg PO TID 09/20/23 Citalopram [Celexa*] 20 mg PO DAILY 09/20/23 Fluticasone/Vilanterol [Breo Ellipta 100-25 Mcg Inhalr] 1 puff IH DAILY 09/20/23 Furosemide [Lasix*] 40 mg PO DAILY 09/20/23 Hydrocodone 5/APAP 325 [[place] 5/325*] 1 tab PO Q6HP PRN 09/20/23 Insulin Glargine,Hum.rec.anlog [Lantus Solostar] 30 units SQ DAILY 09/20/23 Insulin Lispro [Humalog] See Protocol SQ ACHS 09/20/23 Latanoprost Ophth [Xalatan 0.005%*] 1 drop EACH EYE BEDTIME 09/20/23 Levothyroxine Sodium 75 mcg PO DAILY 09/20/23 Loratadine [Claritin*] 10 mg PO DAILY 09/20/23 Megestrol [Megace*] 20 mg PO QID 09/20/23 Omeprazole 20 mg PO DAILY 09/20/23 Potassium Chloride [Klor-Con 10] 10 meq PO DAILY 09/20/23 Ticagrelor [Brilinta*] 90 mg PO BID 09/20/23 Umeclidinium [place] [Incruse Ellipta] 1 puff IH DAILY 09/20/23 carvediloL [Coreg*] 12.5 mg PO BID 09/20/23 Insulin Lispro 3 unit SQ AC 10/08/23 LORazepam [Ativan*] 1 mg PO BID PRN 10/08/23 Multivitamin [One-A-Day Essential] 1 each PO DAILY 10/08/23 Cefdinir [Cefdinir*] 300 mg PO BID #14 cap 10/09/23 Physician Discharge Instructions: -DC IV and DC home -Follow-up with PCP in 1 to 2 weeks -Follow-up with pulmonary in 1 to 2 weeks -Please call Dr. Mcdonald at [phone] if any questions regarding hospital stay -Please call nursing station at [phone] if any nursing or medication questions -Return to the emergency room if symptoms worsen Followup: SUSI SEPULVEDA [Primary Care Provider] -
[2024-03-22 10:56] LABS: Absolute Basophils 0.1 K/uL (0-0.5); Absolute Eosinophils 0.2 K/uL (0-0.5); Absolute Lymphocytes (CBC) 1.1 K/uL (0.7-4.9); Absolute Monocytes 0.7 K/uL (0.1-1.3); Absolute Neutrophil 9.4 K/uL (1.8-8.0); Basophils % 0.4 % (0-1.3); Eosinophils % 2.1 % (0-4.4); Hematocrit 25.4 % (36.0-45.0); Lymphocytes % 9.4 % (15.3-44.8); MCH 25.5 pg (27.0-35.0); MCHC 31.6 g/dL (32.0-36.0); MCV 80.8 fL (80-100); MPV 7.8 fL (7.6-11.3); Monocytes % 6.1 % (3.3-12.3); Platelets 405 thou/uL (152-406); RBC Red Blood Cell Count 3.14 M/uL (3.86-4.86); Red Cell Distribution Width 17.2 % (12.1-15.2)
[2024-03-22 11:10] LABS: Anion Gap 7.8 mEq/L (5.0-15.0); Potassium 4.8 mEq/L (3.5-5.1)
[2024-03-22 12:09] LABS: Atypical Lymphocytes 1 %; Band Neutrophils 2 % (0-1); Differential Total Cells Count 100; Eosinophils 1 % (0-3); Lymphocytes 7 % (15-42); Monocytes 4 % (0-10); Myelocytes 2 % (0-0); Platelet Estimate ADEQ; Platelets, Giant FEW PRESENT; Segmented Neutrophils 83 % (40-80)
[2024-03-22 12:10] LABS: Anisocytosis 1+; Blood Morphology Comment NOTED (NOT SEEN)
--- NOTE | 2024-03-22 13:27 | RAD REPORT ---
EXAM: Head Brain Wo Cont HISTORY: AMS COMPARISON: 09/21/2023 TECHNIQUE: Multiple contiguous axial images were obtained for a CT of the brain without contrast. Sag ittal and coronal reformats were performed. One or more of the following dose reduction techniques were used: Automated exposure control, adjus tment of the mA and kV according to patient size, and iterative reconstruction. Unless otherwise specified, incidental findings do not require dedicated imaging follow-up. FINDINGS: No evidence of hydrocephalus, intracranial hemorrhage, or extra-axial fluid collection. Moderate brain atrophy with moderate periventricular and deep white matter chronic microvascular isc hemic changes present. The calvarium is intact. Patchy opacification of the paranasal sinuses more so on the right, with iris e right maxillary and sphenoid sinus air-fluid levels. Mastoid air cells are clear. IMPRESSION: No evidence of acute intracranial abnormality. Nonspecific periventricular and deep white matter hypodensities, may suggest chronic small vessel isc hemic changes. Paranasal sinus opacification as above. Please correlate clinically for evidence of acute sinusitis.
--- NOTE | 2024-03-22 17:25 | P.PN ---
Date of Service: 03/22/24 Subjective Admitted for UTI, on IV Merrem, ESBL of the urine Were completed this morning, plan to order PICC for [facility] for IV antibiotics. Review of Systems 10 point review system negative unless listed in HPI Physical Examination - Vital Signs Reviewed - Physical Exam General: Alert, In no apparent distress, Oriented x2 HEENT: Atraumatic, Normocephalic, PERRLA Neck: Supple, 2+ carotid pulse no bruit, JVD not distended Respiratory: Clear to auscultation bilaterally, Normal air movement Cardiovascular: No edema, Normal pulses, Regular rate/rhythm, Normal S1 S2 Capillary refill: <2 Seconds Gastrointestinal: Normal bowel sounds, Soft and benign, Non-distended Musculoskeletal: No clubbing, No swelling, No contractures Integumentary: No rashes, No breakdown, No significant lesion, No tenderness/swelling Neurological: Normal gait, Normal speech, Normal strength at 5/5 x4 extr, Lymphatics: No axilla or inguinal lymphadenopathy a Assessment And Plan - Fabiola Severe sepsis 2/2 Acute cystitis without hematuria: Will continue iv merrem. Urine cx is growing ESBL E.coli. Lactate is 2 <- 2.3. Will place Midline for home IV Invanz infusion to complete 2 weeks of therapy. Confusion today, prison facility for discharge planning Lactic acidosis: lactate is 2 <- 2.3. Will continue IBF and trend lactate. Right lower lobe pneumonia: Acute hypoxic respiratory failure likely secondary to healthcare acquired pneumonia Likely Healthcare associated pneumonia. Will continue iv vanc and cefepime. Will f/u blood cx. Hypertension: Will continue home meds. Chronic diastolic heart failure: Pt appears compensated. There is no pulmonary edema or vascular congestion on CXR. Will hold lasix at this time and monitor renal function. SONY on CKD, Stage 3. Pt received gentle hydration. Cr is 1.78<- 2.0 <- 2.7. Will avoid nephrotoxins and monitor renal function. Diabetes mellitus type 2 Continue accuchek, SSI, lantus 20udaily and ADA diet. Mild malnutrition: Pt was encouraged to eat. Will consult [facility]. DVT ppx: Heparin SQ Code: Full code Time spent with patient 25 minutes
--- NOTE | 2024-03-22 20:24 | CON ---
History Of Present Illness: This patient lying in bed. Denies any headache, nausea, vomiting, chest pain, abdominal pain, constipation. Patient is somnolent, not in any acute distress. Physical Examination: Vital Signs: Temperature 97, pulse 72, respirations 18, blood pressure 159/53. Lungs: Basal crackles. Heart: S1, S2. Regular. Abdomen: Soft, nontender. Bowel sounds present. Extremity: No edema. Laboratory Data: Shows WBC 11.5, hemoglobin 8, platelets are 405, BUN 24, creatinine 1.5. CT head n egative for any acute events except paranasal sinus opacification with concern regarding sinusitis. Assessment And Plan: Urinary tract infection. Right lower lobe pneumonitis. Consider getting UA as the patient is likely sluggish and disoriented. Continue current antibiotic and supportive care. Ricci diaz will follow the patient as needed. NF/MODL Voice ID: [id number] Report ID: [id number]
[2024-03-22] MEDS: Mupirocin NASAL 2 APPL/1 GM TUBE NAS SCH (20:50)
[2024-03-23 08:53] LABS: Absolute Eosinophils 0.3 K/uL (0-0.5); Absolute Lymphocytes (CBC) 1.1 K/uL (0.7-4.9); Absolute Monocytes 0.7 K/uL (0.1-1.3); Basophils % 0.4 % (0-1.3); Eosinophils % 2.6 % (0-4.4); Hematocrit 24.5 % (36.0-45.0); MCH 26.2 pg (27.0-35.0); MCHC 32.6 g/dL (32.0-36.0); MCV 80.3 fL (80-100); MPV 7.3 fL (7.6-11.3); Monocytes % 6.1 % (3.3-12.3); Neutrophils % 80.9 % (41.7-73.7); Nucleated Red Blood Cells % 0.1 % (0-0); Platelets 447 thou/uL (152-406); RBC Red Blood Cell Count 3.05 M/uL (3.86-4.86); Red Cell Distribution Width 17.2 % (12.1-15.2)
[2024-03-23 09:06] LABS: Anion Gap 5.5 mEq/L (5.0-15.0); Potassium 4.5 mEq/L (3.5-5.1)
--- NOTE | 2024-03-23 21:44 | PN ---
Subjective: The patient is lying in bed, not in any acute distress. Feels slightly better today. D enies any other problems. Objective: Vital Signs: Reviewed. Lungs: Basal crackles. Heart: S1, S2. Regular. Abdomen: Soft, nontender. Bowel sounds present. Extremities: No edema. Laboratory Data: Labs reviewed. Assessment And Plan: Urinary tract infection secondary to extended-spectrum beta-lactamase [place] ia coli, leukocytosis, anemia of chronic disease, renal insufficiency. Continue current treatment. We will follow the patient as needed. NF/MODL Voice ID: [id number] Report ID: [id number]
--- NOTE | 2024-03-24 03:37 | P.DS ---
Admission Date: 03/15/24 Discharge Date: 03/25/24 Primary Care Provider: 03/25/24 Disposition: TRANSFER TO [facility] Discharge Condition: GOOD Brief History of Present Illness: 78-year-old woman with a history of heart failure, diabetes mellitus, anxiety disorder was transferred from admission to the emergency due to report of high blood sugar and low BP. Patient was complaining of chills and feeling cold during my examination in the ER. She was normotensive on arrival. Workup in the emergency department suggested presence of UTI, elevated WBC and anemia. BNP also markedly elevated in the context of a history of congestive heart failure. Her creatinine is significantly elevated to 2.78. Patient awake and interactive during my examination. She meets criteria for sepsis with leukocytosis and elevated lactate. Sepsis bolus not given due to significantly elevated BNP. Chest x-ray demonstrated possible right basilar infiltrate. Patient is hospitalized for further management. - Physical Exam General: In no apparent distress, Oriented x2 HEENT: PERRLA, Mucous membr. moist/pink, EOMI, Sclerae nonicteric Neck: Supple, JVD not distended Respiratory: Clear to auscultation bilaterally, Normal air movement Cardiovascular: No edema, Regular rate/rhythm, Normal S1 S2 Capillary refill: <2 Seconds Gastrointestinal: Normal bowel sounds, Soft and benign, Non-distended, No tenderness Musculoskeletal: No swelling, No erythema Integumentary: No rashes, No erythema, No cyanosis Neurological: Normal speech, Normal strength at 5/5 x4 extr, Cranial nerves 3-12 intact Hospital Course: 78-year-old woman with a history of heart failure, diabetes mellitus, anxiety disorder was transferred from admission to the emergency due to report of high blood sugar and low BP. Patient was complaining of chills and feeling cold during my examination in the ER. She was normotensive on arrival. Workup in the emergency department suggested presence of UTI, elevated WBC and anemia. BNP also markedly elevated in the context of a history of congestive heart failure. Her creatinine is significantly elevated to 2.78. Patient awake and interactive during my examination. She meets criteria for sepsis with leukocytosis and elevated lactate. Sepsis bolus not given due to significantly elevated BNP. Chest x-ray demonstrated possible right basilar infiltrate. Patient is hospitalized for further management. She was evaluated by infectious disease, noted to have acute cystitis, sepsis, acute kidney injury, right lower lobe pneumonia, chronic heart failure, stabilized, plan to discharge home SNF with IV antibiotics. Discharge medication Assessment metabolic encephalopaty-slowly improving-not safe to discharge home alone during day, issues unsteady gait, urinary incont, requires assistance w care acute cystitis without hematuria, on IV Merrem-improving Right lower lobe pneumonia: improving Acute hypoxic respiratory failure likely secondary to healthcare acquired pneumonia sepsis secondary to ESBL of the urine on IV Merrem acute kidney injury trend kidney function, right lower lobe pneumonia treated with IV antibiotic Acute chronic heart failure resume home meds, daily weight, I&O Continue home medicines as previously prescribed GOAL: Clear understanding of disease process INSTRUCTIONS: Physician Discharge Instructions: -Discharge chills: Symptoms IV antibiotics per infectious disease -Follow-up with PCP in 1 to 2 weeks -Please call Dr. Mcdonald at [phone] if any questions regarding hospital stay -Please call nursing station at [phone] if any nursing or medication questions -Return to the emergency room if symptoms worsen Diet: ADA, low sodium Activity: Fall precautions Vital Signs/Physical Exam: Temp Pulse Resp BP Pulse Ox 99.2 F 75 20 160/58 H 96 03/24/24 00:00 03/24/24 00:00 03/24/24 00:00 03/24/24 00:00 03/24/24 00:00 Laboratory Data at Discharge: WBC 11.10 thou/uL (4.3-10.9) H 03/23/24 08:22 Hgb 8.0 g/dL (12.0-15.0) L 03/23/24 08:22 Hct 24.5 % (36.0-45.0) L 03/23/24 08:22 Plt Count 447 thou/uL (152-406) H 03/23/24 08:22 PT 11.8 SECONDS (9.4-12.5) 03/15/24 20:45 INR 1.06 03/15/24 20:45 Sodium 136 mEq/L (136-145) 03/23/24 08:22 Potassium 4.5 mEq/L (3.5-5.1) 03/23/24 08:22 BUN 25 mg/dL (7-18) H 03/23/24 08:22 Creatinine 1.57 mg/dL (0.55-1.02) H 10/02/24 08:22 Glucose 209 mg/dL (74-106) H 03/23/24 08:22 Phosphorus 2.5 mg/dL (2.5-4.9) 03/16/24 05:25 Magnesium 2.1 mg/dL (1.6-2.4) 03/16/24 05:25 Total Bilirubin 0.5 mg/dL (0.2-1.0) 03/15/24 20:45 AST 69 U/L (15-37) H 03/15/24 20:45 ALT 40 U/L (13-56) 03/15/24 20:45 Alkaline Phosphatase 145 U/L (45-117) H 03/15/24 20:45 Home Medications: Acetaminophen [Tylenol*] 650 mg PO Q6HP PRN 09/20/23 Albuterol [Proventil] 2 puff IH Q6HP PRN 09/20/23 Aspirin Chewable [Aspirin Chewable*] 81 mg PO DAILY 09/20/23 Atorvastatin Calcium 40 mg PO BEDTIME 09/20/23 Buspirone HCl [Buspar*] 10 mg PO TID 09/20/23 Citalopram [Celexa*] 20 mg PO DAILY 09/20/23 Fluticasone/Vilanterol [Breo Ellipta 100-25 Mcg Inhalr] 1 puff IH DAILY 09/20/23 Furosemide [Lasix*] 40 mg PO DAILY 09/20/23 Hydrocodone 5/APAP 325 [[place] 5/325*] 1 tab PO Q6HP PRN 09/20/23 Insulin Glargine,Hum.rec.anlog [Lantus Solostar] 30 units SQ DAILY 09/20/23 Insulin Lispro [Humalog] See Protocol SQ ACHS 09/20/23 Latanoprost Ophth [Xalatan 0.005%*] 1 drop EACH EYE BEDTIME 09/20/23 Levothyroxine Sodium 75 mcg PO DAILY 09/20/23 Loratadine [Claritin*] 10 mg PO DAILY 09/20/23 Megestrol [Megace*] 20 mg PO QID 09/20/23 Omeprazole 20 mg PO DAILY 09/20/23 Potassium Chloride [Klor-Con 10] 10 meq PO DAILY 09/20/23 Ticagrelor [Brilinta*] 90 mg PO BID 09/20/23 Umeclidinium [place] [Incruse Ellipta] 1 puff IH DAILY 09/20/23 carvediloL [Coreg*] 12.5 mg PO BID 09/20/23 Insulin Lispro 3 unit SQ AC 10/08/23 LORazepam [Ativan*] 1 mg PO BID PRN 10/08/23 Multivitamin [One-A-Day Essential] 1 each PO DAILY 10/08/23 Albuterol Neb [Proventil 0.083% Neb Soln] 2.5 mg NEB [id number] #60 amp 03/25/24 Calcium Carbonate [Tums Regular*] 500 mg PO AC #90 tab 03/25/24 Eszopiclone [Lunesta*] 2 mg PO BEDTIME PRN PRN #10 tab 03/25/24 Glucerna Shake [Glucerna*] 237 ml PO BID #60 can 03/25/24 Ipratropium Neb [Atrovent*] 0.5 mg NEB [id number] #60 amp 03/25/24 Melatonin [Melatonin*] 3 mg PO BEDTIME PRN PRN #14 tab 03/25/24 Mupirocin Calcium [Bactroban Nasal*] 1 appl MARIA LUISA BID #1 tube 03/25/24 Nitrofuran Macro [Macrobid*] 100 mg PO BID #14 cap 03/25/24 New Medications: Ipratropium Neb [Atrovent*] 0.5 mg NEB [id number] #60 amp Mupirocin Calcium [Bactroban Nasal*] 1 appl MARIA LUISA BID #1 tube Glucerna Shake [Glucerna*] 237 ml PO BID #60 can Eszopiclone [Lunesta*] 2 mg PO BEDTIME PRN PRN #10 tab PRN Reason: Insomnia Nitrofuran Macro [Macrobid*] 100 mg PO BID #14 cap Melatonin [Melatonin*] 3 mg PO BEDTIME PRN PRN #14 tab PRN Reason: Insomnia Albuterol Neb [Proventil 0.083% Neb Soln] 2.5 mg NEB [id number] #60 amp Calcium Carbonate [Tums Regular*] 500 mg PO AC #90 tab Physician Discharge Instructions: INSTRUCTIONS: Physician Discharge Instructions: -DC to care home facility with midline/PICC line for IV antibiotic -Discharge chills: Symptoms IV Invanz for 6 more days, -Follow-up with PCP in 1 to 2 weeks -Please call Dr. Mcdonald at [phone] if any questions regarding hospital stay -Please call nursing station at [phone] if any nursing or medication questions -Return to the emergency room if symptoms worsen Diet: AHA Activity: Fall precautions Followup: Ramon Bronson MD [ACTIVE - CAN ADMIT] - 1-2 Weeks SUSI SEPULVEDA [Primary Care Provider] - 1-2 Weeks Time spent managing pt's care (in minutes): 55
--- NOTE | 2024-03-24 03:38 | P.PN ---
Date of Service: 03/23/24 Subjective Admitted for UTI, on IV Merrem, ESBL of the urine Were completed this morning, plan to order PICC for [facility] placement for IV antibiotics. confused, urinary incont, weakness Review of Systems 10 point review system negative unless listed in HPI Physical Examination - Vital Signs Reviewed - Physical Exam General: Alert, In no apparent distress, Oriented x2 HEENT: Atraumatic, Normocephalic, PERRLA Neck: Supple, 2+ carotid pulse no bruit, JVD not distended Respiratory: Clear to auscultation bilaterally, Normal air movement Cardiovascular: No edema, Normal pulses, Regular rate/rhythm, Normal S1 S2 Capillary refill: <2 Seconds Gastrointestinal: Normal bowel sounds, Soft and benign, Non-distended Musculoskeletal: No clubbing, No swelling, No contractures Integumentary: No rashes, No breakdown, No significant lesion, No tenderness/swelling Neurological: Normal gait, Normal speech, Normal strength at 5/5 x4 extr, Lymphatics: No axilla or inguinal lymphadenopathy a Assessment And Plan - Fabiola Severe sepsis 2/2 Acute cystitis without hematuria: Will continue iv merrem. Urine cx is growing ESBL E.coli. Lactate is 2 <- 2.3. Will place Midline for home IV Invanz infusion to complete 2 weeks of therapy. Confusion today, [facility] for discharge planning Lactic acidosis: lactate is 2 <- 2.3. Will continue IBF and trend lactate. Right lower lobe pneumonia: Acute hypoxic respiratory failure likely secondary to healthcare acquired pneumonia Likely Healthcare associated pneumonia. Will continue iv vanc and cefepime. Will f/u blood cx. metabolic encephalopathy from sepsis/esbl uti fall precautions Hypertension: Will continue home meds. Chronic diastolic heart failure: Pt appears compensated. There is no pulmonary edema or vascular congestion on CXR. Will hold lasix at this time and monitor renal function. SONY on CKD, Stage 3. Pt received gentle hydration. Cr is 1.78<- 2.0 <- 2.7. Will avoid nephrotoxins and monitor renal function. Diabetes mellitus type 2 Continue accuchek, SSI, lantus 20udaily and ADA diet. Mild malnutrition: Pt was encouraged to eat. Will consult nursery technician. DVT ppx: Heparin SQ Code: Full code Time spent with patient 25 minutes
[2024-03-24 04:41] LABS: Absolute Eosinophils 0.3 K/uL (0-0.5); Absolute Lymphocytes (CBC) 1.3 K/uL (0.7-4.9); Absolute Monocytes 0.7 K/uL (0.1-1.3); Basophils % 0.4 % (0-1.3); Eosinophils % 2.4 % (0-4.4); Hematocrit 22.8 % (36.0-45.0); Hemoglobin 7.4 g/dL (12.0-15.0); Lymphocytes % 11.2 % (15.3-44.8); MCH 26.2 pg (27.0-35.0); MCHC 32.5 g/dL (32.0-36.0); MCV 80.7 fL (80-100); MPV 7.6 fL (7.6-11.3); Monocytes % 6.6 % (3.3-12.3); Neutrophils % 79.4 % (41.7-73.7); Platelets 422 thou/uL (152-406); RBC Red Blood Cell Count 2.83 M/uL (3.86-4.86); Red Cell Distribution Width 17.3 % (12.1-15.2)
[2024-03-24 04:52] LABS: Albumin 2.1 g/dL (3.4-5.0); Anion Gap 5.1 mEq/L (5.0-15.0); Phosphorus 2.4 mg/dL (2.5-4.9); Potassium 4.1 mEq/L (3.5-5.1)
[2024-03-25] MEDS: ALBUTEROL 2.5 MG/3 ML NEB SOL NEB ONE (04:07)
[2024-03-25] MEDS: IPRATROPIUM BROM 0.5MG/2.5ML NEB ONE (04:07)
[2024-03-25 05:54] LABS: Absolute Basophils 0.1 K/uL (0-0.5); Absolute Eosinophils 0.3 K/uL (0-0.5); Absolute Lymphocytes (CBC) 1.2 K/uL (0.7-4.9); Absolute Monocytes 0.8 K/uL (0.1-1.3); Basophils % 0.5 % (0-1.3); Eosinophils % 2.3 % (0-4.4); Hematocrit 22.8 % (36.0-45.0); Hemoglobin 7.5 g/dL (12.0-15.0); Lymphocytes % 9.4 % (15.3-44.8); MCH 26.6 pg (27.0-35.0); MCHC 32.7 g/dL (32.0-36.0); MCV 81.3 fL (80-100); MPV 7.5 fL (7.6-11.3); Monocytes % 6.4 % (3.3-12.3); Neutrophils % 81.4 % (41.7-73.7); Nucleated Red Blood Cells % 0.1 % (0-0); Platelets 446 thou/uL (152-406); Red Cell Distribution Width 18.1 % (12.1-15.2)
[2024-03-25 06:07] LABS: Albumin 2.3 g/dL (3.4-5.0); Anion Gap 3.7 mEq/L (5.0-15.0); Magnesium 2.2 mg/dL (1.6-2.4); Phosphorus 2.9 mg/dL (2.5-4.9); Potassium 4.7 mEq/L (3.5-5.1)
--- NOTE | 2024-03-25 06:55 | RAD REPORT ---
XR CHEST 1 VIEW CLINICAL INDICATION: Shortness of breath, COPD COMPARISON: CT chest 03/15/2023, chest radiograph 03/15/2023 FINDINGS: SUPPORT DEVICES: Left-sided pacemaker in place. LUNGS/PLEURAL SPACES: Lungs are hyperinflated. Chronic coarse interstitial lung markings, in keeping with chronic interstitial lung disease.. Several nodular opacities at right upper lobe were present on previous CT but appear more conspicuous when compared to the previous chest radiograph. Follow-up with CT is recommended to assess for progression. Bibasilar streaky opacities could represent subsegmental atelectasis or scarring. No large pleural effusions. No pneumothorax. HEART/MEDIASTINUM: Heart is normal in size. BONES/UPPER ABDOMEN/SOFT TISSUES: No acute findings. IMPRESSION: 1. Several nodular opacities at right upper lobe were present on previous CT but appear more conspi cuous when compared to the previous chest radiograph. Follow-up with CT is recommended to assess for progression. 2. Bibasilar streaky opacities could represent subsegmental atelectasis or scarring. Electronically signed by: Eli Donald MD 03/25/2024 06:35 AM T Due to temporary technical issues with the PACS/[employer] reporting system, reports are being ibeth d by the in-house radiologist without review as a courtesy to ensure prompt reporting the interpreting radiologist is fully responsible for the content of the report. Transcribed Date/Time: 03/25/2024 6:54 AM
[2024-03-25 07:28] LABS: Band Neutrophils 3 % (0-1); Differential Total Cells Count 100; Eosinophils 6 % (0-3); Lymphocytes 7 % (15-42); Monocytes 3 % (0-10); Platelet Estimate INCR; Segmented Neutrophils 81 % (40-80)
[2024-03-25 07:29] LABS: Anisocytosis 1+; Blood Morphology Comment NOTED (NOT SEEN); Hypochromasia 1+
--- NOTE | 2024-03-25 08:02 | P.PN ---
Date of Service: 03/24/24 Subjective Admitted for PNA, has UTI, on IV Merrem, ESBL of the urine Were completed this morning, plan to order PICC for [facility] home facility placement for IV antibiotics. unsteady gait, urinary incont, requires assistance w care Review of Systems 10 point review system negative unless listed in HPI Physical Examination - Vital Signs Reviewed - Physical Exam General: Alert, In no apparent distress, Oriented x2, confusion noted HEENT: Atraumatic, Normocephalic, PERRLA Neck: Supple, 2+ carotid pulse no bruit, JVD not distended Respiratory: Clear to auscultation bilaterally, Normal air movement Cardiovascular: No edema, Normal pulses, Regular rate/rhythm, Normal S1 S2 Capillary refill: <2 Seconds Gastrointestinal: Normal bowel sounds, Soft and benign, Non-distended Musculoskeletal: No clubbing, No swelling, No contractures Integumentary: No rashes, No breakdown, No significant lesion, No tenderness/swelling Neurological: Normal gait, Normal speech, Normal strength at 5/5 x4 extr, Lymphatics: No axilla or inguinal lymphadenopathy a Assessment And Plan - Fabiola Severe sepsis 2/2 Acute cystitis without hematuria: improving ESBL UTI Will continue iv merrem. Urine cx is growing ESBL E.coli. Lactate is 2 <- 2.3. Will place Midline for home IV Invanz infusion to complete 2 weeks of therapy. Confusion today, [facility] facility for discharge planning-not safe to discharge home metabolic encephalopathy from sepsis/esbl uti fall precautions Lactic acidosis: lactate is 2 <- 2.3. Will continue IBF and trend lactate. Right lower lobe pneumonia: improving Acute hypoxic respiratory failure likely secondary to healthcare acquired pneumonia Likely Healthcare associated pneumonia. Will continue iv vanc and cefepime. Will f/u blood cx. Hypertension: Will continue home meds. Chronic diastolic heart failure: Pt appears compensated. There is no pulmonary edema or vascular congestion on CXR. Will hold lasix at this time and monitor renal function. SONY on CKD, Stage 3. Pt received gentle hydration. Cr is 1.78<- 2.0 <- 2.7. Will avoid nephrotoxins and monitor renal function. Diabetes mellitus type 2 Continue accuchek, SSI, lantus 20udaily and ADA diet. Mild malnutrition: Pt was encouraged to eat. Will consult house cleaner. DVT ppx: Heparin SQ Code: Full code Time spent with patient 25 minutes
[2024-03-25] MEDS: NITROFURAN MACRO 100 MG CAP PO SCH (08:55)
[2024-03-25 13:04] VITALS: TEMP 97.3
[2024-03-25 13:52] VITALS: O2SAT 89
[2024-03-25] MEDS: ERTAPENEM SODIUM 1 GM VIAL IVPB ONE (14:14)
[2024-03-25] MEDS: ERTAPENEM NA 1 GM in NA CHLORIDE 0.9% 100 ML IVPB SCH (14:39)
[2024-03-25 17:40] VITALS: BP 140/75
== END 2024-03-25 16:28 | DRG 871 ==
LOC: ER 20:03 → ERHOLD 23:30 → 2ND 03-16 00:05
PROVIDERS: ADMIT Internal Medicine; ATTEND Hospitalist
PROC: 02HV33Z Insertion of Infusion Device into Superior Vena Cava, Percutaneous Approach (ICD-10-PCS; principal; 2024-03-15)
DX: A41.51 Sepsis due to Escherichia coli [E. coli] (principal); G93.41 Metabolic encephalopathy; J96.01 Acute respiratory failure with hypoxia; J18.9 Pneumonia, unspecified organism; N17.9 Acute kidney failure, unspecified; N30.00 Acute cystitis without hematuria; I50.32 Chronic diastolic (congestive) heart failure; Z16.12 Extended spectrum beta lactamase (ESBL) resistance; I13.0 Hypertensive heart and chronic kidney disease with heart failure and stage 1 through stage 4 chronic kidney disease, or unspecified chronic kidney disease; E44.0 Moderate protein-calorie malnutrition; J44.0 Chronic obstructive pulmonary disease with (acute) lower respiratory infection; R65.20 Severe sepsis without septic shock; N18.30 Chronic kidney disease, stage 3 unspecified; E11.22 Type 2 diabetes mellitus with diabetic chronic kidney disease; D63.1 Anemia in chronic kidney disease; E03.9 Hypothyroidism, unspecified; Z88.2 Allergy status to sulfonamides; Z79.82 Long term (current) use of aspirin; Z79.4 Long term (current) use of insulin; Z79.890 Hormone replacement therapy; Z79.899 Other long term (current) drug therapy; Z79.02 Long term (current) use of antithrombotics/antiplatelets; Z90.710 Acquired absence of both cervix and uterus; Z90.49 Acquired absence of other specified parts of digestive tract; Z95.5 Presence of coronary angioplasty implant and graft; Z95.0 Presence of cardiac pacemaker; Z87.891 Personal history of nicotine dependence; Z68.20 Body mass index [BMI] 20.0-20.9, adult; Y95 Nosocomial condition
CPT/HCPCS: 36415; 51702; 70450; 71045; 80048; 80069; 80076; 81001; 82947; 83605; 83735; 83880; 84100; 84484; 85025; 85610; 87077; 87086; 87088; 87186; 93005; 94640; 94760; 96365; 96375; 97116; 97161; 97530; 99285; J0692; J1335; J1644; J2185; J2405; J7030; J7613; J7644

== ENCOUNTER 2024-03-27 07:53 | Inpatient (IN) | payer OTHER ==
[2024-03-27] MEDS ORDERED: HYDROCODONE/APAP 5/325 MG TAB ONE (08:54)
[2024-03-27 09:08] LABS: Absolute Basophils 0.1 K/uL (0-0.5); Absolute Eosinophils 0.4 K/uL (0-0.5); Absolute Monocytes 0.7 K/uL (0.1-1.3); Absolute Neutrophil 12.2 K/uL (1.8-8.0); Basophils % 0.6 % (0-1.3); Hematocrit 26.6 % (36.0-45.0); Hemoglobin 8.3 g/dL (12.0-15.0); Lymphocytes % 7.1 % (15.3-44.8); MCH 25.9 pg (27.0-35.0); MCHC 31.1 g/dL (32.0-36.0); MCV 83.1 fL (80-100); Monocytes % 5.1 % (3.3-12.3); Neutrophils % 84.2 % (41.7-73.7); Platelets 495 thou/uL (152-406); Red Cell Distribution Width 18.8 % (12.1-15.2)
[2024-03-27 09:10] LABS: Specific Gravity 1.012 (1.005-1.030); Sqamous Epithelial <5 /HPF (None Seen); Urine Bacteria None Seen /HPF (<20); Urine Bilirubin NEGATIVE (Negative); Urine Blood Negative (Negative); Urine Clarity Turbid (Clear); Urine Color Light-Yellow (Yellow); Urine Culture Reflex Order REFLEXED; Urine Glucose NEGATIVE (Negative); Urine Ketones NEGATIVE (Negative); Urine Microscopic Reflex YN ORDER UMIC; Urine Nitrite NEGATIVE (Negative); Urine Protein TRACE (Negative); Urine RBC <5 /HPF (None Seen); Urine Urobilinogen Normal (Normal); Urine WBC >50 /HPF (<5); Urine Yeast (Budding) Occasional /HPF (None Seen); Urine pH 6.5 (5.0-7.0)
[2024-03-27 09:19] LABS: PT Prothrombin Time 12.6 SECONDS (9.4-12.5); PTT, Activated Partial Thromb 31.3 SECONDS (24.3-36.9); Protime INR 1.13
[2024-03-27 09:22] LABS: Albumin 2.4 g/dL (3.4-5.0); Albumin/Globulin Ratio 0.5 (1.1-1.8); Anion Gap 7.1 mEq/L (5.0-15.0); Bilirubin Total 0.5 mg/dL (0.2-1.0); Globulin 5.1 g/dL (2.3-3.5); Potassium 4.1 mEq/L (3.5-5.1); Protein, Total 7.5 g/dL (6.4-8.2); Troponin High Sensitivity 29.2 pg/mL (<58.9)
--- NOTE | 2024-03-27 10:22 | RAD REPORT ---
EXAM: CT brain without contrast HISTORY: ams/trauma COMPARISON: 09/19/2023 and 03/22/2024 TECHNIQUE: Multiple contiguous axial images were obtained and a CT of the brain without contrast. Sag ittal and coronal reformats were performed. FINDINGS: No evidence of hydrocephalus, intracranial hemorrhage, or extra-axial fluid collection. Moderate diffuse parenchymal atrophic changes and moderate periventricular and deep white matter hyp odensities, nonspecific, but suggest sequelae of chronic small vessel ischemic changes. The calvarium is intact. The visualized paranasal sinuses and mastoid air cells are essentially clear . IMPRESSION: No evidence of acute intracranial abnormality. EXAM: CT of the cervical spine without contrast HISTORY: ams/trauma COMPARISON: 09/19/2023 TECHNIQUE: Multiple contiguous axial images were obtained in a CT of the cervical spine without contr ast. Sagittal and coronal reformats were performed. FINDINGS: The vertebral bodies demonstrate normal height and alignment. No evidence of acute fracture or sublux ation.. Multilevel moderate degenerative changes with mild degrees of neural foraminal narrowing at C4-5 thro ugh C6-7. No prevertebral soft tissue swelling is seen. The posterior facets are well aligned. Normal alignment of the skull base with the cervical spine is seen. The lung apices are unremarkable. IMPRESSION: No evidence of acute osseous abnormality of the cervical spine. EXAM: CT CHEST, ABDOMEN AND PELVIS WITHOUT CONTRAST CLINICAL INDICATION: Female, 78 years old. [facility] ams/trauma Bed Name: [id number] TECHNIQUE: CT chest, abdomen and pelvis was performed, without IV contrast, as per department protoco l. Axial, sagittal and coronal reconstructions were obtained. One or more of the following dose reduction techniques were used: Automated exposure control, adjustment of the mA and/or kV according to the patient size, and/or iterative reconstruction. Unless otherwise specified, incidental findings do not require dedicated imaging follow-up. COMPARISON: 09/19/2023. FINDINGS: The lack of intravenous contrast limits the sensitivity of this exam for evaluation of solid visceral organs, vascular structures, and retroperitoneum. Chest: LOWER NECK/CHEST WALL: Visualized thyroid gland and soft tissues are normal. Left chest wall pacer in place. LUNGS AND AIRWAYS: Airways are clear. Central interstitial prominence with bronchial wall thickening and interlobular septal thickening, stable. Elongated irregular opacities at the apices largest at the right apex measuring 2.2 cm are stable. An anterior irregular small opacity with extension to the pleura seen on the prior exam is no longer visualized.. PLEURA: Bilateral small layering pleural effusion. No pneumothorax. Hemidiaphragms are normally posit ioned. MEDIASTINUM AND LYMPH NODES: No mediastinal mass or fluid collection. Small mediastinal lymph nodes a re stable, nonspecific. Normal hilar, and axillary lymph nodes. THORACIC AORTA: Normal caliber and configuration. PULMONARY ARTERIES: Normal caliber. HEART: Unremarkable. Abdomen/Pelvis LIVER: Normal in size and contour. No focal lesion. GALLBLADDER/BILE DUCTS: Gallbladder was surgically removed. PANCREAS: No mass, ductal dilation, or vannesa-pancreatic fluid. SPLEEN: Normal size. No focal lesion. ADRENALS: Normal; no mass. KIDNEYS AND URETERS: Normal size and contour. No hydronephrosis. Bilateral extrarenal pelves. GASTROINTESTINAL TRACT: Stomach is non-dilated. Small bowel has normal course and caliber. No colonic wall thickening or pericolonic inflammatory changes. PERITONEUM: No free fluid. LYMPH NODES: No lymphadenopathy. ABDOMINAL AORTA AND OTHER VESSELS: No aneurysm. Dense atherosclerotic calcifications at the level of the celiac axis and near the bifurcation. URINARY BLADDER: Normal contour. REPRODUCTIVE ORGANS: No pathologic process. MUSCULOSKELETAL: No acute or suspicious osseous abnormality. ADDITIONAL FINDINGS: Supraumbilical midline ventral hernia measuring 8.6 x 2.7 cm containing fat. Vag inal prosthesis in place. IMPRESSION: No evidence of acute traumatic abnormalities in the chest, abdomen, or pelvis. Bilateral layering pleural effusions as well as central interstitial prominence, suggesting pulmonary edema. Incidental findings as above.
[2024-03-27] MEDS ORDERED: CEFEPIME 2 GM VIAL ONE (11:31)
[2024-03-27] MEDS ORDERED: NA CHLORIDE 0.9% 100 ML ONE (11:32)
--- NOTE | 2024-03-27 11:37 | EDPHYS ---
Physician Documentation [facility] Name: Brittani Seaman Age: 78 yrs Sex: Female : 1945 Arrival Date: 03/27/2024 Time: 07:53 Bed 8 Private MD: ED Physician Keysha Reyes HPI: 03/27 08:10 This 78 yrs old Female presents to ER via EMS with complaints of altered mental status, sp3 falls yesterday. 08:12 78-year-old female with history of diabetes, COPD, hypertension from [facility] with sp3 complaints of "altered mental status" with unknown baseline status as patient is a new patient there. This is as reported by EMS. Currently patient is alert and oriented only x 1 as per the report and therefore history, physical and ROS are severely limited. EMS also reports patient had 2 falls yesterday. No other detail or data is available.. Historical: - Allergies: 08:02 Sulfa (Sulfonamide Antibiotics); rs5 - PMHx: 08:02 chronic bronchitis; Hypertension; Diabetes - IDDM; prolapsed bladder; COPD; rs5 Hypothyroidism; - PSHx: 08:02 None; rs5 - Immunization history:: Adult Immunizations unknown. - Infectious Disease History:: Denies. - Social history:: Smoking status: unknown. ROS: 08:12 Unable to obtain ROS due to altered mental status, baseline dementia, sp3 Exam: 08:13 Constitutional: The patient appears Severely limited physical secondary to altered sp3 mental status. Patient has an abrasion to her right knee, left elbow. She does move all extremities and pupils are equal round and reactive to light. Patient moans at baseline and withdraws to pain. No other obvious signs of trauma noted. Lungs are clear. Vital signs reviewed as blood pressure is mildly elevated. Vital Signs: 07:59 BP 177 / 72; Pulse 74; Resp 18; Pulse Ox 95% on 4 lpm NC; rs5 10:38 BP 190 / 57; Pulse 69; Resp 16; Pulse Ox 97% ; bp 11:19 BP 154 / 54; Pulse 74; Resp 17; Pulse Ox 95% on 3 lpm NC; rs5 12:30 BP 130 / 53; Pulse 66; Resp 15; Pulse Ox 99% ; bp [place] Coma Score: 08:20 Eye Response: spontaneous(4). Motor Response: obeys commands(6). Verbal Response: qf oriented(5). Total: 15. MDM: 07:59 Patient medically screened. 3 08:13 Data reviewed: vital signs, nurses notes, old medical records, lab test result(s), EKG, 3 radiologic studies. ED course: 78-year-old female with PMH above now with altered mental status and falls yesterday. Differential diagnosis is broad and includes traumatic injury including intracranial hemorrhage, other traumatic pathology, infection, sepsis, shock, pneumonia, UTI, ACS, among others. Workup will be broad and include laboratory values and a sepsis style workup along with CT scan of the head, C-spine, chest abdomen pelvis. Disposition probable admission with interventions and pharmaceuticals as indicated.. 11:35 ED course: Cefepime started for UTI and elevated creatinine patient will be admitted to [facility] internal medicine.. 03/27 07:59 Order name: Blood Culture Adult (2) [facility] 03/27 07:59 Order name: CBC with Diff; Complete Time: 09:49 [facility] 03/27 07:59 Order name: CMP; Complete Time: 09:49 3 03/27 07:59 Order name: Lactate w/ 2H reflex if indic.; Complete Time: 09:49 [facility] 03/27 07:59 Order name: Protime (+inr); Complete Time: 09:49 3 03/27 07:59 Order name: Ptt, Activated; Complete Time: 09:49 3 03/27 07:59 Order name: Urinalysis w/ reflexes; Complete Time: 09:49 [facility] 03/27 07:59 Order name: Troponin High Sensitivity; Complete Time: 09:49 [facility] 03/27 08:10 Order name: Glucose, Ancillary Testing; Complete Time: 09:49 EDMI 03/27 09:14 Order name: Urine Culture EDMS 03/27 11:47 Order name: Urinalysis w/ reflexes EDMS 03/27 11:47 Order name: Basic Metabolic Panel EDMS 03/27 11:47 Order name: Basic Metabolic Panel EDMS 03/27 11:47 Order name: Basic Metabolic Panel EDMS 03/27 11:47 Order name: Basic Metabolic Panel EDMS 03/27 11:47 Order name: Basic Metabolic Panel EDMS 03/27 11:47 Order name: CBC with Automated Diff EDMS 03/27 11:47 Order name: CBC with Automated Diff EDMS 03/27 11:47 Order name: CBC with Automated Diff EDMS 03/27 11:47 Order name: CBC with Automated Diff EDMS 03/27 11:47 Order name: CBC with Automated Diff EDMS 03/27 11:47 Order name: Magnesium EDMS 03/27 11:47 Order name: Magnesium EDMS 03/27 11:47 Order name: Magnesium EDMS 03/27 11:47 Order name: Magnesium EDMS 03/27 07:59 Order name: CT Traumagram (Head C Spine CAP wo con); Complete Time: 10:38 sp3 03/27 07:59 Order name: EKG; Complete Time: 08:00 sp3 03/27 07:59 Order name: Accucheck; Complete Time: 08:39 sp3 03/27 07:59 Order name: Cardiac monitoring; Complete Time: 08:39 sp3 03/27 07:59 Order name: EKG - Nurse/Tech; Complete Time: 09:13 sp3 03/27 07:59 Order name: IV Saline Lock - Large Bore; Complete Time: 08:39 sp3 03/27 07:59 Order name: Labs collected and sent; Complete Time: 08:39 sp3 03/27 07:59 Order name: O2 Per Protocol; Complete Time: 09:10 sp3 03/27 07:59 Order name: O2 Sat Monitoring; Complete Time: 08:39 sp3 03/27 07:59 Order name: Vital Signs; Complete Time: 08:39 sp3 03/27 07:59 Order name: Cath; Complete Time: 09:10 sp3 Administered Medications: 11:37 Drug: Cefepime IVPB 2 grams IVPB at 200 ml/hr once over 30 mins; (mix in NS 100 mL) qf Route: IVPB; Rate: 200 ml/hr; Infused Over: 30 mins; Site: right hand; 12:31 Follow up: IV Status: Completed infusion; IV Intake: 100ml bp Disposition Summary: 03/27/24 11:36 Hospitalization Ordered Notes: Hospitalization Status: Inpatient Admission sp3 Provider: Corinna Mcdonald Location: Telemetry/[facility] (Inpatient) sp3 Condition: Stable sp3 Problem: an acute exacerbation sp3 Symptoms: have worsened sp3 Bed/Room Type: Standard sp3 Room Assignment: 207(03/27/24 11:58) eb Diagnosis - Urinary tract infection, renal insufficiency, acute kidney injury sp3 Forms: - Medication Reconciliation Form sp3 - SBAR form sp3 - Leadership Thank You Letter sp3 Signatures: Dispatcher [employer] Calista Mccormick Setul, MD MD sp3 Chandler Gutiérrez RN RN rs5 Taz Bernabe RN RN Rajesh Worley RN bp Corrections: (The following items were deleted from the chart) 11:58 11:36 sp3 eb
--- NOTE | 2024-03-27 11:37 | ER ---
Nurse's Notes [facility] Name: Brittani Seaman Age: 78 yrs Sex: Female : 1945 Arrival Date: 03/27/2024 Time: 07:53 Bed 8 Private MD: Diagnosis: Urinary tract infection, renal insufficiency, acute kidney injury Presentation: 03/27 07:59 Chief complaint: EMS states: EMS toned out to [facility] for low spo2 in rs5 80's on 2L NC. Coronavirus screen: At this time, the client does not indicate any symptoms associated with coronavirus-19. Ebola Screen: No symptoms or risks identified at this time. Initial Sepsis Screen: Does the patient meet any 2 criteria? No. Patient's initial sepsis screen is negative. Does the patient have a suspected source of infection? No. Patient's initial sepsis screen is negative. Risk Assessment: Do you want to hurt yourself or someone else? Patient reports no desire to harm self or others. Onset of symptoms was March 27, 2024. 07:59 Method Of Arrival: EMS: [facility] rs5 07:59 Acuity: PRAVEEN 3 rs5 Triage Assessment: 08:02 General: Appears uncomfortable, Behavior is cooperative. Pain: Unable to use pain rs5 scale. Does not appear to understand pain scale. Historical: - Allergies: 08:02 Sulfa (Sulfonamide Antibiotics); rs5 - PMHx: 08:02 chronic bronchitis; Hypertension; Diabetes - IDDM; prolapsed bladder; COPD; rs5 Hypothyroidism; - PSHx: 08:02 None; rs5 - Immunization history:: Adult Immunizations unknown. - Infectious Disease History:: Denies. - Social history:: Smoking status: unknown. Screenin:20 [facility] ED Fall Risk Assessment (Adult) History of falling in the last 3 months, qf including since admission Yes- fall prone (multiple falls) (3 pts) Confusion or Disorientation No (0 pts) Intoxicated or Sedated No (0 pts) Impaired Gait Yes (1 pt) Mobility Assist Device Used No (0 pt) Altered Elimination Yes (1 pt) Score/Fall Risk Level. Abuse screen: Denies threats or abuse. Nutritional screening: No deficits noted. Tuberculosis screening: No symptoms or risk factors identified. Assessment: 08:20 Respiratory: Respiratory effort is labored, Respiratory pattern is tachypnea Breath qf sounds are diminished bilaterally. Breath sounds with wheezes bilaterally. 10:38 Reassessment: No changes from previously documented assessment. Patient is alert, bp oriented x 3, equal unlabored respirations, skin warm/dry/pink. 12:15 Reassessment: REPORT FAXED TO RM 207. bp Vital Signs: 07:59 BP 177 / 72; Pulse 74; Resp 18; Pulse Ox 95% on 4 lpm NC; rs5 10:38 BP 190 / 57; Pulse 69; Resp 16; Pulse Ox 97% ; bp 11:19 BP 154 / 54; Pulse 74; Resp 17; Pulse Ox 95% on 3 lpm NC; rs5 12:30 BP 130 / 53; Pulse 66; Resp 15; Pulse Ox 99% ; bp [place] Coma Score: 08:20 Eye Response: spontaneous(4). Motor Response: obeys commands(6). Verbal Response: qf oriented(5). Total: 15. ED Course: 07:58 Patient arrived in ED. rs5 07:58 Keysha Reyes MD is Attending Physician. sp3 08:00 Rajesh Higgins, SHAMA is Primary Nurse. bp 08:02 Triage completed. rs5 08:20 Patient has correct armband on for positive identification. Bed in low position. Call qf light in reach. Side rails up X2. Provided Education on: Procedures. Pulse ox on. NIBP on. Door closed. Noise minimized. Lights dimmed. Warm blanket given. 08:20 Patient notified of wait time. qf 08:30 Davis cath inserted, using sterile technique, 16 Fr., by me, balloon inflated, to qf gravity drainage, urine specimen collected. 09:06 CT Traumagram (Head C Spine CAP wo con) In Process Unspecified. EDMS 09:28 EKG completed in triage. Results shown to MD. qf 09:30 Accessed PICC line. Blood collected. Clean \T\ dry. Dressing intact. Good blood return. bp Flushes easily. 11:35 Corinan Mcdonald MD is Hospitalizing Provider. sp3 12:30 No provider procedures requiring assistance completed. Patient admitted, IV remains in bp place. Administered Medications: 11:37 Drug: Cefepime IVPB 2 grams IVPB at 200 ml/hr once over 30 mins; (mix in NS 100 mL) qf Route: IVPB; Rate: 200 ml/hr; Infused Over: 30 mins; Site: right hand; 12:31 Follow up: IV Status: Completed infusion; IV Intake: 100ml bp Medication: 12:31 VIS not applicable for this client. bp Intake: 12:31 IV: 100ml; Total: 100ml. bp Outcome: 11:36 Decision to Hospitalize by Provider. sp3 12:30 Admitted to Med/surg accompanied by tech, via stretcher, room 207, with oxygen, with bp chart, Report called to FREDO SESAY 12:30 Condition: stable 12:30 Instructed on the need for admit, 12:53 Patient left the ED. bp Signatures: Dispatcher [employer] EDMS Rajesh Higgins, RN RN bp Keysha Reyes MD MD sp3 Chandler Gutiérrez RN RN rs5 Taz Bernabe RN RN qf
--- NOTE | 2024-03-27 11:41 | P.HP ---
Patient History Date of Service: 03/27/24 Allergies No Known Allergies Allergy (Verified 05/05/22 08:45) Home Medications: Acetaminophen [Tylenol*] 650 mg PO Q6HP PRN 09/20/23 Albuterol [Proventil] 2 puff IH Q6HP PRN 09/20/23 Aspirin Chewable [Aspirin Chewable*] 81 mg PO DAILY 09/20/23 Atorvastatin Calcium 40 mg PO BEDTIME 09/20/23 Buspirone HCl [Buspar*] 10 mg PO TID 09/20/23 Citalopram [Celexa*] 20 mg PO DAILY 09/20/23 Fluticasone/Vilanterol [Breo Ellipta 100-25 Mcg Inhalr] 1 puff IH DAILY 09/20/23 Furosemide [Lasix*] 40 mg PO DAILY 09/20/23 Hydrocodone 5/APAP 325 [[place] 5/325*] 1 tab PO Q6HP PRN 09/20/23 Insulin Glargine,Hum.rec.anlog [Lantus Solostar] 30 units SQ DAILY 09/20/23 Insulin Lispro [Humalog] See Protocol SQ ACHS 09/20/23 Latanoprost Ophth [Xalatan 0.005%*] 1 drop EACH EYE BEDTIME 09/20/23 Levothyroxine Sodium 75 mcg PO DAILY 09/20/23 Loratadine [Claritin*] 10 mg PO DAILY 09/20/23 Megestrol [Megace*] 20 mg PO QID 09/20/23 Omeprazole 20 mg PO DAILY 09/20/23 Potassium Chloride [Klor-Con 10] 10 meq PO DAILY 09/20/23 Ticagrelor [Brilinta*] 90 mg PO BID 09/20/23 Umeclidinium [place] [Incruse Ellipta] 1 puff IH DAILY 09/20/23 carvediloL [Coreg*] 12.5 mg PO BID 09/20/23 Insulin Lispro 3 unit SQ AC 10/08/23 LORazepam [Ativan*] 1 mg PO BID PRN 10/08/23 Multivitamin [One-A-Day Essential] 1 each PO DAILY 10/08/23 Albuterol Neb [Proventil 0.083% Neb Soln] 2.5 mg NEB [id number] #60 amp 03/25/24 Calcium Carbonate [Tums Regular*] 500 mg PO AC #90 tab 03/25/24 Eszopiclone [Lunesta*] 2 mg PO BEDTIME PRN PRN #10 tab 03/25/24 Glucerna Shake [Glucerna*] 237 ml PO BID #60 can 03/25/24 Ipratropium Neb [Atrovent*] 0.5 mg NEB [id number] #60 amp 03/25/24 Melatonin [Melatonin*] 3 mg PO BEDTIME PRN PRN #14 tab 03/25/24 Mupirocin Calcium [Bactroban Nasal*] 1 appl MARIA LUISA BID #1 tube 03/25/24 Nitrofuran Macro [Macrobid*] 100 mg PO BID #14 cap 03/25/24 - Past Medical/Surgical History Diabetic: Yes -: History of COPD -: Diabetes type 1 -: Hypertension -: Hypothyroid -: CHF -: Prolapsed bladder -: [id number] -: Bladder suspension 2004, pessary 2019 -: Appendectomy 1961 -: Tonsillectomy 1949 -: Pacemaker 2020 -: Hernia 2019 -: Stent 2020 Psychosocial/ Personal History: Former smoker - Family History Mother -: Heart disease, Hypertension, Diabetes - Social History Alcohol use: No CD- Drugs: No Caffeine use: No Physical Examination - Studies Laboratory Data (last 24 hrs) 03/27/24 03/27/24 03/27/24 08:45 08:45 08:45 WBC 14.50 H Hgb 8.3 L Hct 26.6 L Plt Count 495 H PT 12.6 H INR 1.13 APTT 31.3 Sodium 138 Potassium 4.1 BUN 24 H Creatinine 1.55 H Glucose 110 H Total Bilirubin 0.5 AST 30 ALT 23 Alkaline Phosphatase 111 Assessment and Plan - Advance Directives Does patient have a Living Will: No Does patient have a Durable POA for Healthcare: No
[2024-03-27] MEDS ORDERED: ONDANSETRON 4 MG/2 ML VIAL IV PRN (11:43)
[2024-03-27] MEDS ORDERED: ACETAMINOPHEN 500 MG TAB PO PRN (11:43)
[2024-03-27] MEDS ORDERED: ERTAPENEM SODIUM 1 GM VIAL IVPB SCH (12:00)
[2024-03-27] MEDS: Meropenem 1,000 MG in NA CHLORIDE 0.9% 100 ML IV SCH (13:38)
[2024-03-27] MEDS: NA CHLORIDE 0.9% 1,000 ML IV SCH (13:39)
[2024-03-27 16:01] VITALS: BMI 21.0
[2024-03-27] MEDS: carvediloL 12.5 MG TAB PO SCH (21:12)
[2024-03-27] MEDS: ATORVASTATIN 40 MG TAB PO SCH (21:13)
[2024-03-27] MEDS: LORAZEPAM 1 MG TABLET PO PRN (21:13)
[2024-03-27] MEDS: BUSPIRONE HCL 5 MG TABLET PO SCH (21:14)
[2024-03-27] MEDS: MEGESTROL 40 MG TAB PO SCH (21:15)
[2024-03-27] MEDS: QUETIAPINE 25 MG TAB PO SCH (23:10)
[2024-03-28] MEDS: ALBUTEROL 2.5 MG/3 ML NEB SOL NEB SCH (01:01)
[2024-03-28 04:28] LABS: Absolute Basophils 0.1 K/uL (0-0.5); Absolute Eosinophils 0.4 K/uL (0-0.5); Absolute Lymphocytes (CBC) 1.2 K/uL (0.7-4.9); Absolute Monocytes 0.9 K/uL (0.1-1.3); Absolute Neutrophil 10.4 K/uL (1.8-8.0); Basophils % 0.4 % (0-1.3); Hemoglobin 7.2 g/dL (12.0-15.0); Lymphocytes % 8.9 % (15.3-44.8); MCH 25.6 pg (27.0-35.0); MCHC 31.1 g/dL (32.0-36.0); MCV 82.5 fL (80-100); MPV 8.1 fL (7.6-11.3); Monocytes % 7.3 % (3.3-12.3); Neutrophils % 80.4 % (41.7-73.7); Platelets 397 thou/uL (152-406); RBC Red Blood Cell Count 2.79 M/uL (3.86-4.86); Red Cell Distribution Width 19.1 % (12.1-15.2)
[2024-03-28 04:40] LABS: Anion Gap 8.6 mEq/L (5.0-15.0); Potassium 4.6 mEq/L (3.5-5.1)
[2024-03-28] MEDS: PANTOPRAZOLE 40MG TABLET PO SCH (05:30)
[2024-03-28 06:48] LABS: Ferritin 76.5 ng/mL (8-252)
[2024-03-28] MEDS: LEVOTHYROXINE SOD 0.075 MG TAB PO SCH (07:30)
[2024-03-28] MEDS: CALCIUM CARBONATE CHEW 500MG TAB PO SCH (10:10)
[2024-03-28] MEDS: MULTIVITAMIN TAB PO SCH (10:15)
[2024-03-28] MEDS: POTASSIUM CL SA 10 MEQ TAB PO SCH (10:15)
[2024-03-28] MEDS: CITALOPRAM 10 MG TABLET PO SCH (10:15)
[2024-03-28] MEDS: LORATADINE 10 MG TAB PO SCH (10:15)
[2024-03-28] MEDS: ASPIRIN 81 MG CHEWABLE TABLET PO SCH (10:15)
--- NOTE | 2024-03-28 10:28 | P.PN ---
Subjective Date of Service: 03/28/24 Chief Complaint: fatigue, malaise Subjective: No new changes <Marcia Quezada - Last Filed: 03/28/24 17:19> Date of Service: 03/28/24 <Corinna Mcdonald - Last Filed: 03/30/24 05:21> Review of Systems 10-point ROS is otherwise unremarkable General: Weakness, Malaise Eyes: Unremarkable ENT: Unremarkable Respiratory: Unremarkable Cardiovascular: Unremarkable Gastrointestinal: Unremarkable Genitourinary: Unremarkable Musculoskeletal: Unremarkable Integumentary: Unremarkable Neurological: Weakness Lymphatics: Unremarkable <Marcia Quezada - Last Filed: 03/28/24 17:19> Physical Examination - Vital Signs Temperature: 98.2 F Blood Pressure: 148/67 Pulse: 84 Respirations: 24 Pulse Ox (%): 88 - Physical Exam General: Alert, Oriented x3, Cooperative, Other (pale) HEENT: Atraumatic, Normocephalic Neck: Supple Respiratory: Normal air movement Cardiovascular: No edema Capillary refill: <2 Seconds Gastrointestinal: Normal bowel sounds Musculoskeletal: No clubbing Integumentary: No rashes, Other (pallor) Neurological: Normal speech, Normal tone, Normal affect Lymphatics: No axilla or inguinal lymphadenopathy Urinary: Davis catheter External genitalia: Deferred Rectal: Deferred <Marcia Quezadalen - Last Filed: 03/28/24 17:19> Assessment And Plan - Plan Malaise 2nd to anemia, recent hospitalization, failed outpatient Invanz, Leukocytosis - abx switched to Merrem Urinary tract infection with ESBL bacteria Insomnia Iron and Ferritin levels, T&S, Transfuse 1-2 units prbc T,C, DB q 2-4 hours, skin protective measures Pt was to continue Invanz 1gm IV daily x 3 more days, returned to hospital with WBC 14.5, abx changed to Merrem on admission, WBC to 12.9 03/28/24 Pt has Davis, Strict I&O Continue Seroquel 25mg po q HS Discharge Plan: [facility] Plan to discharge in: Greater than 2 days - Code Status/Comfort Care Code Status Assessed: Yes (Full) Time Spent Managing PTS Care (In Minutes): 25 <QuezadaMarciamoni Cuevas - Last Filed: 03/28/24 17:19> - Current Problems (Diagnosis) (1) Altered mental status Current Visit: Yes Status: Acute (2) CHF (congestive heart failure) Current Visit: No Status: Acute (3) Chronic diastolic heart failure Current Visit: No Status: Acute (4) DM type 2 (diabetes mellitus, type 2) Current Visit: No Status: Acute (5) Diabetes type 2 with atherosclerosis of arteries of extremities Current Visit: No Status: Acute (6) Hypertension Current Visit: No Status: Acute (7) Severe sepsis Current Visit: No Status: Acute (8) CKD (chronic kidney disease) stage 3, GFR 30-59 ml/min Current Visit: No Status: Chronic Qualifiers: Chronic kidney disease stage 3 subtype: stage 3b (GFR 30-44) Qualified Code(s): N18.32 - Chronic kidney disease, stage 3b (9) COPD (chronic obstructive pulmonary disease) Current Visit: No Status: Chronic Qualifiers: COPD type: emphysema Emphysema type: unspecified Qualified Code(s): J43.9 - Emphysema, unspecified (10) Diabetes type 2, controlled Current Visit: No Status: Chronic Qualifiers: 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 Events of the last 24 hours have been noted. Case discussed with KAYY. I performed a substantial part of the MDM during this [facility] ient's care today. I personally made or approved the documented management plan and acknowledge its risk of complications. I agree with the findings and documentation provided in the KAYY's notes <Coirnna Mcdonald - Last Filed: 03/30/24 05:21>
[2024-03-28] MEDS: NA CHLORIDE 0.9% 250 ML ONE (10:38)
--- NOTE | 2024-03-28 11:54 | EKG ---
Test Date: 2024-03-27 Test Time: 08:49:11 Punch Press Operator Helper: YING MEASUREMENT RESULTS: Intervals: Rate: 72 DE: 164 QRSD: 144 QT: 482 QTc: 527 [place]: P: 92 DE: 164 QRS: 97 T: -67 INTERPRETIVE STATEMENTS: Suspect arm lead reversal, interpretation assumes no reversal Normal sinus rhythm with sinus arrhythmia Rightward axis Nonspecific intraventricular block Cannot rule out Anterior infarct, age undetermined T wave abnormality, consider inferior ischemia Abnormal ECG Compared to ECG 03/27/2024 08:48:49 Right-axis deviation now present T-wave abnormality now present Atrial fibrillation no longer present ST (T wave) deviation no longer present Myocardial infarct finding still present Possible ischemia still present Electronically Signed On 03-28-24 11:52:04 CDT by Arnoldo Alvarado
--- NOTE | 2024-03-28 11:54 | EKG ---
Test Date: 2024-03-27 Test Time: 08:48:49 Mercerizer Machine Operator: YING MEASUREMENT RESULTS: Intervals: Rate: 71 [place]: QRSD: 120 QT: 456 QTc: 495 [place]: P: [place]: QRS: 99 T: -71 INTERPRETIVE STATEMENTS: Atrial fibrillation Anterolateral infarct, age undetermined ST & T wave abnormality, consider inferior ischemia Abnormal ECG Compared to ECG 03/15/2024 20:33:19 Myocardial infarct finding now present ST (T wave) deviation now present Possible ischemia now present Sinus rhythm no longer present Sinus arrhythmia no longer present Left ventricular hypertrophy no longer present Early repolarization no longer present Electronically Signed On 03-28-24 11:52:08 CDT by Arnoldo Alvarado
[2024-03-28] MEDS: ACETAMINOPHEN 325 MG TABLET PO PRN (15:05)
[2024-03-28] MEDS ORDERED: D10W 125 ML IV PRN (15:09)
[2024-03-28] MEDS ORDERED: GLUCAGON 1 MG/VIAL IM PRN (15:09)
[2024-03-28] MEDS: INSULIN REGULAR (HUMAN) 100 UNIT/ML SQ SCH (15:52)
[2024-03-28] MEDS: DIAZEPAM 10 MG/2 ML INJ SYRINGE IV ONE (17:14)
[2024-03-28] MEDS ORDERED: QUETIAPINE 25 MG TAB PO SCH (21:00)
[2024-03-29 04:29] LABS: Absolute Basophils 0.1 K/uL (0-0.5); Absolute Eosinophils 0.3 K/uL (0-0.5); Absolute Lymphocytes (CBC) 1.1 K/uL (0.7-4.9); Absolute Monocytes 0.9 K/uL (0.1-1.3); Basophils % 0.5 % (0-1.3); Eosinophils % 2.3 % (0-4.4); Hematocrit 32.3 % (36.0-45.0); Hemoglobin 10.3 g/dL (12.0-15.0); Lymphocytes % 8.9 % (15.3-44.8); MCH 26.5 pg (27.0-35.0); MCHC 31.9 g/dL (32.0-36.0); MPV 8.2 fL (7.6-11.3); Monocytes % 7.5 % (3.3-12.3); Neutrophils % 80.8 % (41.7-73.7); Platelets 384 thou/uL (152-406); RBC Red Blood Cell Count 3.89 M/uL (3.86-4.86); Red Cell Distribution Width 18.3 % (12.1-15.2)
[2024-03-29 04:38] LABS: Anion Gap 8.5 mEq/L (5.0-15.0); Potassium 4.5 mEq/L (3.5-5.1)
[2024-03-29] MEDS: LEVOTHYROXINE SOD 0.075 MG TAB PO SCH (05:33)
[2024-03-29] MEDS: PANTOPRAZOLE 40MG TABLET PO SCH (08:42)
[2024-03-29] MEDS: ZIPRASIDONE MESYLA 20 MG/VIAL IM ONE (11:00)
[2024-03-29] MEDS ORDERED: WATER FOR INJ,STERILE 10 ML IM PRN (11:00)
--- NOTE | 2024-03-29 13:12 | P.PN ---
Subjective Date of Service: 03/29/24 Chief Complaint: fatigue, malaise Subjective: Demented (more confusion, oriented to person, place, states it is 1972) <Marcia Quezada Mason - Last Filed: 03/29/24 17:15> Date of Service: 03/29/24 <Corinna Mcdonald - Last Filed: 03/30/24 05:21> Review of Systems 10-point ROS is otherwise unremarkable General: Weakness, Other (confusion) Eyes: Unremarkable ENT: Unremarkable Respiratory: Unremarkable Cardiovascular: Unremarkable Gastrointestinal: Unremarkable Genitourinary: Unremarkable Musculoskeletal: Unremarkable Integumentary: Unremarkable Neurological: Confusion Lymphatics: Unremarkable <Marcia Quezada Mason - Last Filed: 03/29/24 17:15> Physical Examination - Physical Exam General: Alert, Disheveled, Confused HEENT: Atraumatic, Normocephalic Neck: Supple Respiratory: Normal air movement Cardiovascular: No edema, Regular rate/rhythm Capillary refill: <2 Seconds Gastrointestinal: Soft and benign Musculoskeletal: No clubbing Integumentary: No rashes Neurological: Normal speech, Abnormal tone, Abnormal affect Lymphatics: No axilla or inguinal lymphadenopathy Urinary: Davis catheter External genitalia: Deferred Rectal: Deferred <Marcia Quezada Mason - Last Filed: 03/29/24 17:15> Assessment And Plan - Plan Malaise 2nd to anemia, recent hospitalization, failed outpatient Invanz, Leukocytosis - abx switched to Merrem Urinary tract infection with ESBL bacteria Insomnia Iron and Ferritin levels, T&S, Transfuse 1-2 units prbc T,C, DB q 2-4 hours, skin protective measures Pt was to continue Invanz 1gm IV daily x 3 more days, returned to hospital with WBC 14.5, abx changed to Merrem on admission, WBC to 12.9 03/28/24 Pt has Davis, Strict I&O Continue Seroquel 25mg po q HS 03/29/24 double dose at hs 03/29/24 2 units transfused yest for Hgb 7.2, today hgb is 10.3 Merrem continues and WBX down from 14.4 to 12.9 to 12.4, cultures from 03/27/24 with no growth (prelim) Davis in place, Intake overnight 1620, output 1850, deficit of 230ml Continue Seroquel, will double hs dose. Continue to assess. Geodon 10mg IM had to be given to calm her. Sleeping in no distress post administration Called Daughter to get consent for MRI of brain for continued, worsening confusion VTE prophylaxis Scd's continue Discharge Plan: Long Term Plan to discharge in: 24 Hours - Code Status/Comfort Care Code Status Assessed: Yes (full) Time Spent Managing PTS Care (In Minutes): 28 <PilarMarciamoni Cuevas - Last Filed: 03/29/24 17:15> - Current Problems (Diagnosis) (1) Altered mental status Current Visit: Yes Status: Acute (2) CHF (congestive heart failure) Current Visit: No Status: Acute (3) Chronic diastolic heart failure Current Visit: No Status: Acute (4) DM type 2 (diabetes mellitus, type 2) Current Visit: No Status: Acute (5) Diabetes type 2 with atherosclerosis of arteries of extremities Current Visit: No Status: Acute (6) Hypertension Current Visit: No Status: Acute (7) Severe sepsis Current Visit: No Status: Acute (8) CKD (chronic kidney disease) stage 3, GFR 30-59 ml/min Current Visit: No Status: Chronic Qualifiers: Chronic kidney disease stage 3 subtype: stage 3b (GFR 30-44) Qualified Code(s): N18.32 - Chronic kidney disease, stage 3b (9) COPD (chronic obstructive pulmonary disease) Current Visit: No Status: Chronic Qualifiers: COPD type: emphysema Emphysema type: unspecified Qualified Code(s): J43.9 - Emphysema, unspecified (10) Diabetes type 2, controlled Current Visit: No Status: Chronic Qualifiers: Diabetes mellitus senior living insulin use: without senior living use Diabetes mellitus complication status: with circulatory complication Diabetes mellitus complication detail: with other circulatory complications Qualified Code(s): E11.59 - Type 2 diabetes mellitus with other circulatory complications <Corinna Mcdonald - Last Filed: 03/30/24 05:21> Date of Service: 03/29/24 Chart has been reviewed. Events of the last 24 hours have been noted. Case discussed with KAYY. I performed a substantial part of the MDM during this patient's care today. I personally made or approved the documented management plan and acknowledge its risk of complications. I agree with the findings and documentation provided in the KAYY's notes <Corinna Mcdonald - Last Filed: 03/30/24 05:21>
[2024-03-29] MEDS: QUETIAPINE 25 MG TAB PO SCH (22:05)
[2024-03-30 05:10] LABS: Absolute Basophils 0.1 K/uL (0-0.5); Absolute Eosinophils 0.2 K/uL (0-0.5); Absolute Lymphocytes (CBC) 1.2 K/uL (0.7-4.9); Absolute Monocytes 0.8 K/uL (0.1-1.3); Absolute Neutrophil 9.1 K/uL (1.8-8.0); Basophils % 0.5 % (0-1.3); Eosinophils % 2.2 % (0-4.4); Hematocrit 34.3 % (36.0-45.0); Hemoglobin 11.2 g/dL (12.0-15.0); Lymphocytes % 10.5 % (15.3-44.8); MCH 27.1 pg (27.0-35.0); MCHC 32.7 g/dL (32.0-36.0); MCV 82.9 fL (80-100); Monocytes % 7.1 % (3.3-12.3); Neutrophils % 79.7 % (41.7-73.7); Nucleated Red Blood Cells % 0.1 % (0-0); Platelets 428 thou/uL (152-406); RBC Red Blood Cell Count 4.14 M/uL (3.86-4.86); Red Cell Distribution Width 18.4 % (12.1-15.2)
--- NOTE | 2024-03-30 05:11 | P.HP ---
Certification for Inpatient Patient admitted to: Inpatient With expected LOS: >2 Midnights Patient will require the following post-hospital care: Penitentiary Practitioner: I am a practitioner with admitting privileges, knowledge of patient current condition, hospital course, and medical plan of care. Services: Services provided to patient in accordance with Admission requirements found in Title 42 Section 412.3 of the Code of Federal Regulations Patient History Date of Service: 03/27/24 Reason for admission: Weakness and altered mental status History of Present Illness: Patient is a 78-year-old woman with a history of congestive heart failure, diabetes mellitus, anxiety disorder was transferred from admission to the emergency due to altered mental status. Patient was recently discharged to [facility] for IV antibiotic therapy for treatment of ESBL E. coli. Patient had been there just for about 24 hours prior to patient becoming weaker and confused. Patient was sent back into the emergency room for further evaluation. Patient with CT imaging with no acute findings.Patient was found to have anemia with hyperglycemia. Patient with chronic kidney disease. At this time, patient will be admitted to the hospital for further evaluation. Allergies No Known Allergies Allergy (Verified 05/05/22 08:45) Home Medications: Acetaminophen [Tylenol*] 650 mg PO Q6HP PRN 09/20/23 Aspirin Chewable [Aspirin Chewable*] 81 mg PO DAILY 09/20/23 Atorvastatin Calcium 40 mg PO BEDTIME 09/20/23 Buspirone HCl [Buspar*] 10 mg PO TID 09/20/23 Citalopram [Celexa*] 20 mg PO DAILY 09/20/23 Fluticasone/Vilanterol [Breo Ellipta 100-25 Mcg Inhalr] 1 puff IH DAILY 09/20/23 Furosemide [Lasix*] 40 mg PO DAILY 09/20/23 Hydrocodone 5/APAP 325 [[place] 5/325*] 1 tab PO Q6HP PRN 09/20/23 Insulin Glargine,Hum.rec.anlog [Lantus Solostar] 30 units SQ DAILY 09/20/23 Levothyroxine Sodium 75 mcg PO DAILY 09/20/23 Loratadine [Claritin*] 10 mg PO DAILY 09/20/23 Megestrol [Megace*] 20 mg PO QID 09/20/23 Omeprazole 20 mg PO DAILY 09/20/23 Potassium Chloride [Klor-Con 10] 10 meq PO DAILY 09/20/23 Ticagrelor [Brilinta*] 90 mg PO BID 09/20/23 Umeclidinium [place] [Incruse Ellipta] 1 puff IH DAILY 09/20/23 carvediloL [Coreg*] 12.5 mg PO BID 09/20/23 Insulin Lispro 3 unit SQ AC 10/08/23 LORazepam [Ativan*] 1 mg PO BID PRN 10/08/23 Multivitamin [One-A-Day Essential] 1 each PO DAILY 10/08/23 Albuterol Neb [Proventil 0.083% Neb Soln] 2.5 mg NEB [id number] #60 amp 03/25/24 Calcium Carbonate [Tums Regular*] 500 mg PO AC #90 tab 03/25/24 - Past Medical/Surgical History Diabetic: Yes -: History of COPD -: Diabetes type 1 -: Hypertension -: Hypothyroid -: CHF -: Prolapsed bladder -: chronic bronchitis -: [id number] -: Bladder suspension 2004, pessary 2019 -: Appendectomy 1961 -: Tonsillectomy 1949 -: Pacemaker 2020 -: Hernia 2019 -: Stent 2020 Psychosocial/ Personal History: Former smoker - Family History Mother Medical History: Heart disease, Hypertension, Diabetes - Social History Smoking Status: Former smoker Alcohol use: No CD- Drugs: No Caffeine use: No Review of Systems is unable to be obtained Physical Examination - Vital Signs Temperature: 97.9 F Blood Pressure: 167/93 Pulse: 67 Respirations: 18 Pulse Ox (%): 92 - Physical Exam General: Alert, In no apparent distress, Demented HEENT: Atraumatic, PERRLA, Mucous membr. moist/pink, EOMI, Sclerae nonicteric Neck: Supple, 2+ carotid pulse no bruit, No LAD, Without JVD or thyroid abnormality Respiratory: Clear to auscultation bilaterally, Normal air movement Cardiovascular: Regular rate/rhythm, Normal S1 S2, No murmurs Gastrointestinal: Normal bowel sounds, Soft and benign, Non-distended, No tenderness Musculoskeletal: No clubbing, No swelling, No tenderness Integumentary: No rashes Neurological: Sensation intact, Cranial nerves 3-12 intact, Normal affect, Abnormal gait, Abnormal speech, Abnormal strength Lymphatics: No axilla or inguinal lymphadenopathy Assessment & Plan - Problems (Diagnosis) (1) Altered mental status Current Visit: Yes Status: Acute (2) CHF (congestive heart failure) Current Visit: No Status: Acute (3) Chronic diastolic heart failure Current Visit: No Status: Acute (4) DM type 2 (diabetes mellitus, type 2) Current Visit: No Status: Acute (5) Diabetes type 2 with atherosclerosis of arteries of extremities Current Visit: No Status: Acute (6) Hypertension Current Visit: No Status: Acute (7) Severe sepsis Current Visit: No Status: Acute (8) CKD (chronic kidney disease) stage 3, GFR 30-59 ml/min Current Visit: No Status: Chronic Qualifiers: Chronic kidney disease stage 3 subtype: stage 3b (GFR 30-44) Qualified Code(s): N18.32 - Chronic kidney disease, stage 3b (9) COPD (chronic obstructive pulmonary disease) Current Visit: No Status: Chronic Qualifiers: COPD type: emphysema Emphysema type: unspecified Qualified Code(s): J43.9 - Emphysema, unspecified (10) Diabetes type 2, controlled Current Visit: No Status: Chronic Qualifiers: 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 Continue with IV fluids and IV antibiotics 2. Repeat CT imaging if mentation is not improving 3. Monitor electrolytes 4. Physical therapy evaluation 5. Repeat urine cultures 6. Strict blood pressure control 7. GI and DVT prophylaxis Discharge Plan: Long-Term Plan to discharge in: Greater than 2 days - Advance Directives Does patient have a Living Will: No Does patient have a Durable POA for Healthcare: No - Code Status/Comfort Care Code Status Assessed: Yes Code Status: Full Code Critical Care: No Time Spent Managing PTS Care (In Minutes): 45
[2024-03-30 05:22] LABS: Anion Gap 10.5 mEq/L (5.0-15.0); Potassium 4.5 mEq/L (3.5-5.1)
--- NOTE | 2024-03-30 06:57 | P.PN ---
Date of Service: 03/30/24 subjective Alert and oriented x 2, afebrile with O2 at 4 L 92% Review of Systems is unable to be obtained Physical Examination - Vital Signs reviewed - Physical Exam General: Alert, In no apparent distress, Demented HEENT: Atraumatic, PERRLA, Mucous membr. moist/pink, EOMI, Sclerae nonicteric Neck: Supple, 2+ carotid pulse no bruit, No LAD, Without JVD or thyroid abnormality Respiratory: Clear to auscultation bilaterally, Normal air movement Cardiovascular: Regular rate/rhythm, Normal S1 S2, No murmurs Gastrointestinal: Normal bowel sounds, Soft and benign, Non-distended, No tenderness Musculoskeletal: No clubbing, No swelling, No tenderness Integumentary: No rashes Neurological: Sensation intact, Cranial nerves 3-12 intact, Normal affect, Abnormal gait, Abnormal speech, Abnormal strength Lymphatics: No axilla or inguinal lymphadenopathy Assessment & Plan - Problems (Diagnosis) (1) metabolic encephalopathy secondary to severe sepsis Current Visit: Yes Status: Acute (2) CHF (congestive heart failure) Current Visit: No Status: Acute (3) Chronic diastolic heart failure Current Visit: No Status: Acute (4) DM type 2 (diabetes mellitus, type 2) Current Visit: No Status: Acute (5) Diabetes type 2 with atherosclerosis of arteries of extremities Current Visit: No Status: Acute (6) Hypertension Current Visit: No Status: Acute (7) Severe sepsis Current Visit: No Status: Acute (8) CKD (chronic kidney disease) stage 3, GFR 30-59 ml/min Current Visit: No Status: Chronic Qualifiers: Chronic kidney disease stage 3 subtype: stage 3b (GFR 30-44) Qualified Code(s): N18.32 - Chronic kidney disease, stage 3b (9) COPD (chronic obstructive pulmonary disease) Current Visit: No Status: Chronic Qualifiers: COPD type: emphysema Emphysema type: unspecified Qualified Code(s): J43.9 - Emphysema, unspecified (10) Diabetes type 2, controlled Current Visit: No Status: Chronic Qualifiers: Diabetes mellitus shelter insulin use: without terminologist use Diabetes mellitus complication status: with circulatory complication Diabetes mellitus complication detail: with other circulatory complications Qualified Code(s): E11.59 - Type 2 diabetes mellitus with other circulatory complications - Plan Plan: 1. Continue with IV fluids and IV antibiotics currently on meropenem 2. Repeat CT imaging if mentation is not improving-No evidence of acute trauma tic abnormalities in the chest, abdomen, or pelvis.Bilateral layering pleural effusions as well as central interstitial prominence, suggesting pulmonary edema 3. Monitor electrolytes 4. Physical therapy evaluation 5. Repeat urine cultures 6. Strict blood pressure control 7. GI and DVT prophylaxis 8. Blood cultures no growth at 24 hours 9. Urine culture no growth 10. Will check BMP to monitor for pulmonary edema Discharge Plan: Penitentiary Plan to discharge in: Greater than 2 days - Advance Directives Does patient have a Living Will: No Does patient have a Durable POA for Healthcare: No - Code Status/Comfort Care Code Status Assessed: Yes Code Status: Full Code Critical Care: No <Evelyne Arriaga - Last Filed: 03/30/24 15:46> Plan of care discussed with Reji Corina. Patient is confused. Nurse reports hard stool in the rectum. Urine culture and blood cultures have yielded no growth Continue IV antibiotics. Laxatives and stool softeners. Continue Seroquel for dementia with behavioral disturbance. <jose antonio martinez - Last Filed: 03/30/24 18:20>
[2024-03-30] MEDS: NA CHLORIDE 0.9% 1,000 ML IV SCH (08:23)
--- NOTE | 2024-03-30 09:15 | RAD REPORT ---
EXAM: CT brain without contrast H[facility] COMPARISON: 03/27/2024 TECHNIQUE: Multiple contiguous axial images were obtained and a CT of the brain without contrast. Sag ittal and coronal reformats were performed. One or more of the following dose reduction techniques were used: Automated exposure control, adjust ment of the mA and/or kV according to patient size, and/or iterative reconstruction. FINDINGS: No evidence of hydrocephalus, intracranial hemorrhage, or extra-axial fluid collection. Moderate brain atrophy with moderate periventricular and deep white matter chronic microvascular isc hemic changes present. No evidence of midline shift or areas of brain edema. The calvarium is intact. Mild polypoid mucosal thickening noted in the paranasal sinuses. IMPRESSION: No evidence of acute intracranial abnormality.
[2024-03-30] MEDS: BISACODYL 10 MG RECTAL SUPP PR ONE ×2 (18:08→19:00)
--- NOTE | 2024-03-31 08:12 | P.PN ---
Subjective Date of Service: 03/31/24 Chief Complaint: Weakness and altered mental status Subjective: Worsening (Ms. Seaman is very somnolent and inactive today. Lips crusted. Requested and given water. RN states she was very sedate overnight as well) <Marcia Quezada - Last Filed: 03/31/24 08:07> Date of Service: 03/31/24 <[email or web address] antonio - Last Filed: 03/31/24 16:52> Review of Systems 10-point ROS is otherwise unremarkable General: Weakness, Malaise Eyes: Unremarkable ENT: Unremarkable Respiratory: Unremarkable Cardiovascular: Unremarkable Gastrointestinal: Unremarkable Genitourinary: Unremarkable Musculoskeletal: Unremarkable Integumentary: Unremarkable Neurological: Weakness Lymphatics: Unremarkable <Marcia Quezada - Last Filed: 03/31/24 08:07> Physical Examination - Vital Signs Temperature: 97.4 F Blood Pressure: 115/68 Pulse: 80 Respirations: 20 Pulse Ox (%): 96 - Physical Exam General: Cachectic, Disheveled, Other (sedate today) HEENT: Atraumatic, Normocephalic Neck: Supple Respiratory: Normal air movement Cardiovascular: Regular rate/rhythm, Normal S1 S2 Capillary refill: <2 Seconds Gastrointestinal: Normal bowel sounds Musculoskeletal: No clubbing Integumentary: Other (scab to right ankle) Neurological: Normal speech, Abnormal tone, Abnormal affect Lymphatics: No axilla or inguinal lymphadenopathy Urinary: Davis catheter External genitalia: Deferred Rectal: Deferred - Studies Microbiology Data (last 24 hrs): 03/27/24 08:48 Catheterized Urine [place] Count - Final No growth. 03/27/24 08:48 Catheterized Urine - Final No growth. <Marcia Quezada - Last Filed: 03/31/24 08:07> Assessment And Plan - Plan Malaise 2nd to anemia, recent hospitalization, failed outpatient Invanz, Leukocytosis - abx switched to Merrem Urinary tract infection with ESBL bacteria Insomnia Iron and Ferritin levels, T&S, Transfuse 1-2 units prbc T,C, DB q 2-4 hours, skin protective measures Pt was to continue Invanz 1gm IV daily x 3 more days, returned to hospital with WBC 14.5, abx changed to Merrem on admission, WBC to 12.9 03/28/24 Pt has Davis, Strict I&O Continue Seroquel 25mg po q HS 03/29/24 double dose at hs 03/29/24 2 units transfused yest for Hgb 7.2, today hgb is 10.3 Merrem continues and WBX down from 14.4 to 12.9 to 12.4, cultures from 03/27/24 with no growth (prelim) Davis in place, Intake overnight 1620, output 1850, deficit of 230ml Continue Seroquel, will double hs dose. Continue to assess. Geodon 10mg IM had to be given to calm her. Sleeping in no distress post administration Called Daughter to get consent for MRI of brain for continued, worsening confusion 03/31/24 sedate today, and overnight per RN requesting water, given and tolerated/swallowed well no edema, no crackles, lips dry. Started Lasix yesterday (40mg po daily) WBC coming down (11.4) urine and blood cultures without growth I&O equal overnight Added some vit studies, LDH, Lactate, Ammonia VTE prophylaxis Scd's continue Time Spent Managing PTS Care (In Minutes): 28 <Marcia Quezada - Last Filed: 03/31/24 08:07> - Plan Patient seen and examined. Plan of care discussed with Ms. Quezada. Patient remained confused but less agitated compared to yesterday. Leukocytosis trended down. Continue current antibiotics. Periodic reorientation for dementia with behavioral disturbance. Antipsychotics as needed for agitation Laxatives for constipation. <jose antonio martinez - Last Filed: 03/31/24 16:52>
[2024-03-31 08:37] LABS: Absolute Basophils 0.1 K/uL (0-0.5); Absolute Eosinophils 0.2 K/uL (0-0.5); Absolute Lymphocytes (CBC) 1.2 K/uL (0.7-4.9); Absolute Monocytes 0.7 K/uL (0.1-1.3); Absolute Neutrophil 6.3 K/uL (1.8-8.0); Eosinophils % 2.8 % (0-4.4); Hematocrit 35.2 % (36.0-45.0); Hemoglobin 11.3 g/dL (12.0-15.0); Lymphocytes % 14.1 % (15.3-44.8); MCH 27.1 pg (27.0-35.0); MCHC 32.2 g/dL (32.0-36.0); MCV 84.1 fL (80-100); MPV 8.1 fL (7.6-11.3); Monocytes % 7.9 % (3.3-12.3); Neutrophils % 74.2 % (41.7-73.7); Platelets 389 thou/uL (152-406); RBC Red Blood Cell Count 4.19 M/uL (3.86-4.86)
[2024-03-31 10:32] LABS: Anion Gap 12.6 mEq/L (5.0-15.0); Potassium 4.6 mEq/L (3.5-5.1)
[2024-03-31] MEDS: FUROSEMIDE 40 MG TABLET PO SCH (16:30)
[2024-03-31] MEDS: MINERAL OIL 30 ML UCUP PO ONE (17:36)
[2024-04-01 06:16] LABS: Absolute Basophils 0.1 K/uL (0-0.5); Absolute Eosinophils 0.2 K/uL (0-0.5); Absolute Monocytes 0.5 K/uL (0.1-1.3); Absolute Neutrophil 7.7 K/uL (1.8-8.0); Basophils % 0.8 % (0-1.3); Eosinophils % 1.8 % (0-4.4); Hematocrit 35.5 % (36.0-45.0); Hemoglobin 11.1 g/dL (12.0-15.0); Lymphocytes % 10.5 % (15.3-44.8); MCH 26.9 pg (27.0-35.0); MCHC 31.2 g/dL (32.0-36.0); MCV 86.1 fL (80-100); MPV 8.9 fL (7.6-11.3); Monocytes % 5.5 % (3.3-12.3); Neutrophils % 81.4 % (41.7-73.7); Platelets 371 thou/uL (152-406); RBC Red Blood Cell Count 4.12 M/uL (3.86-4.86); Red Cell Distribution Width 19.3 % (12.1-15.2)
[2024-04-01 06:37] LABS: Albumin 2.5 g/dL (3.4-5.0); Albumin/Globulin Ratio 0.5 (1.1-1.8); Anion Gap 17.5 mEq/L (5.0-15.0); Bilirubin Total 0.8 mg/dL (0.2-1.0); Globulin 5.3 g/dL (2.3-3.5); Magnesium 1.8 mg/dL (1.6-2.4); Potassium 4.5 mEq/L (3.5-5.1); Protein, Total 7.8 g/dL (6.4-8.2)
[2024-04-01] MEDS: INSULIN REGULAR (HUMAN) 100 UNIT/ML SQ ONE ×2 (07:05→07:38)
[2024-04-01] MEDS: INSULIN GLARGINE 100 UNIT/ML SQ SCH (08:15)
--- NOTE | 2024-04-01 08:31 | P.PN ---
Subjective Date of Service: 04/01/24 Chief Complaint: Weakness and altered mental status Subjective: Improving (alert and oriented this am. States she is less anxious. FSBS trended quite high. Regular insulin given and long acting regimen restarted.) Review of Systems 10-point ROS is otherwise unremarkable General: Weakness, Malaise Eyes: Unremarkable ENT: Unremarkable Respiratory: Unremarkable Cardiovascular: Unremarkable Gastrointestinal: Unremarkable Genitourinary: Unremarkable Musculoskeletal: Unremarkable Integumentary: Unremarkable Neurological: Unremarkable Lymphatics: Unremarkable Physical Examination - Vital Signs Temperature: 97.4 F Blood Pressure: 176/63 Pulse: 69 Respirations: 16 Pulse Ox (%): 95 - Physical Exam General: Alert, Oriented x3, Cooperative HEENT: Atraumatic, Normocephalic Neck: Supple Respiratory: Normal air movement Cardiovascular: Regular rate/rhythm, Normal S1 S2 Capillary refill: <2 Seconds Gastrointestinal: Normal bowel sounds Musculoskeletal: No clubbing, No swelling Integumentary: No rashes Neurological: Normal speech, Normal affect, Abnormal tone Lymphatics: No axilla or inguinal lymphadenopathy External genitalia: Deferred Rectal: Deferred Assessment And Plan - Plan Malaise 2nd to anemia, recent hospitalization, failed outpatient Invanz, Leukocytosis - abx switched to Merrem Urinary tract infection with ESBL bacteria Insomnia Iron and Ferritin levels, T&S, Transfuse 1-2 units prbc T,C, DB q 2-4 hours, skin protective measures Pt was to continue Invanz 1gm IV daily x 3 more days, returned to hospital with WBC 14.5, abx changed to Merrem on admission, WBC to 12.9 03/28/24 Pt has Davis, Strict I&O Continue Seroquel 25mg po q HS 03/29/24 double dose at hs 03/29/24 2 units transfused yest for Hgb 7.2, today hgb is 10.3 Merrem continues and WBX down from 14.4 to 12.9 to 12.4, cultures from 03/27/24 with no growth (prelim) Davis in place, Intake overnight 1620, output 1850, deficit of 230ml Continue Seroquel, will double hs dose. Continue to assess. Geodon 10mg IM had to be given to calm her. Sleeping in no distress post administration Called Daughter to get consent for MRI of brain for continued, worsening confusion 03/31/24 sedate today, and overnight per RN requesting water, given and tolerated/swallowed well no edema, no crackles, lips dry. Started Lasix yesterday (40mg po daily) WBC coming down (8.5) urine and blood cultures without growth I&O equal overnight Added some vit studies, LDH, Lactate, Ammonia 04/01/24 FSBS quite high today SSI long acting insulin reordered will work with PT today final cultures without growth plan for return to SNF tomorrow VTE prophylaxis Scd's continue Discharge Plan: Residential Plan to discharge in: 24 Hours
[2024-04-01] MEDS: GLUCERNA SHAKE 237 ML CAN PO SCH (20:19)
[2024-04-02 06:33] LABS: Absolute Basophils 0.1 K/uL (0-0.5); Absolute Eosinophils 0.3 K/uL (0-0.5); Absolute Lymphocytes (CBC) 1.5 K/uL (0.7-4.9); Absolute Neutrophil 9.9 K/uL (1.8-8.0); Basophils % 0.9 % (0-1.3); Eosinophils % 2.5 % (0-4.4); Hemoglobin 11.2 g/dL (12.0-15.0); Lymphocytes % 11.5 % (15.3-44.8); MCH 26.8 pg (27.0-35.0); MCHC 32.1 g/dL (32.0-36.0); MCV 83.7 fL (80-100); MPV 8.5 fL (7.6-11.3); Monocytes % 7.6 % (3.3-12.3); Neutrophils % 77.5 % (41.7-73.7); Nucleated Red Blood Cells % 0.1 % (0-0); Platelets 367 thou/uL (152-406); RBC Red Blood Cell Count 4.18 M/uL (3.86-4.86); Red Cell Distribution Width 18.7 % (12.1-15.2)
[2024-04-02 06:45] LABS: Albumin 2.6 g/dL (3.4-5.0); Albumin/Globulin Ratio 0.5 (1.1-1.8); Anion Gap 7.2 mEq/L (5.0-15.0); Bilirubin Total 0.6 mg/dL (0.2-1.0); Globulin 5.4 g/dL (2.3-3.5); Potassium 4.2 mEq/L (3.5-5.1)
--- NOTE | 2024-04-02 09:00 | P.PN ---
Subjective Date of Service: 04/02/24 Chief Complaint: Weakness and altered mental status Subjective: Improving (Patient awake and alert this morning) Review of Systems 10-point ROS is otherwise unremarkable General: Weakness, Malaise Eyes: Unremarkable ENT: Unremarkable Respiratory: Unremarkable Cardiovascular: Unremarkable Gastrointestinal: Unremarkable Genitourinary: Unremarkable Musculoskeletal: Unremarkable Integumentary: Unremarkable Neurological: Unremarkable Lymphatics: Unremarkable Physical Examination - Vital Signs Temperature: 97.2 F Blood Pressure: 134/66 Pulse: 71 Respirations: 16 Pulse Ox (%): 94 - Physical Exam General: Alert, Cooperative, Cachectic HEENT: Atraumatic, Normocephalic Neck: Supple Respiratory: Normal air movement Cardiovascular: No edema, Normal pulses, Regular rate/rhythm Capillary refill: <2 Seconds Gastrointestinal: Soft and benign Musculoskeletal: No clubbing Integumentary: No rashes, Other (Sore to ankle) Neurological: Normal speech, Normal affect, Abnormal strength, Abnormal tone Lymphatics: No axilla or inguinal lymphadenopathy Urinary: Davis catheter (Will send repeat urine status post completion of 2 weeks of Merrem) External genitalia: Deferred Rectal: Normal - Studies Microbiology Data (last 24 hrs): 03/27/24 08:45 Blood - Blood Aerobic Blood Culture - Final No growth in 5 days. 03/27/24 08:45 Blood - Blood Anaerobic Blood Culture - Final No growth in 5 days. 03/27/24 08:30 Blood - Blood Aerobic Blood Culture - Final No growth in 5 days. 03/27/24 08:30 Blood - Blood Anaerobic Blood Culture - Final No growth in 5 days. Assessment And Plan - Plan Malaise 2nd to anemia, recent hospitalization, failed outpatient Invanz, Leukocytosis - abx switched to Merrem Urinary tract infection with ESBL bacteria Insomnia Iron and Ferritin levels, T&S, Transfuse 1-2 units prbc T,C, DB q 2-4 hours, skin protective measures Pt was to continue Invanz 1gm IV daily x 3 more days, returned to hospital with WBC 14.5, abx changed to Merrem on admission, WBC to 12.9 03/28/24 Pt has Davis, Strict I&O Continue Seroquel 25mg po q HS 03/29/24 double dose at hs 03/29/24 2 units transfused yest for Hgb 7.2, today hgb is 10.3 Merrem continues and WBX down from 14.4 to 12.9 to 12.4, cultures from 03/27/24 with no growth (prelim) Davis in place, Intake overnight 1620, output 1850, deficit of 230ml Continue Seroquel, will double hs dose. Continue to assess. Geodon 10mg IM had to be given to calm her. Sleeping in no distress post administration Called Daughter to get consent for MRI of brain for continued, worsening confusion 03/31/24 sedate today, and overnight per RN requesting water, given and tolerated/swallowed well no edema, no crackles, lips dry. Started Lasix yesterday (40mg po daily) WBC coming down (8.5) urine and blood cultures without growth I&O equal overnight Added some vit studies, LDH, Lactate, Ammonia 04/01/24 FSBS quite high today SSI long acting insulin reordered will work with PT today final cultures without growth plan for return to SNF tomorrow 04/02/2024 Merrem stopped yesterday as course completion without interruption obtain Chest x-ray, O2 removed SpO2 99% White count up this morning, post repeat urine and chest x-ray, start Rocephin 1 gm daily until return of culture Repeat urine micro and culture Remove Davis, continue strict I and O Get patient out of bed Continue PT eval SNF pending patient condition VTE prophylaxis Scd's continue Discharge Plan: Jail - Code Status/Comfort Care Code Status Assessed: Yes (Full)
--- NOTE | 2024-04-02 10:31 | RAD REPORT ---
EXAMINATION: ONE VIEW CHEST XR CLINICAL INDICATION: re-eval TECHNIQUE: Frontal chest projection is submitted. Examination is limited by patient positioning and t echnique. COMPARISON: 03/25/2024 FINDINGS: Emphysematous changes are present. Small areas of nodularity in the right upper lobe again noted. No focal infiltrate. The heart is upper limit of normal in size. No displaced fractures identified. Dual lead pacer device. Venous catheter has its tip in the left axillary region. IMPRESSION: No significant change since comparison study. Nodular foci are present in the right upper lobe. These appear unchanged since compared to study.
[2024-04-03 04:54] LABS: Absolute Eosinophils 0.5 K/uL (0-0.5); Absolute Lymphocytes (CBC) 1.8 K/uL (0.7-4.9); Absolute Monocytes 0.7 K/uL (0.1-1.3); Absolute Neutrophil 5.4 K/uL (1.8-8.0); Basophils % 0.5 % (0-1.3); Eosinophils % 5.9 % (0-4.4); Hematocrit 35.8 % (36.0-45.0); Hemoglobin 11.9 g/dL (12.0-15.0); Lymphocytes % 21.2 % (15.3-44.8); MCH 27.6 pg (27.0-35.0); MCHC 33.1 g/dL (32.0-36.0); MCV 83.1 fL (80-100); MPV 8.2 fL (7.6-11.3); Monocytes % 8.6 % (3.3-12.3); Neutrophils % 63.8 % (41.7-73.7); Platelets 379 thou/uL (152-406); RBC Red Blood Cell Count 4.31 M/uL (3.86-4.86); Red Cell Distribution Width 18.5 % (12.1-15.2)
[2024-04-03 05:13] LABS: Albumin 2.6 g/dL (3.4-5.0); Albumin/Globulin Ratio 0.5 (1.1-1.8); Bilirubin Total 0.5 mg/dL (0.2-1.0); Magnesium 2.1 mg/dL (1.6-2.4); Protein, Total 7.6 g/dL (6.4-8.2)
--- NOTE | 2024-04-03 10:24 | P.PN ---
Subjective Date of Service: 04/03/24 Chief Complaint: Weakness and altered mental status Subjective: No new changes (quiet, needs assistance with feeding pureed diet) Review of Systems 10-point ROS is otherwise unremarkable General: Weakness Eyes: Unremarkable ENT: Unremarkable Respiratory: Unremarkable Cardiovascular: Unremarkable Gastrointestinal: Unremarkable Genitourinary: Unremarkable Musculoskeletal: Unremarkable Integumentary: Unremarkable Neurological: Unremarkable Lymphatics: Unremarkable Physical Examination - Vital Signs Temperature: 97.7 F Blood Pressure: 115/47 Pulse: 73 Respirations: 14 Pulse Ox (%): 95 - Physical Exam General: Alert, Oriented x3, Cooperative, Cachectic, Other (weak) HEENT: Atraumatic, Normocephalic Neck: Supple Respiratory: Normal air movement Cardiovascular: Regular rate/rhythm Capillary refill: <2 Seconds Gastrointestinal: Normal bowel sounds Musculoskeletal: No clubbing Integumentary: Other (pallor) Neurological: Normal speech, Normal affect, Abnormal strength, Abnormal tone Lymphatics: No axilla or inguinal lymphadenopathy External genitalia: Deferred Rectal: Deferred Assessment And Plan - Plan Malaise 2nd to anemia, recent hospitalization, failed outpatient Invanz, Leukocytosis - abx switched to Merrem Urinary tract infection with ESBL bacteria Insomnia Iron and Ferritin levels, T&S, Transfuse 1-2 units prbc T,C, DB q 2-4 hours, skin protective measures Pt was to continue Invanz 1gm IV daily x 3 more days, returned to hospital with WBC 14.5, abx changed to Merrem on admission, WBC to 12.9 03/28/24 Pt has Butler, Strict I&O Continue Seroquel 25mg po q HS 03/29/24 double dose at hs 03/29/24 2 units transfused yest for Hgb 7.2, today hgb is 10.3 Merrem continues and WBX down from 14.4 to 12.9 to 12.4, cultures from 03/27/24 with no growth (prelim) Butler in place, Intake overnight 1620, output 1850, deficit of 230ml Continue Seroquel, will double hs dose. Continue to assess. Geodon 10mg IM had to be given to calm her. Sleeping in no distress post administration Called Daughter to get consent for MRI of brain for continued, worsening confusion 03/31/24 sedate today, and overnight per RN requesting water, given and tolerated/swallowed well no edema, no crackles, lips dry. Started Lasix yesterday (40mg po daily) WBC coming down (8.5) urine and blood cultures without growth I&O equal overnight Added some vit studies, LDH, Lactate, Ammonia 04/01/24 FSBS quite high today SSI long acting insulin reordered calm, less confused will work with PT today - max assist, taken in W/C around unit per RN final cultures without growth plan for return to SNF tomorrow 04/02/2024 Merrem stopped yesterday as course completion without interruption obtain Chest x-ray, O2 removed SpO2 99% White count up this morning, post repeat urine and chest x-ray Repeat urine micro and culture Remove Butler, continue strict I and O Get patient out of bed, max assist Continue PT eval SNF pending patient condition 04/03/24 had to have feeder with pureed diet severe weakness butler removed 04/02/24, + uop will return to [facility] depending on PT re-evaluation and pt condition VTE prophylaxis Scd's continue Discharge Plan: [facility] - Code Status/Comfort Care Code Status Assessed: Yes (Full) Time Spent Managing PTS Care (In Minutes): 28
[2024-04-03 22:48] LABS: 1,25 Dihydroxy Vitamin D3 14 pg/mL; Vitamin D 1,25-Dihydroxy Total 14 pg/mL (18-72); Vitamin D,1,25-OH2, D2 <8 pg/mL
[2024-04-04 04:30] LABS: Absolute Basophils 0.1 K/uL (0-0.5); Absolute Eosinophils 0.5 K/uL (0-0.5); Absolute Lymphocytes (CBC) 1.8 K/uL (0.7-4.9); Absolute Monocytes 0.7 K/uL (0.1-1.3); Absolute Neutrophil 5.1 K/uL (1.8-8.0); Basophils % 1.3 % (0-1.3); Eosinophils % 5.9 % (0-4.4); Hemoglobin 11.5 g/dL (12.0-15.0); Lymphocytes % 22.4 % (15.3-44.8); MCH 26.8 pg (27.0-35.0); MCHC 31.8 g/dL (32.0-36.0); MCV 84.4 fL (80-100); Monocytes % 8.6 % (3.3-12.3); Neutrophils % 61.8 % (41.7-73.7); Platelets 336 thou/uL (152-406); RBC Red Blood Cell Count 4.27 M/uL (3.86-4.86); Red Cell Distribution Width 18.6 % (12.1-15.2)
[2024-04-04 04:47] LABS: Albumin 2.4 g/dL (3.4-5.0); Albumin/Globulin Ratio 0.5 (1.1-1.8); Anion Gap 6.8 mEq/L (5.0-15.0); Bilirubin Total 0.6 mg/dL (0.2-1.0); Globulin 5.1 g/dL (2.3-3.5); Potassium 3.8 mEq/L (3.5-5.1); Protein, Total 7.5 g/dL (6.4-8.2)
[2024-04-04] MEDS: FUROSEMIDE 20 MG TABLET PO SCH (09:18)
--- NOTE | 2024-04-04 10:08 | P.DS ---
Admission Date: 03/27/24 Discharge Date: 04/05/24 Disposition: TRANSFER TO RETIREMENT Discharge Condition: FAIR Reason for Admission: Weakness and altered mental status Brief History of Present Illness: Patient is a 78-year-old woman with a history of congestive heart failure, diabetes mellitus, anxiety disorder was transferred from admission to the emergency due to altered mental status. Patient was recently discharged to [facility] for IV antibiotic therapy for treatment of ESBL E. coli. Patient had been there just for about 24 hours prior to patient becoming weaker and confused. Patient was sent back into the emergency room for further evaluation. Patient with CT imaging with no acute findings.Patient was found to have anemia with hyperglycemia. Patient with chronic kidney disease. At this time, patient will be admitted to the hospital for further evaluation. - Physical Exam General: Alert, In no apparent distress, Demented HEENT: Atraumatic, PERRLA, Mucous membr. moist/pink, EOMI, Sclerae nonicteric Neck: Supple, 2+ carotid pulse no bruit, No LAD, Without JVD or thyroid abnormality Respiratory: Clear to auscultation bilaterally, Normal air movement Cardiovascular: Regular rate/rhythm, Normal S1 S2, No murmurs Gastrointestinal: Normal bowel sounds, Soft and benign, Non-distended, No tenderness Musculoskeletal: No clubbing, No swelling, No tenderness Integumentary: No rashes Neurological: Sensation intact, Cranial nerves 3-12 intact, Normal affect, Abnormal gait, Lymphatics: No axilla or inguinal lymphadenopathy Hospital Course: 78-year-old woman with a history of COPD, heart failure, diabetes mellitus, anxiety disorder presented to the emergency room with altered mental status. previously admission treated for sepsis, pneumonia, ESBL of urine, metabolic encephalopath. Failed outpatient antibiotics. ER evaluation was noted noted to have acute on chronic heart failure anemia, Elevated BNP, was treated with diuretics with hyperglycemia, in addition was noted CKD. monitor kidney function. Blood cultures have been negative, anemia 7. 2 units of packed red blood cells. Repeat hemoglobin is stable 10.3, CT head no acute abnormality, chest x-ray Emphysematous changes are present. Small areas of nodularity in the right upper lobe again noted. No focal infiltrate. The heart is upper limit of normal in size. No displaced fractures identified. Dual lead pacer device. Venous catheter has its tip in the left axillary region, Assessment -Altered mental status, likely secondary from metabolic encephalopathy due to acute cystitis, sepsis, pneumonia,-supportive care, fall precaution Acute chronic heart failure resume home meds, daily weight, I&O-discharge on low-dose diuretic unsteady gait, urinary incont, requires assistance w care ESBL /acute cystitis without hematuria, on IV antibiotics repeat cultures negative repeat urine culture 03/27 no growth Hospital-acquired pneumonia/ right lower lobe pneumonia: improved-O2 2 L per nasal cannula CKD, acute kidney injury trend kidney function, COPD, O2 2 L, resume nebs, 03/27 Blood cultures no growth x 5 days GOAL: Clear understanding of disease process INSTRUCTIONS: Physician Discharge Instructions: -Discharge chills: Symptoms IV antibiotics per infectious disease -Follow-up with PCP in 1 to 2 weeks -Please call Dr. Mcdonald at [phone] if any questions regarding hospital stay -Please call nursing station at [phone] if any nursing or medication questions -Return to the emergency room if symptoms worsen Diet: ADA, low sodium Activity: Fall precautions Vital Signs/Physical Exam: Temp Pulse Resp BP Pulse Ox 97.7 F 73 14 142/55 H 96 04/04/24 08:00 04/04/24 08:00 04/04/24 08:00 04/04/24 08:00 04/04/24 08:00 Laboratory Data at Discharge: WBC 8.20 thou/uL (4.3-10.9) 04/04/24 04:05 Hgb 11.5 g/dL (12.0-15.0) L 04/04/24 04:05 Hct 36.0 % (36.0-45.0) 04/04/24 04:05 Plt Count 336 thou/uL (152-406) 04/04/24 04:05 PT 12.6 SECONDS (9.4-12.5) H 03/27/24 08:45 INR 1.13 03/27/24 08:45 APTT 31.3 SECONDS (24.3-36.9) 03/27/24 08:45 Sodium 139 mEq/L (136-145) 04/04/24 04:05 Potassium 3.8 mEq/L (3.5-5.1) 04/04/24 04:05 BUN 42 mg/dL (7-18) H 04/04/24 04:05 Creatinine 1.77 mg/dL (0.55-1.02) H 04/04/24 04:05 Glucose 52 mg/dL (74-106) L* 04/04/24 04:05 Magnesium 2.1 mg/dL (1.6-2.4) 04/03/24 04:25 Total Bilirubin 0.6 mg/dL (0.2-1.0) 04/04/24 04:05 AST 60 U/L (15-37) H 04/04/24 04:05 ALT 39 U/L (13-56) 04/04/24 04:05 Alkaline Phosphatase 126 U/L (45-117) H 04/04/24 04:05 Home Medications: Acetaminophen [Tylenol*] 650 mg PO Q6HP PRN 09/20/23 Aspirin Chewable [Aspirin Chewable*] 81 mg PO DAILY 09/20/23 Atorvastatin Calcium 40 mg PO BEDTIME 09/20/23 Buspirone HCl [Buspar*] 10 mg PO TID 09/20/23 Citalopram [Celexa*] 20 mg PO DAILY 09/20/23 Fluticasone/Vilanterol [Breo Ellipta 100-25 Mcg Inhalr] 1 puff IH DAILY 09/20/23 Furosemide [Lasix*] 40 mg PO DAILY 09/20/23 Hydrocodone 5/APAP 325 [[place] 5/325*] 1 tab PO Q6HP PRN 09/20/23 Insulin Glargine,Hum.rec.anlog [Lantus Solostar] 30 units SQ DAILY 09/20/23 Levothyroxine Sodium 75 mcg PO DAILY 09/20/23 Loratadine [Claritin*] 10 mg PO DAILY 09/20/23 Megestrol [Megace*] 20 mg PO QID 09/20/23 Omeprazole 20 mg PO DAILY 09/20/23 Potassium Chloride [Klor-Con 10] 10 meq PO DAILY 09/20/23 Ticagrelor [Brilinta*] 90 mg PO BID 09/20/23 Umeclidinium [place] [Incruse Ellipta] 1 puff IH DAILY 09/20/23 carvediloL [Coreg*] 12.5 mg PO BID 09/20/23 Insulin Lispro 3 unit SQ AC 10/08/23 LORazepam [Ativan*] 1 mg PO BID PRN 10/08/23 Multivitamin [One-A-Day Essential] 1 each PO DAILY 10/08/23 Albuterol Neb [Proventil 0.083% Neb Soln] 2.5 mg NEB F2ALHDM #60 amp 03/25/24 Calcium Carbonate [Tums Regular*] 500 mg PO AC #90 tab 03/25/24 Physician Discharge Instructions: Ms. Seaman had a recent admission for sepsis from an ESBL E. coli urinary tract infection and was discharged back to [facility] on 03/25/2024 with IV Invanz. 03/28/24 [facility] sent her to the emergency department as she had become increasingly confused, agitated, with shortness of breath and a low blood sugar. CT imaging found no acute findings and the patient was admitted to the hospital for further evaluation. She was found to be anemic and did receive 2 units of PRBCs. Invanz switched to Merrem without interruption and course completed Blood and urine cultures were repeated and found to be negative. Her mentation gradually improved; however, she remains very weak and unable to even transfer without max assistance. She is working with PT to try to regain strength to her baseline. Followup: SUSI SEPULVEDA [Primary Care Provider] - Time spent managing pt's care (in minutes): 55
[2024-04-04] MEDS: HALOPERIDOL LACT 5 MG/ML INJ IV PRN (20:43)
--- NOTE | 2024-04-04 20:47 | P.PN ---
Date of Service: 04/04/24 subjective Alert and oriented x 2, afebrile with O2 at 4 L 92%, tolerating diet, Review of Systems is unable to be obtained Physical Examination - Vital Signs reviewed - Physical Exam General: Alert, In no apparent distress, Demented HEENT: Atraumatic, PERRLA, Mucous membr. moist/pink, EOMI, Sclerae nonicteric Neck: Supple, 2+ carotid pulse no bruit, No LAD, Without JVD or thyroid abnormality Respiratory: Clear to auscultation bilaterally, Normal air movement Cardiovascular: Regular rate/rhythm, Normal S1 S2, No murmurs Gastrointestinal: Normal bowel sounds, Soft and benign, Non-distended, No tenderness Musculoskeletal: No clubbing, No swelling, No tenderness Integumentary: No rashes Neurological: Sensation intact, Cranial nerves 3-12 intact, Normal affect, Abnormal gait, Abnormal speech, Abnormal strength Lymphatics: No axilla or inguinal lymphadenopathy Assessment & Plan - Problems (Diagnosis) (1) metabolic encephalopathy secondary to severe sepsis improved Current Visit: Yes Status: Acute (2) CHF (congestive heart failure) improved Current Visit: No Status: Acute (3) Chronic diastolic heart failure improved Current Visit: No Status: Acute (4) DM type 2 (diabetes mellitus, type 2) Current Visit: No Status: Acute (5) Diabetes type 2 with atherosclerosis of arteries of extremities Current Visit: No Status: Acute (6) Hypertension Current Visit: No Status: Acute (7) Severe sepsis Current Visit: No Status: Acute (8) CKD (chronic kidney disease) stage 3, GFR 30-59 ml/min Current Visit: No Status: Chronic Qualifiers: Chronic kidney disease stage 3 subtype: stage 3b (GFR 30-44) Qualified Code(s): N18.32 - Chronic kidney disease, stage 3b (9) COPD (chronic obstructive pulmonary disease) Current Visit: No Status: Chronic Qualifiers: COPD type: emphysema Emphysema type: unspecified Qualified Code(s): J43.9 - Emphysema, unspecified (10) Diabetes type 2, controlled Current Visit: No Status: Chronic Qualifiers: Diabetes mellitus leather tacker insulin use: without leather tacker use Diabetes mellitus complication status: with circulatory complication Diabetes mellitus complication detail: with other circulatory complications Qualified Code(s): E11.59 - Type 2 diabetes mellitus with other circulatory complications - Plan Plan: 1. Continue with IV fluids and IV antibiotics currently on meropenem 2. Repeat CT imaging if mentation is not improving-No evidence of acute traumatic abnormalities in the chest, abdomen, or pelvis.Bilateral layering pleural effusions as well as central interstitial prominence, suggesting pulmonary edema 3. Monitor electrolytes 4. Physical therapy evaluation 5. Repeat urine cultures 6. Strict blood pressure control 7. GI and DVT prophylaxis 8. Blood cultures no growth at 24 hours 9. Urine culture no growth 10. Will check BMP to monitor for pulmonary edema Discharge Plan: Shelter Plan to discharge in: Greater than 2 days - Advance Directives Does patient have a Living Will: No Does patient have a Durable POA for Healthcare: No - Code Status/Comfort Care Code Status Assessed: Yes Code Status: Full Code Critical Care: No
[2024-04-05 05:55] LABS: Absolute Basophils 0.1 K/uL (0-0.5); Absolute Eosinophils 0.5 K/uL (0-0.5); Absolute Lymphocytes (CBC) 1.6 K/uL (0.7-4.9); Absolute Monocytes 0.7 K/uL (0.1-1.3); Basophils % 0.8 % (0-1.3); Eosinophils % 6.1 % (0-4.4); Hematocrit 33.8 % (36.0-45.0); Hemoglobin 11.3 g/dL (12.0-15.0); Lymphocytes % 20.8 % (15.3-44.8); MCH 27.5 pg (27.0-35.0); MCHC 33.3 g/dL (32.0-36.0); MCV 82.7 fL (80-100); MPV 8.7 fL (7.6-11.3); Monocytes % 8.4 % (3.3-12.3); Neutrophils % 63.9 % (41.7-73.7); Nucleated Red Blood Cells % 0.1 % (0-0); Platelets 337 thou/uL (152-406); RBC Red Blood Cell Count 4.09 M/uL (3.86-4.86); Red Cell Distribution Width 18.4 % (12.1-15.2)
[2024-04-05 06:07] LABS: Albumin 2.4 g/dL (3.4-5.0); Anion Gap 6.7 mEq/L (5.0-15.0); Magnesium 2.3 mg/dL (1.6-2.4); Phosphorus 2.6 mg/dL (2.5-4.9); Potassium 3.7 mEq/L (3.5-5.1)
[2024-04-05 09:17] VITALS: O2SAT 96
[2024-04-05 14:16] VITALS: BP 122/53; TEMP 97.2
== END 2024-04-05 15:12 | DRG 871 ==
LOC: ER 07:53 → ERHOLD 11:42 → 2ND 12:27
PROVIDERS: ADMIT Hospitalist; ATTEND Hospitalist
PROC: 30233N1 Transfusion of Nonautologous Red Blood Cells into Peripheral Vein, Percutaneous Approach (ICD-10-PCS; principal; 2024-03-28)
PROC: 0T9B70Z Drainage of Bladder with Drainage Device, Via Natural or Artificial Opening (ICD-10-PCS; 2024-04-02)
DX: A41.9 Sepsis, unspecified organism (principal); G93.41 Metabolic encephalopathy; J96.21 Acute and chronic respiratory failure with hypoxia; J18.9 Pneumonia, unspecified organism; I50.33 Acute on chronic diastolic (congestive) heart failure; N17.9 Acute kidney failure, unspecified; Z16.12 Extended spectrum beta lactamase (ESBL) resistance; I13.0 Hypertensive heart and chronic kidney disease with heart failure and stage 1 through stage 4 chronic kidney disease, or unspecified chronic kidney disease; F03.918 Unspecified dementia, unspecified severity, with other behavioral disturbance; R64 Cachexia; N30.00 Acute cystitis without hematuria; J44.0 Chronic obstructive pulmonary disease with (acute) lower respiratory infection; R65.20 Severe sepsis without septic shock; N18.32 Chronic kidney disease, stage 3b; E11.22 Type 2 diabetes mellitus with diabetic chronic kidney disease; E11.65 Type 2 diabetes mellitus with hyperglycemia; E11.59 Type 2 diabetes mellitus with other circulatory complications; D63.1 Anemia in chronic kidney disease; J43.8 Other emphysema; G47.00 Insomnia, unspecified; E03.9 Hypothyroidism, unspecified; B96.20 Unspecified Escherichia coli [E. coli] as the cause of diseases classified elsewhere; Z88.2 Allergy status to sulfonamides; Z79.4 Long term (current) use of insulin; Z79.82 Long term (current) use of aspirin; Z68.21 Body mass index [BMI] 21.0-21.9, adult; Z79.02 Long term (current) use of antithrombotics/antiplatelets; Z79.890 Hormone replacement therapy; Z79.899 Other long term (current) drug therapy; Z87.891 Personal history of nicotine dependence; Y95 Nosocomial condition
CPT/HCPCS: 36415; 51702; 70450; 71045; 71250; 72125; 80048; 80053; 80069; 81001; 82140; 82607; 82652; 82728; 82947; 83540; 83605; 83615; 83735; 83880; 84145; 84425; 84484; 85014; 85018; 85025; 85610; 85730; 86850; 86870; 86900; 86901; 86920; 86922; 87040; 87086; 87088; 93005; 94640; 94760; 96365; 97116; 97161; 97530; 99285; J0692; J1630; J2185; J3360; J3486; J7030; J7050; J7613; P9016

== ENCOUNTER 2024-05-14 20:47 | Emergency (ER) | payer OTHER ==
[2024-05-14] MEDS ORDERED: LEVETIRACETAM 500 MG/5 ML VIAL IV ONE (21:06)
[2024-05-14] MEDS ORDERED: propofoL 1,000 MG/100 ML VIAL IV ONE (21:06)
[2024-05-14] MEDS ORDERED: NA CHLORIDE 0.9% 250 ML ONE (21:07)
[2024-05-14 21:11] LABS: Absolute Basophils 0.1 K/uL (0-0.5); Absolute Eosinophils 0.1 K/uL (0-0.5); Absolute Lymphocytes (CBC) 1.1 K/uL (0.7-4.9); Absolute Monocytes 0.4 K/uL (0.1-1.3); Absolute Neutrophil 6.7 K/uL (1.8-8.0); Basophils % 1.7 % (0-1.3); Hematocrit 32.2 % (36.0-45.0); Hemoglobin 10.9 g/dL (12.0-15.0); Lymphocytes % 13.1 % (15.3-44.8); MCH 30.1 pg (27.0-35.0); MCHC 33.8 g/dL (32.0-36.0); MCV 89.1 fL (80-100); MPV 8.8 fL (7.6-11.3); Monocytes % 5.2 % (3.3-12.3); Platelets 317 thou/uL (152-406); RBC Red Blood Cell Count 3.62 M/uL (3.86-4.86); Red Cell Distribution Width 18.1 % (12.1-15.2)
[2024-05-14 21:30] LABS: Albumin/Globulin Ratio 0.7 (1.1-1.8); Anion Gap 13.1 mEq/L (5.0-15.0); Bilirubin Direct 0.2 mg/dL (0-0.2); Bilirubin Indirect, Calculated 0.3 mg/dL (0.2-0.8); Bilirubin Total 0.5 mg/dL (0.2-1.0); Globulin 4.3 g/dL (2.3-3.5); Potassium 4.1 mEq/L (3.5-5.1); Protein, Total 7.3 g/dL (6.4-8.2)
--- NOTE | 2024-05-14 22:51 | RAD REPORT ---
EXAMINATION: ONE VIEW CHEST XR CLINICAL INDICATION: Female, 79 years old.,intubation TECHNIQUE: Frontal chest projection is submitted. Examination is limited by patient positioning and t echnique. COMPARISON: 05/03/2024 FINDINGS: Progressive mild patchy right apical airspace opacities. Improvement in aeration in the remainder of the lungs otherwise. Endotracheal tube has been placed with tip projecting 3.8 cm above the mary. Left chest wall pacer unchanged in position. No pneumothorax or sizable effusion. The heart is chip l in size. Mediastinal contours are unremarkable. IMPRESSION: Satisfactory endotracheal tube positioning. Progressive mild patchy right apical airspace opacity, may reflect pneumonitis.
[2024-05-14] MEDS ORDERED: MIDAZOLAM HCL 5 ML ONE (22:59)
[2024-05-14 23:21] LABS: Arterial Blood Carboxyhemoglob 0.9 % (0-1.5); Blood Gas Oxyhemoglobin 88.6 % (94-97); Blood O2 Saturation 91.6 % (92-98.5)
[2024-05-14 23:22] LABS: Blood Gas THB 11.1 g/dl (12-18)
--- NOTE | 2024-05-14 23:59 | EDPHYS ---
Physician Documentation [facility] Name: Brittani Seaman Age: 79 yrs Sex: Female : 1945 Arrival Date: 05/14/2024 Time: 20:47 Bed 2 Private MD: ED Physician Juan Quintana HPI: 05/14 21:09 This 79 yrs old Female presents to ER via Unassigned with complaints of Seizure, rt Unresponsive. 21:09 Patient presents to the ED from senior living with seizure-like activity. Patient has rt never had a previous history of seizure per EMS report. Patient had 2 seizures, received Ativan, was intubated for airway protection by EMS with rocuronium and ketamine. No further seizure-like activity reported. Symptoms are severe in severity, no other aggravating or alleviating factors.. Historical: - Allergies: 21:30 Sulfa (Sulfonamide Antibiotics); bm8 - Home Meds: 21:30 Unable to obtain [Active]; bm8 - PMHx: 21:30 chronic bronchitis; Diabetes - IDDM; COPD; Hypertension; Hypothyroidism; prolapsed bm8 bladder; - PSHx: 21:30 pacemaker (COPD); bm8 - Immunization history:: Adult Immunizations unknown. - Infectious Disease History:: Denies. - Social history:: Smoking status: Patient denies any tobacco usage or history of. ROS: 21:09 Unable to obtain ROS due to patient is on ventilator, rt Exam: 21:09 Constitutional: The patient appears Intubated, unresponsive rt 21:09 Head/face: Normocephalic, no external evidence of trauma. 21:09 Eyes: Pupils midline, constricted, reactive to light, equal. 21:09 Cardiovascular: Regular rate and rhythm, heart sounds normal, 21:09 ECG was reviewed by the Attending Physician. 21:09 Respiratory: Ventilated breath sounds, equal bilaterally, 21:09 Abdomen/GI: Nondistended, 21:09 Musculoskeletal/extremity: No deformities noted. 21:09 Neuro: GCS 3 T, Vital Signs: 20:49 BP 145 / 55; Pulse 98; Resp 16; Temp 97.4; Pulse Ox 90% on ETT vent; EtCO2 41 mmHg; bm8 Weight 54.43 kg; Height 5 ft. 0 in. ; Pain 0/10; 21:42 BP 203 / 118; Pulse 90; Resp 18; Temp 97.2; Pulse Ox 100% ; Pain 0/10; bm8 23:00 BP 190 / 91; Pulse 104; Resp 18; Temp 97; Pulse Ox 96% on ETT vent; FiO2 40 %; Pain bm8 0/10; 23:00 BP 124 / 49; Pulse 77; Resp 18; Temp 97.4; Pulse Ox 100% ; Pain 0/10; bm8 05/15 00:00 BP 124 / 69; Pulse 80; Resp 18; Temp 97.9; Pulse Ox 100% ; Pain 0/10; bm8 01:00 BP 123 / 63; Pulse 79; Resp 16; Temp 98.6; Pulse Ox 100% ; Pain 0/10; 8 02:00 BP 110 / 55; Pulse 74; Resp 18; Temp 98.6; Pulse Ox 100% ; Pain 0/10; bm8 03:00 BP 117 / 56; Pulse 75; Resp 18; Temp 98.7; Pulse Ox 100% ; Pain 0/10; bm8 03:45 BP 113 / 59; Pulse 75; Resp 18; Temp 98.7; Pulse Ox 98% ; Pain 0/10; bm8 05/14 20:49 Body Mass Index 23.44 (54.43 kg, 152.4 cm) 8 05/14 20:49 Pain Scale: Adult bm8 21:42 Pain Scale: Non-Verbal bm8 23:00 Pain Scale: Non-Verbal bm8 23:00 Pain Scale: Adult bm8 05/15 00:00 Pain Scale: Adult bm8 01:00 Pain Scale: Adult bm8 02:00 Pain Scale: Adult bm8 03:00 Pain Scale: Adult bm8 03:45 Pain Scale: Adult bm8 Mcallen Coma Score: 05/14 20:49 Eye Response: none(1). Motor Response: none(1). Verbal Response: none(1). Total: 3. bm8 21:37 Eye Response: none(1). Motor Response: none(1). Verbal Response: none(1). Total: 3. bm8 05/15 00:00 Eye Response: none(1). Motor Response: none(1). Verbal Response: none(1). Total: 3. bm8 01:00 Eye Response: none(1). Motor Response: none(1). Verbal Response: none(1). Total: 3. bm8 02:00 Eye Response: none(1). Motor Response: none(1). Verbal Response: none(1). Total: 3. bm8 03:00 Eye Response: none(1). Motor Response: none(1). Verbal Response: none(1). Total: 3. bm8 03:45 Eye Response: none(1). Motor Response: none(1). Verbal Response: none(1). Total: 3. bm8 Ventilator: 05/14 21:37 Fi02: 40%; Rate: 18min; T.V.: 350ml; Peep: 5cm; ET tube: 21 fr (Oral); bm8 MDM: 20:51 Medical Screening Exam initiated rt 23:59 Differential diagnosis: Status epilepticus, intracranial hemorrhage. Data reviewed: rt vital signs, nurses notes, lab test result(s), EKG, radiologic studies. Consideration of Admission/Observation Escalation of care including admission/observation considered. Management of patient was discussed with the following: Bee Tender: Discussed with accepting physician. I considered the following discharge prescriptions or medication management in the emergency department Medications were administered in the Emergency Department. See MAR. Independent interpretation of the following test(s) in the Emergency Department CT Scan: My interpretation is No intracranial hemorrhage syndrome interpretation of CT scan images. Care significantly affected by the following chronic conditions: Diabetes. Counseling: I had a detailed discussion with the patient and/or guardian regarding. Response to treatment: the patient's symptoms have markedly improved after treatment. 05/14 20:52 Order name: Basic Metabolic Panel; Complete Time: 23:24 rt 05/14 20:52 Order name: CBC with Diff; Complete Time: 23:24 rt 05/14 20:52 Order name: LFT's; Complete Time: 23:24 rt 05/14 20:52 Order name: Troponin HS; Complete Time: 23:24 rt 05/14 20:52 Order name: ABG; Complete Time: 23:34 rt 05/14 20:52 Order name: XRAY Chest (1 view); Complete Time: 23:24 rt 05/14 20:52 Order name: CT Head Brain wo Cont rt 05/14 20:52 Order name: Cardiac monitoring; Complete Time: 21:46 rt 05/14 20:52 Order name: EKG - Nurse/Tech; Complete Time: 20:56 rt 05/14 20:52 Order name: IV Saline Lock; Complete Time: :46 rt 05/14 20:52 Order name: Labs collected and sent; Complete Time: : rt 05/14 20:52 Order name: O2 Per Protocol; Complete Time: :46 rt 05/14 20:52 Order name: O2 Sat Monitoring; Complete Time: :46 rt 05/14 21:46 Order name: Davis; Complete Time: : bm8 EC: Rate is 78 beats/min. Rhythm is irregularly irregular, A fib with Left bundle branch rt block. QT interval is normal. No Q waves. ST Segment is depressed in leads V5, V6. Administered Medications: 21:00 Drug: Propofol IV 5 mcg/kg/min IV at calculated rate See Administration Instructions; bm8 Standard concentration 1000 mg / 100 mL; Recommended max rate 50 mcg/kg/min; Titrate 5 mcg/kg/min every 5 minutes to achieve goal (see titration policy); Goal parameter RASS score 0 to -2 Route: IV; Rate: calculated rate; Site: right forearm; 21:10 Follow up: titrated to 10mcg bm8 21:25 Follow up: titrated to 15mcg bm8 21:45 Follow up: titrated up to 20 mcg bm8 22:00 Follow up: titrated to 30 mcg bm8 23:09 Follow up: titrated up to 80 mcg bm8 05/15 03:47 Follow up: Response: No adverse reaction; IV Status: Infusion continued upon transfer bm8 05/14 21:00 Drug: Keppra IV 2000 mg IV at calculated rate once Route: IV; Rate: calculated rate; bm8 Site: left antecubital; 05/15 00:30 Follow up: Response: No adverse reaction; IV Status: Completed infusion; IV Intake: bm8 200ml 05/14 23:09 Drug: Midazolam IVP or IV 5 mg IVP once Route: IVP; Site: left antecubital; bm8 05/15 00:30 Follow up: Response: No adverse reaction bm8 Disposition Summary: 05/14/24 23:59 Transfer Ordered Notes: Transfer Location: [facility] rt Reason: Higher level of care rt Condition: Critical rt Problem: new rt Symptoms: have improved rt Accepting Physician: (05/15/24 03:48) bm8 Diagnosis - Status epilepticus rt - Acute respiratory failure rt Forms: - Medication Reconciliation Form rt - SBAR form rt Critical care time excluding procedures: 05/14 23:59 Critical care time: Bedside Care: 35 minutes, Consultation: 5 minutes. Total time: 40 rt minutes Signatures: Dispatcher [employer] EDMS Juan Quintana MD MD rt Everett Funes, RN RN bm8 Corrections: (The following items were deleted from the chart) 20:52 20:52 BASIC METABOLIC PANEL+C.LAB.BRZ ordered. EDMS EDMS 20:52 20:52 CBC+H.LAB.BRZ ordered. EDMS EDMS 20:52 20:52 HEPATIC FUNCTION+C.LAB.BRZ ordered. EDMS EDMS 20:52 20:52 Troponin High Sensitivity+C.LAB.BRZ ordered. EDMS EDMS 20:52 20:52 Chest Single View+RAD.RAD.BRZ ordered. EDMS EDMS 20:53 20:53 Arterial Blood Gas+RC.LAB.BRZ ordered. EDMS EDMS 20:53 20:53 Head Brain Wo Cont+CT.RAD.BRZ ordered. EDMS EDMS 05/15 03:48 05/14 23:59 rt bm8
--- NOTE | 2024-05-14 23:59 | ER ---
Nurse's Notes [facility] Name: Brittani Seaman Age: 79 yrs Sex: Female : 1945 Arrival Date: 05/14/2024 Time: 20:47 Bed 2 Private MD: Diagnosis: Status epilepticus;Acute respiratory failure Presentation: 05/14 20:49 Chief complaint: EMS states: called out for seizure activity, on scene pt was actively bm8 seizing. we gave 2 mg Ativan IV, 100 mg ketamine, 50 of rocuronium, pt is intubated 7.0 ETT, 21 cm at lip. NG placed in right nares, 20 g RFA. Coronavirus screen: At this time, the client does not indicate any symptoms associated with coronavirus-19. Ebola Screen: Patient negative for fever greater than or equal to 101.5 degrees Fahrenheit, and additional compatible Ebola Virus Disease symptoms Patient denies exposure to infectious person. Patient denies travel to an Ebola-affected area in the 21 days before illness onset. No symptoms or risks identified at this time. 20:49 Method Of Arrival: EMS: [facility] bm8 20:49 Initial Sepsis Screen: Does the patient meet any 2 criteria? Altered Mental Status. HR bm8 > 90 bpm. Yes Does the patient have a suspected source of infection? No. Patient's initial sepsis screen is negative. Risk Assessment: Do you want to hurt yourself or someone else? Patient reports no desire to harm self or others. Onset of symptoms was May 14, 2024 at 20:00. 20:49 Acuity: PRAVEEN 2 bm8 21:36 Care prior to arrival: IV initiated. 20 GA, in the right forearm, Glucose check: 135. bm8 Triage Assessment: 20:49 General: Appears in no apparent distress. comfortable, Behavior is unresponsive. Pain: bm8 Unable to use pain scale. Patient is unresponsive. EENT: pt has NG tube in right Nares. Neuro: Level of Consciousness is unresponsive. Cardiovascular: Heart tones S1 S2 present Capillary refill is > 3 seconds in bilateral fingers toes Patient's skin is warm and dry. Rhythm is Respiratory: Airway is patent Trachea midline Respiratory effort is even, unlabored, on VENT Respiratory pattern is regular, symmetrical, Ventilator assessment: ET Tube: 7.0 21cm. at lip. Ventilator Mode: Assist Control (AC) Tidal Volume: 350 Respiratory Rate: 18 FiO2: 40% PEEP: 5 Breath sounds are clear bilaterally. breath sounds are less prominent on right side of chest. awaiting chest X-ray to evaluate repositioning tube. GI: No deficits noted. No signs and/or symptoms were reported involving the gastrointestinal system. : No deficits noted. No signs and/or symptoms were reported regarding the genitourinary system. Derm: skin tear to right elbow. Musculoskeletal: No deficits noted. No signs and/or symptoms reported regarding the musculoskeletal system. Historical: - Allergies: 21:30 Sulfa (Sulfonamide Antibiotics); bm8 - Home Meds: 21:30 Unable to obtain [Active]; bm8 - PMHx: 21:30 chronic bronchitis; Diabetes - IDDM; COPD; Hypertension; Hypothyroidism; prolapsed bm8 bladder; - PSHx: 21:30 pacemaker (COPD); bm8 - Immunization history:: Adult Immunizations unknown. - Infectious Disease History:: Denies. - Social history:: Smoking status: Patient denies any tobacco usage or history of. Screenin:37 [facility] ED Fall Risk Assessment (Adult) History of falling in the last 3 months, bm8 including since admission Yes- fall prone (multiple falls) (3 pts) Confusion or Disorientation Yes (5 pts) Intoxicated or Sedated Yes (3 pts) Impaired Gait Yes (1 pt) Mobility Assist Device Used Yes (1 pt) Altered Elimination Yes (1 pt) Score/Fall Risk Level 3 or more points = High Risk Oriented to surroundings, Maintained a safe environment, Educated pt \T\ family on fall prevention, incl call for assistance when getting out of bed, Assessed \T\ reinforced patient's understanding of fall precautions, Provided non-skid footwear, Hourly rounding (assess needs \T\ fall precautionary measures) done, Used ambulatory aids as needed (educated on \T\ assisted with), Used gait belt as appropriate Implemented a Fall Risk Plan of Care. Abuse screen: Denies threats or abuse. Nutritional screening: No deficits noted. Tuberculosis screening: No symptoms or risk factors identified. Assessment: 21:37 Reassessment: Patient appears in no apparent distress at this time. No changes from bm8 previously documented assessment. Patient and/or family updated on plan of care and expected duration. Pain level reassessed. 22:00 General: Appears in no apparent distress. comfortable, Behavior is calm, cooperative, bm8 appropriate for age. Pain: Unable to use pain scale. Patient is unresponsive. Neuro: Level of Consciousness is unresponsive. Cardiovascular: Capillary refill is > 3 seconds in bilateral fingers toes Patient's skin is warm and dry. Rhythm is Respiratory: Airway is patent Trachea midline Respiratory effort is even, unlabored, Respiratory pattern is regular, symmetrical, Breath sounds are clear bilaterally. GI: No signs and/or symptoms were reported involving the gastrointestinal system. : No signs and/or symptoms were reported regarding the genitourinary system. EENT: No signs and/or symptoms were reported regarding the EENT system. Derm: No signs and/or symptoms reported regarding the dermatologic system. Musculoskeletal: No signs and/or symptoms reported regarding the musculoskeletal system. 05/15 00:00 Reassessment: Patient appears in no apparent distress at this time. Patient and/or bm8 family updated on plan of care and expected duration. Pain level reassessed. pt is resting with eyes closed breathing is even unlabored with symmetrical rise and fall of chest while on ventilator. Awaiting room assignment for transfer to begin. 01:00 Reassessment: Patient appears in no apparent distress at this time. No changes from bm8 previously documented assessment. Patient and/or family updated on plan of care and expected duration. Pain level reassessed. 02:00 Reassessment: Patient appears in no apparent distress at this time. No changes from bm8 previously documented assessment. Patient and/or family updated on plan of care and expected duration. Pain level reassessed. 03:00 Reassessment: report given to SHAMA Aguiar at [facility]. bm8 03:45 Reassessment: Patient appears in no apparent distress at this time. No changes from bm8 previously documented assessment. Patient and/or family updated on plan of care and expected duration. Pain level reassessed. Vital Signs: 05/14 20:49 BP 145 / 55; Pulse 98; Resp 16; Temp 97.4; Pulse Ox 90% on ETT vent; EtCO2 41 mmHg; bm8 Weight 54.43 kg; Height 5 ft. 0 in. ; Pain 0/10; 21:42 BP 203 / 118; Pulse 90; Resp 18; Temp 97.2; Pulse Ox 100% ; Pain 0/10; bm8 23:00 BP 190 / 91; Pulse 104; Resp 18; Temp 97; Pulse Ox 96% on ETT vent; FiO2 40 %; Pain bm8 0; 23:00 BP 124 / 49; Pulse 77; Resp 18; Temp 97.4; Pulse Ox 100% ; Pain 0/10; bm8 05/15 00:00 BP 124 / 69; Pulse 80; Resp 18; Temp 97.9; Pulse Ox 100% ; Pain 0/10; 8 01:00 BP 123 / 63; Pulse 79; Resp 16; Temp 98.6; Pulse Ox 100% ; Pain 0/10; 8 02:00 BP 110 / 55; Pulse 74; Resp 18; Temp 98.6; Pulse Ox 100% ; Pain 0/10; 8 03:00 BP 117 / 56; Pulse 75; Resp 18; Temp 98.7; Pulse Ox 100% ; Pain 0/10; 8 03:45 BP 113 / 59; Pulse 75; Resp 18; Temp 98.7; Pulse Ox 98% ; Pain 0/10; 8 05/14 20:49 Body Mass Index 23.44 (54.43 kg, 152.4 cm) [facility] 05/14 20:49 Pain Scale: Adult bm8 21:42 Pain Scale: Non-Verbal bm8 23:00 Pain Scale: Non-Verbal bm8 23:00 Pain Scale: Adult 8 05/15 00:00 Pain Scale: Adult bm8 01:00 Pain Scale: Adult bm8 02:00 Pain Scale: Adult bm8 03:00 Pain Scale: Adult bm8 03:45 Pain Scale: Adult bm8 Vitals: 05/14 21:37 Cardiac Rhythm Assessment Paced. bm8 Cassel Coma Score: 20:49 Eye Response: none(1). Motor Response: none(1). Verbal Response: none(1). Total: 3. bm8 21:37 Eye Response: none(1). Motor Response: none(1). Verbal Response: none(1). Total: 3. bm8 05/15 00:00 Eye Response: none(1). Motor Response: none(1). Verbal Response: none(1). Total: 3. bm8 01:00 Eye Response: none(1). Motor Response: none(1). Verbal Response: none(1). Total: 3. bm8 02:00 Eye Response: none(1). Motor Response: none(1). Verbal Response: none(1). Total: 3. bm8 03:00 Eye Response: none(1). Motor Response: none(1). Verbal Response: none(1). Total: 3. bm8 03:45 Eye Response: none(1). Motor Response: none(1). Verbal Response: none(1). Total: 3. bm8 ED Course: 05/14 20:49 Patient arrived in ED. rv1 20:49 Arm band placed on left wrist. bm8 20:51 Juan Quintana MD is Attending Physician. rt 21:03 Everett Funes, RN is Primary Nurse. bm8 21:30 Triage completed. bm8 21:37 Patient has correct armband on for positive identification. Allergy band placed. Placed bm8 in gown. Bed in low position. Call light in reach. Side rails up X2. Seizure precautions initiated. Client placed on continuous cardiac and pulse oximetry monitoring. NIBP monitoring applied. whitesmith on. Pulse ox on. NIBP on. Door closed. Noise minimized. Visitors limited. Lights dimmed. Warm blanket given. Pillow given. Verbal reassurance given. 21:37 No provider procedures requiring assistance completed. Initial lab(s) drawn, by larry simental sent to lab. Urine collected: Davis catheter specimen, clear, EKG done, by ED staff, reviewed by Juan Quintana MD. Davis cath inserted, using sterile technique, 16 Fr., by urologic nurse, balloon inflated, to gravity drainage, urine specimen collected. Patient tolerated well. Inserted saline lock: 20 gauge in left antecubital area, using aseptic technique. Blood collected. Flushed with 10 mL NS Maintain EMS IV. Dressing intact. Good blood return noted. Site clean \T\ dry. Gauge \T\ site: 20g rfa. Flushed with 10 mL NS. O2 via vent. Wound care: to skin tear located on right elbow was cleaned with soap and water, Patient tolerated well. dressed with 4x4 and kerlix. 22:08 XRAY Chest (1 view) In Process Unspecified. EDMS 22:50 CT Head Brain wo Cont In Process Unspecified. EDMS 05/15 00:00 Provided Education on: need for transfer. bm8 00:28 Initiated transfer with Laurence at [facility]. rv1 00:36 Laurence called to inform that it would take 2 hours to secure a bed assignment for the rv1 patient. Dr. Quintana notified and he advised to continue transfer with [facility]. 00:42 Doc to Doc with hospitalist. rv1 02:[address] Russell to [place] [id number]. Report # [id number]. rv1 03:45 Patient transferred, IV remains in place. bm8 Administered Medications: 05/14 21:00 Drug: Propofol IV 5 mcg/kg/min IV at calculated rate See Administration Instructions; bm8 Standard concentration 1000 mg / 100 mL; Recommended max rate 50 mcg/kg/min; Titrate 5 mcg/kg/min every 5 minutes to achieve goal (see titration policy); Goal parameter RASS score 0 to -2 Route: IV; Rate: calculated rate; Site: right forearm; 21:10 Follow up: titrated to 10mcg bm8 21:25 Follow up: titrated to 15mcg bm8 21:45 Follow up: titrated up to 20 mcg bm8 22:00 Follow up: titrated to 30 mcg bm8 23:09 Follow up: titrated up to 80 mcg bm8 05/15 03:47 Follow up: Response: No adverse reaction; IV Status: Infusion continued upon transfer bm8 05/14 21:00 Drug: Keppra IV 2000 mg IV at calculated rate once Route: IV; Rate: calculated rate; bm8 Site: left antecubital; 05/15 00:30 Follow up: Response: No adverse reaction; IV Status: Completed infusion; IV Intake: bm8 200ml 05/14 23:09 Drug: Midazolam IVP or IV 5 mg IVP once Route: IVP; Site: left antecubital; bm8 05/15 00:30 Follow up: Response: No adverse reaction bm8 Medication: 05/14 21:37 VIS not applicable for this client. bm8 Intake: 05/15 00:30 IV: 200ml; Total: 200ml. bm8 Ventilator: 05/14 21:37 Fi02: 40%; Rate: 18min; T.V.: 350ml; Peep: 5cm; ET tube: 21 fr (Oral); bm8 Outcome: 23:59 ER care complete, transfer ordered by rt 05/15 03:45 Transferred by ground EMS to [facility], Transfer form completed. bm8 X-rays sent w/ patient. Condition: stable Instructed on the need for transfer, 03:48 Patient left the ED. bm8 Signatures: Dispatcher [employer] Juan Wade MD MD rt Irena Dutton rv1 Everett Funes RN RN bm8 Corrections: (The following items were deleted from the chart) 02:40 02:39 Reassessment: Patient appears in no apparent distress at this time. No changes bm8 from previously documented assessment. Patient and/or family updated on plan of care and expected duration. Pain level reassessed. bm8
--- NOTE | 2024-05-15 00:29 | RAD REPORT ---
EXAM DESCRIPTION: CT HEAD WITHOUT IV CONTRAST 05/14/2024 11:23 PM SIMPLEX OPERATOR CLINICAL HISTORY: 79 years, Female, Seizure. COMPARISON: CT Head and cervical spine 05/08/2024. FINDINGS: Multiple transaxial tomograms of the brain were obtained from the base of the skull to the vertex wit hout contrast. An individualized dose optimization technique, Automated Exposure Control, was utilized for the perfo rmed procedure. Brain: The brain demonstrate prominence of the sulci and gyri corresponding to mild brain atrophy. Th ere is periventricular white matter changes of microvascular ischemia. No acute intracranial hemorrhage. No midline shift and/or mass effect. Ventricles: Lateral ventricles and cisterns displace normal appearance. Vasculature: No visualized abnormalities in the arteries or dural venous sinuses. Scalp/skull: The calvarium demonstrate to be intact with no evidence for acute bony injuries. Sinuses: The visualized paranasal sinuses and mastoid air cells demonstrate to be clear. Orbits: No significant abnormalities in the visualized orbital structures. Incidentally is noted presence of proximal aspect of endotracheal and nasogastric tube. IMPRESSION: No acute intracranial hemorrhage. Mild brain atrophy with periventricular white matter changes of microvascular ischemia. Electronically signed by: Quinton Geronimo MD 05/14/2024 11:49 PM SIMPLEX OPERATOR Due to temporary technical issues with the PACS/[email or web address] reporting system, reports are being ibeth d by the in-house radiologist without review as a courtesy to ensure prompt reporting the interpreting radiologist is fully responsible for the content of the report. Transcribed Date/Time: 05/15/2024 12:28 AM
[2024-05-15] MEDS ORDERED: propofoL 1,000 MG/100 ML VIAL IV ONE ×2 (00:32→03:35)
[2024-05-15 05:55] VITALS: TEMP 98.7
[2024-05-15 05:56] VITALS: BP 113/59; O2SAT 98
--- NOTE | 2024-05-17 10:07 | EKG ---
Test Date: 2024-05-14 Test Time: 20:51:31 [employer] Associate: WILLIAM MEASUREMENT RESULTS: Intervals: Rate: 74 [place]: QRSD: 160 QT: 480 QTc: 532 [place]: P: FL: QRS: 89 T: -87 INTERPRETIVE STATEMENTS: Atrial fibrillation Left bundle branch block Abnormal ECG Compared to ECG 05/01/2024 19:36:59 Left bundle-branch block now present Sinus rhythm no longer present Atrial premature complex(es) no longer present Right-axis deviation no longer present Left ventricular hypertrophy no longer present Early repolarization no longer present Electronically Signed On 05-17-24 10:06:36 SEWING MACHINE OPERATOR PAPER BAGS by Arnoldo Alvarado
== END 2024-05-15 03:48 | disposition short-term general hospital (02) ==
LOC: ER 20:47
DX: G40.901 Epilepsy, unspecified, not intractable, with status epilepticus (principal); J96.00 Acute respiratory failure, unspecified whether with hypoxia or hypercapnia; E11.9 Type 2 diabetes mellitus without complications; I10 Essential (primary) hypertension; Z95.0 Presence of cardiac pacemaker
CPT/HCPCS: 93005; 85025; 80048; 36415; 80076; 84484; 70450; 71045; 82805; 51702; 99291; 99292; 36600; 94002; J2704 ×3; J2250; J1953; J7050

== ENCOUNTER 2024-08-01 13:10 | Inpatient (IN) | payer OTHER ==
[2024-08-01 13:55] LABS: Absolute Basophils 0.1 K/uL (0-0.5); Absolute Lymphocytes (CBC) 0.8 K/uL (0.7-4.9); Absolute Monocytes 0.7 K/uL (0.1-1.3); Absolute Neutrophil 7.3 K/uL (1.8-8.0); Basophils % 0.6 % (0-1.3); Eosinophils % 0.1 % (0-4.4); Hematocrit 29.2 % (36.0-45.0); Hemoglobin 9.8 g/dL (12.0-15.0); Lymphocytes % 8.8 % (15.3-44.8); MCH 29.7 pg (27.0-35.0); MCHC 33.4 g/dL (32.0-36.0); MCV 89.2 fL (80-100); MPV 7.8 fL (7.6-11.3); Monocytes % 8.2 % (3.3-12.3); Neutrophils % 82.3 % (41.7-73.7); Platelets 364 thou/uL (152-406); RBC Red Blood Cell Count 3.28 M/uL (3.86-4.86); Red Cell Distribution Width 13.9 % (12.1-15.2)
[2024-08-01 14:08] LABS: Anion Gap 9.8 mEq/L (5.0-15.0); Potassium 3.8 mEq/L (3.5-5.1)
--- NOTE | 2024-08-01 14:15 | RAD REPORT ---
EXAM: Chest Single View HISTORY: COPD;Dyspnea COMPARISON: 05/14/2024 FINDINGS: LUNGS/PLEURA: Airspace disease in the lung bases, right greater than left that is new from prior. Sev eral dense nodules in the right upper lobe are unchanged and likely benign. Small pleural effusions. MEDIASTINUM: The mediastinal silhouette is within normal limits. CARDIAC: Mild cardiomegaly, increased from prior. UPPER ABDOMEN: No significant abnormality. BONES: No acute abnormality. LINES/TUBES/OTHER: N/A IMPRESSION: New airspace disease in the lung bases with possible small effusions and increased cardiac size proba isa representing congestive heart failure though a basilar pneumonia is difficult to exclude.
--- NOTE | 2024-08-01 14:31 | EDPHYS ---
Physician Documentation [facility] Name: Brittani Seaman Age: 79 yrs Sex: Female : 1945 Arrival Date: 08/01/2024 Time: 13:10 Bed 5 Private MD: ED Physician Luis Carlos Christianson HPI: 08/01 13:20 This 79 yrs old Female presents to ER via Unassigned with complaints of sob. rn 13:20 The patient has shortness of breath at rest, with light activity. Onset: The rn symptoms/episode began/occurred at an unknown time. The patient's shortness of breath is aggravated by coughing, light activity, talking, walking. Severity of symptoms: At their worst the symptoms were mild in the emergency department the symptoms are unchanged. The patient has experienced similar episodes in the past. Patient reports discharge from rehab/detention on , was on oxygen, approximately 3 or 4 L entire time that she was at detention, sent home without oxygen. Has used up her inhalers over the last few days and home health nurse called 911 for low oxygen. Patient feels better on oxygen. No fever or chills. No productive cough or hemoptysis.. Historical: - Allergies: 13:34 Sulfa (Sulfonamide Antibiotics); cm10 - PMHx: 13:34 chronic bronchitis; COPD; Diabetes - IDDM; Hypertension; Hypothyroidism; prolapsed cm10 bladder; - PSHx: 13:34 pacemaker (COPD); cm10 - Immunization history:: Adult Immunizations up to date. - Infectious Disease History:: Denies. - Family history:: not pertinent. - Social history:: Smoking status: Patient denies any tobacco usage or history of. - Hospitalizations: : No recent hospitalization is reported. ROS: 13:20 Constitutional: Negative for fever, chills, and weight loss, Cardiovascular: Negative rn for chest pain, palpitations, and edema, Respiratory: Negative for hemoptysis. Positive for shortness of breath that improves on oxygen Abdomen/GI: Negative for abdominal pain, nausea, vomiting, diarrhea, and constipation, MS/Extremity: Negative for injury and deformity, Skin: Negative for injury, rash, and discoloration, Neuro: Negative for headache, weakness, numbness, tingling, and seizure, Exam: 13:20 Constitutional: This is a well developed, well nourished patient who is awake, alert, rn and in no acute distress. Cardiovascular: Regular rate and rhythm. No pulse deficits. Respiratory: Mild tachypnea with prolonged expiratory phase consistent with COPD, crackles at bases Abdomen/GI: Soft, non-tender MS/ Extremity: Pulses equal, no cyanosis. Neurovascular intact. Full, normal range of motion. Equal circumference. Neuro: Awake and alert, GCS 15 Vital Signs: 13:30 BP 154 / 59; Pulse 60; Resp 18; Temp 98.3; Pulse Ox 97% on 3 lpm NC; Weight 46.27 kg; cm10 Height 5 ft. 4 in. ; Pain 0/10; 13:45 BP 158 / 63; Pulse 62; Resp 15; Pulse Ox 95% on 3 lpm NC; cm10 14:15 BP 166 / 62; Pulse 63; Resp 15; Pulse Ox 95% on 3 lpm NC; cm10 14:45 BP 160 / 69; Pulse 60; Resp 15; Pulse Ox 98% on 3 lpm NC; cm10 15:30 BP 157 / 55; Pulse 65; Resp 15; Pulse Ox 100% on 3 lpm NC; cm10 13:30 Body Mass Index 17.51 (46.27 kg, 162.56 cm) cm10 13:30 Pain Scale: Adult cm10 MDM: 13:16 Medical Screening Exam initiated rn 14:28 Differential diagnosis: Anemia Anxiety Reaction CHF exacerbation, Chronic Obstructive rn Pulmonary Disease Myocardial Infarction pneumonia, Pneumothorax pulmonary edema. Data reviewed: vital signs, nurses notes, lab test result(s), radiologic studies, plain films, and as a result, I will admit patient. Consideration of Admission/Observation Patient was admitted/placed on observation. Escalation of care including admission/observation considered. Counseling: I had a detailed discussion with the patient and/or guardian regarding the historical points, exam findings, and any diagnostic results supporting the discharge/admit diagnosis, lab results, radiology results, the need for further work-up and treatment in the hospital. 14:30 Response to treatment: the patient's symptoms have mildly improved after treatment, and rn as a result, I will admit patient. 08/01 13:18 Order name: CBC with Diff; Complete Time: 14:24 rn 08/01 13:18 Order name: Basic Metabolic Panel; Complete Time: 14:24 rn 08/01 13:18 Order name: NT PRO-BNP; Complete Time: 14:24 rn 08/01 14:17 Order name: Glucose, Ancillary Testing; Complete Time: 14:24 EDNC 08/01 14:29 Order name: Blood Culture Adult (2) rn 08/01 14:29 Order name: Lactate w/ 2H reflex if indic.; Complete Time: 07:24 rn 08/01 14:29 Order name: Protime (+inr); Complete Time: 07:24 rn 08/01 14:29 Order name: Ptt, Activated; Complete Time: 07:24 rn 08/01 15:24 Order name: CBC with Automated Diff EDMS 08/01 15:24 Order name: CBC with Automated Diff EDMS 08/01 15:24 Order name: Comprehensive Metabolic Panel EDNC 08/01 15:24 Order name: Comprehensive Metabolic Panel; Complete Time: 07:24 EDMS 08/01 13:18 Order name: XRAY Chest (1 view); Complete Time: 14:24 rn 08/01 15:24 Order name: Social Service Consult EDNC 08/01 13:18 Order name: IV Start; Complete Time: 13:53 rn 08/01 13:18 Order name: Cardiac monitoring; Complete Time: 14:13 rn 08/01 13:18 Order name: O2 Sat Monitoring; Complete Time: 13:53 rn 08/01 13:18 Order name: Oxygen Per Protocol; Complete Time: 13:53 rn 08/01 13:18 Order name: EKG - Nurse/Tech; Complete Time: 14:13 rn 08/01 14:29 Order name: Accucheck; Complete Time: 14:32 rn 08/01 14:29 Order name: IV Saline Lock - Large Bore; Complete Time: 14:37 rn 08/01 14:29 Order name: Labs collected and sent; Complete Time: 14:36 rn 08/01 14:29 Order name: Vital Signs; Complete Time: 14:37 rn Administered Medications: 15:43 Drug: Furosemide IVP 40 mg IVP once; give over 2 minutes Route: IVP; Site: right cm10 forearm; 16:00 Follow up: Response: No adverse reaction cm10 15:43 Drug: MethylPrednisoLONE IVP 125 mg IVP once Route: IVP; Site: right forearm; cm10 16:00 Follow up: Response: No adverse reaction cm10 15:43 Drug: Levalbuterol Inhalation 1.25 mg Inhalation once Route: Inhalation; cm10 16:00 Follow up: Response: No adverse reaction cm10 Disposition Summary: 08/01/24 14:30 Hospitalization Ordered Notes: Hospitalization Status: Inpatient Admission rn Provider: Ming Bridges rn Location: Telemetry/MedSurg (Inpatient) rn Condition: Stable rn Problem: an acute exacerbation rn Symptoms: have improved rn Bed/Room Type: Standard rn Room Assignment: 402(08/01/24 15:37) bd Diagnosis - Unspecified combined systolic (congestive) and diastolic (congestive) heart failure rn - Acute pulmonary edema rn - COPD/ Chronic obstructive pulmonary disease, unspecified rn - Hypoxemia rn Forms: - Medication Reconciliation Form rn - SBAR form rn - Leadership Thank You Letter rn Signatures: Dispatcher [employer] EDMS Carolyne Parra Shelly, OIL DELIVERER-C OIL DELIVERER-Csnw Luis Carlos Christianson MD MD rn Martinez, Clarissa, RN RN 10 Corrections: (The following items were deleted from the chart) 13:18 13:18 CBC+H.LAB.BRZ ordered. EDMS EDMS 13:18 13:18 BASIC METABOLIC PANEL+C.LAB.BRZ ordered. EDMS EDMS 13:18 13:18 PROBNP+C.LAB.BRZ ordered. EDMS EDMS 13:18 13:18 Chest Single View+RAD.RAD.BRZ ordered. EDMS EDMS 15:37 14:30 rn bd
--- NOTE | 2024-08-01 14:31 | ER ---
Nurse's Notes [facility] Name: Brittani Seaman Age: 79 yrs Sex: Female : 1945 Arrival Date: 08/01/2024 Time: 13:10 Bed 5 Private MD: Diagnosis: Unspecified combined systolic (congestive) and diastolic (congestive) heart failure;Acute pulmonary edema;COPD/ Chronic obstructive pulmonary disease, unspecified;Hypoxemia Presentation: 08/01 13:30 Chief complaint: EMS states: Called to patient's home for low O2 levels and elevated cm10 blood sugar. EMS reports that pt was released from care home last week and wasn't given any home O2. When home health arrived, pts O2 sat was in the 80s and blood sugar was in the 400s. Pt received insulin by family. Pt reports shortness of breath. Coronavirus screen: Client denies travel out of the [place] in the last 14 days. Ebola Screen: Patient denies travel to an Ebola-affected area in the 21 days before illness onset. Initial Sepsis Screen: Does the patient meet any 2 criteria? No. Patient's initial sepsis screen is negative. Does the patient have a suspected source of infection? No. Patient's initial sepsis screen is negative. Risk Assessment: Do you want to hurt yourself or someone else? Patient reports no desire to harm self or others. Onset of symptoms was August 01, 2024. 13:30 Method Of Arrival: Ambulatory cm10 13:30 Acuity: PRAVEEN 3 cm10 13:34 Care prior to arrival: IV initiated. 20 GA, in the right forearm, Glucose check: 379. cm10 13:34 Care prior to arrival: Oxygen administered. via nasal cannula. cm10 Triage Assessment: 13:20 General: Appears in no apparent distress. uncomfortable, Behavior is calm, cooperative. cm10 Pain: Denies pain. Neuro: No deficits noted. Level of Consciousness is awake, alert, obeys commands, Oriented to person, place, time, situation, Appropriate for age. Respiratory: No deficits noted. Reports shortness of breath at rest Airway is patent Respiratory effort is even, unlabored, Respiratory pattern is regular, symmetrical, Breath sounds are clear bilaterally. Historical: - Allergies: 13:34 Sulfa (Sulfonamide Antibiotics); cm10 - PMHx: 13:34 chronic bronchitis; COPD; Diabetes - IDDM; Hypertension; Hypothyroidism; prolapsed cm10 bladder; - PSHx: 13:34 pacemaker (COPD); cm10 - Immunization history:: Adult Immunizations up to date. - Infectious Disease History:: Denies. - Family history:: not pertinent. - Social history:: Smoking status: Patient denies any tobacco usage or history of. - Hospitalizations: : No recent hospitalization is reported. Screenin:36 [facility] ED Fall Risk Assessment (Adult) History of falling in the last 3 months, cm10 including since admission No falls in past 3 months (0 pts) Confusion or Disorientation No (0 pts) Intoxicated or Sedated No (0 pts) Impaired Gait Yes (1 pt) Mobility Assist Device Used Yes (1 pt) Altered Elimination No (0 pt) Score/Fall Risk Level 0 - 2 = Low Risk Oriented to surroundings, Maintained a safe environment, Hourly rounding (assess needs \T\ fall precautionary measures) done. Abuse screen: Denies threats or abuse. Denies injuries from another. Nutritional screening: No deficits noted. Tuberculosis screening: No symptoms or risk factors identified. Assessment: 15:43 Reassessment: Patient appears in no apparent distress at this time. Patient and/or cm10 family updated on plan of care and expected duration. Pain level reassessed. Patient is alert, oriented x 3, equal unlabored respirations, skin warm/dry/pink. Pt noted to have wet brief. pt changed and placed in gown. Vital Signs: 13:30 BP 154 / 59; Pulse 60; Resp 18; Temp 98.3; Pulse Ox 97% on 3 lpm NC; Weight 46.27 kg; cm10 Height 5 ft. 4 in. ; Pain 0/10; 13:45 BP 158 / 63; Pulse 62; Resp 15; Pulse Ox 95% on 3 lpm NC; cm10 14:15 BP 166 / 62; Pulse 63; Resp 15; Pulse Ox 95% on 3 lpm NC; cm10 14:45 BP 160 / 69; Pulse 60; Resp 15; Pulse Ox 98% on 3 lpm NC; cm10 15:30 BP 157 / 55; Pulse 65; Resp 15; Pulse Ox 100% on 3 lpm NC; cm10 13:30 Body Mass Index 17.51 (46.27 kg, 162.56 cm) cm10 13:30 Pain Scale: Adult [facility] ED Course: 13:16 Patient arrived in ED. rn 13:16 Luis Carlos Christianson MD is Attending Physician. rn 13:34 Triage completed. cm10 13:35 Arm band placed on right wrist. Patient placed in an exam room, on a stretcher, on cm10 oxygen, on pulse oximetry. 13:53 XRAY Chest (1 view) In Process Unspecified. EDMS 13:53 Tere Sellers, RN is Primary Nurse. cm10 13:53 Initial lab(s) drawn, by me, sent to lab. Maintain EMS IV. Dressing intact. Good blood cm10 return noted. Site clean \T\ dry. Gauge \T\ site: 20g right forearm. Flushed with 10 mL NS. 14:13 EKG done, by ED staff, reviewed by Luis Carlos Christianson MD. cm10 14:30 Ming Bridges is Hospitalizing Provider. rn 14:36 Patient has correct armband on for positive identification. Bed in low position. Call cm10 light in reach. Side rails up X2. Provided Education on: ER process and procedures. Client placed on continuous cardiac and pulse oximetry monitoring. NIBP monitoring applied. monitoring and evaluation advisor on. 14:36 Oxygen administration via nasal cannula \T\ 3L/min. cm10 14:55 Initial lab(s) drawn, by me, sent to lab. First set of blood cultures drawn by me. cm10 14:59 Ptt, Activated Sent. cm10 14:59 Protime (+inr) Sent. cm10 14:59 Lactate w/ 2H reflex if indic. Sent. cm10 15:56 Report faxed at [phone]. cm10 15:56 No provider procedures requiring assistance completed. Patient admitted, IV remains in cm10 place. Administered Medications: 15:43 Drug: Furosemide IVP 40 mg IVP once; give over 2 minutes Route: IVP; Site: right cm10 forearm; 16:00 Follow up: Response: No adverse reaction cm10 15:43 Drug: MethylPrednisoLONE IVP 125 mg IVP once Route: IVP; Site: right forearm; cm10 16:00 Follow up: Response: No adverse reaction cm10 15:43 Drug: Levalbuterol Inhalation 1.25 mg Inhalation once Route: Inhalation; cm10 16:00 Follow up: Response: No adverse reaction cm10 Medication: 14:36 VIS not applicable for this client. cm10 Outcome: 14:30 Decision to Hospitalize by Provider. rn 15:56 Admitted to Tele accompanied by tech, via wheelchair, room 402, with oxygen, cm10 15:56 Condition: stable 15:56 Instructed on the need for admit, 16:46 Patient left the ED. cm10 Signatures: Dispatcher [employer] Luis Carlos Levi MD MD rn Martinez, Clarissa, RN RN Salvatore
[2024-08-01] MEDS ORDERED: ALBUTEROL 2.5 MG/3 ML NEB SOL NEB PRN (15:17)
[2024-08-01] MEDS ORDERED: LEVALBUTEROL 1.25 MG/3 ML NEB ONE (15:22)
[2024-08-01] MEDS ORDERED: METHYLPREDNISOLONE 125 MG INJ ONE (15:22)
[2024-08-01] MEDS ORDERED: ACETAMINOPHEN 325 MG TABLET PO PRN (15:23)
[2024-08-01 15:26] LABS: PT Prothrombin Time 10.8 SECONDS (9.4-12.5); PTT, Activated Partial Thromb 31.5 SECONDS (24.3-36.9); Protime INR 1.03
--- NOTE | 2024-08-01 15:27 | P.HP ---
Certification for Inpatient Patient admitted to: Observation With expected LOS: <2 Midnights Patient will require the following post-hospital care: None Practitioner: I am a practitioner with admitting privileges, knowledge of patient current condition, hospital course, and medical plan of care. Services: Services provided to patient in accordance with Admission requirements found in Title 42 Section 412.3 of the Code of Federal Regulations Patient History Date of Service: 08/01/24 Reason for admission: COPD exacerbation History of Present Illness: Ms. Seaman is a 79-year-old female with a past medical history of COPD, CHF, hypertension, hypothyroidism, and diabetes. She was recently in the hospital and was sent to rehab at [facility]. She was discharged back home, where she lives with her Grand-daughter, on 07/28/24. Unfortunately her home oxygen was not delivered. Over the last several days her oxygen saturation has dropped into the high 70s. Last evening, she was from her walker, became short of breath and then slid to the floor resulting in a left forearm skin tear. She presented to the emergency department today, short of breath, with a cough and an O2 sat in the 80s. For gentle diuresis, neb treatments, and oxygen delivery with the goal of discharge back home tomorrow. Allergies No Known Allergies Allergy (Verified 05/05/22 08:45) Home medications list reviewed: Yes Home Medications: Acetaminophen [Tylenol*] 650 mg PO Q6HP PRN 09/20/23 Aspirin Chewable [Aspirin Chewable*] 81 mg PO DAILY 09/20/23 Atorvastatin Calcium 40 mg PO BEDTIME 09/20/23 Buspirone HCl [Buspar*] 10 mg PO TID 09/20/23 Citalopram [Celexa*] 20 mg PO DAILY 09/20/23 Hydrocodone 5/APAP 325 [[place] 5/325*] 1 tab PO Q6HP PRN 09/20/23 Levothyroxine Sodium 75 mcg PO DAILY 09/20/23 Loratadine [Claritin*] 10 mg PO DAILY 09/20/23 Megestrol [Megace*] 20 mg PO QID 09/20/23 Omeprazole 20 mg PO DAILY 09/20/23 Potassium Chloride [Klor-Con 10] 10 meq PO DAILY 09/20/23 Ticagrelor [Brilinta*] 90 mg PO BID 09/20/23 Multivitamin [One-A-Day Essential] 1 each PO DAILY 10/08/23 Albuterol Neb [Proventil 0.083% Neb Soln] 2.5 mg NEB [id number] #60 amp 03/25/24 Glucerna Shake [Glucerna*] 237 ml PO BID can 04/05/24 Insulin Glargine,Hum.rec.anlog [Semglee] 30 unit SQ DAILY ml 04/05/24 Quetiapine [Seroquel*] 50 mg PO BEDTIME tab 04/05/24 carvediloL [Coreg*] 12.5 mg PO BID tab 04/05/24 Calcium Carbonate [Tums Regular*] 500 mg PO AC PRN 05/03/24 - Past Medical/Surgical History Has patient received pneumonia vaccine in the past: No Diabetic: Yes -: History of COPD -: Diabetes type 1 -: Hypertension -: Hypothyroid -: CHF -: Prolapsed bladder -: chronic bronchitis -: [id number] -: Bladder suspension 2004, pessary 2019 -: Appendectomy 1961 -: Tonsillectomy 1949 -: Pacemaker 2020 -: Hernia 2019 -: Stent 2020 Psychosocial/ Personal History: Former smoker - Family History Mother -: Heart disease, Hypertension, Diabetes - Social History Smoking Status: Former smoker Alcohol use: No CD- Drugs: No Caffeine use: No Place of Residence: Home Review of Systems 10-point ROS is otherwise unremarkable General: Malaise Eyes: Unremarkable ENT: Unremarkable Respiratory: Cough, Shortness of Breath, As per HPI Cardiovascular: Unremarkable Gastrointestinal: Unremarkable Genitourinary: Unremarkable Musculoskeletal: Unremarkable Integumentary: As per HPI Neurological: Unremarkable Lymphatics: Unremarkable Physical Examination - Vital Signs Blood Pressure: 160/69 Pulse: 61 Pulse Ox (%): 99 - Physical Exam General: Alert, In no apparent distress, Oriented x3 HEENT: Atraumatic, Normocephalic, PERRLA Neck: Supple Respiratory: Normal air movement, Expiratory wheezes Cardiovascular: Normal pulses, Regular rate/rhythm Capillary refill: <2 Seconds Gastrointestinal: No tenderness, No rebound, No guarding, Distended Musculoskeletal: No clubbing, No swelling Integumentary: No rashes, Other (skin tear to left forearm) Neurological: Normal speech, Normal tone, Normal affect Lymphatics: No axilla or inguinal lymphadenopathy External genitalia: Deferred Rectal: Deferred - Studies Laboratory Data (last 24 hrs) 08/01/24 08/01/24 13:42 13:42 WBC 8.80 Hgb 9.8 L Hct 29.2 L Plt Count 364 Sodium 132 L Potassium 3.8 BUN 24 H Creatinine 1.63 H Glucose 343 H Assessment and Plan - Plan COPD exacerbation Mild CHF/ bilateral pleural effusion Neb treatments every 4 to 6 hours as needed O2 per protocol Home O2 eval Lasix 40mg IV x 1 Monitor and trend labs including CBC, CMP CM for HH and Home O2 planning DVT prophylaxis SCDs - Advance Directives Does patient have a Living Will: No Does patient have a Durable POA for Healthcare: No - Code Status/Comfort Care Code Status Assessed: Yes (Full)
[2024-08-01] MEDS: FUROSEMIDE 40 MG/4 ML VIAL IV ONE (15:33)
[2024-08-01] MEDS ORDERED: D10W 125 ML IV PRN (17:08)
[2024-08-01] MEDS ORDERED: GLUCAGON 1 MG/VIAL IM PRN (17:08)
[2024-08-01] MEDS: FUROSEMIDE 40 MG/4 ML VIAL IV SCH (17:36)
[2024-08-01 17:41] VITALS: BMI 17.5
[2024-08-01] MEDS ORDERED: FLU (Fluarix Triv) TS24-25(6MOS UP)/PF 45 MCG/0.5 ML Syringe IM ONE (19:00)
[2024-08-01] MEDS ORDERED: PNEUMOCOCCAL VACCINE 0.5 ML IMVAC ONE (19:00)
[2024-08-01] MEDS: ATORVASTATIN 40 MG TAB PO SCH (20:46)
[2024-08-01] MEDS: QUETIAPINE 25 MG TAB PO SCH (20:46)
[2024-08-01] MEDS: carvediloL 25 MG TAB PO SCH (20:46)
[2024-08-01] MEDS: INSULIN REGULAR (HUMAN) 100 UNIT/ML SQ SCH (20:46)
[2024-08-01] MEDS: GLUCERNA SHAKE 237 ML CAN PO SCH (20:51)
[2024-08-01] MEDS: IPRATROPIUM BROM 0.5MG/2.5ML ONE (22:43)
[2024-08-02] MEDS: LEVOTHYROXINE SOD 0.075 MG TAB PO SCH (06:13)
[2024-08-02 06:27] LABS: Absolute Lymphocytes (CBC) 0.5 K/uL (0.7-4.9); Absolute Monocytes 0.1 K/uL (0.1-1.3); Absolute Neutrophil 6.5 K/uL (1.8-8.0); Basophils % 0.1 % (0-1.3); Hematocrit 29.6 % (36.0-45.0); Hemoglobin 10.1 g/dL (12.0-15.0); Lymphocytes % 7.6 % (15.3-44.8); MCHC 34.1 g/dL (32.0-36.0); MPV 7.9 fL (7.6-11.3); Monocytes % 1.8 % (3.3-12.3); Neutrophils % 90.5 % (41.7-73.7); Percent Reticulocyte Count 1.38 % (0.4-2.05); Platelets 399 thou/uL (152-406); RBC Red Blood Cell Count 3.37 M/uL (3.86-4.86); Red Cell Distribution Width 14.2 % (12.1-15.2)
[2024-08-02 06:51] LABS: Albumin 2.5 g/dL (3.4-5.0); Albumin/Globulin Ratio 0.5 (1.1-1.8); Anion Gap 10.5 mEq/L (5.0-15.0); Bilirubin Total 0.4 mg/dL (0.2-1.0); Globulin 4.6 g/dL (2.3-3.5); Potassium 4.5 mEq/L (3.5-5.1); Protein, Total 7.1 g/dL (6.4-8.2)
[2024-08-02] MEDS: IPRATROPIUM BROM 0.5MG/2.5ML NEB SCH (07:27)
[2024-08-02] MEDS: INSULIN GLARGINE 100 UNIT/ML SQ SCH (08:37)
[2024-08-02] MEDS: PANTOPRAZOLE 40MG TABLET PO SCH (08:37)
[2024-08-02] MEDS: SPIRONOLACTONE 25 MG TABLET PO SCH (08:37)
[2024-08-02] MEDS: Multi-VIT(Centravite Senior) 1 TAB TAB PO SCH (08:38)
[2024-08-02] MEDS: LORATADINE 10 MG TAB PO SCH (08:38)
[2024-08-02] MEDS: POTASSIUM CL SA 10 MEQ TAB PO SCH (08:38)
[2024-08-02] MEDS: ASPIRIN 81 MG CHEWABLE TABLET PO SCH (08:38)
[2024-08-02] MEDS ORDERED: HOME MED 1 EA UNK (Omeprazole [Omeprazole] 20 MG Capsule.Dr) PO SCH (09:00)
[2024-08-02] MEDS ORDERED: INSULIN GLARGINE 100 UNIT/ML SQ SCH ×2 (09:00)
[2024-08-02 09:45] LABS: Blood Morphology Comment NOT SEEN (NOT SEEN); Platelet Estimate ADEQ; White Blood Cell Scan OK (OK)
[2024-08-02] MEDS: INSULIN LISPRO 100 UNIT/1 ML SQ SCH (14:00)
[2024-08-02] MEDS: INSULIN REGULAR (HUMAN) 100 UNIT/ML SQ SCH (16:43)
--- NOTE | 2024-08-02 18:38 | P.PN ---
Date of Service: 08/02/24 Subjective feeling a lot better, on 2L via N/C, states she is feeling good about going home when O2 arrives Review of Systems 10-point ROS is otherwise unremarkable General: Malaise Eyes: Unremarkable ENT: Unremarkable Respiratory: improved with 2L via N/C Cardiovascular: Unremarkable Gastrointestinal: Unremarkable Genitourinary: Unremarkable Musculoskeletal: Unremarkable Integumentary: As per HPI Neurological: Unremarkable Lymphatics: Unremarkable Physical Examination - Vital Signs reviewed - Physical Exam General: Alert, In no apparent distress, Oriented x3 HEENT: Atraumatic, Normocephalic, PERRLA Neck: Supple Respiratory: Normal air movement, Expiratory wheezes Cardiovascular: Normal pulses, Regular rate/rhythm Capillary refill: <2 Seconds Gastrointestinal: minimal tenderness, No rebound, No guarding, mildly Distended - hernia (soft) Musculoskeletal: No clubbing, No swelling Integumentary: No rashes, Other (skin tear to left forearm) Neurological: Normal speech, Normal tone, Normal affect Lymphatics: No axilla or inguinal lymphadenopathy External genitalia: Deferred Rectal: Deferred Assessment and Plan - Plan COPD exacerbation Mild CHF/ bilateral pleural effusion Neb treatments every 4 to 6 hours as needed O2 per protocol Home O2 eval Lasix 40mg IV x 1 in ED and then q 12h Monitor and trend labs including CBC, CMP CM for HH and Home O2 planning DVT prophylaxis SCDs Home O2 should be delivered this evening for am discharge - Advance Directives Does patient have a Living Will: No Does patient have a Durable POA for Healthcare: No - Code Status/Comfort Care Code Status Assessed: Yes (Full)
--- NOTE | 2024-08-02 18:48 | P.DS ---
Admission Date: 08/02/24 Discharge Date: 08/03/24 Disposition: DC HOME/HOME HEALTH CARE Discharge Condition: GOOD Reason for Admission: COPD exacerbation Brief History of Present Illness: Ms. Seaman is a 79-year-old female with a past medical history of COPD, CHF, hypertension, hypothyroidism, and diabetes. She was recently in the hospital and was sent to rehab at [facility]. She was discharged back home, where she lives with her Grand-daughter, on 07/28/24. Unfortunately her home oxygen was not delivered. Over the last several days her oxygen saturation has dropped into the high 70s. Last evening, she was from her walker, became short of breath and then slid to the floor resulting in a left forearm skin tear. She presented to the emergency department today, short of breath, with a cough and an O2 sat in the 80s. For gentle diuresis, neb treatments, and oxygen delivery with the goal of discharge back home tomorrow. Hospital Course: Ms. Seaman diuresed well, maintains sats greater than 92% with O2 at 2 L, feels encouraged to go home with oxygen. She states she feels she can eat better and be more comfortable at home. As oxygen has been delivered to her room, we will discharge her with oxygen set up and she should follow-up with Hailey Sepulveda in 1 week. She tells me that a Dexcom has been ordered and she feels like her blood sugar will be easier to control when she has a better idea of her diet and readings at home. Vital Signs/Physical Exam: Temp Pulse Resp BP Pulse Ox 98.0 F 63 16 160/67 H 98 08/02/24 16:00 08/02/24 16:44 08/02/24 16:00 08/02/24 16:44 08/02/24 16:00 General: Alert, In no apparent distress, Oriented x3, Cooperative, Cachectic HEENT: Atraumatic, Normocephalic, Other (edentulous) Neck: 2+ carotid pulse no bruit, JVD not distended Respiratory: Clear to auscultation bilaterally, Expiratory wheezes (mild, left minimal, fine crackles) Cardiovascular: Normal pulses, Regular rate/rhythm Capillary refill: <2 Seconds Gastrointestinal: Normal bowel sounds, Soft and benign, Other (mild chronic soft hernia) Musculoskeletal: No clubbing, No swelling Integumentary: No rashes, Other (left arm healing skin tear) Lymphatics: No axilla or inguinal lymphadenopathy External genitalia: Deferred Rectal: Deferred Laboratory Data at Discharge: WBC 7.20 thou/uL (4.3-10.9) 08/02/24 05:57 Hgb 10.1 g/dL (12.0-15.0) L 08/02/24 05:57 Hct 29.6 % (36.0-45.0) L 08/02/24 05:57 Plt Count 399 thou/uL (152-406) 08/02/24 05:57 PT 10.8 SECONDS (9.4-12.5) 08/01/24 14:55 INR 1.03 08/01/24 14:55 APTT 31.5 SECONDS (24.3-36.9) 08/01/24 14:55 Sodium 131 mEq/L (136-145) L 08/02/24 05:57 Potassium 4.5 mEq/L (3.5-5.1) D 08/02/24 05:57 BUN 32 mg/dL (7-18) H 08/02/24 05:57 Creatinine 1.62 mg/dL (0.55-1.02) H 08/02/24 05:57 Glucose 470 mg/dL (74-106) H* 08/02/24 11:59 Total Bilirubin 0.4 mg/dL (0.2-1.0) 08/02/24 05:57 AST 17 U/L (15-37) 08/02/24 05:57 ALT 36 U/L (13-56) 08/02/24 05:57 Alkaline Phosphatase 132 U/L (45-117) H 08/02/24 05:57 Home Medications: Aspirin Chewable [Aspirin Chewable*] 81 mg PO DAILY 09/20/23 Atorvastatin Calcium 40 mg PO BEDTIME 09/20/23 Buspirone HCl [Buspar*] 10 mg PO TID 09/20/23 Citalopram [Celexa*] 20 mg PO DAILY 09/20/23 Hydrocodone 5/APAP 325 [[place] 5/325*] 1 tab PO Q6HP PRN 09/20/23 Levothyroxine Sodium 75 mcg PO DAILY 09/20/23 Loratadine [Claritin*] 10 mg PO DAILY 09/20/23 Megestrol [Megace*] 20 mg PO QID 09/20/23 Omeprazole 20 mg PO DAILY 09/20/23 Ticagrelor [Brilinta*] 90 mg PO BID 09/20/23 Multivitamin [One-A-Day Essential] 1 each PO DAILY 10/08/23 Albuterol Neb [Proventil 0.083% Neb Soln] 2.5 mg NEB [id number] #60 amp 03/25/24 Glucerna Shake [Glucerna*] 237 ml PO BID can 04/05/24 Quetiapine [Seroquel*] 50 mg PO BEDTIME tab 04/05/24 carvediloL [Coreg*] 12.5 mg PO BID tab 04/05/24 Calcium Carbonate [Tums Regular*] 500 mg PO AC PRN 05/03/24 Albuterol Neb [Proventil 0.083% Neb Soln] 2.5 mg NEB TIDRESP PRN amp 08/02/24 Furosemide [Lasix] 20 mg PO DAILY #30 tab 08/02/24 Insulin Glargine,Hum.rec.anlog [Semglee] 15 unit SQ DAILY #10 ml 08/02/24 Insulin Lispro 5 unit SQ TID #10 ml 08/02/24 Ipratropium Neb [Atrovent*] 0.5 mg NEB TIDRESP amp 08/02/24 Spironolactone [Aldactone*] 12.5 mg PO DAILY #30 tab 08/02/24 New Medications: Spironolactone [Aldactone*] 12.5 mg PO DAILY #30 tab Insulin Lispro 5 unit SQ TID #10 ml Furosemide [Lasix] 20 mg PO DAILY #30 tab Insulin Glargine,Hum.rec.anlog [Semglee] 15 unit SQ DAILY #10 ml Physician Discharge Instructions: Ms. Seaman is a 79-year-old female with a past medical history of COPD, CHF, hypertension, hypothyroidism, and diabetes. She was recently in the hospital and was sent to rehab at [facility]. She was discharged back home, where she lives with her Grand-daughter, on 07/28/24. Unfortunately her home oxygen was not delivered. Over the last several days her oxygen saturation has dropped into the high 70s. Last evening, she was from her walker, became short of breath and then slid to the floor resulting in a left forearm skin tear. She presented to the emergency department today, short of breath, with a cough and an O2 sat in the 80s. For gentle diuresis, neb treatments, and oxygen delivery with the goal of discharge back home tomorrow. Ms. Seaman diuresed well, maintains sats greater than 92% with O2 at 2 L, feels encouraged to go home with oxygen. She states she feels she can eat better and be more comfortable at home. As oxygen has been delivered to her room, we will discharge her with oxygen set up and she should follow-up with Hailey Sepulveda in 1 week. She tells me that a Dexcom has been ordered and she feels like her blood sugar will be easier to control when she has a better idea of her diet and readings at home. New prescriptions: Spironolactone 25mg po daily Lasix 20mg po daily Insulin Lispro 5 units sq three times daily with meals Insulin Glargine 15 units sq daily Continue home medicines as previously prescribed GOAL: Clear understanding of disease process Diet: ADA, low sodium Activity: Fall precautions INSTRUCTIONS: Physician Discharge Instructions: Okay to DC IV and DC home Follow-up with primary care provider in 1 to 2 weeks Please call the inpatient unit for any questions or concerns regarding hospital stay Return to the ER for worsening symptoms Diet: ADA Activity: Fall precautions Followup: SUSI SEPULVEDA [Primary Care Provider] -
[2024-08-03 09:08] VITALS: O2SAT 91
[2024-08-03 11:45] VITALS: BP 140/55; TEMP 98.1
--- NOTE | 2024-08-03 11:50 | EKG ---
Test Date: 2024-08-01 Test Time: 14:02:22 Bulk Station Operator: NILAY MEASUREMENT RESULTS: Intervals: Rate: 66 IA: QRSD: 162 QT: 530 QTc: 555 Woodruff: P: IA: QRS: 96 T: 221 INTERPRETIVE STATEMENTS: Ventricular-paced rhythm Abnormal ECG Compared to ECG 05/14/2024 20:51:31 Atrial fibrillation no longer present Left bundle-branch block no longer present Electronically Signed On 08-03-24 11:48:46 [employer] by Arnoldo Alvarado
--- NOTE | 2024-08-03 13:52 | ECHO ---
HEIGHT: 5 ft 4 in WEIGHT: 102 lb 0.126 oz DATE OF STUDY: 08/03/[address]: IAN Bridges MD 2-DIMENSIONAL: YES M.MODE: YES DOPPLER: YES COLOR FLOW: YES TDS: PORTABLE: YES DEFINITY: BUBBLE STUDY: DIAGNOSIS: HEART FAILURE CARDIAC HISTORY: CATHERIZATION: YES SURGERY: NO PROSTHETIC VALVE: NO PACEMAKER: YES MEASUREMENTS (cm) DIASTOLIC (NORMALS) SYSTOLIC (NORMALS) IVSd 1.1 (0.6-1.2) LA Diam 3.5 (1.9-4.0) LVEF 35-40% LVIDd 3.8 (3.5-5.7) LVIDs 3.2 (2.0-3.5) %FS 16% LVPWd 1.1 (0.6-1.2) Ao Diam 2.5 (2.0-3.7) 2 DIMENSIONAL ASSESSMENT: RIGHT ATRIUM: NORMAL LEFT ATRIUM: SEVERELY DILATED RIGHT VENTRICLE: NORMAL, PACEMAKER LEAD LEFT VENTRICLE: NORMAL TRICUSPID VALVE: MILD TRICUSPID REGURGITATION MITRAL VALVE: SEVERE MITRAL ANNULAR CALCIFICATION PULMONIC VALVE: NORMAL AORTIC VALVE: NORMAL PERICARDIAL EFFUSION: NONE AORTIC ROOT: NORMAL LEFT VENTRICULAR WALL MOTION: MODERATE GLOBAL HYPOKINESIS WITH AJIT SEPTAL, SEPTAL HERRERA SEVERE HYPOKINESIS DOPPLER/COLOR FLOW: DIASTOLIC DYSFUNCTION COMMENTS: 1. MODERATE REDUCED LEFT VENTRICULAR SYSTOLIC FUNCTION, EJECTION FRACTION 35-40%, WALL MOTION ABNORMALITIES NOTED ABOVE 2. DIASTOLIC DYSFUNCTION TECHNOLOGIST: HILLARY BAZAN
== END 2024-08-03 17:55 | disposition home health service (06) | DRG 190 ==
LOC: ER 13:10 → ERHOLD 15:17 → 4TH 16:31 → OBSVTOIN 08-02 17:55
PROVIDERS: ADMIT Internal Medicine; ATTEND Internal Medicine
DX: J44.1 Chronic obstructive pulmonary disease with (acute) exacerbation (principal); I50.21 Acute systolic (congestive) heart failure; R64 Cachexia; Z68.1 Body mass index [BMI] 19.9 or less, adult; I11.0 Hypertensive heart disease with heart failure; E11.9 Type 2 diabetes mellitus without complications; E03.9 Hypothyroidism, unspecified; S51.812A Laceration without foreign body of left forearm, initial encounter; Z95.0 Presence of cardiac pacemaker; Z88.2 Allergy status to sulfonamides; Z79.4 Long term (current) use of insulin; Z79.82 Long term (current) use of aspirin; Z79.02 Long term (current) use of antithrombotics/antiplatelets; Z90.49 Acquired absence of other specified parts of digestive tract; Z87.891 Personal history of nicotine dependence; Z79.890 Hormone replacement therapy; Z79.899 Other long term (current) drug therapy; Z90.710 Acquired absence of both cervix and uterus; W01.0XXA Fall on same level from slipping, tripping and stumbling without subsequent striking against object, initial encounter; Y93.9 Activity, unspecified; Y92.019 Unspecified place in single-family (private) house as the place of occurrence of the external cause; Y99.9 Unspecified external cause status
CPT/HCPCS: 36415; 71045; 80048; 80053; 82728; 82947; 83036; 83540; 83605; 83880; 84466; 85025; 85044; 85610; 85730; 87040; 93005; 93306; 94640; 96374; 96375; 99285; G0378; J1940; J2919; J7613; J7614; J7644

== ENCOUNTER 2024-08-21 16:33 | Inpatient (IN) | payer OTHER ==
[2024-08-21] MEDS ORDERED: ALBUTEROL 2.5 MG/3 ML NEB SOL ONE (16:56)
[2024-08-21] MEDS ORDERED: METHYLPREDNISOLONE 125 MG INJ ONE (16:56)
[2024-08-21] MEDS ORDERED: IPRATROPIUM BROM 0.5MG/2.5ML ONE (16:56)
[2024-08-21 17:37] LABS: Absolute Eosinophils 0.2 K/uL (0-0.5); Absolute Lymphocytes (CBC) 0.6 K/uL (0.7-4.9); Absolute Monocytes 0.8 K/uL (0.1-1.3); Absolute Neutrophil 7.1 K/uL (1.8-8.0); Basophils % 0.5 % (0-1.3); Eosinophils % 1.9 % (0-4.4); Hematocrit 27.5 % (36.0-45.0); Hemoglobin 9.3 g/dL (12.0-15.0); Lymphocytes % 6.7 % (15.3-44.8); MCH 30.1 pg (27.0-35.0); MCV 88.6 fL (80-100); MPV 8.8 fL (7.6-11.3); Monocytes % 9.1 % (3.3-12.3); Neutrophils % 81.8 % (41.7-73.7); Nucleated Red Blood Cells % 0.1 % (0-0); Platelets 335 thou/uL (152-406); Red Cell Distribution Width 15.4 % (12.1-15.2)
[2024-08-21 17:46] LABS: Albumin 2.6 g/dL (3.4-5.0); Albumin/Globulin Ratio 0.6 (1.1-1.8); Anion Gap 7.1 mEq/L (5.0-15.0); Bilirubin Direct 0.2 mg/dL (0-0.2); Bilirubin Indirect, Calculated 0.4 mg/dL (0.2-0.8); Bilirubin Total 0.6 mg/dL (0.2-1.0); Globulin 4.5 g/dL (2.3-3.5); Potassium 4.1 mEq/L (3.5-5.1); Protein, Total 7.1 g/dL (6.4-8.2); Troponin High Sensitivity 18.7 pg/mL (<58.9)
--- NOTE | 2024-08-21 18:23 | RAD REPORT ---
EXAMINATION: ONE VIEW CHEST XR CLINICAL INDICATION: DYSPNEA TECHNIQUE: Frontal chest projection is submitted. Examination is limited by patient positioning and t echnique. COMPARISON: 08/01/2024 FINDINGS: Bibasilar lung opacities with pleural effusions noted, appearing worse than on the prior study. Irreg ular nodularity in the right upper lobe noted. The heart is moderately enlarged. Dual lead pacer device is present. IMPRESSION: Bibasilar lung opacities with pleural effusions, mildly worse relative to the prior study. This is mo st likely bibasilar pneumonia.
--- NOTE | 2024-08-21 18:46 | EDPHYS ---
Physician Documentation [facility] Name: Brittani Seaman Age: 79 yrs Sex: Female : 1945 Arrival Date: 08/21/2024 Time: 16:33 Bed 2 Private MD: ED Physician Juan Quintana HPI: 08/21 17:51 This 79 yrs old Female presents to ER via EMS with complaints of COPD Exacerbation. rt 17:51 Patient with history of COPD chronically on 2 L of oxygen presents to the ED with rt worsening dyspnea, cough for the past several days. EMS noted the patient's oxygen saturation was 79%. They improve after bronchodilators, 6 L by nasal cannula. Denies other acute complaints at this time, symptoms are moderate in severity, no other aggravating alleviating factors.. 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 - Infectious Disease History:: Denies. - Social history:: Smoking status: Patient denies any tobacco usage or history of. Patient/guardian denies using alcohol, street drugs, IV drugs, tobacco products. - Family history:: not pertinent. ROS: 17:51 Constitutional: Negative for fever, chills, and weight loss, Cardiovascular: Negative rt for chest pain, palpitations, and edema, Abdomen/GI: Negative for abdominal pain, nausea, vomiting, diarrhea, and constipation, Skin: Negative for injury, rash, and discoloration, Neuro: Negative for headache, weakness, numbness, tingling, and seizure, 17:51 Respiratory: Positive for cough, shortness of breath, Exam: 17:51 Constitutional: This is a well developed, well nourished patient who is awake, alert, rt and in no acute distress. Head/Face: Normocephalic, atraumatic. Chest/axilla: Normal chest wall appearance and motion. Nontender with no deformity. No lesions are appreciated. Cardiovascular: Regular rate and rhythm with a normal S1 and S2. No gallops, murmurs, or rubs. Normal PMI, no JVD. No pulse deficits. Abdomen/GI: Soft, non-tender, with normal bowel sounds. No distension or tympany. No guarding or rebound. No evidence of tenderness throughout. Skin: Warm, dry with normal turgor. Normal color with no rashes, no lesions, and no evidence of cellulitis. MS/ Extremity: Pulses equal, no cyanosis. Neurovascular intact. Full, normal range of motion. 17:51 ECG was reviewed by the Attending Physician. 17:51 Respiratory: Wheezes heard on all lung lynch, mild respiratory distress, Vital Signs: 16:47 BP 109 / 45; Pulse 65; Resp 23; Temp 98.1(A); Pulse Ox 96% on 2 lpm NC; Pain 0/10; le1 18:20 BP 126 / 49; Pulse 65; Resp 20; Pulse Ox 90% on 3 lpm NC; le1 19:44 BP 129 / 57; Pulse 69; Resp 23; Temp 98.2(O); Pulse Ox 93% on 3 lpm NC; Pain 5/10; le1 16:47 Pain Scale: Adult le1 19:44 Pain Scale: Adult le1 MDM: 16:47 Medical Screening Exam initiated rt 18:46 Differential Diagnosis Pneumonia, CHF, COPD. Data reviewed: vital signs, nurses notes, rt lab test result(s), EKG, radiologic studies. Consideration of Admission/Observation Patient was admitted/placed on observation. Management of patient was discussed with the following: Hospitalist: Agrees to admit. I considered the following discharge prescriptions or medication management in the emergency department Medications were administered in the Emergency Department. See MAR. Independent interpretation of the following test(s) in the Emergency Department X-Ray: My interpretation is Bibasilar pneumonia seen on interpretation of x-ray images. Test considered but Not performed: CT: Low suspicion for PE, CT angiogram not indicated. Care significantly affected by the following chronic conditions: Congestive Heart Failure, Chronic Obstructive Pulmonary Disease. Counseling: I had a detailed discussion with the patient and/or guardian regarding the historical points, exam findings, and any diagnostic results supporting the discharge/admit diagnosis, lab results, radiology results, the need for further work-up and treatment in the hospital. Response to treatment: the patient's symptoms have mildly improved after treatment. 08/21 16:49 Order name: Basic Metabolic Panel; Complete Time: 17:56 rt / 16:49 Order name: CBC with Diff; Complete Time: 17:56 rt / 16:49 Order name: LFT's; Complete Time: 17:56 rt / 16:49 Order name: NT PRO-BNP; Complete Time: 17:56 rt / 16:49 Order name: Troponin HS; Complete Time: 17:56 rt 08/21 18:39 Order name: Glucose, Ancillary Testing; Complete Time: 18:40 EDMS 08/21 19:17 Order name: Lactate w/ 2H reflex if indic. EDMS / 19:17 Order name: Magnesium EDMS 08/21 19:17 Order name: Phosphorus EDMS 08/21 19:17 Order name: Protime (+INR) EDMS / 19:17 Order name: PTT, Activated Partial Thromb EDMS / 19:17 Order name: Basic Metabolic Panel EDMS / 19:17 Order name: Basic Metabolic Panel EDMS 08/21 19:17 Order name: CBC with Automated Diff EDMS 08/21 19:17 Order name: CBC with Automated Diff EDMS 08/21 19:17 Order name: Lipid Profile EDMS / 19:17 Order name: Lipid Profile EDMS 08/21 19:25 Order name: COVID-19 Ag + Flu A+B Ag EDMS / 19:25 Order name: Sputum Culture EDMS / 16:49 Order name: XRAY Chest (1 view); Complete Time: 18:27 rt / 19:18 Order name: Abdomen 1 View (KUB) EDMS / 19:17 Order name: Physical Therapy Consult EDMS 08/21 16:49 Order name: Cardiac monitoring; Complete Time: 16:52 rt / 16:49 Order name: EKG - Nurse/Tech; Complete Time: 16:52 rt / 16:49 Order name: IV Saline Lock; Complete Time: 18:19 rt / 16:49 Order name: Labs collected and sent; Complete Time: 18:19 rt /02 16:49 Order name: O2 Per Protocol; Complete Time: 16:52 rt /02 16:49 Order name: O2 Sat Monitoring; Complete Time: 16:52 rt EC:51 Rate is 62 beats/min. Rhythm is regular, Paced with No ectopy. QRS interval is rt prolonged at 150 msec. QT interval is normal. No Q waves. Administered Medications: 17:01 Drug: Albuterol Inhalation 2.5 mg Inhalation once Route: Inhalation; le1 18:18 Follow up: Response: No adverse reaction le1 17:01 Drug: Ipratropium Inhalation Aerosol 0.5 mg Inhalation once Route: Inhalation; le1 18:18 Follow up: Response: No adverse reaction le1 17:30 Drug: MethylPrednisoLONE IVP 125 mg IVP once Route: IVP; Site: left hand; le1 18:09 Follow up: Response: No adverse reaction le1 18:18 Follow up: Response: No adverse reaction le1 19:13 Drug: levofloxacin IVPB 500 mg 100 ml IVPB once over 60 mins Volume: 100 ml; Route: le1 IVPB; Infused Over: 60 mins; Site: right hand; 19:13 Drug: Furosemide IVP 40 mg IVP once; give over 2 minutes Route: IVP; Site: right hand; le1 19:37 Follow up: Response: No adverse reaction le1 Disposition Summary: 08/21/24 18:45 Hospitalization Ordered Notes: Hospitalization Status: Inpatient Admission rt Provider: Prince Tyrese rt Location: Telemetry/MedSurg (Inpatient) rt Condition: Fair rt Problem: an acute exacerbation rt Symptoms: have improved rt Bed/Room Type: Standard rt Room Assignment: [facility](08/21/24 19:23) [facility] Diagnosis - Community-acquired pneumonia rt - CHF exacerbation rt - Hypoxia rt Forms: - Medication Reconciliation Form rt - SBAR form rt - Leadership Thank You Letter rt Critical care time excluding procedures: 18:46 Critical care time: Bedside Care: 30 minutes, Consultation: 5 minutes. Total time: 35 rt minutes Signatures: Dispatcher [employer] EDMS Juan Quintana MD MD rt Liza Marques f Luis Armando Graham RN RN le1 Corrections: (The following items were deleted from the chart) 16:49 16:49 BASIC METABOLIC PANEL+C.LAB.BRZ ordered. EDMS EDMS 16:49 16:49 CBC+H.LAB.BRZ ordered. EDMS EDMS 16:49 16:49 HEPATIC FUNCTION+C.LAB.BRZ ordered. EDMS EDMS 16:49 16:49 PROBNP+C.LAB.BRZ ordered. EDMS EDMS 16:49 16:49 Troponin High Sensitivity+C.LAB.BRZ ordered. EDMS EDMS 16:49 16:49 Chest Single View+RAD.RAD.BRZ ordered. EDMS EDMS 19:23 18:45 rt kmf
--- NOTE | 2024-08-21 18:46 | ER ---
Nurse's Notes [facility] Name: Brittani Seaman Age: 79 yrs Sex: Female : 1945 Arrival Date: 08/21/2024 Time: 16:33 Bed 2 Private MD: Diagnosis: Community-acquired pneumonia;CHF exacerbation;Hypoxia Presentation: 08/21 16:47 Chief complaint: Patient states: Complains of non productive cough for a couple days. le1 EMS states: Patient sating in 80s on 2L NC. Coronavirus screen: Client denies travel out of the [place] in the last 14 days. cough unrelated to allergies, difficulty breathing. Ebola Screen: Patient negative for fever greater than or equal to 101.5 degrees Fahrenheit, and additional compatible Ebola Virus Disease symptoms Patient denies exposure to infectious person. Patient denies travel to an Ebola-affected area in the 21 days before illness onset. No symptoms or risks identified at this time. Initial Sepsis Screen: Does the patient meet any 2 criteria? RR > 20 per min. No. Patient's initial sepsis screen is negative. Does the patient have a suspected source of infection? No. Patient's initial sepsis screen is negative. Risk Assessment: Do you want to hurt yourself or someone else? Patient reports no desire to harm self or others. Onset of symptoms was August 21, 2024. Care prior to arrival: Medication(s) given: Albuterol Neb x 2, Atrovent Neb x 1. 16:47 Method Of Arrival: EMS: [facility] le1 16:47 Acuity: PRAVEEN 2 le1 Triage Assessment: 16:50 General: Appears in no apparent distress. uncomfortable, Behavior is calm, cooperative. le1 Pain: Denies pain. EENT: No deficits noted. Neuro: No deficits noted. Cardiovascular: No deficits noted. Respiratory: Reports shortness of breath at rest cough that is non-productive, Respiratory effort is labored, Respiratory pattern is regular, symmetrical. GI: No deficits noted. : No deficits noted. Musculoskeletal: Reports. 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 - Infectious Disease History:: Denies. - Social history:: Smoking status: Patient denies any tobacco usage or history of. Patient/guardian denies using alcohol, street drugs, IV drugs, tobacco products. - Family history:: not pertinent. Screenin:51 [facility] ED Fall Risk Assessment (Adult) History of falling in the last 3 months, le1 including since admission No falls in past 3 months (0 pts) Confusion or Disorientation No (0 pts) Intoxicated or Sedated No (0 pts) Impaired Gait No (0 pts) Mobility Assist Device Used No (0 pt) Altered Elimination No (0 pt) Score/Fall Risk Level 0 - 2 = Low Risk Oriented to surroundings, Maintained a safe environment, Educated pt \T\ family on fall prevention, incl call for assistance when getting out of bed, Assessed \T\ reinforced patient's understanding of fall precautions, Hourly rounding (assess needs \T\ fall precautionary measures) done. Abuse screen: Denies threats or abuse. Denies injuries from another. Nutritional screening: No deficits noted. Tuberculosis screening: No symptoms or risk factors identified. Vital Signs: 16:47 BP 109 / 45; Pulse 65; Resp 23; Temp 98.1(A); Pulse Ox 96% on 2 lpm NC; Pain 0/10; le1 18:20 BP 126 / 49; Pulse 65; Resp 20; Pulse Ox 90% on 3 lpm NC; le1 19:44 BP 129 / 57; Pulse 69; Resp 23; Temp 98.2(O); Pulse Ox 93% on 3 lpm NC; Pain 5/10; le1 16:47 Pain Scale: Adult le1 19:44 Pain Scale: Adult le1 ED Course: 16:45 Patient arrived in ED. le1 16:47 Luis Armando Graham, SHAMA is Primary Nurse. le1 16:47 Juan Quintana MD is Attending Physician. rt 16:49 Triage completed. le1 16:51 EKG done, by design engineering technician. reviewed by Juan Quintana MD. le1 18:19 XRAY Chest (1 view) In Process Unspecified. EDMS 18:19 Patient has correct armband on for positive identification. Bed in low position. Call le1 light in reach. Side rails up X2. Provided Education on: informed to use call light for assistance. 18:21 Inserted saline lock: 22 gauge in left hand, using aseptic technique. le1 18:21 Initial lab(s) drawn, by ED staff, sent to lab. le1 18:44 Prince Xiong MD is Hospitalizing Provider. rt 20:12 COVID swab sent to lab. Flu and/or RSV swab sent to lab. le1 Administered Medications: 17:01 Drug: Albuterol Inhalation 2.5 mg Inhalation once Route: Inhalation; le1 18:18 Follow up: Response: No adverse reaction le1 17:01 Drug: Ipratropium Inhalation Aerosol 0.5 mg Inhalation once Route: Inhalation; le1 18:18 Follow up: Response: No adverse reaction le1 17:30 Drug: MethylPrednisoLONE IVP 125 mg IVP once Route: IVP; Site: left hand; le1 18:09 Follow up: Response: No adverse reaction le1 18:18 Follow up: Response: No adverse reaction le1 19:13 Drug: levofloxacin IVPB 500 mg 100 ml IVPB once over 60 mins Volume: 100 ml; Route: le1 IVPB; Infused Over: 60 mins; Site: right hand; 19:13 Drug: Furosemide IVP 40 mg IVP once; give over 2 minutes Route: IVP; Site: right hand; le1 19:37 Follow up: Response: No adverse reaction le1 Outcome: 18:45 Decision to Hospitalize by Provider. rt 20:30 Patient left the ED. jb4 Signatures: Dispatcher [employer] EDPatrick Ryan RN RN jb4 Juan Quintana MD MD rt Luis Armando Graham RN RN le1
[2024-08-21] MEDS ORDERED: ONDANSETRON 4 MG/2 ML VIAL IV PRN (19:11)
[2024-08-21] MEDS ORDERED: ACETAMINOPHEN 500 MG TAB PO PRN (19:11)
[2024-08-21] MEDS ORDERED: Levofloxacin500mg IV 500 MG/100 ML BAG IV ONE (19:13)
[2024-08-21] MEDS ORDERED: FUROSEMIDE 40 MG/4 ML VIAL ONE (19:13)
--- NOTE | 2024-08-21 19:23 | P.HP ---
Certification for Inpatient Patient admitted to: Inpatient With expected LOS: >2 Midnights Practitioner: I am a practitioner with admitting privileges, knowledge of patient current condition, hospital course, and medical plan of care. Services: Services provided to patient in accordance with Admission requirements found in Title 42 Section 412.3 of the Code of Federal Regulations Patient History Date of Service: 08/21/24 Reason for admission: Shortness of breath History of Present Illness: Patient is a 79-year-old female with a past medical history of chronic respiratory failure and COPD on 2 L at home, congestive heart failure and hypertension. She is being admitted for shortness of breath. Associated symptoms include productive cough. She denies fever. She also denies lower extremity edema. Patient desatted on 2 L in the ER. Chest x-ray shows bibasilar pneumonia. Patient has a BNP of more than 1600. She was seen here 2 weeks ago for COPD exacerbation and was discharged with home oxygen. Allergies No Known Allergies Allergy (Verified 05/05/22 08:45) Home Medications: Aspirin Chewable [Aspirin Chewable*] 81 mg PO DAILY 09/20/23 Atorvastatin Calcium 40 mg PO BEDTIME 09/20/23 Buspirone HCl [Buspar*] 10 mg PO TID 09/20/23 Citalopram [Celexa*] 20 mg PO DAILY 09/20/23 Hydrocodone 5/APAP 325 [Windber 5/325*] 1 tab PO Q6HP PRN 09/20/23 Levothyroxine Sodium 75 mcg PO DAILY 09/20/23 Loratadine [Claritin*] 10 mg PO DAILY 09/20/23 Megestrol [Megace*] 20 mg PO QID 09/20/23 Omeprazole 20 mg PO DAILY 09/20/23 Ticagrelor [Brilinta*] 90 mg PO BID 09/20/23 Multivitamin [One-A-Day Essential] 1 each PO DAILY 10/08/23 Albuterol Neb [Proventil 0.083% Neb Soln] 2.5 mg NEB [id number] #60 amp 03/25/24 Glucerna Shake [Glucerna*] 237 ml PO BID can 04/05/24 Quetiapine [Seroquel*] 50 mg PO BEDTIME tab 04/05/24 carvediloL [Coreg*] 12.5 mg PO BID tab 04/05/24 Calcium Carbonate [Tums Regular*] 500 mg PO AC PRN 05/03/24 Albuterol Neb [Proventil 0.083% Neb Soln] 2.5 mg NEB TIDRESP PRN amp 08/02/24 Furosemide [Lasix] 20 mg PO DAILY #30 tab 08/02/24 Insulin Glargine,Hum.rec.anlog [Semglee] 15 unit SQ DAILY #10 ml 08/02/24 Insulin Lispro 5 unit SQ TID #10 ml 08/02/24 Ipratropium Neb [Atrovent*] 0.5 mg NEB TIDRESP amp 08/02/24 Spironolactone [Aldactone*] 12.5 mg PO DAILY #30 tab 08/02/24 Nebulizer 1 each MC Q6H #1 ea 08/03/24 Nebulizer Accessories [A.i.r.s. Nebulizer] 1 each MC Q6H #2 kit 08/03/24 - Past Medical/Surgical History Diabetic: Yes -: History of COPD -: Diabetes type 1 -: Hypertension -: Hypothyroid -: CHF -: Prolapsed bladder -: chronic bronchitis -: Abd Hernia -: [id number] -: Bladder suspension 2004, pessary 2019 -: Appendectomy 1961 -: Tonsillectomy 1949 -: Pacemaker 2020 -: Hernia 2019 -: Stent 2020 Psychosocial/ Personal History: Former smoker - Family History Mother -: Heart disease, Hypertension, Diabetes - Social History Alcohol use: No CD- Drugs: No Caffeine use: No Physical Examination - Physical Exam General: Acute distress HEENT: Atraumatic, Normocephalic Cardiovascular: No edema Neurological: Normal speech - Studies Laboratory Data (last 24 hrs) 08/21/24 08/21/24 17:20 17:20 WBC 8.70 Hgb 9.3 L Hct 27.5 L Plt Count 335 Sodium 138 Potassium 4.1 BUN 29 H Creatinine 1.66 H Glucose 102 Total Bilirubin 0.6 AST 32 ALT 54 Alkaline Phosphatase 152 H Assessment and Plan - Problems (Diagnosis) (1) Acute and chronic respiratory failure Current Visit: Yes Status: Acute (2) Community acquired pneumonia Current Visit: Yes Status: Acute (3) Hypertension Current Visit: No Status: Acute (4) CKD (chronic kidney disease) stage 3, GFR 30-59 ml/min Current Visit: No Status: Chronic Qualifiers: (5) Diabetes type 2, controlled Current Visit: No Status: Chronic Qualifiers: - Plan Assessment Patient is a 79-year-old female who is being admitted for acute on chronic respiratory failure after she presented with shortness of breath and productive cough. Chest x-ray shows bibasilar pneumonia. Patient also has elevated BNP. She has a history of combined systolic and diastolic CHF. Acute on chronic respiratory failure Bibasilar pneumonia Combined systolic and diastolic dysfunction Severe mitral valve calcification Type 2 diabetes mellitus Hypertension Plan: Will admit inpatient with telemetry Start empiric antibiotics for community-acquired pneumonia, ceftriaxone and azithromycin Respiratory sputum sent Will hold off IV diuresis Resume rest of home medications upon reconciliation - Advance Directives Does patient have a Living Will: No Does patient have a Durable POA for Healthcare: No
--- NOTE | 2024-08-21 20:11 | RAD REPORT ---
EXAM: XR of the abdomen HISTORY: Abdominal pain Abdominal distention COMPARISON: None FINDINGS: XR of the abdomen shows a nonspecific, nonobstructive bowel gas pattern. Cholecystectomy cl ips. No suspicious calcifications are seen. The bones are unremarkable.
[2024-08-21 20:25] LABS: PT Prothrombin Time 12.3 SECONDS (10.0-13.0); PTT, Activated Partial Thromb 29.1 SECONDS (24.3-36.9); Protime INR 1.08
[2024-08-21 20:31] LABS: Magnesium 2.2 mg/dL (1.6-2.4); Phosphorus 2.5 mg/dL (2.5-4.9)
[2024-08-21 20:34] LABS: Influenza A Ag Negative; Influenza B Ag Negative; SARS-CoV-2 Antigen Rapid Res Negative (Negative)
[2024-08-21] MEDS: CEFTRIAXONE 1,000 MG in NA CHLORIDE 0.9% 50 ML IVPB SCH (22:19)
[2024-08-21] MEDS: AZITHROMYCIN IV 500 MG in NA CHLORIDE 0.9% 250 ML IVPB SCH (22:58)
[2024-08-22] MEDS: HEPARIN 5000 UNIT/ML 1 ML VIAL SQ SCH (01:46)
[2024-08-22 04:31] LABS: Absolute Lymphocytes (CBC) 0.5 K/uL (0.7-4.9); Absolute Monocytes 0.1 K/uL (0.1-1.3); Basophils % 0.1 % (0-1.3); Hematocrit 30.9 % (36.0-45.0); Hemoglobin 10.4 g/dL (12.0-15.0); Lymphocytes % 6.6 % (15.3-44.8); MCH 29.8 pg (27.0-35.0); MCHC 33.7 g/dL (32.0-36.0); MCV 88.3 fL (80-100); MPV 8.5 fL (7.6-11.3); Monocytes % 1.1 % (3.3-12.3); Neutrophils % 92.2 % (41.7-73.7); Nucleated Red Blood Cells % 0.1 % (0-0); Platelets 383 thou/uL (152-406); Red Cell Distribution Width 15.2 % (12.1-15.2)
[2024-08-22 04:52] LABS: Anion Gap 8.3 mEq/L (5.0-15.0); Potassium 4.3 mEq/L (3.5-5.1)
[2024-08-22 05:09] LABS: Band Neutrophils 34 % (0-1); Differential Total Cells Count 100; Lymphocytes 6 % (15-42); Reactive Lymphocytes 1 %; Segmented Neutrophils 59 % (40-80)
[2024-08-22 05:10] LABS: Blood Morphology Comment NOT SEEN (NOT SEEN); Monocytes 0 % (0-10); Platelet Estimate ADEQ
[2024-08-22] MEDS: IPRATROPIUM BROM 0.5MG/2.5ML NEB PRN (05:15)
[2024-08-22] MEDS: ALBUTEROL 2.5 MG/3 ML NEB SOL NEB PRN (05:15)
[2024-08-22] MEDS: INSULIN GLARGINE 100 UNIT/ML SQ SCH (11:20)
--- NOTE | 2024-08-22 12:05 | EKG ---
Test Date: 2024-08-21 Test Time: 16:49:46 Editor Producer: COLLEEN MEASUREMENT RESULTS: Intervals: Rate: 62 OK: QRSD: 150 QT: 486 QTc: 493 [place]: P: 49 OK: QRS: 82 T: 254 INTERPRETIVE STATEMENTS: Ventricular-paced rhythm Abnormal ECG Compared to ECG 08/01/2024 14:02:22 No significant changes Electronically Signed On 08-22-24 12:02:53 NOUGAT CANDY MAKER HELPER by Arnoldo Alvarado
[2024-08-22] MEDS: DOXYCYCLINE 100 MG in NA CHLORIDE 0.9% 100 ML IVPB SCH (12:43)
[2024-08-22] MEDS ORDERED: D50W 25 GM/50 ML SYRINGE IV PRN (13:03)
[2024-08-22] MEDS ORDERED: GLUCAGON 1 MG/VIAL IM PRN (13:03)
[2024-08-22] MEDS: INSULIN 70/30 100 UNITS/ML SQ ONE ×2 (13:13→15:36)
[2024-08-22] MEDS: cloNIDine HCL 0.1 MG TAB PO ONE (15:45)
[2024-08-23] MEDS ORDERED: ALBUTEROL 2.5 MG/3 ML NEB SOL NEB PRN (16:16)
[2024-08-23] MEDS ORDERED: GLUCAGON 1 MG/VIAL IM PRN ×2 (16:28→16:34)
[2024-08-23] MEDS ORDERED: D10W 125 ML IV PRN ×2 (16:28→16:34)
[2024-08-23] MEDS: INSULIN LISPRO 100 UNIT/1 ML SQ SCH (16:30)
[2024-08-23] MEDS: SPIRONOLACTONE 25 MG TABLET PO ONE (16:51)
[2024-08-23] MEDS: METOPROLOL TAR 50 MG TAB PO ONE (16:51)
[2024-08-23] MEDS: HYDRALAZINE HCL 25 MG TABLET PO SCH (20:17)
[2024-08-23] MEDS: BUSPIRONE HCL 5 MG TABLET PO SCH (20:17)
[2024-08-23] MEDS: QUETIAPINE 25 MG TAB PO SCH (20:17)
[2024-08-23] MEDS: TICAGRELOR 90 MG TABLET PO SCH (20:17)
[2024-08-23] MEDS: ATORVASTATIN 40 MG TAB PO SCH (20:17)
[2024-08-23] MEDS ORDERED: HYDRALAZINE HCL 10 MG TABLET PO SCH (21:00)
[2024-08-24] MEDS: PANTOPRAZOLE 40MG TABLET PO SCH (08:30)
[2024-08-24] MEDS: SPIRONOLACTONE 25 MG TABLET PO SCH (08:39)
[2024-08-24] MEDS: FUROSEMIDE 20 MG TABLET PO SCH (08:40)
[2024-08-24] MEDS: LORATADINE 10 MG TAB PO SCH (08:40)
[2024-08-24] MEDS: CITALOPRAM 10 MG TABLET PO SCH (08:40)
[2024-08-24] MEDS: LEVOTHYROXINE SOD 0.075 MG TAB PO SCH (08:40)
[2024-08-24] MEDS: ASPIRIN 81 MG CHEWABLE TABLET PO SCH (08:41)
[2024-08-24] MEDS ORDERED: HOME MED 1 EA UNK (Omeprazole [Omeprazole] 20 MG Capsule.Dr) PO SCH (09:00)
[2024-08-24] MEDS: INSULIN GLARGINE 100 UNIT/ML SQ SCH (10:44)
--- NOTE | 2024-08-24 12:48 | RAD REPORT ---
EXAMINATION: CT ABDOMEN AND PELVIS WITHOUT CONTRAST CLINICAL INDICATION: Female, 79 years old.pain TECHNIQUE: CT abdomen and pelvis was performed, without IV contrast, as per department protocol. Axia l, sagittal and coronal reconstructions were obtained. One or more of the following dose reduction techniques were used: Automated exposure control, adjustment of the mA and/or kV according to the pat ient size, and/or iterative reconstruction. Unless otherwise specified, incidental findings do not require dedicated imaging follow-up. [id number]. IV CONTRAST: Not administered. COMPARISON: None FINDINGS: The lack of intravenous contrast limits the sensitivity of this exam for evaluation of solid visceral organs, vascular structures, and retroperitoneum. LOWER CHEST: See separate report. UPPER GI: No significant abnormality. LIVER: No significant focal abnormality. GALLBLADDER/BILE DUCTS: Cholecystectomy. Mild extra-hepatic biliary ductal dilatation is likely relat ed to the post-cholecystectomy state. Consider correlating with LFT's.? PANCREAS: Atrophy but no acute findings. SPLEEN: Unremarkable. ADRENALS: Right adrenal nodule measuring 18 mm is unchanged since 2019 and benign. KIDNEYS AND URETERS: No hydronephrosis.Limited evaluation for renal lesions in the absence of IV cont rast.No renal calculi. ABDOMINAL AORTA AND OTHER VESSELS: Severe atherosclerotic changes. No aortic aneurysm. PERITONEUM: No abnormal free fluid. No free air. Body wall edema. LYMPH NODES: No pathologic lymphadenopathy. ABDOMINAL WALL: Intra-abdominal wall laxity. Small ventral hernia containing ventral wall of the gallego sverse colon. There may be some trace fluid or thickening along the right lateral aspect of the herniated colon. Moderate sized fat-containing supraumbilical hernia with relatively narrow neck. SMALL BOWEL/COLON: Small bowel has normal course and caliber. No colonic wall thickening or pericolon ic inflammatory changes. Mild diverticulosis without diverticulitis. Moderate formed stool burden. URINARY BLADDER: Underdistended but grossly unremarkable. REPRODUCTIVE ORGANS: Pessary. MUSCULOSKELETAL: Multilevel degenerative changes in the spine. No acute fracture. Grade 1 anterolisth esis of L4 and L5. ADDITIONAL FINDINGS: None. IMPRESSION: Chapman-type supraumbilical hernia with some questionable fluid or mild inflammation along the right aspect of the bowel wall within the hernia. The neck of the hernia is fairly wide but cannot exclude some degree of incarceration. Ancillary findings as noted above.
--- NOTE | 2024-08-24 12:52 | RAD REPORT ---
EXAMINATION: CT CHEST WITHOUT CONTRAST CLINICAL INDICATION: Female, 79 years old. COUGH TECHNIQUE: Routine CT scan of the chest without intravenous contrast. One or more of the following do se reduction techniques were used: Automated exposure control, adjustment of the mA and/or kV according to patient size, and/or iterative reconstruction. Unless otherwise specified, incidental fi ndings do not require dedicated imaging follow-up. [id number]. COMPARISON: 05/01/2024 FINDINGS: LOWER NECK: Left upper chest wall pacemaker. LUNGS AND AIRWAYS: Consolidative airspace disease in the left lower lobe, left greater than right.Mod erate emphysema. Scattered calcified and high attenuation nodules in the right upper lobe consistent with a benign etiology. Some other scattered sub-4 mm nodules are seen bilaterally includi ng some micronodularity in the lingula likely reflecting mild infection inflammation. Possibly aspirated contents in the left lower lobe bronchi. PLEURA: Moderate left and small right pleural effusion. MEDIASTINUM AND LYMPH NODES: Mild mediastinal and hilar lymphadenopathy which may be reactive but is similar to prior. Mild distal esophageal thickening. THORACIC AORTA: No thoracic aortic aneurysm. Atherosclerotic changes are present. PULMONARY ARTERIES: Caliber is within normal limits. HEART: Normal heart size. Severe coronary artery calcifications.No significant pericardial effusion. Aortic valve and mitral calcifications. OSSEOUS STRUCTURES AND CHEST WALL: Multilevel degenerative changes. No acute fracture. UPPER ABDOMEN: See separate report IMPRESSION: Consolidation in the lung bases, left greater than right, with debris and/or secretions in the left l ower lobe bronchi that may indicate aspiration. Some other scattered nodularity noted which likely reflects mild infection or inflammation. Small to moderate left and small right pleural effusions.
[2024-08-24 13:27] LABS: Absolute Eosinophils 0.3 K/uL (0-0.5); Absolute Lymphocytes (CBC) 0.6 K/uL (0.7-4.9); Absolute Monocytes 0.7 K/uL (0.1-1.3); Absolute Neutrophil 5.9 K/uL (1.8-8.0); Basophils % 0.6 % (0-1.3); Hematocrit 32.6 % (36.0-45.0); Hemoglobin 10.7 g/dL (12.0-15.0); Lymphocytes % 8.5 % (15.3-44.8); MCH 29.1 pg (27.0-35.0); MCHC 32.9 g/dL (32.0-36.0); MCV 88.5 fL (80-100); MPV 8.8 fL (7.6-11.3); Monocytes % 9.1 % (3.3-12.3); Neutrophils % 77.8 % (41.7-73.7); Platelets 407 thou/uL (152-406); RBC Red Blood Cell Count 3.68 M/uL (3.86-4.86)
[2024-08-24 13:38] LABS: Albumin 2.8 g/dL (3.4-5.0); Albumin/Globulin Ratio 0.6 (1.1-1.8); Anion Gap 9.9 mEq/L (5.0-15.0); Bilirubin Total 0.3 mg/dL (0.2-1.0); Globulin 4.9 g/dL (2.3-3.5); Potassium 4.9 mEq/L (3.5-5.1); Protein, Total 7.7 g/dL (6.4-8.2)
[2024-08-24] MEDS: DOXYCYCLINE 100 MG CAP PO SCH (20:51)
[2024-08-24 22:42] VITALS: BMI 19.6
[2024-08-24] MEDS: TRAZODONE 50 MG TABLET PO PRN (23:46)
[2024-08-24] MEDS: BENZONATATE 100 MG CAP PO PRN (23:46)
[2024-08-25] MEDS: CEFDINIR 300 MG CAP PO SCH (10:00)
[2024-08-25 10:14] VITALS: O2SAT 91
[2024-08-25] MEDS: METOCLOPRAMIDE 10 MG/2mL INJ IV SCH (11:05)
--- NOTE | 2024-08-25 15:17 | RAD REPORT ---
EXAMINATION: Small bowel series CLINICAL INDICATION: Female, 79 years old. ABD PAIN COMPARISON: CT abdomen and pelvis 08/24/2024. FINDINGS: Publication Distributor film shows a nonspecific bowel gas pattern. No obstruction or free air. No suspicious calcifica tions. Gastric size and mucosal fold pattern are normal. No delay in transit of contrast into the small sylvia l. Small bowel is normal in diameter with no mucosal fold thickening. No intrinsic or extrinsic mass identifiable. Terminal ileum has normal appearance. Transit time to the colon is mildly dilated, 5 hours. No fluoroscopy was performed. Total images acquired:13 IMPRESSION: Normal mucosal pattern. Mild delay in transit, with contrast reaching the cecum in 5 hours.
[2024-08-25 16:41] VITALS: BP 156/70; TEMP 98.5
--- NOTE | 2024-09-03 01:22 | P.PN ---
Subjective Date of Service: 08/22/24 Subjective: No new changes, No C/O voiced, Improving Review of Systems 10-point ROS is otherwise unremarkable Physical Examination - Vital Signs Temperature: 98.5 F Blood Pressure: 156/70 Pulse: 77 Respirations: 16 Pulse Ox (%): 92 - Physical Exam General: Alert, In no apparent distress, Oriented x3 HEENT: Atraumatic, PERRLA, EOMI Neck: Supple, JVD not distended Respiratory: Clear to auscultation bilaterally, Normal air movement Cardiovascular: Regular rate/rhythm, Normal S1 S2 Gastrointestinal: Normal bowel sounds, No tenderness Musculoskeletal: No tenderness Integumentary: No rashes Neurological: Normal speech, Normal tone, Normal affect Lymphatics: No axilla or inguinal lymphadenopathy - Studies Medications List Reviewed: Yes Assessment & Plan - Problems (Diagnosis) (1) Acute and chronic respiratory failure Status: Acute (2) CHF (congestive heart failure) Status: Acute (3) COPD with acute exacerbation Status: Acute (4) Chronic diastolic heart failure Status: Acute (5) DM type 2 (diabetes mellitus, type 2) Status: Acute (6) Hypertension Status: Acute (7) CKD (chronic kidney disease) stage 3, GFR 30-59 ml/min Status: Chronic Qualifiers: (8) COPD (chronic obstructive pulmonary disease) Status: Chronic Qualifiers: COPD type: emphysema Emphysema type: unspecified Qualified Code(s): J43.9 - Emphysema, unspecified - Plan 1. Continue with IV antibiotics 2. Awaiting sputum and blood culture 3. Repeat chest x-ray 4. Will proceed with CT scan of the chest if pneumonia is not improved to evaluate for postobstructive pneumonia 5. Respiratory isolation is not needed 6. Continue with nebs as needed 7. O2 per protocol 8. Continue with gentle hydration 9. Repeat labs including CBC and renal function in a.m. 10. GI and DVT prophylaxis Discharge Plan: Home Plan to discharge in: Greater than 2 days - Advance Directives Does patient have a Living Will: No Does patient have a Durable POA for Healthcare: No - Code Status/Comfort Care Code Status Assessed: Yes Code Status: Full Code Critical Care: No Time Spent Managing PTS Care (In Minutes): 35
--- NOTE | 2024-09-03 01:24 | P.PN ---
Date of Service: 08/23/24 Subjective Patient's respiratory status has improved. Patient is clinically doing a little bit better. Continue with O2 per protocol. Physical Examination - Vital Signs Reviewed - Physical Exam General: Alert, In no apparent distress, Oriented x3 Respiratory: Clear to auscultation bilaterally, Normal air movement Cardiovascular: Regular rate/rhythm, Normal S1 S2 Gastrointestinal: Normal bowel sounds, No tenderness Neurological: Normal speech, Normal tone, Normal affect Assessment & Plan - Problems (Diagnosis) (1) Acute and chronic respiratory failure Status: Acute (2) CHF (congestive heart failure) Status: Acute (3) COPD with acute exacerbation Status: Acute (4) Chronic diastolic heart failure Status: Acute (5) DM type 2 (diabetes mellitus, type 2) Status: Acute (6) Hypertension Status: Acute (7) CKD (chronic kidney disease) stage 3, GFR 30-59 ml/min Status: Chronic (8) COPD (chronic obstructive pulmonary disease) Status: Chronic COPD type: emphysema Emphysema type: unspecified Qualified Code(s): J43.9 - Emphysema, unspecified - Plan Continue with current plan of care as mentioned below: 1. Continue with IV antibiotics 2. Awaiting sputum and blood culture results 3. Repeat chest x-ray as needed 4. Continue with nebs as needed 5. O2 per protocol 6. Continue with gentle hydration 7. Repeat labs 8. GI and DVT prophylaxis Discharge Plan: Home Plan to discharge in: Greater than 2 days - Advance Directives Does patient have a Living Will: No Does patient have a Durable POA for Healthcare: No - Code Status/Comfort Care Code Status Assessed: Yes Code Status: Full Code Critical Care: No Time Spent Managing PTS Care (In Minutes): 35
--- NOTE | 2024-09-03 01:26 | P.PN ---
Date of Service: 08/24/24 Subjective Patient denies any new complaints. Patient clinical symptoms continue to improve.Working on discharge planning in a.m. with home health. Physical Examination - Vital Signs Reviewed - Physical Exam General: Alert, In no apparent distress, Oriented x3 Respiratory: Clear to auscultation bilaterally, Normal air movement Cardiovascular: Regular rate/rhythm, Normal S1 S2 Gastrointestinal: Normal bowel sounds, No tenderness Neurological: Normal speech, Normal tone, Normal affect Assessment & Plan - Problems (Diagnosis) (1) Acute and chronic respiratory failure Status: Acute (2) CHF (congestive heart failure) Status: Acute (3) COPD with acute exacerbation Status: Acute (4) Chronic diastolic heart failure Status: Acute (5) DM type 2 (diabetes mellitus, type 2) Status: Acute (6) Hypertension Status: Acute (7) CKD (chronic kidney disease) stage 3, GFR 30-59 ml/min Status: Chronic (8) COPD (chronic obstructive pulmonary disease) Status: Chronic COPD type: emphysema Emphysema type: unspecified Qualified Code(s): J43.9 - Emphysema, unspecified - Plan Continue with current plan of care as mentioned below: 1. Continue with IV antibiotics 2. Awaiting sputum and blood culture results 3. Repeat chest x-ray as needed 4. Continue with nebs as needed 5. O2 per protocol 6. Continue with gentle hydration 7. Repeat labs 8. GI and DVT prophylaxis Discharge Plan: Home Plan to discharge in: Greater than 2 days - Advance Directives Does patient have a Living Will: No Does patient have a Durable POA for Healthcare: No - Code Status/Comfort Care Code Status Assessed: Yes Code Status: Full Code Critical Care: No Time Spent Managing PTS Care (In Minutes): 25
--- NOTE | 2024-09-03 01:28 | P.DS ---
Discharge Date: 08/25/24 Disposition: DC HOME/HOME HEALTH CARE Discharge Condition: GOOD Reason for Admission: Shortness of breath - Problems (1) Acute and chronic respiratory failure Status: Acute (2) CHF (congestive heart failure) Status: Acute (3) COPD with acute exacerbation Status: Acute (4) Chronic diastolic heart failure Status: Acute (5) DM type 2 (diabetes mellitus, type 2) Status: Acute (6) Hypertension Status: Acute (7) CKD (chronic kidney disease) stage 3, GFR 30-59 ml/min Status: Chronic Qualifiers: (8) COPD (chronic obstructive pulmonary disease) Status: Chronic Qualifiers: COPD type: emphysema Emphysema type: unspecified Qualified Code(s): J43.9 - Emphysema, unspecified Brief History of Present Illness: Patient is a 79-year-old female with a past medical history of chronic respiratory failure and COPD on 2 L at home, congestive heart failure and hypertension. She is being admitted for shortness of breath. Associated symptoms include productive cough. She denies fever. She also denies lower extremity edema. Patient desatted on 2 L in the ER. Chest x-ray shows bibasilar pneumonia. Patient has a BNP of more than 1600. She was seen here 2 weeks ago for COPD exacerbation and was discharged with home oxygen. Hospital Course: Patient was treated for acute respiratory failure with nebs, steroids and patient was also given diuretics for heart failure. Patient's clinical symptoms improved. Patient is doing much better. At this time patient is stable for discharge with outpatient follow-up. Vital Signs/Physical Exam: Temp Pulse Resp BP Pulse Ox 98.5 F 77 16 156/70 H 92 09/03/24 01:22 09/03/24 01:22 09/03/24 01:22 09/03/24 01:22 09/03/24 01:22 General: Alert, In no apparent distress, Oriented x3 Laboratory Data at Discharge: WBC 7.60 thou/uL (4.3-10.9) 08/24/24 13:06 Hgb 10.7 g/dL (12.0-15.0) L 08/24/24 13:06 Hct 32.6 % (36.0-45.0) L 08/24/24 13:06 Plt Count 407 thou/uL (152-406) H 08/24/24 13:06 PT 12.3 SECONDS (10.0-13.0) 08/21/24 20:06 INR 1.08 08/21/24 20:06 APTT 29.1 SECONDS (24.3-36.9) 08/21/24 20:06 Sodium 134 mEq/L (136-145) L 08/24/24 13:06 Potassium 4.9 mEq/L (3.5-5.1) 08/24/24 13:06 BUN 25 mg/dL (7-18) H 08/24/24 13:06 Creatinine 1.50 mg/dL (0.55-1.02) H 08/24/24 13:06 Glucose 286 mg/dL (74-106) H 08/24/24 13:06 Phosphorus 2.5 mg/dL (2.5-4.9) 08/21/24 20:06 Magnesium 2.2 mg/dL (1.6-2.4) 08/21/24 20:06 Total Bilirubin 0.3 mg/dL (0.2-1.0) 08/24/24 13:06 AST 65 U/L (15-37) H 08/24/24 13:06 ALT 56 U/L (13-56) 08/24/24 13:06 Alkaline Phosphatase 154 U/L (45-117) H 08/24/24 13:06 Triglycerides 84 mg/dL (<150) 08/22/24 04:12 Cholesterol 86 mg/dL (<200) 08/22/24 04:12 HDL Cholesterol 39 mg/dL (40-60) L 08/22/24 04:12 Cholesterol/HDL Ratio 2.21 08/22/24 04:12 Home Medications: Aspirin Chewable [Aspirin Chewable*] 81 mg PO DAILY 09/20/23 Atorvastatin Calcium 40 mg PO BEDTIME 09/20/23 Buspirone HCl [Buspar*] 10 mg PO TID 09/20/23 Citalopram [Celexa*] 20 mg PO DAILY 09/20/23 Levothyroxine Sodium 75 mcg PO DAILY 09/20/23 Loratadine [Claritin*] 10 mg PO DAILY 09/20/23 Megestrol [Megace*] 20 mg PO QID 09/20/23 Omeprazole 20 mg PO DAILY 09/20/23 Ticagrelor [Brilinta*] 90 mg PO BID 09/20/23 Quetiapine [Seroquel*] 50 mg PO BEDTIME tab 04/05/24 Albuterol Neb [Proventil 0.083% Neb Soln] 2.5 mg NEB TIDRESP PRN amp 08/02/24 Furosemide [Lasix] 20 mg PO DAILY #30 tab 08/02/24 Insulin Lispro 5 unit SQ TID #10 ml 08/02/24 Spironolactone [Aldactone*] 12.5 mg PO DAILY #30 tab 08/02/24 Hydralazine [Apresoline*] 40 mg PO BID 08/22/24 Albuterol Neb [Proventil 0.083% Neb Soln] 2.5 mg NEB Q6HP PRN #60 amp 08/25/24 Benzonatate [Tessalon Perle*] 100 mg PO TID PRN #30 cap 08/25/24 Cefdinir [Cefdinir*] 300 mg PO DAILY #7 cap 08/25/24 Doxycycline Hyclate 100 mg PO BID #14 tab 08/25/24 Insulin Glargine,Hum.rec.anlog [Semglee] 8 unit SQ DAILY ml 08/25/24 Ipratropium Neb [Atrovent*] 0.5 mg NEB [id number] PRN #60 amp 08/25/24 Trazodone HCl [Desyrel] 100 mg PO BEDTIME PRN PRN #30 tab 08/25/24 Trazodone [Desyrel*] 100 mg PO BEDTIME PRN PRN #20 08/25/24 New Medications: Ipratropium Neb [Atrovent*] 0.5 mg NEB [id number] PRN #60 amp PRN Reason: Shortness Of Breath Cefdinir [Cefdinir*] 300 mg PO DAILY #7 cap Trazodone HCl [Desyrel] 100 mg PO BEDTIME PRN PRN #30 tab PRN Reason: Insomnia Trazodone [Desyrel*] 100 mg PO BEDTIME PRN PRN #20 PRN Reason: Insomnia Doxycycline Hyclate 100 mg PO BID #14 tab Albuterol Neb [Proventil 0.083% Neb Soln] 2.5 mg NEB Q6HP PRN #60 amp PRN Reason: Shortness Of Breath Benzonatate [Tessalon Perle*] 100 mg PO TID PRN #30 cap PRN Reason: Cough Physician Discharge Instructions: -DC IV and DC home -Follow-up with PCP in 1 to 2 weeks -Follow-up with Endocrinology in 1 to 2 weeks -FOllow-up with Nephrology in 2-4 weeks -Please call Dr. Mcdonald at [phone] if any questions regarding hospital stay -Please call nursing station at [phone] if any nursing or medication questions -Return to the emergency room if symptoms worsen Diet: ADA Activity: Fall precautions Followup: SUSI SEPULVEDA [Primary Care Provider] - Time spent managing pt's care (in minutes): 35
== END 2024-08-25 17:58 | disposition home health service (06) | DRG 193 ==
LOC: ER 16:33 → 2ND 18:58
PROVIDERS: ADMIT Internal Medicine; ATTEND Hospitalist
DX: J18.9 Pneumonia, unspecified organism (principal); I50.43 Acute on chronic combined systolic (congestive) and diastolic (congestive) heart failure; J96.21 Acute and chronic respiratory failure with hypoxia; J44.1 Chronic obstructive pulmonary disease with (acute) exacerbation; J44.0 Chronic obstructive pulmonary disease with (acute) lower respiratory infection; I13.0 Hypertensive heart and chronic kidney disease with heart failure and stage 1 through stage 4 chronic kidney disease, or unspecified chronic kidney disease; Z99.81 Dependence on supplemental oxygen; E11.22 Type 2 diabetes mellitus with diabetic chronic kidney disease; N18.30 Chronic kidney disease, stage 3 unspecified; Z79.4 Long term (current) use of insulin; E03.9 Hypothyroidism, unspecified; Z95.0 Presence of cardiac pacemaker; Z90.710 Acquired absence of both cervix and uterus; Z95.5 Presence of coronary angioplasty implant and graft; I34.81 Nonrheumatic mitral (valve) annulus calcification
CPT/HCPCS: 36415; 71045; 71250; 74018; 74176; 74250; 80048; 80053; 80061; 80076; 82947; 83036; 83605; 83735; 83880; 84100; 84145; 84484; 85025; 85610; 85730; 87040; 87428; 93005; 94640; 94668; 94760; 97116; 97161; 97530; 99285; J0696; J1644; J1815; J1940; J2765; J2919; J7050; J7613; J7644